=== PATIENT | male | born 1945 | race African-American/Black ===

== ENCOUNTER 2018-06-15 10:39 | Emergency (ER) | payer MEDICARE ==
[2018-06-15 11:21] LABS: Hemoglobin 16.3 g/dL (14.0-18.0); Mean Corpuscular HGB CONC 33.6 g/dL (32.0-36.0); Mean Corpuscular Hemoglobin 32.1 pg (27.0-31.0); Mean Corpuscular Volume 95.7 fL (78.0-98.0); Mean Platelet Volume 7.6 fL (7.4-10.4); Platelet Count 189 thou/uL (130-400); RBC Distribution Width 11.9 % (11.5-14.5); Red Blood Cell (RBC) Count 5.06 mill/uL (4.70-6.10); White Blood Cell (WBC) Count 6.2 thou/uL (4.8-10.8)
[2018-06-15 11:39] LABS: Band 14 % (5-11); Eosinophils 7 % (0-10); Lymphocytes 30 % (21-51); MDiff Complete? YES; Metamyelocyte 1 % (0-0); Monocytes 13 % (0-10); Neutrophil 28 % (42-75); Reactive Lymphocytes 7 % (0-10)
[2018-06-15 11:44] LABS: ALT (SGPT) 23 U/L (8-55); AST (SGOT) 25 U/L (5-34); Albumin 3.8 g/dL (3.4-4.8); Alkaline Phosphatase 83 U/L (40-150); Anion Gap 11 mmol/L (10-20); BUN (Urea Nitrogen) 13 mg/dL (8.4-25.7); Bilirubin, Total 0.6 mg/dL (0.2-1.2); CK (CPK) 208 U/L (30-200); Calc. Creatinine Clearance 0 mL/min (70-130); Calcium 9.6 mg/dL (7.8-10.44); Carbon Dioxide 27 mmol/L (23-31); Chloride 104 mmol/L (98-107); Estimated GFR-MDRD Greater than 90; Globulin 3.9 g/dL (2.4-3.5); Glucose 144 mg/dL (83-110); Lipase 36 U/L (8-78); Potassium 4.2 mmol/L (3.5-5.1); Protein, Total 7.7 g/dL (5.8-8.1); Sodium 138 mmol/L (136-145)
--- NOTE | 2018-06-15 12:09 | RAD ---
PORTABLE CHEST: INDICATION: Chest pain. COMPARISON: 09/16/2016. FINDINGS: There is evidence of emphysematous change in the right upper lobe, stable in appearance. No infiltra te or vascular congestion. Heart size within normal range. Postop sternotomy changes again noted. Numerous metallic foreign bodies overlie the left chest, stable in appearance. IMPRESSION: No acute process. POS: [facility]
[2018-06-15] MEDS ORDERED: predniSONE 20 MG TAB ONE (12:37)
[2018-06-15] MEDS ORDERED: Albuterol Sulfate 2.5 mg/3 ml Neb ONE ×2 (13:10→14:10)
--- NOTE | 2018-06-17 13:43 | EKG ---
Test Reason : Blood Pressure : / mmHG Vent. Rate : 070 BPM Atrial Rate : 070 BPM P-R Int : 150 ms QRS Dur : 082 ms QT Int : 412 ms P-R-T Axes : 067 -38 084 degrees QTc Int : 444 ms Normal sinus rhythm Left axis deviation Abnormal ECG Confirmed by SURI SHEA ([id number]), publication editor BRYAN SNEED ([id number]) on 06/17/2018 1:42:57 PM Referred By: Confirmed By:SURI SHEA
== END 2018-06-15 14:57 | disposition home or self-care (01) ==
LOC: ERS 10:39
DX: J44.1 Chronic obstructive pulmonary disease with (acute) exacerbation (principal); E78.5 Hyperlipidemia, unspecified; I10 Essential (primary) hypertension; F17.220 Nicotine dependence, chewing tobacco, uncomplicated; Z79.82 Long term (current) use of aspirin; Z79.899 Other long term (current) drug therapy
CPT/HCPCS: 36415; 71045; 80053; 82550; 83690; 83880; 85025; 93005; 94640; 94760; J7506; J7611; J7620

== ENCOUNTER 2018-08-08 15:57 | Inpatient (IN) | payer MEDICARE ==
[2018-08-08] MEDS ORDERED: Ondansetron PF 4 MG/2 ML Vial IVP PRN (18:36)
[2018-08-08] MEDS ORDERED: Ondansetron ODT 4 MG TAB PO PRN (18:36)
[2018-08-08 19:12] VITALS: BMI 29.2
--- NOTE | 2018-08-08 20:02 | HP ---
REASON FOR ADMISSION: COPD exacerbation with hypoxia. HISTORY OF PRESENT ILLNESS AND REVIEW OF SYSTEMS: Mr. Beltre is a very pleasant 73-year-old man with a history of COPD, coronary artery disease, and CHF, who has undergone multiple surgeries including a quadruple bypass, followed by stent placement and more recently an aortic valve replacement. The patient states he has mild shortness of breath at baseline with a chronic cough; however, states he has been significantly worse compared to his baseline since yesterday morning. He states he felt perfectly fine on Tuesday and was enjoying watching the game with his family. He woke up on Tuesday with difficulty breathing and has carried on with persistent coughing fits, unable to produce any sputum despite feeling chest congestion. The patient states his grandchildren were sick recently with cold type symptoms and his became sick as well. He denies having any fevers, chest pain, or palpitations. He mainly complains of difficulty catching his breath especially when having coughing fits and inability to clear his chest of sputum. The patient was seen in [place], where he was given steroids as well as 3 nebulizer treatments with minimal improvement. He was noted to be hypoxic with saturations of 80% on room air. Since arriving to the ED here, the patient states he has had minimal improvement. His saturations were initially 94% on 3 L and improved to 99% on room air, following additional DuoNebs. He is being admitted for further management. At present, the patient denies having any chest pain or palpitations. Denies any headaches or dizziness. Has not noted any hemoptysis. Denies having any fevers, chills, or sweats. Denies any abdominal pain or cramping. No urinary symptoms. Reports no recent weight loss. Has had normal appetite recently without any changes in his bowels. Denies any urinary symptoms. All other review of systems are negative. Of note, the patient does require CPAP at night. He does not normally use oxygen at home. ALLERGIES: NO KNOWN DRUG ALLERGIES. HOME MEDICATIONS: 1. Pantoprazole 40 mg daily. 2. Loratadine 10 mg p.r.n. 3. Metoprolol 100 mg b.i.d. 4. Aspirin 81 mg p.o. daily. 5. Isosorbide mononitrate 90 mg p.o. daily. 6. Niacin 500 mg p.o. daily. 7. Lisinopril 5 mg p.o. daily. 8. Gabapentin 200 mg p.o. t.i.d. 9. Fluticasone 1 spray in both nares. 10. Atorvastatin 80 mg p.o. at bedtime. 11. Vitamin B12 of 1000 mcg p.o. daily. 12. Symbicort. 13. Prednisone 20 mg p.o. daily. 14. Z-Chuy p.r.n. PHYSICAL EXAMINATION: GENERAL: The patient appears well developed, well nourished, and comfortable; however, with apparent shortness of breath once coughing fits ensue. He is able to recover quickly. Able to speak in full sentences. VITAL SIGNS: Temperature 99, pulse 85, respirations 20, blood pressure 140/70, and O2 saturation 99% on room air. HEENT: Normocephalic and atraumatic. Pupils are equal, round, and reactive to light. Scleral without icterus. Oropharynx is clear. NECK: Supple. No lymphadenopathy. LUNGS: Notable for diffuse expiratory wheezing, significantly worse on the left lower lung field. CARDIAC: Regular rate and rhythm. ABDOMEN: Soft, nontender, and nondistended with bowel sounds present. EXTREMITIES: No clubbing, cyanosis, or edema. NEUROLOGIC: Alert and oriented x3. SKIN: Without rash or jaundice. LABORATORY DATA: White blood count 5.6, hemoglobin 15.3, hematocrit 48.9, and platelets 171. Sodium 140, potassium 4.1, chloride 104, BUN 8, creatinine 0.78, eGFR greater than 90, glucose 94, calcium 9.7, total bilirubin 0.5, AST 19, ALT 16, and alkaline phosphatase 71. Troponin was 0.010. BNP 150.8, previously 86.5 in June 2018. IMAGING DATA: Chest x-ray, August 08, 2017, no evidence of acute cardiopulmonary disease. Normal size cardiomediastinal silhouette. PAST MEDICAL HISTORY: 1. COPD. 2. Coronary artery disease. 3. Hypertension. 4. GERD. 5. Hyperlipidemia. 6. Glaucoma. 7. Status post CABG x4. 8. Catheterization with stents x3. 9. History of aortic stenosis status post TAVR. 10. Diabetes. 11. Current smoker. 12. Sleep apnea. PAST SURGICAL HISTORY: 1. CABG x4. 2. Cardiac stents x3 due to blockage that occurred following previous CABG. 3. Aortic valve replacement. 4. Orthopedic surgery. 5. Bilateral carpal tunnel surgery. 6. Right side rotator cuff surgery. SOCIAL HISTORY: The patient lives with his . He can mobilize independently at home, but for long distances outside of his home, he requires a walker. He continues smoking half a pack per day since age 15. IMPRESSION AND PLAN: Mr. Beltre is a very pleasant 73-year-old man, admitted for management of the following conditions. 1. Hypoxia. Improved to 99% on room air following additional nebulizer treatments and given prednisone prior to transfer from [place]. Continue to monitor O2 saturations. Chest x-ray unremarkable. 2. Likely chronic obstructive pulmonary disease exacerbation. The patient states he was exposed to unwell family members, who recently caught a cold. Likely to be a viral exacerbation as the patient denies any purulent sputum. However, he is having difficulty in bringing up phlegm. We will initiate antibiotics with doxycycline. 3. Coughing fits. We will provide symptomatic management with guaifenesin and Tessalon Perles. Sputum culture requested. 4. Hypertension. Resume home medications. 5. Diabetes. Resume home medications. Monitor glucose. Continue insulin sliding scale. 6. Diet. Diabetic/heart healthy diet. 7. Gastrointestinal prophylaxis. 8. Venous thromboembolism prophylaxis. The patient's case to be discussed with Dr. Garcia, for further recommendations. Job ID: [id number]
[2018-08-08] MEDS: Famotidine 20 MG TAB PO SCH (20:54)
[2018-08-08] MEDS: Sodium Chloride 0.9% 1,000 ML IV SCH (20:57)
[2018-08-08] MEDS: Nicotine 14 MG PATCH TD SCH (20:59)
[2018-08-08] MEDS ORDERED: cefTRIAXone\\ROCEPHIN 1 GM in Sodium Chloride 0.9% 100 ML IVPB SCH (21:00)
[2018-08-08] MEDS: Guaifenesin DM 100-10/5 ML UDCUP PO PRN (21:02)
[2018-08-08] MEDS: Azithromycin 500 MG in Sodium Chloride 0.9% 250 ML 250 ML IVPB SCH (22:32)
[2018-08-09] MEDS: Guaifenesin DM 100-10/5 ML UDCUP PO PRN (01:36)
[2018-08-09 08:15] LABS: Hemoglobin 16.1 g/dL (14.0-18.0); Mean Corpuscular HGB CONC 31.8 g/dL (32.0-36.0); Mean Corpuscular Hemoglobin 31.6 pg (27.0-31.0); Mean Corpuscular Volume 99.3 fL (78.0-98.0); Platelet Count 169 thou/uL (130-400); RBC Distribution Width 12.6 % (11.5-14.5); Red Blood Cell (RBC) Count 5.09 mill/uL (4.70-6.10); White Blood Cell (WBC) Count 7.5 thou/uL (4.8-10.8)
[2018-08-09] MEDS: Famotidine 20 MG TAB PO SCH ×2 (08:21→21:11)
[2018-08-09] MEDS: Enoxaparin Sodium 30 MG/0.3 ML SYRINGE SC SCH (08:21)
[2018-08-09 08:32] LABS: ALT (SGPT) 14 U/L (8-55); AST (SGOT) 19 U/L (5-34); Albumin 4.6 g/dL (3.4-4.8); Alkaline Phosphatase 74 U/L (40-150); Anion Gap 12 mmol/L (10-20); BUN (Urea Nitrogen) 8 mg/dL (8.4-25.7); Bilirubin, Total 0.4 mg/dL (0.2-1.2); Calc. Creatinine Clearance 129 mL/min (70-130); Calcium 10.1 mg/dL (7.8-10.44); Carbon Dioxide 25 mmol/L (23-31); Chloride 106 mmol/L (98-107); Estimated GFR-MDRD Greater than 90; Globulin 3.6 g/dL (2.4-3.5); Glucose 108 mg/dL (83-110); Potassium 4.4 mmol/L (3.5-5.1); Protein, Total 8.2 g/dL (5.8-8.1); Sodium 139 mmol/L (136-145)
[2018-08-09] MEDS ORDERED: predniSONE 20 MG TAB PO SCH (09:00)
[2018-08-09 09:31] LABS: Band 4 % (5-11); Lymphocytes 13 % (21-51); MDiff Complete? YES; Macrocytosis SLIGHT = 6-15 cells (100X) (0-5/hpf); Monocytes 14 % (0-10); Neutrophil 67 % (42-75); Platelet Morphology Comment Appears Adequate; Polychromasia SLIGHT = 2-3 cells (100X) (0-2/hpf); Reactive Lymphocytes 2 % (0-10)
--- NOTE | 2018-08-09 10:30 | PDOC.PN ---
- Subjective Encounter Start Date: 08/09/18 Encounter Start Time: 10:28 Subjective: sob slightly improved, nonproductive cough - Objective Resuscitation Status - Order Detail: 08/08/18 18:36 Resuscitation Status Routine Co-Sign Provider: Resuscitation Status: FULL: Full Resuscitation MAR Reviewed: Yes Vital Signs & Weight: Vital Signs (12 hours) Temp Pulse Resp BP BP Pulse Ox 08/09/18 08:38 95 08/09/18 07:25 98.0 F 93 16 164/87 H 95 08/09/18 04:00 98.0 F 93 20 144/71 H 92 L Weight Weight 210 lb I&O: 08/08/18 08/09/18 08/10/18 06:59 06:59 06:59 Intake Total 869 Output Total 975 Balance -106 Result Diagrams: 08/09/18 07:38 08/09/18 07:38 Additional Labs: Accuchecks 08/09/18 08/08/18 05:18 20:28 POC Glucose 109 187 H Phys Exam - Physical Examination Neck: no JVD hyperresonant, diffuse tight wheezedd Cardiovascular: RRR, no significant murmur Gastrointestinal: soft, positive bowel sounds Musculoskeletal: no edema Dx/Plan (1) COPD exacerbation Code(s): J44.1 - CHRONIC OBSTRUCTIVE PULMONARY DISEASE W (ACUTE) EXACERBATION Status: Acute (2) DM type 2 (diabetes mellitus, type 2) Status: Acute Qualifiers: Diabetes mellitus fpc insulin use: without oil heaterman use Diabetes mellitus complication status: without complication Qualified Code(s): E11.9 - Type 2 diabetes mellitus without complications (3) Aortic valve prosthesis present Code(s): Z95.2 - PRESENCE OF PROSTHETIC HEART VALVE Status: Chronic (4) Acute and chronic respiratory failure Code(s): J96.20 - ACUTE AND CHR RESP FAILURE, UNSP W HYPOXIA OR HYPERCAPNIA Status: Acute Qualifiers: Respiratory failure complication: hypoxia Qualified Code(s): J96.21 - Acute and chronic respiratory failure with hypoxia (5) CAD (coronary artery disease) Code(s): I25.10 - ATHSCL HEART DISEASE OF [place] CORONARY ARTERY W/O ANG PCTRS Status: Chronic Qualifiers: Coronary Disease-Associated Artery/Lesion type: [place] artery [place] vs. transplanted heart: [place] heart Associated angina: without angina Qualified Code(s): I25.10 - Atherosclerotic heart disease of [place] coronary artery without angina pectoris (6) Hypertension Code(s): I10 - ESSENTIAL (PRIMARY) HYPERTENSION Status: Chronic Qualifiers: Hypertension type: essential hypertension Qualified Code(s): I10 - Essential (primary) hypertension - Plan cont O2, nebs, LABA -: DC po pred, start slo-medrol q 6h -: selected home meds * .
[2018-08-09] MEDS: methylPREDNISolone Sod Succ 40 MG VIAL IVP SCH ×3 (13:17→22:43)
[2018-08-09] MEDS: Sodium Chloride 0.9% 1,000 ML IV SCH (17:26)
[2018-08-09] MEDS: Mometasone/Formoterol 120 PUFF INHALER INH SCH (18:18)
[2018-08-09] MEDS: Azithromycin 500 MG in Sodium Chloride 0.9% 250 ML 250 ML IVPB SCH (21:09)
[2018-08-09] MEDS: Nicotine 14 MG PATCH TD SCH (21:11)
[2018-08-09] MEDS: Metoprolol Tartrate 50 MG TAB PO SCH (21:11)
[2018-08-10] MEDS: Sodium Chloride 0.9% 1,000 ML IV SCH ×2 (05:18→17:20)
[2018-08-10] MEDS: methylPREDNISolone Sod Succ 40 MG VIAL IVP SCH ×3 (05:18→17:20)
[2018-08-10] MEDS: Mometasone/Formoterol 120 PUFF INHALER INH SCH ×2 (06:39→19:48)
[2018-08-10] MEDS: Famotidine 20 MG TAB PO SCH ×2 (08:45→20:28)
[2018-08-10] MEDS: Lisinopril 5 MG TAB PO SCH (08:47)
[2018-08-10] MEDS: Enoxaparin Sodium 30 MG/0.3 ML SYRINGE SC SCH (08:48)
[2018-08-10] MEDS: Aspirin 81 mg Enteric Coated Tablet PO SCH (08:48)
[2018-08-10] MEDS: Atorvastatin Calcium 40 MG TAB PO SCH (08:48)
[2018-08-10] MEDS: Metoprolol Tartrate 50 MG TAB PO SCH ×2 (08:48→20:27)
--- NOTE | 2018-08-10 10:09 | PDOC.PN ---
- Subjective Encounter Start Date: 08/10/18 Encounter Start Time: 10:07 Subjective: sob improved, mild prod cough - Objective Resuscitation Status - Order Detail: 08/08/18 18:36 Resuscitation Status Routine Co-Sign Provider: Resuscitation Status: FULL: Full Resuscitation MAR Reviewed: Yes Vital Signs & Weight: Vital Signs (12 hours) Temp Pulse Resp BP BP BP Pulse Ox 08/10/18 08:51 93 L 08/10/18 08:47 102 H 117/67 08/10/18 08:00 98.1 F 102 H 22 H 117/67 93 L 08/10/18 06:41 98 08/10/18 06:40 78 20 98 08/10/18 06:39 78 20 98 08/10/18 05:44 97.9 F 73 20 116/67 93 L 08/10/18 00:00 97.3 F L 70 20 121/69 97 Weight Weight 210 lb I&O: 08/09/18 08/10/18 08/11/18 06:59 06:59 06:59 Intake Total 869 2360 Output Total 975 1770 Balance -106 590 Result Diagrams: 08/09/18 07:38 08/09/18 07:38 Additional Labs: Accuchecks 08/10/18 08/09/18 08/09/18 05:47 19:59 16:24 POC Glucose 149 H 230 H 154 H 08/09/18 12:24 POC Glucose 118 H Phys Exam - Physical Examination Neck: no JVD hyperresonant, coarse BS Cardiovascular: RRR, no significant murmur Gastrointestinal: soft, positive bowel sounds Musculoskeletal: no edema Dx/Plan (1) COPD exacerbation Code(s): J44.1 - CHRONIC OBSTRUCTIVE PULMONARY DISEASE W (ACUTE) EXACERBATION Status: Acute (2) DM type 2 (diabetes mellitus, type 2) Status: Acute Qualifiers: Diabetes mellitus adjunct faculty for medical 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 insulin use: without assisted use Diabetes mellitus complication status: without complication Qualified Code(s): E11.9 - Type 2 diabetes mellitus without complications (3) Aortic valve prosthesis present Code(s): Z95.2 - PRESENCE OF PROSTHETIC HEART VALVE Status: Chronic (4) Acute and chronic respiratory failure Code(s): J96.20 - ACUTE AND CHR RESP FAILURE, UNSP W HYPOXIA OR HYPERCAPNIA Status: Acute Qualifiers: Respiratory failure complication: hypoxia Qualified Code(s): J96.21 - Acute and chronic respiratory failure with hypoxia (5) CAD (coronary artery disease) Code(s): I25.10 - ATHSCL HEART DISEASE OF [place] CORONARY ARTERY W/O ANG PCTRS Status: Chronic Qualifiers: Coronary Disease-Associated Artery/Lesion type: [place] artery [place] vs. transplanted heart: [place] heart Associated angina: without angina Qualified Code(s): I25.10 - Atherosclerotic heart disease of [place] coronary artery without angina pectoris (6) Hypertension Code(s): I10 - ESSENTIAL (PRIMARY) HYPERTENSION Status: Chronic Qualifiers: Hypertension type: essential hypertension Qualified Code(s): I10 - Essential (primary) hypertension - Plan improving. cont agressive [place] with iv steroids, nebs, antibx LABA * .
[2018-08-10] MEDS: Senokot S 8.6-50 MG TAB PO PRN (17:28)
[2018-08-10] MEDS: Nicotine 14 MG PATCH TD SCH (20:27)
[2018-08-10] MEDS ORDERED: Azithromycin 250 MG TAB PO SCH (22:00)
[2018-08-11] MEDS: methylPREDNISolone Sod Succ 40 MG VIAL IVP SCH ×4 (00:40→17:32)
[2018-08-11] MEDS: Sodium Chloride 0.9% 1,000 ML IV SCH (05:24)
[2018-08-11] MEDS: Mometasone/Formoterol 120 PUFF INHALER INH SCH ×2 (07:25→19:40)
[2018-08-11] MEDS: Famotidine 20 MG TAB PO SCH ×2 (08:25→20:36)
[2018-08-11] MEDS: Metoprolol Tartrate 50 MG TAB PO SCH ×2 (08:25→20:36)
[2018-08-11] MEDS: Aspirin 81 mg Enteric Coated Tablet PO SCH (08:25)
[2018-08-11] MEDS: Atorvastatin Calcium 40 MG TAB PO SCH (08:25)
[2018-08-11] MEDS: Lisinopril 5 MG TAB PO SCH (08:25)
[2018-08-11] MEDS: Enoxaparin Sodium 30 MG/0.3 ML SYRINGE SC SCH (08:26)
--- NOTE | 2018-08-11 11:43 | PDOC.PN ---
- Subjective Encounter Start Date: 08/11/18 Encounter Start Time: 11:41 Subjective: slow improvement in cough/sob - Objective Resuscitation Status - Order Detail: 08/08/18 18:36 Resuscitation Status Routine Co-Sign Provider: Resuscitation Status: FULL: Full Resuscitation MAR Reviewed: Yes Vital Signs & Weight: Vital Signs (12 hours) Temp Pulse Resp BP BP Pulse Ox 08/11/18 08:25 79 122/73 08/11/18 08:00 90 L 08/11/18 07:45 97.7 F 87 18 122/73 90 L Weight Weight 210 lb I&O: 08/10/18 08/11/18 08/12/18 06:59 06:59 06:59 Intake Total 2360 2700 Output Total 1770 2320 Balance 590 380 Result Diagrams: 08/09/18 07:38 08/09/18 07:38 Additional Labs: Accuchecks 08/11/18 08/10/18 08/10/18 05:49 21:17 16:49 POC Glucose 129 H 144 H 126 H Phys Exam - Physical Examination Neck: no JVD hyperresnant, diffuse wheezes Cardiovascular: RRR, no significant murmur Gastrointestinal: soft, non-tender, positive bowel sounds Musculoskeletal: no edema Dx/Plan (1) COPD exacerbation Code(s): J44.1 - CHRONIC OBSTRUCTIVE PULMONARY DISEASE W (ACUTE) EXACERBATION Status: Acute (2) DM type 2 (diabetes mellitus, type 2) Status: Acute Qualifiers: Diabetes mellitus intermediate school 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 insulin use: without custodial use Diabetes mellitus complication status: without complication Qualified Code(s): E11.9 - Type 2 diabetes mellitus without complications (3) Aortic valve prosthesis present Code(s): Z95.2 - PRESENCE OF PROSTHETIC HEART VALVE Status: Chronic (4) Acute and chronic respiratory failure Code(s): J96.20 - ACUTE AND CHR RESP FAILURE, UNSP W HYPOXIA OR HYPERCAPNIA Status: Acute Qualifiers: Respiratory failure complication: hypoxia Qualified Code(s): J96.21 - Acute and chronic respiratory failure with hypoxia (5) CAD (coronary artery disease) Code(s): I25.10 - ATHSCL HEART DISEASE OF [place] CORONARY ARTERY W/O ANG PCTRS Status: Chronic Qualifiers: Coronary Disease-Associated Artery/Lesion type: [place] artery [place] vs. transplanted heart: [place] heart Associated angina: without angina Qualified Code(s): I25.10 - Atherosclerotic heart disease of [place] coronary artery without angina pectoris (6) Hypertension Code(s): I10 - ESSENTIAL (PRIMARY) HYPERTENSION Status: Chronic Qualifiers: Hypertension type: essential hypertension Qualified Code(s): I10 - Essential (primary) hypertension - Plan cont aggressive nebs, steroids, LABA -: sputum C&S gm neg rods- change antibx to omnicef -: O2 to keep sats> 92 -: will need 2-3 more hosp days * .
[2018-08-11] MEDS ORDERED: Cefdinir 300 MG CAP PO SCH (12:00)
[2018-08-11] MEDS: Nicotine 14 MG PATCH TD SCH (20:35)
[2018-08-11] MEDS: Cefdinir 300 MG CAP PO SCH (20:36)
[2018-08-12] MEDS: methylPREDNISolone Sod Succ 40 MG VIAL IVP SCH ×5 (00:12→23:50)
[2018-08-12] MEDS: Sodium Chloride 0.9% 1,000 ML IV SCH ×2 (00:12→17:05)
[2018-08-12] MEDS: Mometasone/Formoterol 120 PUFF INHALER INH SCH ×2 (06:36→19:32)
[2018-08-12] MEDS: Enoxaparin Sodium 30 MG/0.3 ML SYRINGE SC SCH (07:58)
[2018-08-12] MEDS: Famotidine 20 MG TAB PO SCH ×2 (07:58→20:28)
[2018-08-12] MEDS: Atorvastatin Calcium 40 MG TAB PO SCH (07:58)
[2018-08-12] MEDS: Cefdinir 300 MG CAP PO SCH ×2 (07:58→20:29)
[2018-08-12] MEDS: Lisinopril 5 MG TAB PO SCH (07:58)
[2018-08-12] MEDS: Aspirin 81 mg Enteric Coated Tablet PO SCH (07:58)
[2018-08-12] MEDS: Metoprolol Tartrate 50 MG TAB PO SCH ×2 (07:59→20:28)
[2018-08-12] MEDS ORDERED: HumaLOG 300 UNITS/3 ML VIAL SC PRN (12:24)
[2018-08-12] MEDS: HumaLOG 300 UNITS/3 ML VIAL SC PRN (12:35)
--- NOTE | 2018-08-12 15:44 | PDOC.PN ---
- Subjective Encounter Start Date: 08/12/18 Encounter Start Time: 10:20 Pt seen for followup re: COPD exacerbation. c/o cough, SOBOE. - Objective Resuscitation Status - Order Detail: 08/08/18 18:36 Resuscitation Status Routine Co-Sign Provider: Resuscitation Status: FULL: Full Resuscitation MAR Reviewed: Yes Vital Signs & Weight: Vital Signs (12 hours) Temp Pulse Resp BP Pulse Ox 08/12/18 12:45 98.0 F 86 16 136/63 92 L 08/12/18 11:42 97 08/12/18 11:39 87 20 97 08/12/18 08:35 97.4 F L 87 18 142/83 H 93 L 08/12/18 08:11 93 L 08/12/18 08:02 98 F 87 18 142/83 H 93 L 08/12/18 06:39 96 08/12/18 06:36 87 16 93 L 08/12/18 05:31 84 20 Weight Weight 210 lb I&O: 08/11/18 08/12/18 08/13/18 06:59 06:59 06:59 Intake Total 2700 1903 Output Total 2320 1175 Balance 380 728 Result Diagrams: 08/09/18 07:38 08/09/18 07:38 Additional Labs: Accuchecks 08/12/18 08/11/18 08/11/18 06:46 20:43 16:46 POC Glucose 126 H 183 H 151 H Labs reviewed by me Phys Exam - Physical Examination Constitutional: NAD HEENT: moist MMs Neck: supple Respiratory: wheezing present Cardiovascular: RRR Gastrointestinal: soft Neurological: moves all 4 limbs Psychiatric: normal affect Dx/Plan (1) COPD exacerbation Code(s): J44.1 - CHRONIC OBSTRUCTIVE PULMONARY DISEASE W (ACUTE) EXACERBATION Status: Acute Comment: Improving, continue oxygen, steroids and bronchodilators (2) DM type 2 (diabetes mellitus, type 2) Status: Chronic Qualifiers: 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 transplanted heart: [place] heart Associated angina: without angina Qualified Code(s): I25.10 - Atherosclerotic heart disease of [place] coronary artery without angina pectoris Comment: stable (4) Hypertension Code(s): I10 - ESSENTIAL (PRIMARY) HYPERTENSION Status: Chronic Qualifiers: Hypertension type: essential hypertension Qualified Code(s): I10 - Essential (primary) hypertension Comment: controlled - Plan * . Review of Systems - Review of Systems Constitutional: negative: fever, chills, sweats, weakness, malaise Respiratory: Cough, Dry, SOB with Excertion. negative: Shortness of Breath, Hemoptysis, Pleuritic Pain, Sputum, Wheezing Cardiovascular: negative: chest pain, palpitations, orthopnea, paroxysmal nocturnal dyspnea, edema, light headedness - Medications/Allergies Allergies/Adverse Reactions: Allergies Allergy/AdvReac Type Severity Reaction Status Date / Time No Known Drug Allergies Allergy Verified 08/08/18 19:16 Medications: Current Medications Albuterol/Ipratropium (Duoneb) 3 ml NEB [id number] PRN PRN Reason: Wheezing Last Admin: 08/12/18 11:39 Dose: 3 ml Aspirin (Ecotrin) 81 mg PO DAILY [facility] Last Admin: 08/12/18 07:58 Dose: 81 mg Atorvastatin Calcium (Lipitor) 40 mg PO DAILY [facility] Last Admin: 08/12/18 07:58 Dose: 40 mg Cefdinir (Omnicef) 300 mg PO BID [facility] Last Admin: 08/12/18 07:58 Dose: 300 mg Enoxaparin Sodium (Lovenox) 30 mg SC 0900 [facility] Last Admin: 08/12/18 07:58 Dose: 30 mg Famotidine (Pepcid) 20 mg PO BID [facility] Last Admin: 08/12/18 07:58 Dose: 20 mg Guaifenesin/Dextromethorphan (Robitussin Dm) 15 ml PO Q4H PRN PRN Reason: Cough Last Admin: 08/09/18 01:36 Dose: 15 ml Sodium Chloride (Normal Saline 0.9%) 1,000 mls @ 55 mls/hr IV .[id number] [facility] Last Admin: 08/12/18 00:12 Dose: 1,000 mls Insulin Human Lispro (Humalog) 0 units SC .MILD SLIDING SCALE PRN; Protocol PRN Reason: MILD SLIDING SCALE Last Admin: 08/12/18 12:35 Dose: 3 unit Insulin Human Lispro (Humalog) 0 units SC .BEDTIME SLIDING SC PRN; Protocol PRN Reason: BEDTIME SLIDING SCALE Isosorbide Mononitrate (Imdur Er) 90 mg PO DAILY [facility] Last Admin: 08/12/18 07:58 Dose: 90 mg Lisinopril (Zestril) 5 mg PO DAILY [facility] Last Admin: 08/12/18 07:58 Dose: 5 mg Methylprednisolone Sodium Succinate (Solu-Medrol) 40 mg IVP Q6HR [facility] Last Admin: 08/12/18 11:02 Dose: 40 mg Metoprolol Tartrate (Lopressor) 50 mg PO BID [facility] Last Admin: 08/12/18 07:59 Dose: 50 mg Mometasone Furoate/Formoterol Fumar (Dulera 200 Mcg/5 Mcg Inhaler) 2 puff INH BID-RT [facility] Last Admin: 08/12/18 06:36 Dose: 2 puff Nicotine (Nicoderm Patch) 14 mg TD Q24HR [facility] Last Admin: 08/11/18 20:35 Dose: 14 mg Ondansetron HCl (Zofran Odt) 4 mg PO Q6H PRN PRN Reason: Nausea/Vomiting Ondansetron HCl (Zofran) 4 mg IVP Q6H PRN PRN Reason: Nausea/Vomiting Senna/Docusate Sodium (Senokot S) 2 tab PO BID PRN PRN Reason: Constipation Last Admin: 08/10/18 17:28 Dose: 2 tab Sodium Chloride (Flush - Normal Saline) 10 ml IVF Q12HR PRN PRN Reason: Saline Flush Sodium Chloride (Flush - Normal Saline) 10 ml IVF PRN PRN PRN Reason: Saline Flush
[2018-08-12] MEDS: Nicotine 14 MG PATCH TD SCH (18:21)
[2018-08-13] MEDS: methylPREDNISolone Sod Succ 40 MG VIAL IVP SCH ×3 (05:30→17:19)
[2018-08-13] MEDS: Mometasone/Formoterol 120 PUFF INHALER INH SCH ×2 (07:24→19:37)
[2018-08-13] MEDS: Metoprolol Tartrate 50 MG TAB PO SCH ×2 (08:16→20:31)
[2018-08-13] MEDS: Enoxaparin Sodium 30 MG/0.3 ML SYRINGE SC SCH (08:16)
[2018-08-13] MEDS: Atorvastatin Calcium 40 MG TAB PO SCH (08:16)
[2018-08-13] MEDS: Cefdinir 300 MG CAP PO SCH ×2 (08:17→20:31)
[2018-08-13] MEDS: Lisinopril 5 MG TAB PO SCH (08:17)
[2018-08-13] MEDS: Aspirin 81 mg Enteric Coated Tablet PO SCH (08:17)
[2018-08-13] MEDS: Famotidine 20 MG TAB PO SCH ×2 (08:17→20:31)
[2018-08-13] MEDS: Sodium Chloride 0.9% 1,000 ML IV SCH ×2 (08:18→09:34)
[2018-08-13 10:06] LABS: #Lymphocytes 0.8 thou/uL (1.20-3.40); #Monocytes 0.5 thou/uL (0.11-0.59); #Neutrophils 7.7 thou/uL (1.40-6.50); %Basophils 0.2 % (0.0-1.0); %Eosinophils 0.1 % (0.0-10.0); %Lymphocytes 8.4 % (21.0-51.0); %Monocytes 5.2 % (0.0-10.0); Hemoglobin 15.4 g/dL (14.0-18.0); Mean Corpuscular HGB CONC 32.3 g/dL (32.0-36.0); Mean Corpuscular Hemoglobin 32.1 pg (27.0-31.0); Mean Corpuscular Volume 99.4 fL (78.0-98.0); Mean Platelet Volume 7.5 fL (7.4-10.4); Platelet Count 173 thou/uL (130-400); RBC Distribution Width 12.2 % (11.5-14.5); Red Blood Cell (RBC) Count 4.78 mill/uL (4.70-6.10); White Blood Cell (WBC) Count 8.9 thou/uL (4.8-10.8)
[2018-08-13] MEDS ORDERED: guaiFENesin ER 600 MG TAB PO SCH (10:15)
[2018-08-13 10:26] LABS: Anion Gap 13 mmol/L (10-20); BUN (Urea Nitrogen) 13 mg/dL (8.4-25.7); Calc. Creatinine Clearance 120 mL/min (70-130); Calcium 9.5 mg/dL (7.8-10.44); Carbon Dioxide 28 mmol/L (23-31); Chloride 100 mmol/L (98-107); Estimated GFR-MDRD Greater than 90; Glucose 199 mg/dL (83-110); Sodium 137 mmol/L (136-145)
[2018-08-13] MEDS: HumaLOG 300 UNITS/3 ML VIAL SC PRN (12:33)
--- NOTE | 2018-08-13 14:47 | PDOC.PN ---
- Subjective Encounter Start Date: 08/13/18 Encounter Start Time: 10:00 Pt seen for followup re; COPD exacerbation. Reports cough, wheezing. - Objective Resuscitation Status - Order Detail: 08/08/18 18:36 Resuscitation Status Routine Co-Sign Provider: Resuscitation Status: FULL: Full Resuscitation MAR Reviewed: Yes Vital Signs & Weight: Vital Signs (12 hours) Temp Pulse Resp BP BP Pulse Ox Pulse Ox 08/13/18 13:29 98.4 F 82 20 115/69 91 L 08/13/18 13:04 89 16 97 08/13/18 11:11 87 L 08/13/18 08:17 81 118/73 08/13/18 08:15 97.8 F 81 20 118/73 99 08/13/18 08:05 98 08/13/18 07:26 83 16 93 L 08/13/18 07:24 81 16 91 L Pulse Ox 08/13/18 13:29 08/13/18 13:04 08/13/18 11:11 91 L 08/13/18 08:17 08/13/18 08:15 08/13/18 08:05 08/13/18 07:26 08/13/18 07:24 Weight Weight 210 lb I&O: 08/12/18 08/13/18 08/14/18 06:59 06:59 06:59 Intake Total 1903 1183 Output Total 1175 1200 Balance 728 -17 Result Diagrams: 08/13/18 09:55 08/13/18 09:55 Additional Labs: Accuchecks 08/13/18 08/12/18 08/12/18 04:49 21:01 16:46 POC Glucose 131 H 223 H 140 H 08/12/18 12:02 POC Glucose 228 H Labs reviewed by me Phys Exam - Physical Examination Constitutional: NAD HEENT: moist MMs Neck: supple Respiratory: clear to auscultation bilateral Cardiovascular: RRR Gastrointestinal: soft Neurological: moves all 4 limbs Psychiatric: normal affect Dx/Plan (1) COPD exacerbation Code(s): J44.1 - CHRONIC OBSTRUCTIVE PULMONARY DISEASE W (ACUTE) EXACERBATION Status: Acute Comment: Improving, continue oxygen and steroids. Change bronchodilators to scheduled (+PRN) (2) DM type 2 (diabetes mellitus, type 2) Status: Chronic Qualifiers: Diabetes mellitus residential insulin use: without rn urgent care use Diabetes mellitus complication status: without complication Qualified Code(s): E11.9 - Type 2 diabetes mellitus without complications Comment: controlled (3) CAD (coronary artery disease) Code(s): I25.10 - ATHSCL HEART DISEASE OF [place] CORONARY ARTERY W/O ANG PCTRS Status: Chronic Qualifiers: Coronary Disease-Associated Artery/Lesion type: [place] artery [place] vs. transplanted heart: [place] heart Associated angina: without angina Qualified Code(s): I25.10 - Atherosclerotic heart disease of [place] coronary artery without angina pectoris Comment: stable (4) Hypertension Code(s): I10 - ESSENTIAL (PRIMARY) HYPERTENSION Status: Chronic Qualifiers: Hypertension type: essential hypertension Qualified Code(s): I10 - Essential (primary) hypertension Comment: stable - Plan * . Review of Systems - Review of Systems Respiratory: Cough, Dry, Wheezing. negative: Shortness of Breath, Hemoptysis, SOB with Excertion, Pleuritic Pain, Sputum Cardiovascular: negative: chest pain, palpitations, orthopnea, paroxysmal nocturnal dyspnea, edema, light headedness - Medications/Allergies Allergies/Adverse Reactions: Allergies Allergy/AdvReac Type Severity Reaction Status Date / Time No Known Drug Allergies Allergy Verified 08/08/18 19:16 Medications: Current Medications Albuterol/Ipratropium (Duoneb) 3 ml NEB [id number] [facility] Albuterol/Ipratropium (Duoneb) 3 ml NEB Q2H PRN PRN Reason: Wheezing Aspirin (Ecotrin) 81 mg PO DAILY [facility] Last Admin: 08/13/18 08:17 Dose: 81 mg Atorvastatin Calcium (Lipitor) 40 mg PO DAILY [facility] Last Admin: 08/13/18 08:16 Dose: 40 mg Cefdinir (Omnicef) 300 mg PO BID [facility] Last Admin: 08/13/18 08:17 Dose: 300 mg Enoxaparin Sodium (Lovenox) 30 mg SC 0900 [facility] Last Admin: 08/13/18 08:16 Dose: 30 mg Famotidine (Pepcid) 20 mg PO BID [facility] Last Admin: 08/13/18 08:17 Dose: 20 mg Guaifenesin (Mucinex) 600 mg PO Q12HR [facility] Guaifenesin/Dextromethorphan (Robitussin Dm) 15 ml PO Q4H PRN PRN Reason: Cough Last Admin: 08/09/18 01:36 Dose: 15 ml Insulin Human Lispro (Humalog) 0 units SC .MILD SLIDING SCALE PRN; Protocol PRN Reason: MILD SLIDING SCALE Last Admin: 08/13/18 12:33 Dose: 2 unit Insulin Human Lispro (Humalog) 0 units SC .BEDTIME SLIDING SC PRN; Protocol PRN Reason: BEDTIME SLIDING SCALE Isosorbide Mononitrate (Imdur Er) 90 mg PO DAILY [facility] Last Admin: 08/13/18 08:16 Dose: 90 mg Lisinopril (Zestril) 5 mg PO DAILY [facility] Last Admin: 08/13/18 08:17 Dose: 5 mg Methylprednisolone Sodium Succinate (Solu-Medrol) 40 mg IVP Q6HR [facility] Last Admin: 08/13/18 12:31 Dose: 40 mg Metoprolol Tartrate (Lopressor) 50 mg PO BID [facility] Last Admin: 08/13/18 08:16 Dose: 50 mg Mometasone Furoate/Formoterol Fumar (Dulera 200 Mcg/5 Mcg Inhaler) 2 puff INH BID-RT [facility] Last Admin: 08/13/18 07:24 Dose: 2 puff Nicotine (Nicoderm Patch) 14 mg TD Q24HR [facility] Last Admin: 08/12/18 18:21 Dose: 14 mg Ondansetron HCl (Zofran Odt) 4 mg PO Q6H PRN PRN Reason: Nausea/Vomiting Ondansetron HCl (Zofran) 4 mg IVP Q6H PRN PRN Reason: Nausea/Vomiting Senna/Docusate Sodium (Senokot S) 2 tab PO BID PRN PRN Reason: Constipation Last Admin: 08/10/18 17:28 Dose: 2 tab Sodium Chloride (Flush - Normal Saline) 10 ml IVF Q12HR PRN PRN Reason: Saline Flush Sodium Chloride (Flush - Normal Saline) 10 ml IVF PRN PRN PRN Reason: Saline Flush
[2018-08-13] MEDS: guaiFENesin ER 600 MG TAB PO SCH (20:31)
[2018-08-13] MEDS: Nicotine 14 MG PATCH TD SCH (21:24)
[2018-08-14] MEDS: methylPREDNISolone Sod Succ 40 MG VIAL IVP SCH ×5 (01:57→23:56)
[2018-08-14 05:57] LABS: #Lymphocytes 1.1 thou/uL (1.20-3.40); #Neutrophils 6.5 thou/uL (1.40-6.50); %Basophils 0.1 % (0.0-1.0); %Eosinophils 0.1 % (0.0-10.0); %Lymphocytes 12.5 % (21.0-51.0); %Monocytes 11.8 % (0.0-10.0); %Neutrophils 75.5 % (42.0-75.0); Hemoglobin 15.2 g/dL (14.0-18.0); Mean Corpuscular HGB CONC 31.1 g/dL (32.0-36.0); Mean Corpuscular Hemoglobin 30.7 pg (27.0-31.0); Mean Corpuscular Volume 98.8 fL (78.0-98.0); Platelet Count 169 thou/uL (130-400); RBC Distribution Width 12.3 % (11.5-14.5); Red Blood Cell (RBC) Count 4.94 mill/uL (4.70-6.10); White Blood Cell (WBC) Count 8.6 thou/uL (4.8-10.8)
[2018-08-14 06:27] LABS: Anion Gap 12 mmol/L (10-20); BUN (Urea Nitrogen) 14 mg/dL (8.4-25.7); Calc. Creatinine Clearance 125 mL/min (70-130); Calcium 9.7 mg/dL (7.8-10.44); Carbon Dioxide 30 mmol/L (23-31); Chloride 101 mmol/L (98-107); Estimated GFR-MDRD Greater than 90; Glucose 114 mg/dL (83-110); Potassium 4.6 mmol/L (3.5-5.1); Sodium 138 mmol/L (136-145)
[2018-08-14] MEDS: Mometasone/Formoterol 120 PUFF INHALER INH SCH ×2 (06:41→18:24)
[2018-08-14] MEDS: guaiFENesin ER 600 MG TAB PO SCH ×2 (08:21→20:01)
[2018-08-14] MEDS: Atorvastatin Calcium 40 MG TAB PO SCH (08:21)
[2018-08-14] MEDS: Lisinopril 5 MG TAB PO SCH (08:21)
[2018-08-14] MEDS: Aspirin 81 mg Enteric Coated Tablet PO SCH (08:21)
[2018-08-14] MEDS: Metoprolol Tartrate 50 MG TAB PO SCH ×3 (08:22→23:56)
[2018-08-14] MEDS: Famotidine 20 MG TAB PO SCH ×2 (08:22→20:01)
[2018-08-14] MEDS: Cefdinir 300 MG CAP PO SCH ×2 (08:22→20:01)
[2018-08-14] MEDS: Enoxaparin Sodium 30 MG/0.3 ML SYRINGE SC SCH (08:22)
[2018-08-14] MEDS ORDERED: guaiFENesin ER 600 MG TAB PO SCH (11:00)
--- NOTE | 2018-08-14 19:02 | PDOC.PN ---
- Subjective Encounter Start Date: 08/14/18 Encounter Start Time: 09:00 Pt seen for followup re: COPD exacerbation. Reports cough, not bringing up much sputum. - Objective Resuscitation Status - Order Detail: 08/08/18 18:36 Resuscitation Status Routine Co-Sign Provider: Resuscitation Status: FULL: Full Resuscitation Vital Signs & Weight: Vital Signs (12 hours) Temp Pulse Resp BP BP Pulse Ox 08/14/18 18:13 102 H 16 93 L 08/14/18 16:08 97.9 F 102 H 18 96/55 L 91 L 08/14/18 11:27 97.6 F 77 16 122/72 94 L 08/14/18 10:54 91 18 95 08/14/18 08:21 92 117/75 08/14/18 08:00 92 L 08/14/18 07:46 96.9 F L 92 18 117/75 92 L Weight Weight 210 lb I&O: 08/13/18 08/14/18 08/15/18 06:59 06:59 06:59 Intake Total 1183 1652 1230 Output Total 2100 2460 700 Balance -917 -808 530 Result Diagrams: 08/14/18 05:11 08/14/18 05:11 Additional Labs: Accuchecks 08/14/18 08/14/18 08/14/18 16:15 12:11 05:30 POC Glucose 148 H 107 108 08/13/18 20:41 POC Glucose 246 H Phys Exam - Physical Examination Constitutional: NAD HEENT: moist MMs Neck: supple Respiratory: wheezing present Cardiovascular: RRR Gastrointestinal: soft Neurological: moves all 4 limbs Psychiatric: normal affect Dx/Plan (1) COPD exacerbation Code(s): J44.1 - CHRONIC OBSTRUCTIVE PULMONARY DISEASE W (ACUTE) EXACERBATION Status: Acute Comment: Improving, will continue oxygen, steroids and bronchodilators to scheduled. Increase Mucinex to 1200 mg BID. (2) DM type 2 (diabetes mellitus, type 2) Status: Chronic Qualifiers: Diabetes mellitus shelter insulin use: without shelter use Diabetes mellitus complication status: without complication Qualified Code(s): E11.9 - Type 2 diabetes mellitus without complications Comment: controlled, continue insulin sliding scale. (3) CAD (coronary artery disease) Code(s): I25.10 - ATHSCL HEART DISEASE OF [place] CORONARY ARTERY W/O ANG PCTRS Status: Chronic Qualifiers: Coronary Disease-Associated Artery/Lesion type: [place] artery [place] vs. transplanted heart: [place] heart Associated angina: without angina Qualified Code(s): I25.10 - Atherosclerotic heart disease of [place] coronary artery without angina pectoris Comment: stable (4) Hypertension Code(s): I10 - ESSENTIAL (PRIMARY) HYPERTENSION Status: Chronic Qualifiers: Hypertension type: essential hypertension Qualified Code(s): I10 - Essential (primary) hypertension Comment: controlled - Plan * . Review of Systems - Review of Systems Respiratory: Cough, Dry, SOB with Excertion, Wheezing. negative: Shortness of Breath, Hemoptysis, Pleuritic Pain, Sputum Cardiovascular: negative: chest pain, palpitations, orthopnea, paroxysmal nocturnal dyspnea, edema, light headedness - Medications/Allergies Allergies/Adverse Reactions: Allergies Allergy/AdvReac Type Severity Reaction Status Date / Time No Known Drug Allergies Allergy Verified 08/08/18 19:16 Medications: Current Medications Albuterol/Ipratropium (Duoneb) 3 ml NEB [id number] [facility] Last Admin: 08/14/18 18:13 Dose: 3 ml Albuterol/Ipratropium (Duoneb) 3 ml NEB Q2H PRN PRN Reason: Wheezing Aspirin (Ecotrin) 81 mg PO DAILY [facility] Last Admin: 08/14/18 08:21 Dose: 81 mg Atorvastatin Calcium (Lipitor) 40 mg PO DAILY [facility] Last Admin: 08/14/18 08:21 Dose: 40 mg Cefdinir (Omnicef) 300 mg PO BID [facility] Last Admin: 08/14/18 08:22 Dose: 300 mg Enoxaparin Sodium (Lovenox) 30 mg SC 0900 [facility] Last Admin: 08/14/18 08:22 Dose: 30 mg Famotidine (Pepcid) 20 mg PO BID [facility] Last Admin: 08/14/18 08:22 Dose: 20 mg Guaifenesin (Mucinex) 1,200 mg PO Q12HR [facility] Guaifenesin/Dextromethorphan (Robitussin Dm) 15 ml PO Q4H PRN PRN Reason: Cough Last Admin: 08/09/18 01:36 Dose: 15 ml Insulin Human Lispro (Humalog) 0 units SC .MILD SLIDING SCALE PRN; Protocol PRN Reason: MILD SLIDING SCALE Last Admin: 02/10/19 12:33 Dose: 2 unit Insulin Human Lispro (Humalog) 0 units SC .BEDTIME SLIDING SC PRN; Protocol PRN Reason: BEDTIME SLIDING SCALE Isosorbide Mononitrate (Imdur Er) 90 mg PO DAILY [facility] Last Admin: 08/14/18 08:21 Dose: 90 mg Lisinopril (Zestril) 5 mg PO DAILY [facility] Last Admin: 08/14/18 08:21 Dose: 5 mg Methylprednisolone Sodium Succinate (Solu-Medrol) 40 mg IVP Q6HR [facility] Last Admin: 08/14/18 17:26 Dose: 40 mg Metoprolol Tartrate (Lopressor) 50 mg PO BID [facility] Last Admin: 08/14/18 08:22 Dose: 50 mg Mometasone Furoate/Formoterol Fumar (Dulera 200 Mcg/5 Mcg Inhaler) 2 puff INH BID-RT [facility] Last Admin: 08/14/18 18:24 Dose: 2 puff Nicotine (Nicoderm Patch) 14 mg TD Q24HR [facility] Last Admin: 08/13/18 21:24 Dose: 14 mg Ondansetron HCl (Zofran Odt) 4 mg PO Q6H PRN PRN Reason: Nausea/Vomiting Ondansetron HCl (Zofran) 4 mg IVP Q6H PRN PRN Reason: Nausea/Vomiting Senna/Docusate Sodium (Senokot S) 2 tab PO BID PRN PRN Reason: Constipation Last Admin: 08/10/18 17:28 Dose: 2 tab Sodium Chloride (Flush - Normal Saline) 10 ml IVF Q12HR PRN PRN Reason: Saline Flush Sodium Chloride (Flush - Normal Saline) 10 ml IVF PRN PRN PRN Reason: Saline Flush Last Admin: 08/13/18 17:19 Dose: 10 ml
[2018-08-14] MEDS: Nicotine 14 MG PATCH TD SCH (20:00)
[2018-08-15] MEDS: methylPREDNISolone Sod Succ 40 MG VIAL IVP SCH ×3 (05:33→17:41)
[2018-08-15 05:43] LABS: #Lymphocytes 0.8 thou/uL (1.20-3.40); #Monocytes 0.6 thou/uL (0.11-0.59); #Neutrophils 6.8 thou/uL (1.40-6.50); %Basophils 0.3 % (0.0-1.0); %Eosinophils 0.1 % (0.0-10.0); %Lymphocytes 9.5 % (21.0-51.0); %Monocytes 7.1 % (0.0-10.0); Hemoglobin 15.3 g/dL (14.0-18.0); Mean Corpuscular HGB CONC 31.5 g/dL (32.0-36.0); Mean Corpuscular Hemoglobin 31.2 pg (27.0-31.0); Mean Corpuscular Volume 99.2 fL (78.0-98.0); Mean Platelet Volume 7.7 fL (7.4-10.4); Platelet Count 179 thou/uL (130-400); RBC Distribution Width 12.2 % (11.5-14.5); Red Blood Cell (RBC) Count 4.91 mill/uL (4.70-6.10); White Blood Cell (WBC) Count 8.2 thou/uL (4.8-10.8)
[2018-08-15 06:13] LABS: Anion Gap 10 mmol/L (10-20); BUN (Urea Nitrogen) 16 mg/dL (8.4-25.7); Calc. Creatinine Clearance 110 mL/min (70-130); Calcium 9.6 mg/dL (7.8-10.44); Carbon Dioxide 27 mmol/L (23-31); Chloride 99 mmol/L (98-107); Estimated GFR-MDRD Greater than 90; Glucose 130 mg/dL (83-110); Potassium 4.4 mmol/L (3.5-5.1); Sodium 132 mmol/L (136-145)
[2018-08-15] MEDS: Mometasone/Formoterol 120 PUFF INHALER INH SCH ×2 (07:05→19:43)
[2018-08-15] MEDS: Famotidine 20 MG TAB PO SCH ×2 (09:47→20:06)
[2018-08-15] MEDS: Aspirin 81 mg Enteric Coated Tablet PO SCH (09:47)
[2018-08-15] MEDS: guaiFENesin ER 600 MG TAB PO SCH ×2 (09:47→20:06)
[2018-08-15] MEDS: Atorvastatin Calcium 40 MG TAB PO SCH (09:48)
[2018-08-15] MEDS: Enoxaparin Sodium 30 MG/0.3 ML SYRINGE SC SCH (09:48)
[2018-08-15] MEDS: Cefdinir 300 MG CAP PO SCH ×2 (09:48→20:06)
[2018-08-15] MEDS: Metoprolol Tartrate 50 MG TAB PO SCH ×2 (09:49→20:06)
[2018-08-15] MEDS: Lisinopril 5 MG TAB PO SCH (09:49)
--- NOTE | 2018-08-15 16:24 | PDOC.PN ---
- Subjective Encounter Start Date: 08/15/18 Encounter Start Time: 10:40 Pt seen for followup re: COPD exacerbation. Feels slightly better. - Objective Resuscitation Status - Order Detail: 08/08/18 18:36 Resuscitation Status Routine Co-Sign Provider: Resuscitation Status: FULL: Full Resuscitation MAR Reviewed: Yes Vital Signs & Weight: Vital Signs (12 hours) Temp Pulse Resp BP BP Pulse Ox 08/15/18 15:29 98.0 F 94 18 105/67 91 L 08/15/18 14:20 94 20 93 L 08/15/18 10:24 91 16 94 L 08/15/18 09:49 94 106/58 L 08/15/18 08:00 97.8 F 94 18 106/68 91 L 08/15/18 07:04 100 16 94 L Weight Weight 210 lb I&O: 08/14/18 08/15/18 08/16/18 06:59 06:59 06:59 Intake Total 1652 3630 Output Total 2460 3500 Balance -808 130 Result Diagrams: 08/15/18 05:23 08/15/18 05:23 Additional Labs: Accuchecks 08/15/18 08/15/18 08/15/18 15:25 13:28 05:35 POC Glucose 158 H 163 H 123 H 08/14/18 08/14/18 20:01 16:15 POC Glucose 212 H 148 H labs reviewed by me Phys Exam - Physical Examination Constitutional: NAD HEENT: moist MMs Neck: supple Respiratory: wheezing present Cardiovascular: RRR Gastrointestinal: soft Neurological: moves all 4 limbs Psychiatric: normal affect Dx/Plan (1) COPD exacerbation Code(s): J44.1 - CHRONIC OBSTRUCTIVE PULMONARY DISEASE W (ACUTE) EXACERBATION Status: Acute Comment: Improving, continue oxygen, steroids and bronchodilators. 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 transplanted heart: [place] heart Associated angina: without angina Qualified Code(s): I25.10 - Atherosclerotic heart disease of [place] coronary artery without angina pectoris Comment: stable (4) Hypertension Code(s): I10 - ESSENTIAL (PRIMARY) HYPERTENSION Status: Chronic Qualifiers: Hypertension type: essential hypertension Qualified Code(s): I10 - Essential (primary) hypertension Comment: controlled - Plan * . Review of Systems - Review of Systems Constitutional: negative: fever, chills, sweats, weakness, malaise Respiratory: Cough, Sputum, Wheezing. negative: Dry, Shortness of Breath, Hemoptysis, SOB with Excertion, Pleuritic Pain - Medications/Allergies Allergies/Adverse Reactions: Allergies Allergy/AdvReac Type Severity Reaction Status Date / Time No Known Drug Allergies Allergy Verified 08/08/18 19:16 Medications: Current Medications Albuterol/Ipratropium (Duoneb) 3 ml NEB [id number] [facility] Last Admin: 08/15/18 14:20 Dose: 3 ml Albuterol/Ipratropium (Duoneb) 3 ml NEB Q2H PRN PRN Reason: Wheezing Aspirin (Ecotrin) 81 mg PO DAILY [facility] Last Admin: 08/15/18 09:47 Dose: 81 mg Atorvastatin Calcium (Lipitor) 40 mg PO DAILY [facility] Last Admin: 08/15/18 09:48 Dose: 40 mg Cefdinir (Omnicef) 300 mg PO BID [facility] Last Admin: 08/15/18 09:48 Dose: 300 mg Enoxaparin Sodium (Lovenox) 30 mg SC 0900 [facility] Last Admin: 08/15/18 09:48 Dose: 30 mg Famotidine (Pepcid) 20 mg PO BID [facility] Last Admin: 08/15/18 09:47 Dose: 20 mg Guaifenesin (Mucinex) 1,200 mg PO Q12HR [facility] Last Admin: 08/15/18 09:47 Dose: 1,200 mg Guaifenesin/Dextromethorphan (Robitussin Dm) 15 ml PO Q4H PRN PRN Reason: Cough Last Admin: 08/09/18 01:36 Dose: 15 ml Insulin Human Lispro (Humalog) 0 units SC .MILD SLIDING SCALE PRN; Protocol PRN Reason: MILD SLIDING SCALE Last Admin: 08/13/18 12:33 Dose: 2 unit Insulin Human Lispro (Humalog) 0 units SC .BEDTIME SLIDING SC PRN; Protocol PRN Reason: BEDTIME SLIDING SCALE Last Admin: 08/14/18 20:04 Dose: 2 unit Isosorbide Mononitrate (Imdur Er) 90 mg PO DAILY [facility] Last Admin: 08/15/18 09:47 Dose: 90 mg Lisinopril (Zestril) 5 mg PO DAILY [facility] Last Admin: 08/15/18 09:49 Dose: Not Given Methylprednisolone Sodium Succinate (Solu-Medrol) 40 mg IVP Q6HR [facility] Last Admin: 08/15/18 13:23 Dose: 40 mg Metoprolol Tartrate (Lopressor) 50 mg PO BID [facility] Last Admin: 08/15/18 09:49 Dose: Not Given Mometasone Furoate/Formoterol Fumar (Dulera 200 Mcg/5 Mcg Inhaler) 2 puff INH BID-RT [facility] Last Admin: 08/15/18 07:05 Dose: 2 puff Nicotine (Nicoderm Patch) 14 mg TD Q24HR [facility] Last Admin: 08/14/18 20:00 Dose: 14 mg Ondansetron HCl (Zofran Odt) 4 mg PO Q6H PRN PRN Reason: Nausea/Vomiting Ondansetron HCl (Zofran) 4 mg IVP Q6H PRN PRN Reason: Nausea/Vomiting Senna/Docusate Sodium (Senokot S) 2 tab PO BID PRN PRN Reason: Constipation Last Admin: 08/10/18 17:28 Dose: 2 tab Sodium Chloride (Flush - Normal Saline) 10 ml IVF Q12HR PRN PRN Reason: Saline Flush Sodium Chloride (Flush - Normal Saline) 10 ml IVF PRN PRN PRN Reason: Saline Flush Last Admin: 08/13/18 17:19 Dose: 10 ml
[2018-08-15] MEDS: Nicotine 14 MG PATCH TD SCH (20:05)
[2018-08-15] MEDS: Senokot S 8.6-50 MG TAB PO PRN (20:06)
[2018-08-16] MEDS: methylPREDNISolone Sod Succ 40 MG VIAL IVP SCH ×3 (00:03→12:45)
[2018-08-16] MEDS: Mometasone/Formoterol 120 PUFF INHALER INH SCH ×2 (06:21→18:56)
[2018-08-16 06:58] LABS: #Lymphocytes 0.7 thou/uL (1.20-3.40); #Monocytes 0.8 thou/uL (0.11-0.59); #Neutrophils 7.3 thou/uL (1.40-6.50); %Basophils 0.1 % (0.0-1.0); %Eosinophils 0.1 % (0.0-10.0); %Lymphocytes 8.3 % (21.0-51.0); %Neutrophils 82.6 % (42.0-75.0); Hemoglobin 16.2 g/dL (14.0-18.0); Mean Corpuscular HGB CONC 33.1 g/dL (32.0-36.0); Mean Corpuscular Hemoglobin 32.3 pg (27.0-31.0); Mean Corpuscular Volume 97.6 fL (78.0-98.0); Mean Platelet Volume 8.1 fL (7.4-10.4); Platelet Count 156 thou/uL (130-400); RBC Distribution Width 12.1 % (11.5-14.5); Red Blood Cell (RBC) Count 5.03 mill/uL (4.70-6.10); White Blood Cell (WBC) Count 8.8 thou/uL (4.8-10.8)
[2018-08-16 07:10] LABS: Anion Gap 15 mmol/L (10-20); BUN (Urea Nitrogen) 17 mg/dL (8.4-25.7); Calc. Creatinine Clearance 117 mL/min (70-130); Calcium 9.7 mg/dL (7.8-10.44); Carbon Dioxide 24 mmol/L (23-31); Chloride 100 mmol/L (98-107); Estimated GFR-MDRD Greater than 90; Glucose 143 mg/dL (83-110); Potassium 4.3 mmol/L (3.5-5.1); Sodium 135 mmol/L (136-145)
[2018-08-16] MEDS: Metoprolol Tartrate 50 MG TAB PO SCH ×2 (08:56→20:22)
[2018-08-16] MEDS: guaiFENesin ER 600 MG TAB PO SCH ×2 (08:56→20:22)
[2018-08-16] MEDS: Famotidine 20 MG TAB PO SCH ×2 (08:56→20:22)
[2018-08-16] MEDS: Cefdinir 300 MG CAP PO SCH ×2 (08:56→20:22)
[2018-08-16] MEDS: Atorvastatin Calcium 40 MG TAB PO SCH (08:57)
[2018-08-16] MEDS: Lisinopril 5 MG TAB PO SCH (08:57)
[2018-08-16] MEDS: Aspirin 81 mg Enteric Coated Tablet PO SCH (08:57)
[2018-08-16] MEDS: Enoxaparin Sodium 30 MG/0.3 ML SYRINGE SC SCH (08:57)
--- NOTE | 2018-08-16 13:48 | PDOC.PN ---
- Subjective Encounter Start Date: 08/16/18 Encounter Start Time: 10:00 Pt seen for followup re: COPD exacerbation. Feels better, but still has a lot of cough, sputum, wheezing. - Objective Resuscitation Status - Order Detail: 08/08/18 18:36 Resuscitation Status Routine Co-Sign Provider: Resuscitation Status: FULL: Full Resuscitation Vital Signs & Weight: Vital Signs (12 hours) Temp Pulse Resp BP BP BP Pulse Ox 08/16/18 13:34 92 18 92 L 08/16/18 11:43 97.5 F L 82 22 H 113/73 92 L 08/16/18 10:06 95 18 93 L 08/16/18 08:57 95 123/74 08/16/18 07:57 97.7 F 95 20 123/74 92 L 08/16/18 06:21 95 20 92 L 08/16/18 06:19 95 20 92 L 08/16/18 04:00 97.9 F 95 18 108/70 93 L 08/16/18 02:20 16 Weight Weight 210 lb I&O: 08/15/18 08/16/18 08/17/18 06:59 06:59 06:59 Intake Total 3630 810 Output Total 3500 250 Balance 130 560 Result Diagrams: 08/16/18 06:20 08/16/18 06:20 Additional Labs: Accuchecks 08/16/18 08/16/18 08/15/18 11:47 05:39 19:42 POC Glucose 122 H 145 H 193 H 08/15/18 15:25 POC Glucose 158 H Phys Exam - Physical Examination Constitutional: NAD HEENT: moist MMs Neck: supple Respiratory: wheezing present Cardiovascular: RRR Gastrointestinal: soft Neurological: moves all 4 limbs Psychiatric: normal affect Dx/Plan (1) COPD exacerbation Code(s): J44.1 - CHRONIC OBSTRUCTIVE PULMONARY DISEASE W (ACUTE) EXACERBATION Status: Acute Comment: Improving, will continue oxygen and bronchodilators. CFontinue cefdinir. Change steroids to oral. 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 transplanted heart: [place] heart Associated angina: without angina Qualified Code(s): I25.10 - Atherosclerotic heart disease of [place] coronary artery without angina pectoris Comment: stable (4) Hypertension Code(s): I10 - ESSENTIAL (PRIMARY) HYPERTENSION Status: Chronic Qualifiers: Hypertension type: essential hypertension Qualified Code(s): I10 - Essential (primary) hypertension Comment: controlled and at goal - Plan * . Review of Systems - Review of Systems Respiratory: Cough, Sputum, Wheezing. negative: Dry, Shortness of Breath, Hemoptysis, SOB with Excertion, Pleuritic Pain Cardiovascular: negative: chest pain, palpitations, orthopnea, paroxysmal nocturnal dyspnea, edema, light headedness - Medications/Allergies Allergies/Adverse Reactions: Allergies Allergy/AdvReac Type Severity Reaction Status Date / Time No Known Drug Allergies Allergy Verified 08/08/18 19:16 Medications: Current Medications Albuterol/Ipratropium (Duoneb) 3 ml NEB [id number] [facility] Last Admin: 08/16/18 13:34 Dose: 3 ml Albuterol/Ipratropium (Duoneb) 3 ml NEB Q2H PRN PRN Reason: Wheezing Aspirin (Ecotrin) 81 mg PO DAILY [facility] Last Admin: 08/16/18 08:57 Dose: 81 mg Atorvastatin Calcium (Lipitor) 40 mg PO DAILY [facility] Last Admin: 08/16/18 08:57 Dose: 40 mg Cefdinir (Omnicef) 300 mg PO BID [facility] Last Admin: 08/16/18 08:56 Dose: 300 mg Enoxaparin Sodium (Lovenox) 30 mg SC 0900 [facility] Last Admin: 08/16/18 08:57 Dose: 30 mg Famotidine (Pepcid) 20 mg PO BID [facility] Last Admin: 08/16/18 08:56 Dose: 20 mg Guaifenesin (Mucinex) 1,200 mg PO Q12HR [facility] Last Admin: 08/16/18 08:56 Dose: 1,200 mg Guaifenesin/Dextromethorphan (Robitussin Dm) 15 ml PO Q4H PRN PRN Reason: Cough Last Admin: 08/09/18 01:36 Dose: 15 ml Insulin Human Lispro (Humalog) 0 units SC .MILD SLIDING SCALE PRN; Protocol PRN Reason: MILD SLIDING SCALE Last Admin: 08/13/18 12:33 Dose: 2 unit Insulin Human Lispro (Humalog) 0 units SC .BEDTIME SLIDING SC PRN; Protocol PRN Reason: BEDTIME SLIDING SCALE Last Admin: 08/14/18 20:04 Dose: 2 unit Isosorbide Mononitrate (Imdur Er) 90 mg PO DAILY [facility] Last Admin: 08/16/18 08:54 Dose: 90 mg Lisinopril (Zestril) 5 mg PO DAILY [facility] Last Admin: 08/16/18 08:57 Dose: 5 mg Methylprednisolone Sodium Succinate (Solu-Medrol) 40 mg IVP Q6HR [facility] Last Admin: 08/16/18 12:45 Dose: 40 mg Metoprolol Tartrate (Lopressor) 50 mg PO BID [facility] Last Admin: 08/16/18 08:56 Dose: 50 mg Mometasone Furoate/Formoterol Fumar (Dulera 200 Mcg/5 Mcg Inhaler) 2 puff INH BID-RT [facility] Last Admin: 08/16/18 06:21 Dose: 2 puff Nicotine (Nicoderm Patch) 14 mg TD Q24HR [facility] Last Admin: 08/15/18 20:05 Dose: 14 mg Ondansetron HCl (Zofran Odt) 4 mg PO Q6H PRN PRN Reason: Nausea/Vomiting Ondansetron HCl (Zofran) 4 mg IVP Q6H PRN PRN Reason: Nausea/Vomiting Senna/Docusate Sodium (Senokot S) 2 tab PO BID PRN PRN Reason: Constipation Last Admin: 08/15/18 20:06 Dose: 2 tab Sodium Chloride (Flush - Normal Saline) 10 ml IVF Q12HR PRN PRN Reason: Saline Flush Sodium Chloride (Flush - Normal Saline) 10 ml IVF PRN PRN PRN Reason: Saline Flush Last Admin: 08/13/18 17:19 Dose: 10 ml
[2018-08-16] MEDS: Nicotine 14 MG PATCH TD SCH (20:22)
[2018-08-17] MEDS: Mometasone/Formoterol 120 PUFF INHALER INH SCH ×2 (05:51→18:46)
[2018-08-17] MEDS: predniSONE 20 MG TAB PO SCH (08:41)
[2018-08-17] MEDS: Cefdinir 300 MG CAP PO SCH ×2 (08:41→20:40)
[2018-08-17] MEDS: guaiFENesin ER 600 MG TAB PO SCH ×2 (08:42→20:40)
[2018-08-17] MEDS: Aspirin 81 mg Enteric Coated Tablet PO SCH (08:42)
[2018-08-17] MEDS: Metoprolol Tartrate 50 MG TAB PO SCH ×2 (08:43→20:39)
[2018-08-17] MEDS: Lisinopril 5 MG TAB PO SCH (08:43)
[2018-08-17] MEDS: Atorvastatin Calcium 40 MG TAB PO SCH (08:43)
[2018-08-17] MEDS: Famotidine 20 MG TAB PO SCH ×2 (08:43→20:40)
[2018-08-17] MEDS: Enoxaparin Sodium 30 MG/0.3 ML SYRINGE SC SCH (08:44)
--- NOTE | 2018-08-17 16:22 | PDOC.PN ---
- Subjective Encounter Start Date: 08/17/18 Encounter Start Time: 16:21 Subjective: admitted with worsening SOB. feeling better. No fever. - Objective Resuscitation Status - Order Detail: 08/08/18 18:36 Resuscitation Status Routine Co-Sign Provider: Resuscitation Status: FULL: Full Resuscitation Vital Signs & Weight: Vital Signs (12 hours) Temp Pulse Resp BP BP BP Pulse Ox 08/17/18 13:34 91 18 96 08/17/18 09:34 89 16 97 08/17/18 08:43 89 101/66 08/17/18 07:57 98.7 F 89 18 101/66 91 L 08/17/18 05:51 84 18 98 08/17/18 05:50 84 18 98 08/17/18 05:00 97.9 F 82 18 132/77 93 L Weight Admit Weight 210 lb Weight 210 lb I&O: 08/16/18 08/17/18 08/18/18 06:59 06:59 06:59 Intake Total 2890 720 Output Total 1410 150 Balance 1480 570 Result Diagrams: 08/16/18 06:20 08/16/18 06:20 Additional Labs: Accuchecks 08/17/18 08/17/18 08/16/18 11:29 05:29 19:41 POC Glucose 115 H 102 170 H 08/16/18 16:29 POC Glucose 140 H Phys Exam - Physical Examination HEENT: PERRLA, sclera anicteric Neck: no nodes, supple, full ROM decreased air movement with scattered rhonchi Cardiovascular: RRR, no significant murmur Gastrointestinal: soft, non-tender, no distention, positive bowel sounds Musculoskeletal: no edema Neurological: non-focal, moves all 4 limbs Psychiatric: normal affect, A&O x 3 Dx/Plan (1) DM type 2 (diabetes mellitus, type 2) Status: Chronic Qualifiers: 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: 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 senior care use Diabetes mellitus complication status: without complication Qualified Code(s): E11.9 - Type 2 diabetes mellitus without complications Comment: controlled (2) Acute and chronic respiratory failure Code(s): J96.20 - ACUTE AND CHR RESP FAILURE, UNSP W HYPOXIA OR HYPERCAPNIA Status: Acute Qualifiers: Respiratory failure complication: hypoxia Qualified Code(s): J96.21 - Acute and chronic respiratory failure with hypoxia (3) COPD exacerbation Code(s): J44.1 - CHRONIC OBSTRUCTIVE PULMONARY DISEASE W (ACUTE) EXACERBATION Status: Acute Comment: Improving, will continue oxygen and bronchodilators. CFontinue cefdinir. Change steroids to oral. 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 -: Use CPAP at nights -: For discharge tomorrow. * .
[2018-08-17] MEDS: Nicotine 14 MG PATCH TD SCH (20:44)
[2018-08-18] MEDS: Mometasone/Formoterol 120 PUFF INHALER INH SCH (06:36)
[2018-08-18] MEDS: Famotidine 20 MG TAB PO SCH (08:50)
[2018-08-18] MEDS: Atorvastatin Calcium 40 MG TAB PO SCH (08:51)
[2018-08-18] MEDS: Cefdinir 300 MG CAP PO SCH (08:51)
[2018-08-18] MEDS: Lisinopril 5 MG TAB PO SCH (08:51)
[2018-08-18] MEDS: Metoprolol Tartrate 50 MG TAB PO SCH (08:51)
[2018-08-18] MEDS: guaiFENesin ER 600 MG TAB PO SCH (08:51)
[2018-08-18] MEDS: predniSONE 20 MG TAB PO SCH (08:51)
[2018-08-18] MEDS: Aspirin 81 mg Enteric Coated Tablet PO SCH (08:51)
[2018-08-18] MEDS: Enoxaparin Sodium 30 MG/0.3 ML SYRINGE SC SCH (08:52)
[2018-08-18 09:33] LABS: Anion Gap 13 mmol/L (10-20); BUN (Urea Nitrogen) 14 mg/dL (8.4-25.7); Calc. Creatinine Clearance 107 mL/min (70-130); Calcium 9.4 mg/dL (7.8-10.44); Carbon Dioxide 27 mmol/L (23-31); Chloride 95 mmol/L (98-107); Estimated GFR-MDRD Greater than 90; Glucose 106 mg/dL (83-110); Potassium 3.8 mmol/L (3.5-5.1); Sodium 131 mmol/L (136-145)
[2018-08-18 11:53] VITALS: TEMP 98.3
--- NOTE | 2018-08-18 13:17 | DIS ---
DATE OF ADMISSION: 08/08/2018 DATE OF DISCHARGE: 08/18/2018 DISCHARGE DIAGNOSES: 1. Acute on chronic hypoxic respiratory failure. 2. Chronic obstructive pulmonary disease exacerbation. 3. Hypertension. 4. Obstructive sleep apnea, on CPAP. 5. Hyperglycemia. 6. Chronic CHF most likely Systolic given history of CAD HOSPITAL COURSE: A 73-year-old male with past medical history significant for COPD; chronic respiratory failure, on home oxygen; coronary artery disease; and CHF, who was admitted due to worsening cough and shortness of breath associated with increased oxygen requirement. Impression of acute on chronic respiratory failure with hypoxia from COPD exacerbation was made, and the patient was treated with broad-spectrum antibiotics, oxygen supplementation, as well as bronchodilators with improvement. Sputum culture grew multiple gram-negative, which was thought to be possible contaminant. The patient improved clinically and was subsequently discharged. Of note, at discharge, the patient is still having significant yellow sputum production, hence antibiotics were changed from cefdinir to Levaquin. He is to follow up with the primary care physician in 7 days for re-evaluation. CONDITION ON DISCHARGE: Improved. The patient is back to 2 L of oxygen per nasal cannula and is saturating well. PHYSICAL EXAMINATION: VITAL SIGNS: Temperature 99.1, pulse 74, respiratory rate 18, SpO2 of 92 on 2 L nasal cannula, and blood pressure is 110/70. GENERAL: Elderly male, in no obvious distress. Afebrile, anicteric, acyanotic. HEENT: Normocephalic and atraumatic. Pupils are equal and reacting to light. CARDIOVASCULAR: Regular rhythm and rate with normal heart sounds 1 and 2. RESPIRATORY: Fair air entry bilateral with some transmitted sounds. No obvious crackle was appreciated. A few scattered rhonchi were noted. Work of breathing is normal. GI: Abdomen is full, soft, nontender, nondistended with normal bowel sounds. EXTREMITIES: Grossly normal looking, atraumatic with no erythema or edema. NEUROLOGIC: Conscious and alert and oriented x3 with appropriate mental status. Cranial nerves 2 through 12 are intact. The patient is ambulant. DISCHARGE MEDICATIONS: Please see discharge med rec. FOLLOWUP: The patient is to follow with PCP in 5 to 7 days. This discharge took more than 35 minutes. Job ID: [id number] [facility]
[2018-08-18 13:26] VITALS: BP 105/68
--- NOTE | 2018-08-22 07:17 | PQF ---
MARIS STERN OBIABNER [id number] CLINICAL DOCUMENTATION CLARIFICATION FORM: POST DISCHARGE Addendum to original discharge summary date: 08/28/2018 Late entry note date: __ DATE: 08/22/18 ATTN: Dr. Murillo, Please exercise your independent, professional judgment in responding to the clarification form. Clinical indicators are provided on the bottom of this form for your review Please check appropriate box(s): HEART FAILURE: A. TYPE: [ ] Systolic / HFrEF [ ] Diastolic / HFpEF [ ] Combined Systolic / Diastolic B. ACUITY [ ] Acute [ ] Acute on Chronic [ x ] Chronic [x ] Other diagnosis Chronic CHF: most likely systolic [ ] Unable to determine In addition, please specify: Present on Admission (POA): [ x ] Yes [ ] No [ ] Unable to determine For continuity of documentation, please document condition throughout progress notes and discharge summary. Thank You. CLINICAL INDICATORS - SIGNS / SYMPTOMS / LABS Congestive heart failure---Discharge Summary-H&P BNP-150--- 2/5 ED physician note SOB---2/5ED physician note RISKS: CAD--H&P Hypertension---H&P TREATMENTS: Cardiac monitoring--ordered 2/ ED physician note Oxygen therapy--ordered 2 ED physician note Thank you, Xiomara Pascual, CCS 08/22/18 7:13AM MTDD
== END 2018-08-18 13:26 | disposition home or self-care (01) | DRG 189 ==
LOC: ERS 15:57 → T4-B 18:37
PROVIDERS: ADMIT Internal Medicine Nephrology; ATTEND Emergency Medicine
DX: J96.21 Acute and chronic respiratory failure with hypoxia (principal); J44.1 Chronic obstructive pulmonary disease with (acute) exacerbation; I50.22 Chronic systolic (congestive) heart failure; I25.10 Atherosclerotic heart disease of native coronary artery without angina pectoris; I11.0 Hypertensive heart disease with heart failure; E11.65 Type 2 diabetes mellitus with hyperglycemia; K21.9 Gastro-esophageal reflux disease without esophagitis; E78.5 Hyperlipidemia, unspecified; H40.9 Unspecified glaucoma; F17.210 Nicotine dependence, cigarettes, uncomplicated; G47.33 Obstructive sleep apnea (adult) (pediatric); Z79.82 Long term (current) use of aspirin; Z79.899 Other long term (current) drug therapy; Z79.52 Long term (current) use of systemic steroids; Z79.51 Long term (current) use of inhaled steroids; Z95.5 Presence of coronary angioplasty implant and graft; Z95.2 Presence of prosthetic heart valve
CPT/HCPCS: 36415; 36416; 80048; 80053; 85025; 87070; 87205; 87804; 94640; J0456; J0696; J1650; J2920; J7050; J7620

== ENCOUNTER 2018-09-09 01:04 | Inpatient (IN) | payer MEDICARE ==
[2018-09-09 06:09] VITALS: BMI 27.1
[2018-09-09] MEDS ORDERED: guaiFENesin ER 600 MG TAB PO PRN (08:34)
[2018-09-09] MEDS ORDERED: Albuterol Sulfate 2.5 mg/3 ml Neb NEB SCH (08:45)
[2018-09-09] MEDS: Gabapentin 100 MG CAP PO SCH ×3 (10:15→21:08)
[2018-09-09] MEDS: Aspirin 81 mg Enteric Coated Tablet PO SCH (10:16)
[2018-09-09] MEDS: Cyanocobalamin (Vitamin B-12) 1,000 MCG TAB PO SCH (10:16)
[2018-09-09] MEDS: Metoprolol Tartrate 50 MG TAB PO SCH ×2 (10:17→21:08)
[2018-09-09] MEDS: Ezetimibe 10 MG TAB PO SCH (10:17)
[2018-09-09] MEDS: Atorvastatin Calcium 40 MG TAB PO SCH (10:17)
[2018-09-09] MEDS: Lisinopril 5 MG TAB PO SCH (10:18)
[2018-09-09] MEDS: Dorzolamide HCl 2% Ophth Soln 10 ml Bottle EA EYE SCH ×2 (10:21→21:11)
[2018-09-09] MEDS ORDERED: Acetaminophen 325 MG TAB PO PRN (10:32)
[2018-09-09] MEDS ORDERED: Dextrose 5% in Water 1,000 ML IV PRN (10:57)
[2018-09-09] MEDS ORDERED: Dextrose 50% Abboject 50 ML SYRINGE SLOW IVP PRN (10:57)
[2018-09-09] MEDS ORDERED: Bacteriostatic Water 30 ML VIAL FS PRN (11:40)
[2018-09-09] MEDS ORDERED: methylPREDNISolone Sod Succ 40 MG VIAL IVP SCH (12:00)
--- NOTE | 2018-09-09 12:08 | HP ---
CHIEF COMPLAINT: Wheezing. HISTORY OF PRESENT ILLNESS: This patient is a 73-year-old male with a history of extensive coronary artery disease status post bypass grafting and stents with subsequent progressive occlusions with also history of aortic stenosis status post TAVR in 2017. The patient unfortunately also has significant chronic obstructive pulmonary disease and has continued to smoke. He was just recently admitted to this facility on August 08 with COPD exacerbation and was discharged on August 18. The patient reports that over the last week, he has had progressive increase in wheezing and some pressure in his epigastric area. These symptoms became significantly worse over the past couple of days creating severe dyspnea on exertion, where he can only walk a few steps without being significantly out of breath. He was using his nebulizer treatments without substantial improvement. He does report that he had a cough that was "rattling," but was nonproductive. Today; however, it has become productive of a discolored yellow sputum. He does report that he had some fever yesterday. He has had no specific nausea or vomiting. He denies having any dysphagia, cough, or choking when he eats. He has had decreased appetite for the last 3 days. He has also reported some loose stools 2 to 3 times a day for the last couple of days. He also reported some mild chest discomfort in the left parasternal area, which he thought was related to more of a left-sided pneumonia. The patient initially presented to the Emergency Department in [place] last evening, where he was treated with vancomycin, Zosyn, and subsequently metronidazole and there were concerns for possibility of aspiration. The patient's initial chest x-ray did not indicate a significant pneumonia, but a CT scan of the abdomen and pelvis did capture some evidence of infiltrate in the lungs. The patient was subsequently transferred to this facility because of his recent hospitalization, concern for hospital-acquired pneumonia, there the patient apparently met sepsis criteria as well, he was given 1 L of fluids. REVIEW OF SYSTEMS: All other systems were reviewed and all pertinent positives and negatives noted in the history of present illness. PAST MEDICAL HISTORY: As noted above significant for the coronary artery disease, gastroesophageal reflux, history of the aortic stenosis, hyperlipidemia, hypertension, COPD, glaucoma, and diabetes mellitus that is not significant enough to require medication. PAST SURGICAL HISTORY: He has had bilateral carpal tunnel release, right rotator cuff repair, coronary artery bypass x4 vessels with coronary stents, and the TAVR procedure in 2017. FAMILY HISTORY: Notable for coronary artery disease. SOCIAL HISTORY: The patient drinks about 6 to 8 ounces of Felix Vergara's whiskey about 3 times a week. He continues to smoke, although since his last hospitalization, he has cut back significantly from half a pack a day to about 1 cigarette per day. He is full code and his is his surrogate decision maker. ALLERGIES: NONE. HOME MEDICATIONS: 1. Zetia 10 mg daily. 2. Refresh eye drops. 3. Capsaicin cream. 4. Symbicort 160-4.5 two puffs inhaled b.i.d. 5. Atorvastatin 80 mg daily. 6. Aspirin 81 mg daily. 7. Albuterol 2.5 mg nebs q.6 hours. 8. Imdur 90 mg daily. 9. Gabapentin 200 mg t.i.d. 10. Flonase 1 spray per nostril daily. 11. Dorzolamide eye drops each eye b.i.d. 12. B12 of 1000 mcg daily. 13. Niacin 500 mg at bedtime. 14. Lopressor 100 mg p.o. b.i.d. 15. Claritin 1 p.o. at bedtime. 16. Lisinopril 5 mg daily. 17. Latanoprost eye drops each eye at bedtime. 18. Mucinex 600 mg q.12 hours p.r.n. 19. Triamcinolone ointment topical b.i.d. 20. Prednisone 10 mg daily. 21. Protonix 1 p.o. daily. PHYSICAL EXAMINATION: VITAL SIGNS: Temperature 98.0, pulse 97, respirations 20, O2 saturation 92% on 2 L nasal cannula, and BP 118/72. GENERAL APPEARANCE: Age-appropriate male. He is awake, alert, very pleasant, cooperative, and interactive. HEENT: PERRL. No OP lesions. Denture is in place. NECK: Supple and symmetric without significant JVD. HEART: Regular rate and rhythm without significant murmur. LUNGS: Notable for diffuse scattered wheezing with slightly diminished air exchange. ABDOMEN: Soft, nontender, and nondistended. Positive bowel sounds. No masses. No organomegaly. EXTREMITIES: No cyanosis, clubbing, or edema. SKIN: Warm and dry with no lesions. NEURO: The patient is grossly intact with no focal defects. PSYCH: The patient has normal affect and behavior. LABORATORY DATA: White count 6.1, hemoglobin 13.8, and platelets 192. Sodium 137, potassium 4.3, chloride 105, CO2 is 21, BUN 9, creatinine 0.75, glucose 119, lactic acid 1.1, calcium 9.8, AST is 18, and ALT is 21. Troponin less than 0.01 and BNP is 85. Albumin 4.0. Urinalysis shows trace ketones, small bilirubin and urobilinogen. Flu screen is negative. Chest x-ray shows emphysema, status post transcatheter aortic valve replacement. The coronary artery bypass and some shrapnel on the left chest soft tissue area. CT of the abdomen and pelvis reveal bronchiectasis with patchy airspace opacity in the right lower lobe and right middle lobe reflecting mild pneumonia, aspiration as a possibility, right nephrolithiasis, prominent vascular calcifications of the abdominal and pelvic vasculature with mild ectasia of the common iliac arteries, right common iliac measures 1.3 cm and left 1.4, chronic diverticulosis, and osteonecrosis of both femoral heads without subchondral collapse. IMPRESSION AND PLAN: 1. Acute on chronic hypoxic respiratory failure likely secondary to underlying pneumonia. 2. Pneumonia. The patient has recently had a prolonged hospitalization. He will be on vancomycin, Zosyn, and cefepime to cover potential hospital-acquired pathogens. We will check sputum cultures and follow up on blood cultures. 3. Chronic obstructive pulmonary disease with exacerbation and notable wheezing. The patient will be on steroids, bronchodilators, and supplemental oxygen. 4. History of severe coronary artery disease. We will continue with his usual home regimen including beta blockers, angiotensin-converting enzyme inhibitors, and aspirin. 5. Hyperlipidemia. Continue atorvastatin and Zetia. 6. Glaucoma. Continue with his usual home eye drops. 7. Bronchiectasis should be adequately covered for pseudomonal pathogens. 8. Osteoporosis of the hips, likely due to long-term steroid use, stable intervention indicated presently. 9. History of diabetes, not requiring medications. Currently blood sugars are reasonably well controlled without intervention. However, we will likely go up with steroids. Therefore, we will put him on some sliding scale. Job ID: [id number]
[2018-09-09] MEDS: methylPREDNISolone Sod Succ 40 MG VIAL IVP SCH ×3 (12:14→23:38)
[2018-09-09] MEDS: Fluticasone Propionate Nasal Spray 16 gm Bottle NASAL SCH (12:14)
[2018-09-09] MEDS: Piperacillin/Tazobactam 3.375 GM in Sodium Chloride 0.9% 100 ML IVPB SCH ×3 (12:17→23:39)
[2018-09-09] MEDS: Vancomycin HCl 1.25 GM in Sodium Chloride 0.9% 250 ML 250 ML IVPB SCH (12:47)
[2018-09-09] MEDS ORDERED: Ipratropium Bromide 2.5 ml Neb NEB SCH (13:00)
[2018-09-09] MEDS: Mometasone/Formoterol 120 PUFF INHALER INH SCH (19:14)
[2018-09-09] MEDS ORDERED: Vancomycin HCl 1 GM in Premix Bag 1 BAG IVPB SCH (21:00)
[2018-09-09] MEDS: Cefepime 1 GM in Sodium Chloride 0.9% 100 ML IVPB SCH (21:09)
[2018-09-09] MEDS: Loratadine 10 MG TAB PO SCH (21:09)
[2018-09-09] MEDS ORDERED: Mag-Al 1200 mg/1200 mg/30 ML UDCUP PO PRN (21:21)
[2018-09-09] MEDS: Calcium Carbonate 500 MG ChewTAB PO PRN (21:38)
[2018-09-09] MEDS: Latanoprost 0.005% Ophth Soln 2.5 ml Bottle EA EYE SCH (21:38)
[2018-09-10] MEDS: Vancomycin HCl 1.25 GM in Sodium Chloride 0.9% 250 ML 250 ML IVPB SCH ×2 (01:23→12:30)
[2018-09-10] MEDS: methylPREDNISolone Sod Succ 40 MG VIAL IVP SCH ×4 (05:15→23:24)
[2018-09-10] MEDS: HumaLOG 300 UNITS/3 ML VIAL SC PRN (05:16)
[2018-09-10] MEDS: Piperacillin/Tazobactam 3.375 GM in Sodium Chloride 0.9% 100 ML IVPB SCH ×4 (05:16→23:25)
[2018-09-10] MEDS: Calcium Carbonate 500 MG ChewTAB PO PRN (05:21)
[2018-09-10 06:59] LABS: #Lymphocytes 0.9 thou/uL (1.20-3.40); #Monocytes 0.6 thou/uL (0.11-0.59); #Neutrophils 7.2 thou/uL (1.40-6.50); %Basophils 0.1 % (0.0-1.0); %Eosinophils 0.4 % (0.0-10.0); %Lymphocytes 10.6 % (21.0-51.0); %Neutrophils 81.9 % (42.0-75.0); Hemoglobin 12.8 g/dL (14.0-18.0); Mean Corpuscular HGB CONC 32.2 g/dL (32.0-36.0); Mean Corpuscular Hemoglobin 31.5 pg (27.0-31.0); Mean Corpuscular Volume 97.9 fL (78.0-98.0); Mean Platelet Volume 7.6 fL (7.4-10.4); Platelet Count 240 thou/uL (130-400); RBC Distribution Width 12.3 % (11.5-14.5); Red Blood Cell (RBC) Count 4.06 mill/uL (4.70-6.10); White Blood Cell (WBC) Count 8.9 thou/uL (4.8-10.8)
[2018-09-10 07:15] LABS: Anion Gap 12 mmol/L (10-20); BUN (Urea Nitrogen) 10 mg/dL (8.4-25.7); Calc. Creatinine Clearance 113 mL/min (70-130); Calcium 9.6 mg/dL (7.8-10.44); Carbon Dioxide 25 mmol/L (23-31); Chloride 105 mmol/L (98-107); Estimated GFR-MDRD Greater than 90; Glucose 170 mg/dL (83-110); Potassium 4.4 mmol/L (3.5-5.1); Sodium 138 mmol/L (136-145)
[2018-09-10] MEDS: Metoprolol Tartrate 50 MG TAB PO SCH ×3 (08:38→21:28)
[2018-09-10] MEDS: Ezetimibe 10 MG TAB PO SCH (08:38)
[2018-09-10] MEDS: Atorvastatin Calcium 40 MG TAB PO SCH (08:38)
[2018-09-10] MEDS: Cyanocobalamin (Vitamin B-12) 1,000 MCG TAB PO SCH (08:38)
[2018-09-10] MEDS: Lisinopril 5 MG TAB PO SCH (08:39)
[2018-09-10] MEDS: Gabapentin 100 MG CAP PO SCH ×3 (08:39→20:57)
[2018-09-10] MEDS: Enoxaparin Sodium 40 MG/0.4 ML SYRINGE SC SCH (08:39)
[2018-09-10] MEDS: Aspirin 81 mg Enteric Coated Tablet PO SCH (08:39)
[2018-09-10] MEDS: Cefepime 1 GM in Sodium Chloride 0.9% 100 ML IVPB SCH ×2 (08:39→20:58)
[2018-09-10] MEDS: Nicotine 14 MG PATCH TD SCH (08:39)
[2018-09-10] MEDS: Dorzolamide HCl 2% Ophth Soln 10 ml Bottle EA EYE SCH ×2 (08:39→20:58)
[2018-09-10] MEDS: Fluticasone Propionate Nasal Spray 16 gm Bottle NASAL SCH (08:40)
[2018-09-10] MEDS: Mometasone/Formoterol 120 PUFF INHALER INH SCH ×2 (10:25→19:15)
--- NOTE | 2018-09-10 14:21 | PDOC.PN ---
- Subjective Encounter Start Date: 09/10/18 Encounter Start Time: 14:19 Mr. Beltre was seen today in follow-up of Pneumonia. He says he is feeling a little better. He is coughing less, and breathing easier. - Objective Resuscitation Status - Order Detail: 09/09/18 10:32 Resuscitation Status Routine Resuscitation Status: FULL: Full Resuscitation Discussed with: patient MAR Reviewed: Yes Vital Signs & Weight: Vital Signs (12 hours) Temp Pulse Resp BP Pulse Ox 09/10/18 10:25 93 L 09/10/18 10:19 81 18 93 L 09/10/18 08:39 100 09/10/18 08:08 98.4 F 100 20 108/66 91 L 09/10/18 07:29 90 18 92 L 09/10/18 04:00 98.3 F 90 18 108/66 92 L 09/10/18 03:54 93 L Weight Admit Weight 194 lb 9 oz Weight 194 lb 9 oz I&O: 09/09/18 09/10/18 09/11/18 05:59 06:59 06:59 Intake Total Output Total Balance Result Diagrams: 09/10/18 06:24 09/10/18 06:24 Additional Labs: Accuchecks 09/10/18 09/10/18 09/09/18 12:05 04:26 19:52 POC Glucose 149 H 165 H 194 H 09/09/18 17:34 POC Glucose 169 H Phys Exam - Physical Examination HEENT: PERRLA + wheezing and rhonchi in the right mid lung field Cardiovascular: RRR, no significant murmur, no rub Gastrointestinal: soft, non-tender, no distention, positive bowel sounds Musculoskeletal: pulses present, edema present trace pedal edema Dx/Plan (1) Healthcare-associated pneumonia Code(s): J18.9 - PNEUMONIA, UNSPECIFIED ORGANISM Status: Acute (2) Acute and chronic respiratory failure Code(s): J96.20 - ACUTE AND CHR RESP FAILURE, UNSP W HYPOXIA OR HYPERCAPNIA Status: Acute Qualifiers: Respiratory failure complication: hypoxia Qualified Code(s): J96.21 - Acute and chronic respiratory failure with hypoxia (3) Aortic valve prosthesis present Code(s): Z95.2 - PRESENCE OF PROSTHETIC HEART VALVE Status: Chronic (4) DM type 2 (diabetes mellitus, type 2) Status: Chronic Qualifiers: Diabetes mellitus emergency veterinarian insulin use: without alf use Diabetes mellitus complication status: without complication Qualified Code(s): E11.9 - Type 2 diabetes mellitus without complications Comment: controlled (5) Hypertension Code(s): I10 - ESSENTIAL (PRIMARY) HYPERTENSION Status: Chronic Qualifiers: Hypertension type: essential hypertension Qualified Code(s): I10 - Essential (primary) hypertension Comment: controlled and at goal - Plan * Healthcare Associated Pneumonia- improving- continue Vancomycin, And Zosyn- can likely discontinue Cefipime in the AM * HTN- blood pressure is stable * DM- blood glucose is stable * Patient is s/p TAVR * COPD- stable.
[2018-09-10] MEDS: Loratadine 10 MG TAB PO SCH (20:57)
[2018-09-10] MEDS: Latanoprost 0.005% Ophth Soln 2.5 ml Bottle EA EYE SCH (20:58)
--- NOTE | 2018-09-10 21:21 | PDOC.EVN ---
Event Note - Event Note Event Note: RN called - SBP below 110. Will hold tonights Metoprolol dose.
[2018-09-11 00:02] LABS: Vancomycin, Trough 8.7 ug/mL
[2018-09-11] MEDS: Vancomycin HCl 1.25 GM in Sodium Chloride 0.9% 250 ML 250 ML IVPB SCH (01:36)
[2018-09-11] MEDS: Vancomycin HCl 1.75 GM in Sodium Chloride 0.9% 500 ML IVPB SCH ×2 (01:37→12:03)
[2018-09-11] MEDS: Calcium Carbonate 500 MG ChewTAB PO PRN (04:17)
[2018-09-11] MEDS: methylPREDNISolone Sod Succ 40 MG VIAL IVP SCH ×2 (05:25→11:03)
[2018-09-11] MEDS: Piperacillin/Tazobactam 3.375 GM in Sodium Chloride 0.9% 100 ML IVPB SCH ×3 (05:26→17:10)
[2018-09-11] MEDS: HumaLOG 300 UNITS/3 ML VIAL SC PRN (05:26)
[2018-09-11] MEDS: Cefepime 1 GM in Sodium Chloride 0.9% 100 ML IVPB SCH ×2 (08:09→21:15)
[2018-09-11] MEDS: Gabapentin 100 MG CAP PO SCH ×3 (08:09→21:13)
[2018-09-11] MEDS: Enoxaparin Sodium 40 MG/0.4 ML SYRINGE SC SCH (08:09)
[2018-09-11] MEDS: Mometasone/Formoterol 120 PUFF INHALER INH SCH ×2 (08:10→18:14)
[2018-09-11] MEDS: Cyanocobalamin (Vitamin B-12) 1,000 MCG TAB PO SCH (08:10)
[2018-09-11] MEDS: Aspirin 81 mg Enteric Coated Tablet PO SCH (08:10)
[2018-09-11] MEDS: Lisinopril 5 MG TAB PO SCH (08:10)
[2018-09-11] MEDS: Metoprolol Tartrate 50 MG TAB PO SCH ×2 (08:10→20:20)
[2018-09-11] MEDS: Atorvastatin Calcium 40 MG TAB PO SCH (08:10)
[2018-09-11] MEDS: Ezetimibe 10 MG TAB PO SCH (08:10)
[2018-09-11] MEDS: Fluticasone Propionate Nasal Spray 16 gm Bottle NASAL SCH (08:11)
[2018-09-11] MEDS: Nicotine 14 MG PATCH TD SCH (08:11)
[2018-09-11] MEDS: Dorzolamide HCl 2% Ophth Soln 10 ml Bottle EA EYE SCH ×2 (08:11→21:14)
--- NOTE | 2018-09-11 15:28 | PDOC.PN ---
- Subjective Encounter Start Date: 09/11/18 Encounter Start Time: 15:26 Mr. Beltre was seen today in follow-up of Respiratory failure due to Pneumonia. He says he soesn't feel as well today as he did yesterday. He has more cough and congestion, and says he has trouble bringing it up, and it feels stuck in his chest. - Objective Resuscitation Status - Order Detail: 09/09/18 10:32 Resuscitation Status Routine Resuscitation Status: FULL: Full Resuscitation Discussed with: patient MAR Reviewed: Yes Vital Signs & Weight: Vital Signs (12 hours) Temp Pulse Resp BP Pulse Ox 09/11/18 14:31 92 20 09/11/18 10:52 88 20 93 L 09/11/18 08:10 99 20 93 L 09/11/18 08:04 97.8 F 99 20 119/71 93 L Weight Admit Weight 194 lb 9 oz Weight 194 lb 9 oz I&O: 09/10/18 09/11/18 09/12/18 06:59 06:59 06:59 Intake Total 1550 Output Total 1450 Balance 100 Result Diagrams: 09/10/18 06:24 09/10/18 06:24 Additional Labs: Accuchecks 09/11/18 09/11/18 09/10/18 11:58 04:45 20:50 POC Glucose 156 H 181 H 185 H 09/10/18 16:39 POC Glucose 161 H Phys Exam - Physical Examination HEENT: PERRLA Respiratory: no rhonchi, wheezing present + bilaterally wheezing heard bilaterally Cardiovascular: RRR, no significant murmur, no rub Gastrointestinal: soft, non-tender, no distention, positive bowel sounds Musculoskeletal: pulses present, edema present + non-pitting edema Neurological: non-focal Dx/Plan (1) Healthcare-associated pneumonia Code(s): J18.9 - PNEUMONIA, UNSPECIFIED ORGANISM Status: Acute (2) Acute and chronic respiratory failure Code(s): J96.20 - ACUTE AND CHR RESP FAILURE, UNSP W HYPOXIA OR HYPERCAPNIA Status: Acute Qualifiers: Respiratory failure complication: hypoxia Qualified Code(s): J96.21 - Acute and chronic respiratory failure with hypoxia (3) Aortic valve prosthesis present Code(s): Z95.2 - PRESENCE OF PROSTHETIC HEART VALVE Status: Chronic (4) DM type 2 (diabetes mellitus, type 2) Status: Chronic Qualifiers: Diabetes mellitus half-way insulin use: without half-way use Diabetes mellitus complication status: without complication Qualified Code(s): E11.9 - Type 2 diabetes mellitus without complications Comment: controlled (5) COPD exacerbation Code(s): J44.1 - CHRONIC OBSTRUCTIVE PULMONARY DISEASE W (ACUTE) EXACERBATION Status: Acute Comment: Improving, will continue oxygen and bronchodilators. CFontinue cefdinir. Change steroids to oral. (6) Hypertension Code(s): I10 - ESSENTIAL (PRIMARY) HYPERTENSION Status: Chronic Qualifiers: Hypertension type: essential hypertension Qualified Code(s): I10 - Essential (primary) hypertension Comment: controlled and at goal - Plan * Pneumonia- Healthcare Associated- continue Broad spectrum antibiotics * COPD- with exacerbation- continue Neb treatments, and will rocael steroids * HTN- blood pressure is controlled * CAD- stable * DM- blood glucose is stable. * Ambulate
[2018-09-11] MEDS: guaiFENesin ER 600 MG TAB PO SCH (21:13)
[2018-09-11] MEDS: Loratadine 10 MG TAB PO SCH (21:13)
[2018-09-11] MEDS: Latanoprost 0.005% Ophth Soln 2.5 ml Bottle EA EYE SCH (21:15)
[2018-09-12] MEDS: Calcium Carbonate 500 MG ChewTAB PO PRN ×2 (00:31→08:26)
[2018-09-12] MEDS: Vancomycin HCl 1.75 GM in Sodium Chloride 0.9% 500 ML IVPB SCH ×2 (01:52→14:20)
[2018-09-12] MEDS: Piperacillin/Tazobactam 3.375 GM in Sodium Chloride 0.9% 100 ML IVPB SCH ×4 (05:56→17:59)
[2018-09-12] MEDS: Mometasone/Formoterol 120 PUFF INHALER INH SCH ×2 (06:17→19:04)
[2018-09-12 06:45] LABS: Anion Gap 9 mmol/L (10-20); BUN (Urea Nitrogen) 8 mg/dL (8.4-25.7); Calc. Creatinine Clearance 114 mL/min (70-130); Calcium 9.1 mg/dL (7.8-10.44); Carbon Dioxide 28 mmol/L (23-31); Chloride 107 mmol/L (98-107); Estimated GFR-MDRD Greater than 90; Glucose 111 mg/dL (83-110); Potassium 3.4 mmol/L (3.5-5.1); Sodium 141 mmol/L (136-145)
[2018-09-12 06:46] LABS: Band 2 % (5-11); Lymphocytes 20 % (21-51); MDiff Complete? YES; Mean Corpuscular HGB CONC 31.5 g/dL (32.0-36.0); Mean Corpuscular Hemoglobin 30.5 pg (27.0-31.0); Mean Corpuscular Volume 96.8 fL (78.0-98.0); Mean Platelet Volume 7.5 fL (7.4-10.4); Monocytes 19 % (0-10); Myelocyte 1 % (0-0); Neutrophil 58 % (42-75); Platelet Count 251 thou/uL (130-400); Platelet Morphology Comment Appears Adequate; RBC Distribution Width 12.3 % (11.5-14.5); Red Blood Cell (RBC) Count 3.92 mill/uL (4.70-6.10); White Blood Cell (WBC) Count 9.8 thou/uL (4.8-10.8)
[2018-09-12] MEDS: Cefepime 1 GM in Sodium Chloride 0.9% 100 ML IVPB SCH ×2 (08:12→19:58)
[2018-09-12] MEDS: Enoxaparin Sodium 40 MG/0.4 ML SYRINGE SC SCH (08:12)
[2018-09-12] MEDS: Gabapentin 100 MG CAP PO SCH ×3 (08:13→19:58)
[2018-09-12] MEDS: Atorvastatin Calcium 40 MG TAB PO SCH (08:13)
[2018-09-12] MEDS: Metoprolol Tartrate 50 MG TAB PO SCH ×2 (08:13→20:03)
[2018-09-12] MEDS: Ezetimibe 10 MG TAB PO SCH (08:13)
[2018-09-12] MEDS: Lisinopril 5 MG TAB PO SCH (08:14)
[2018-09-12] MEDS: predniSONE 20 MG TAB PO SCH (08:14)
[2018-09-12] MEDS: Cyanocobalamin (Vitamin B-12) 1,000 MCG TAB PO SCH (08:14)
[2018-09-12] MEDS: Aspirin 81 mg Enteric Coated Tablet PO SCH (08:14)
[2018-09-12] MEDS: Nicotine 14 MG PATCH TD SCH (08:15)
[2018-09-12] MEDS: Fluticasone Propionate Nasal Spray 16 gm Bottle NASAL SCH (08:15)
[2018-09-12] MEDS: guaiFENesin ER 600 MG TAB PO SCH ×2 (08:15→19:59)
[2018-09-12] MEDS: Dorzolamide HCl 2% Ophth Soln 10 ml Bottle EA EYE SCH ×2 (08:16→20:01)
--- NOTE | 2018-09-12 11:56 | PDOC.PN ---
- Subjective Encounter Start Date: 09/12/18 Encounter Start Time: 11:54 Mr. Beltre was seen today in follow-up of Pneumonia. He says he feels a little better this morning. He still feels congested, and says it is stuck in his chest , and difficult to get up. - Objective Resuscitation Status - Order Detail: 09/09/18 10:32 Resuscitation Status Routine Resuscitation Status: FULL: Full Resuscitation Discussed with: patient MAR Reviewed: Yes Vital Signs & Weight: Vital Signs (12 hours) Temp Pulse Resp BP BP Pulse Ox 09/12/18 09:59 91 18 94 L 09/12/18 08:14 91 09/12/18 08:00 91 L 09/12/18 07:54 97.7 F 91 20 123/73 91 L 09/12/18 06:17 95 16 95 09/12/18 06:14 95 16 95 09/12/18 01:45 98 20 97 09/12/18 00:32 98.5 F 98 20 102/64 96 Weight Admit Weight 194 lb 9 oz Weight 194 lb 9 oz I&O: 09/11/18 09/12/18 09/13/18 06:59 06:59 06:59 Intake Total 1550 1500 360 Output Total 1450 Balance 100 1500 360 Result Diagrams: 09/12/18 05:41 09/12/18 05:41 Additional Labs: Accuchecks 09/12/18 09/11/18 09/11/18 04:10 21:29 16:56 POC Glucose 114 H 184 H 161 H 09/11/18 11:58 POC Glucose 156 H Phys Exam - Physical Examination HEENT: PERRLA Respiratory: wheezing present + scattered wheezing Cardiovascular: RRR, no significant murmur, no rub Gastrointestinal: soft, non-tender, positive bowel sounds Musculoskeletal: no edema, edema present Dx/Plan (1) Healthcare-associated pneumonia Code(s): J18.9 - PNEUMONIA, UNSPECIFIED ORGANISM Status: Acute (2) Acute and chronic respiratory failure Code(s): J96.20 - ACUTE AND CHR RESP FAILURE, UNSP W HYPOXIA OR HYPERCAPNIA Status: Acute Qualifiers: Respiratory failure complication: hypoxia Qualified Code(s): J96.21 - Acute and chronic respiratory failure with hypoxia (3) Aortic valve prosthesis present Code(s): Z95.2 - PRESENCE OF PROSTHETIC HEART VALVE Status: Chronic (4) DM type 2 (diabetes mellitus, type 2) Status: Chronic Qualifiers: 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 CFontinue cefdinir. Change steroids to oral. (6) Hypertension Code(s): I10 - ESSENTIAL (PRIMARY) HYPERTENSION Status: Chronic Qualifiers: Hypertension type: essential hypertension Qualified Code(s): I10 - Essential (primary) hypertension Comment: controlled and at goal - Plan * Pneumonia- will continue with one more day of broad spectrum antibiotics * CAD- stable * DM- blood glucose is stable * HTN- blood pressure us controlled * I anticipate home tomorrow if he continues to improve overnight.
[2018-09-12 13:44] LABS: Vancomycin, Trough 16.9 ug/mL
[2018-09-12] MEDS: Loratadine 10 MG TAB PO SCH (19:58)
[2018-09-12] MEDS: Latanoprost 0.005% Ophth Soln 2.5 ml Bottle EA EYE SCH (20:03)
[2018-09-13] MEDS: Piperacillin/Tazobactam 3.375 GM in Sodium Chloride 0.9% 100 ML IVPB SCH ×3 (00:18→11:30)
[2018-09-13] MEDS: Vancomycin HCl 1.75 GM in Sodium Chloride 0.9% 500 ML IVPB SCH ×2 (01:30→13:13)
[2018-09-13] MEDS: Mometasone/Formoterol 120 PUFF INHALER INH SCH ×2 (06:03→20:25)
[2018-09-13] MEDS: Enoxaparin Sodium 40 MG/0.4 ML SYRINGE SC SCH (08:07)
[2018-09-13] MEDS: Nicotine 14 MG PATCH TD SCH (08:07)
[2018-09-13] MEDS: Ezetimibe 10 MG TAB PO SCH (08:08)
[2018-09-13] MEDS: Lisinopril 5 MG TAB PO SCH (08:08)
[2018-09-13] MEDS: predniSONE 20 MG TAB PO SCH (08:08)
[2018-09-13] MEDS: Metoprolol Tartrate 50 MG TAB PO SCH ×2 (08:08→20:53)
[2018-09-13] MEDS: Gabapentin 100 MG CAP PO SCH ×3 (08:08→20:47)
[2018-09-13] MEDS: Atorvastatin Calcium 40 MG TAB PO SCH (08:09)
[2018-09-13] MEDS: Aspirin 81 mg Enteric Coated Tablet PO SCH (08:09)
[2018-09-13] MEDS: Dorzolamide HCl 2% Ophth Soln 10 ml Bottle EA EYE SCH ×2 (08:09→20:47)
[2018-09-13] MEDS: Cyanocobalamin (Vitamin B-12) 1,000 MCG TAB PO SCH (08:09)
[2018-09-13] MEDS: guaiFENesin ER 600 MG TAB PO SCH ×2 (08:09→20:51)
[2018-09-13] MEDS: Cefepime 1 GM in Sodium Chloride 0.9% 100 ML IVPB SCH (08:19)
[2018-09-13] MEDS: Fluticasone Propionate Nasal Spray 16 gm Bottle NASAL SCH (08:19)
--- NOTE | 2018-09-13 14:45 | PDOC.PN ---
- Subjective Encounter Start Date: 09/13/18 Encounter Start Time: 14:43 Subjective: getting better slowly.coughing but not able to bring up phlegmn -: easily winded,weak - Objective Resuscitation Status - Order Detail: 09/09/18 10:32 Resuscitation Status Routine Resuscitation Status: FULL: Full Resuscitation Discussed with: patient DESMOND Reviewed: Yes Vital Signs & Weight: Vital Signs (12 hours) Temp Pulse Resp BP Pulse Ox 09/13/18 13:58 100 18 96 09/13/18 09:55 100 16 96 09/13/18 08:08 100 09/13/18 08:00 96 09/13/18 07:38 98.3 F 100 16 144/72 H 96 09/13/18 06:03 85 16 96 09/13/18 05:59 85 16 96 Weight Admit Weight 194 lb 9 oz Weight 194 lb 9 oz I&O: 09/12/18 09/13/18 09/14/18 06:59 06:59 06:59 Intake Total 1500 840 600 Output Total 900 Balance 1500 -60 600 Result Diagrams: 09/12/18 05:41 09/12/18 05:41 Additional Labs: Accuchecks 09/13/18 09/13/18 09/12/18 11:47 04:47 19:58 POC Glucose 144 H 103 182 H 09/12/18 15:49 POC Glucose 161 H Microbiology 09/08/18 20:20 Nasal swab Influenza Types A,B Direct EIA - Final 09/08/18 23:40 Venous blood - Left Arm Blood Culture - Preliminary NO GROWTH AT 48 HOURS 09/08/18 20:20 Venous blood - Right Arm Blood Culture - Preliminary Gram Positive Aries Microbiology 09/09/18 13:40 Sputum Respiratory Culture - Final Stenotrophomonas maltophilia Phys Exam - Physical Examination Constitutional: NAD HEENT: PERRLA, moist MMs, sclera anicteric, oral pharynx no lesions, 2+ tonsils Neck: no nodes, no JVD, supple, full ROM Respiratory: no wheezing, no rales, no rhonchi, clear to auscultation bilateral coarse Bs b/l Cardiovascular: RRR, no significant murmur Gastrointestinal: soft, non-tender, no distention, positive bowel sounds Musculoskeletal: no edema, pulses present Neurological: non-focal, normal sensation, moves all 4 limbs Psychiatric: normal affect, A&O x 3 Skin: no rash Dx/Plan (1) Healthcare-associated pneumonia Code(s): J18.9 - PNEUMONIA, UNSPECIFIED ORGANISM Status: Acute (2) Acute and chronic respiratory failure Code(s): J96.20 - ACUTE AND CHR RESP FAILURE, UNSP W HYPOXIA OR HYPERCAPNIA Status: Acute Qualifiers: Respiratory failure complication: hypoxia Qualified Code(s): J96.21 - Acute and chronic respiratory failure with hypoxia (3) COPD exacerbation Code(s): J44.1 - CHRONIC OBSTRUCTIVE PULMONARY DISEASE W (ACUTE) EXACERBATION Status: Acute Comment: Improving, will continue oxygen and bronchodilators. CFontinue cefdinir. Change steroids to oral. (4) MYLENE on CPAP Code(s): G47.33 - OBSTRUCTIVE SLEEP APNEA (ADULT) (PEDIATRIC); Z99.89 - DEPENDENCE ON OTHER ENABLING MACHINES AND DEVICES Status: Acute (5) Aortic valve prosthesis present Code(s): Z95.2 - PRESENCE OF PROSTHETIC HEART VALVE Status: Chronic (6) CAD (coronary artery disease) Code(s): I25.10 - ATHSCL HEART DISEASE OF [place] CORONARY ARTERY W/O ANG PCTRS Status: Chronic Qualifiers: Coronary Disease-Associated Artery/Lesion type: [place] artery [place] vs. transplanted heart: [place] heart Associated angina: without angina Qualified Code(s): I25.10 - Atherosclerotic heart disease of [place] coronary artery without angina pectoris Comment: stable (7) DM type 2 (diabetes mellitus, type 2) Status: Chronic Qualifiers: Diabetes mellitus middle or intermediate school principal insulin use: without middle or intermediate school principal use Diabetes mellitus complication status: without complication Qualified Code(s): E11.9 - Type 2 diabetes mellitus without complications Comment: controlled (8) Hypertension Code(s): I10 - ESSENTIAL (PRIMARY) HYPERTENSION Status: Chronic Qualifiers: Hypertension type: essential hypertension Qualified Code(s): I10 - Essential (primary) hypertension Comment: controlled and at goal - Plan plan discussed w/ family, continue antibiotics, PT/OT, incentive spirometry, DVT proph w/SCDs recuurent admission for same.on multiple broad spectrum ABx for HCAP -: Stenotrophomonas in sputum Cx of unclear significance.w AVR,? of endocardit -: remains w possible heart failure. will check BNP,ECHO.consult ID -: may need to start levaquin based on sensitivities. -: Hd stable for now. Add OT,PT.will benefit from rehab * .Ct scan and CXr rsults reviewed. Review of Systems - Review of Systems Constitutional: weakness, malaise. negative: fever, chills, sweats, other Respiratory: Cough, SOB with Excertion, Sputum. negative: Dry, Shortness of Breath, Hemoptysis, Pleuritic Pain, Wheezing Cardiovascular: negative: chest pain, palpitations, orthopnea, paroxysmal nocturnal dyspnea, edema, light headedness, other Gastrointestinal: negative: Nausea, Vomiting, Abdominal Pain, Diarrhea, Constipation, Melena, Hematochezia, Other Genitourinary: negative: Dysuria, Frequency, Incontinence, Hematuria, Retention , Other Musculoskeletal: negative: Neck Pain, Shoulder Pain, Arm Pain, Back Pain, Hand Pain, Leg Pain, Foot Pain, Other Skin: negative: Rash, Lesions, Abilio, Bruising, Other Neurological: negative: Weakness, Numbness, Incoordination, Change in Speech, Confusion, Seizures, Other - Medications/Allergies Allergies/Adverse Reactions: Allergies Allergy/AdvReac Type Severity Reaction Status Date / Time No Known Drug Allergies Allergy Verified 08/08/18 19:16 Medications: Current Medications Acetaminophen (Tylenol) 650 mg PO Q4H PRN PRN Reason: Headache/Fever/Mild Pain (1-3) Al Hydroxide/Mg Hydroxide (Maalox) 30 ml PO Q6H PRN PRN Reason: Heartburn or Indigestion Albuterol/Ipratropium (Duoneb) 3 ml NEB [id number] [facility] Last Admin: 09/13/18 13:58 Dose: 3 ml Aspirin (Ecotrin) 81 mg PO DAILY [facility] Last Admin: 09/13/18 08:09 Dose: 81 mg Atorvastatin Calcium (Lipitor) 80 mg PO DAILY [facility] Last Admin: 09/13/18 08:09 Dose: 80 mg Calcium Carbonate (Tums) 1,000 mg PO Q4H PRN PRN Reason: Heartburn or Indigestion Last Admin: 09/12/18 08:26 Dose: 1,000 mg Cyanocobalamin (Vitamin B-12) 1,000 mcg PO DAILY [facility] Last Admin: 09/13/18 08:09 Dose: 1,000 mcg Dextrose/Water (Dextrose 50%) 25 gm SLOW IVP PRN PRN PRN Reason: Hypoglycemia Dorzolamide HCl (Trusopt 2% Ophth Soln) 1 drop EA EYE BID [facility] Last Admin: 09/13/18 08:09 Dose: 1 drp Ezetimibe (Zetia) 10 mg PO DAILY [facility] Last Admin: 09/13/18 08:08 Dose: 10 mg Enoxaparin Sodium (Lovenox) 40 mg SC 0900 [facility] Last Admin: 09/13/18 08:07 Dose: 40 mg Fluticasone Propionate (Flonase Nasal [place]) 0 gm NASAL DAILY [facility] Last Admin: 09/13/18 08:19 Dose: 2 spr Gabapentin (Neurontin) 200 mg PO TID [facility] Last Admin: 09/13/18 14:34 Dose: 200 mg Glucagon (Glucagon) 1 mg IM PRN PRN PRN Reason: Hypoglycemia Guaifenesin (Mucinex) 600 mg PO BID [facility] Last Admin: 09/13/18 08:09 Dose: 600 mg Piperacillin Sod/Tazobactam (Sod 3.375 gm/ Sodium Chloride) 100 mls @ 200 mls/ hr IVPB Q6HR [facility] Last Admin: 09/13/18 11:30 Dose: 100 mls Cefepime HCl 1 gm/ Sodium (Chloride) 100 mls @ 200 mls/hr IVPB Q12HR [facility] Last Admin: 09/13/18 08:19 Dose: 100 mls Dextrose/Water (D5w) 1,000 mls @ 0 mls/hr IV .Q0M PRN PRN Reason: Hypoglycemia Vancomycin HCl 1.75 gm/ Sodium (Chloride) 500 mls @ 250 mls/hr IVPB 0200,1400 [facility] Last Admin: 09/13/18 13:13 Dose: 500 mls Insulin Human Lispro (Humalog) 0 units SC .MILD SLIDING SCALE PRN PRN Reason: Mild Correctional Scale Last Admin: 09/11/18 05:26 Dose: 2 unit Isosorbide Mononitrate (Imdur Er) 90 mg PO DAILY [facility] Last Admin: 09/13/18 08:08 Dose: 90 mg Latanoprost (Xalatan 0.005% Ophth Soln) 1 drop EA EYE HS [facility] Last Admin: 09/12/18 20:03 Dose: 1 drp Lisinopril (Zestril) 5 mg PO DAILY [facility] Last Admin: 09/13/18 08:08 Dose: 5 mg Loratadine (Claritin) 10 mg PO HS [facility] Last Admin: 09/12/18 19:58 Dose: 10 mg Metoprolol Tartrate (Lopressor) 100 mg PO BID [facility] Last Admin: 09/13/18 08:08 Dose: 100 mg Miscellaneous Medication (Pharmacy To Dose) 1 each IVPB PRN PRN PRN Reason: Pharmacy to dose Mometasone Furoate/Formoterol Fumar (Dulera 100 Mcg/5 Mcg Inhaler) 2 puff INH BID-RT [facility] Last Admin: 09/13/18 06:03 Dose: 2 puff Niacin (Niaspan Er) [address] [facility] Last Admin: 09/12/18 20:23 Dose: Not Given Nicotine (Nicoderm Patch) 14 mg TD 0900 [facility] Last Admin: 09/13/18 08:07 Dose: 14 mg Pantoprazole Sodium (Protonix) 40 mg PO DAILY [facility] Last Admin: 09/13/18 08:09 Dose: 40 mg Prednisone (Prednisone) 40 mg PO QAM-WM [facility] Last Admin: 09/13/18 08:08 Dose: 40 mg Sterile Water (Bacteriostatic Water) 1 ml FS PRN PRN PRN Reason: RECONSTITUTION
[2018-09-13] MEDS: HumaLOG 300 UNITS/3 ML VIAL SC PRN (17:15)
[2018-09-13] MEDS: Latanoprost 0.005% Ophth Soln 2.5 ml Bottle EA EYE SCH (20:47)
[2018-09-13] MEDS: Loratadine 10 MG TAB PO SCH (20:52)
--- NOTE | 2018-09-13 22:05 | CON ---
DATE OF CONSULTATION: REASON FOR CONSULTATION: Respiratory symptoms, COPD, and sputum culture results evaluation. HISTORY OF PRESENT ILLNESS: A 73-year-old gentleman, who has a history of coronary artery disease, bypass graft surgery with stenting, as well as aortic stenosis with a TAVR in 2017. He also has COPD and continues to smoke daily, has had quite a few episodes of COPD exacerbation in the past, the last one was in August of this year. Over the week before this admission, he developed worsening wheezing, a sensation of pressure in the chest, epigastric region, and worsening dyspnea. The patient is oxygen dependent at home, mostly when he goes outside the house, he has a portable machine that delivers high concentrations of oxygen in the inspired air. He had a nonproductive cough and then became productive with yellow sputum production. Had some low-grade temperature elevation. No headaches, visual symptoms, sore throat, odynophagia, or dysphagia. No vomiting. No diarrhea. No abdominal pain. No genitourinary symptoms. No joint symptoms. He was seen in the emergency room at [facility], given broad-spectrum coverage, and transferred for admission, initial findings with temperature 98, pulse 97, respirations 20, O2 saturation 92% on 2 L nasal cannula, and blood pressure 118/72. He is awake, alert, and pleasant. The heart exam was normal. The lungs with diffuse scattered wheezing noted. No edema noted. White cell count 6.1, hemoglobin 13, platelets 192. Sodium 137, creatinine 0.75. 81% neutrophils. We have one set of blood cultures out of two with a gram-positive ashley, yet to be identified and susceptibility tested. This could represent contamination of the sample, and the respiratory culture with Stenotrophomonas maltophilia susceptible to levofloxacin, trimethoprim and sulfamethoxazole. Chest x-ray did not show any areas of infiltration in the abdomen and pelvis CT with bronchiectasis, patchy airspace opacity in the right lower lobe and right middle lobe, mild pneumonia, right nephrolithiasis, and prominent vascular calcifications. Currently, he feels better. He is sitting in the bed. REVIEW OF SYSTEMS: Ten-point review of systems still shows positive coughing spells intermittently, but less sputum production. Still with chronic dyspnea as previously. No hemoptysis. Remainder of ten-point review of systems is negative. MEDICAL HISTORY: Aortic stenosis with TAVR; COPD, O2 dependent; chronic smoking, still active; coronary artery disease with stenting; glaucoma; type 2 diabetes, managed with dietary measures only. He also had a carpal tunnel release, rotator cuff repair, bypass graft surgery x4 vessels. FAMILY HISTORY: Coronary artery disease. SOCIAL HISTORY: Drinks [employer] 3 times a week. Current smoker, trying to cut. He only smokes about a cigarette a day reportedly. ALLERGIES: NONE. CURRENT MEDICATIONS: Includes, 1. Tylenol. 2. Maalox. 3. DuoNeb. 4. Ecotrin. 5. Lipitor. 6. Tums. 7. Cefepime. 8. B12. 9. Trusopt. 10. Lovenox. 11. Zetia. 12. Flonase. 13. Neurontin. 14. Mucinex. 15. Imdur. 16. Xalatan. 17. Zestril. 18. Claritin. 19. Lopressor. 20. Dulera. 21. Zosyn. 22. Vancomycin. PHYSICAL EXAMINATION: VITAL SIGNS: T-max 98.5, blood pressure 140/70, pulse 100, respirations 16 to 18, O2 saturation 96%. SKIN: Not remarkable. The patient has a peripheral IV access and is urinating in the toilet. No lymphadenopathy. Ocular movements conjugate. Oral cavity with again numerous missing teeth. Moist mucosa. No lesions. NECK: Supple. No jugular vein distention. LUNGS: With markedly diminished breath sounds. No crackles or wheezing. HEART: S1 and S2. Markedly diminished heart sounds. No obvious murmurs. ABDOMEN: Soft, not distended or tender. No ascites. No bladder distention. EXTREMITIES: No joint inflammatory activity. Pulses, 1+ in dorsalis pedis. No edema. Plantar responses are flexor. No clonus. NEUROLOGIC: He is awake and oriented. Follows commands. Pleasant. Speech is normal. LABORATORY DATA: White cell count 9.8, hemoglobin 12, and platelets 251. ASSESSMENT: Chronic obstructive pulmonary disease, chronic smoking, still active; coronary artery disease with prior bypass graft surgery and stents, recent transcatheter aortic valve replacement for management of aortic stenosis; and now exacerbation of chronic obstructive pulmonary disease; and some findings in the CT of abdomen, which imaged to be lower third of the chest and showed some areas of patchy infiltration, bronchiectasis. DISCUSSION: The findings on CT could be chronic. He may have chronic colonization by Stenotrophomonas or another organism for example atypical mycobacterial pathogen. I think we can deescalate the therapy and leave him on just levofloxacin. The Stenotrophomonas maltophilia may be a colonizer in view of the findings in the sputum Gram stain with quite a few epithelial cells. The polymicrobial nature of the sample suggestive of oral annette. Job ID: [id number]
[2018-09-14] MEDS: Mometasone/Formoterol 120 PUFF INHALER INH SCH ×2 (05:43→19:34)
[2018-09-14 06:46] LABS: #Eosinphils 0.2 thou/uL (0.0-0.7); #Lymphocytes 2.6 thou/uL (1.20-3.40); #Monocytes 1.2 thou/uL (0.11-0.59); %Basophils 0.4 % (0.0-1.0); %Eosinophils 1.8 % (0.0-10.0); %Lymphocytes 26.2 % (21.0-51.0); %Monocytes 11.6 % (0.0-10.0); %Neutrophils 59.9 % (42.0-75.0); Hemoglobin 12.4 g/dL (14.0-18.0); Mean Corpuscular HGB CONC 32.4 g/dL (32.0-36.0); Mean Corpuscular Hemoglobin 31.6 pg (27.0-31.0); Mean Corpuscular Volume 97.3 fL (78.0-98.0); Mean Platelet Volume 7.1 fL (7.4-10.4); Platelet Count 232 thou/uL (130-400); RBC Distribution Width 12.3 % (11.5-14.5); Red Blood Cell (RBC) Count 3.93 mill/uL (4.70-6.10); White Blood Cell (WBC) Count 9.9 thou/uL (4.8-10.8)
[2018-09-14 07:03] LABS: Anion Gap 11 mmol/L (10-20); BUN (Urea Nitrogen) 6 mg/dL (8.4-25.7); Calc. Creatinine Clearance 117 mL/min (70-130); Calcium 9.2 mg/dL (7.8-10.44); Carbon Dioxide 29 mmol/L (23-31); Chloride 105 mmol/L (98-107); Estimated GFR-MDRD Greater than 90; Glucose 101 mg/dL (83-110); Potassium 3.4 mmol/L (3.5-5.1); Sodium 142 mmol/L (136-145)
[2018-09-14] MEDS: Nicotine 14 MG PATCH TD SCH (07:48)
[2018-09-14] MEDS: Enoxaparin Sodium 40 MG/0.4 ML SYRINGE SC SCH (07:48)
[2018-09-14] MEDS: Ezetimibe 10 MG TAB PO SCH (07:49)
[2018-09-14] MEDS: guaiFENesin ER 600 MG TAB PO SCH ×2 (07:49→21:06)
[2018-09-14] MEDS: Metoprolol Tartrate 50 MG TAB PO SCH ×2 (07:49→21:06)
[2018-09-14] MEDS: Aspirin 81 mg Enteric Coated Tablet PO SCH (07:49)
[2018-09-14] MEDS: Gabapentin 100 MG CAP PO SCH ×3 (07:50→21:06)
[2018-09-14] MEDS: predniSONE 20 MG TAB PO SCH (07:50)
[2018-09-14] MEDS: Atorvastatin Calcium 40 MG TAB PO SCH (07:50)
[2018-09-14] MEDS: Lisinopril 5 MG TAB PO SCH (07:50)
[2018-09-14] MEDS: Cyanocobalamin (Vitamin B-12) 1,000 MCG TAB PO SCH (07:51)
[2018-09-14] MEDS: Dorzolamide HCl 2% Ophth Soln 10 ml Bottle EA EYE SCH ×2 (07:51→21:09)
[2018-09-14] MEDS: Fluticasone Propionate Nasal Spray 16 gm Bottle NASAL SCH (07:51)
--- NOTE | 2018-09-14 10:21 | PDOC.PN ---
- Subjective Encounter Start Date: 09/14/18 Encounter Start Time: 09:30 -: old records requested/rev Patient seen and examined. No new complaints. No overnight events - Objective Resuscitation Status - Order Detail: 09/09/18 10:32 Resuscitation Status Routine Resuscitation Status: FULL: Full Resuscitation Discussed with: patient DESMOND Reviewed: Yes Vital Signs & Weight: Vital Signs (12 hours) Temp Pulse Resp BP Pulse Ox 09/14/18 09:56 89 18 93 L 09/14/18 08:00 90 L 09/14/18 07:50 89 09/14/18 07:25 97.4 F L 89 20 124/57 L 90 L 09/14/18 05:43 104 H 16 95 09/14/18 05:40 104 H 16 95 09/14/18 02:17 102 H 16 09/13/18 22:20 104 H 20 95 Weight Admit Weight 194 lb 9 oz Weight 194 lb 9 oz I&O: 09/13/18 09/14/18 09/15/18 06:59 06:59 06:59 Intake Total 840 900 360 Output Total 900 600 Balance -60 300 360 Result Diagrams: 09/14/18 06:25 09/14/18 06:25 Additional Labs: Accuchecks 09/14/18 09/13/18 09/13/18 04:55 19:50 16:34 POC Glucose 102 120 H 195 H 09/13/18 11:47 POC Glucose 144 H Phys Exam - Physical Examination Constitutional: NAD HEENT: PERRLA, moist MMs, sclera anicteric Neck: no JVD, supple Respiratory: no wheezing, no rales, no rhonchi reduced air entry+ Cardiovascular: RRR, no rub SM+, prosthetic click+ Gastrointestinal: soft, non-tender, no distention, positive bowel sounds Musculoskeletal: no edema, pulses present Neurological: non-focal, normal sensation Lymphatic: no nodes Psychiatric: normal affect, A&O x 3 Skin: no rash, normal turgor Dx/Plan (1) Healthcare-associated pneumonia Code(s): J18.9 - PNEUMONIA, UNSPECIFIED ORGANISM Status: Acute (2) Hypokalemia Code(s): E87.6 - HYPOKALEMIA Status: Acute (3) Aortic valve prosthesis present Code(s): Z95.2 - PRESENCE OF PROSTHETIC HEART VALVE Status: Chronic (4) CAD (coronary artery disease) Code(s): I25.10 - ATHSCL HEART DISEASE OF [place] CORONARY ARTERY W/O ANG PCTRS Status: Chronic Qualifiers: Coronary Disease-Associated Artery/Lesion type: [place] artery [place] vs. transplanted heart: [place] heart Associated angina: without angina Qualified Code(s): I25.10 - Atherosclerotic heart disease of [place] coronary artery without angina pectoris Comment: stable (5) COPD (chronic obstructive pulmonary disease) Status: Chronic (6) Chronic stage c diastolic heart failure Code(s): I50.32 - CHRONIC DIASTOLIC (CONGESTIVE) HEART FAILURE Status: Chronic (7) DM type 2 (diabetes mellitus, type 2) Status: Chronic Qualifiers: Diabetes mellitus keno terminal operator insulin use: without keno terminal operator use Diabetes mellitus complication status: without complication Qualified Code(s): E11.9 - Type 2 diabetes mellitus without complications Comment: controlled (8) Diabetes 1.5, managed as type 2 Code(s): E13.9 - OTHER SPECIFIED DIABETES MELLITUS WITHOUT COMPLICATIONS Status: Chronic (9) Hypertension Code(s): I10 - ESSENTIAL (PRIMARY) HYPERTENSION Status: Chronic Qualifiers: Hypertension type: essential hypertension Qualified Code(s): I10 - Essential (primary) hypertension Comment: controlled and at goal (10) MYLENE on CPAP Code(s): G47.33 - OBSTRUCTIVE SLEEP APNEA (ADULT) (PEDIATRIC); Z99.89 - DEPENDENCE ON OTHER ENABLING MACHINES AND DEVICES Status: Chronic (11) Severe aortic stenosis Code(s): I35.0 - NONRHEUMATIC AORTIC (VALVE) STENOSIS Status: Chronic - Plan cont current plan of care, plan discussed w/ family, continue antibiotics, respiratory therapy * medication reviewed as below * symptomatic treatment * await rehab placement * ID recommendation appreciated * discussed with . Review of Systems - Review of Systems ENT: negative: Ear Pain, Ear Discharge, Nose Pain, Nose Discharge, Nose Congestion, Mouth Pain, Mouth Swelling, Throat Pain, Throat Swelling, Other Respiratory: SOB with Excertion. negative: Cough, Dry, Shortness of Breath, Hemoptysis, Pleuritic Pain, Sputum, Wheezing Cardiovascular: negative: chest pain, palpitations, orthopnea, paroxysmal nocturnal dyspnea, edema, light headedness, other Gastrointestinal: negative: Nausea, Vomiting, Abdominal Pain, Diarrhea, Constipation, Melena, Hematochezia, Other Genitourinary: negative: Dysuria, Frequency, Incontinence, Hematuria, Retention , Other Musculoskeletal: negative: Neck Pain, Shoulder Pain, Arm Pain, Back Pain, Hand Pain, Leg Pain, Foot Pain, Other Skin: negative: Rash, Lesions, Abiilo, Bruising, Other - Medications/Allergies Allergies/Adverse Reactions: Allergies Allergy/AdvReac Type Severity Reaction Status Date / Time No Known Drug Allergies Allergy Verified 08/08/18 19:16 Medications: Current Medications Acetaminophen (Tylenol) 650 mg PO Q4H PRN PRN Reason: Headache/Fever/Mild Pain (1-3) Al Hydroxide/Mg Hydroxide (Maalox) 30 ml PO Q6H PRN PRN Reason: Heartburn or Indigestion Albuterol/Ipratropium (Duoneb) 3 ml NEB [id number] [facility] Last Admin: 09/14/18 09:56 Dose: 3 ml Aspirin (Ecotrin) 81 mg PO DAILY [facility] Last Admin: 09/14/18 07:49 Dose: 81 mg Atorvastatin Calcium (Lipitor) 80 mg PO DAILY [facility] Last Admin: 09/14/18 07:50 Dose: 80 mg Calcium Carbonate (Tums) 1,000 mg PO Q4H PRN PRN Reason: Heartburn or Indigestion Last Admin: 09/12/18 08:26 Dose: 1,000 mg Cyanocobalamin (Vitamin B-12) 1,000 mcg PO DAILY [facility] Last Admin: 09/14/18 07:51 Dose: 1,000 mcg Dextrose/Water (Dextrose 50%) 25 gm SLOW IVP PRN PRN PRN Reason: Hypoglycemia Dorzolamide HCl (Trusopt 2% Ophth Soln) 1 drop EA EYE BID [facility] Last Admin: 09/14/18 07:51 Dose: 1 drp Ezetimibe (Zetia) 10 mg PO DAILY [facility] Last Admin: 09/14/18 07:49 Dose: 10 mg Enoxaparin Sodium (Lovenox) 40 mg SC 0900 [facility] Last Admin: 09/14/18 07:48 Dose: 40 mg Fluticasone Propionate (Flonase Nasal [place]) 0 gm NASAL DAILY [facility] Last Admin: 09/14/18 07:51 Dose: 1 spr Gabapentin (Neurontin) 200 mg PO TID [facility] Last Admin: 09/14/18 07:50 Dose: 200 mg Glucagon (Glucagon) 1 mg IM PRN PRN PRN Reason: Hypoglycemia Guaifenesin (Mucinex) 600 mg PO BID [facility] Last Admin: 09/14/18 07:49 Dose: 600 mg Dextrose/Water (D5w) 1,000 mls @ 0 mls/hr IV .Q0M PRN PRN Reason: Hypoglycemia Insulin Human Lispro (Humalog) 0 units SC .MILD SLIDING SCALE PRN PRN Reason: Mild Correctional Scale Last Admin: 09/13/18 17:15 Dose: 2 unit Isosorbide Mononitrate (Imdur Er) 90 mg PO DAILY [facility] Last Admin: 09/14/18 07:48 Dose: 90 mg Latanoprost (Xalatan 0.005% Ophth Soln) 1 drop EA EYE [facility] Last Admin: 09/13/18 20:47 Dose: 1 drp Levofloxacin (Levaquin) 750 mg PO 0600 [facility] Last Admin: 09/14/18 05:18 Dose: 750 mg Lisinopril (Zestril) 5 mg PO DAILY [facility] Last Admin: 09/14/18 07:50 Dose: 5 mg Loratadine (Claritin) 10 mg PO HS [facility] Last Admin: 09/13/18 20:52 Dose: 10 mg Metoprolol Tartrate (Lopressor) 100 mg PO BID [facility] Last Admin: 09/14/18 07:49 Dose: 100 mg Miscellaneous Medication (Pharmacy To Dose) 1 each IVPB PRN PRN PRN Reason: Pharmacy to dose Mometasone Furoate/Formoterol Fumar (Dulera 200 Mcg/5 Mcg Inhaler) 2 puff INH BID-RT [facility] Last Admin: 09/14/18 05:43 Dose: 2 puff Niacin (Niaspan Er) 500 mg PO HS [facility] Last Admin: 09/13/18 20:54 Dose: 500 mg Nicotine (Nicoderm Patch) 14 mg TD 0900 [facility] Last Admin: 09/14/18 07:48 Dose: 14 mg Pantoprazole Sodium (Protonix) 40 mg PO DAILY [facility] Last Admin: 09/14/18 07:50 Dose: 40 mg Prednisone (Prednisone) 40 mg PO QAM-WM [facility] Last Admin: 09/14/18 07:50 Dose: 40 mg Sterile Water (Bacteriostatic Water) 1 ml FS PRN PRN PRN Reason: RECONSTITUTION
[2018-09-14 13:50] LABS: Vancomycin, Trough 9.1 ug/mL
[2018-09-14] MEDS: Loratadine 10 MG TAB PO SCH (21:06)
[2018-09-14] MEDS: Latanoprost 0.005% Ophth Soln 2.5 ml Bottle EA EYE SCH (21:08)
[2018-09-15] MEDS: Mometasone/Formoterol 120 PUFF INHALER INH SCH (07:16)
[2018-09-15] MEDS: predniSONE 20 MG TAB PO SCH (08:32)
[2018-09-15] MEDS: Atorvastatin Calcium 40 MG TAB PO SCH (08:33)
[2018-09-15] MEDS: Aspirin 81 mg Enteric Coated Tablet PO SCH (08:33)
[2018-09-15] MEDS: Ezetimibe 10 MG TAB PO SCH (08:34)
[2018-09-15] MEDS: Lisinopril 5 MG TAB PO SCH (08:34)
[2018-09-15] MEDS: Gabapentin 100 MG CAP PO SCH (08:34)
[2018-09-15] MEDS: guaiFENesin ER 600 MG TAB PO SCH (08:34)
[2018-09-15] MEDS: Metoprolol Tartrate 50 MG TAB PO SCH (08:35)
[2018-09-15] MEDS: Enoxaparin Sodium 40 MG/0.4 ML SYRINGE SC SCH (08:35)
[2018-09-15] MEDS: Cyanocobalamin (Vitamin B-12) 1,000 MCG TAB PO SCH (08:35)
[2018-09-15] MEDS: Dorzolamide HCl 2% Ophth Soln 10 ml Bottle EA EYE SCH (08:36)
[2018-09-15] MEDS: Fluticasone Propionate Nasal Spray 16 gm Bottle NASAL SCH (08:36)
[2018-09-15] MEDS: Nicotine 14 MG PATCH TD SCH (08:37)
--- NOTE | 2018-09-15 11:19 | DIS ---
DATE OF ADMISSION: 09/09/2018 DATE OF DISCHARGE: 09/15/2018 PRIMARY CARE PHYSICIAN: [facility] Call Admission. DISCHARGE DISPOSITION: Home. PRIMARY DISCHARGE DIAGNOSES: Healthcare associated pneumonia, hypokalemia. SECONDARY DISCHARGE DIAGNOSES: Aortic stenosis, obstructive sleep apnea on CPAP, hypertension, diabetes type 2, chronic obstructive pulmonary disease, chronic diastolic heart failure, coronary artery disease, aortic wall prosthesis. SIGNIFICANT LABORATORY DATA: WBC 9.9, hemoglobin 12.4, platelet 232. Creatinine 0.72. Respiratory culture grew stenotrophomonas maltophilia. DISCHARGE MEDICATION: 1. Mucinex 600 mg twice daily. 2. Ventolin nebulization q.6 hourly. 3. Lipitor 80 mg p.o. daily. 4. Symbicort 2 puff inhalation b.i.d. 5. Capsaicin cream topical application b.i.d. 6. Vitamin B12 1000 mcg daily. 7. Dorzolamide ophthalmic drops b.i.d. 8. Zetia 10 mg daily. 9. Flonase nasal spray daily. 10. Neurontin 200 mg t.i.d. 11. Atrovent nebulization q.6 hourly. 12. Imdur 30 mg p.o. daily. 13. Xalatan eye drops at bedtime. 14. Lisinopril 5 mg daily. 15. Claritin 10 mg bedtime. 16. Metoprolol 100 mg p.o. b.i.d. 17. Niaspan 500 mg p.o. at bedtime. 18. Protonix 40 mg p.o. daily. 19. Triamcinolone topical application b.i.d. 20. Aspirin 81 mg daily. 21. Levaquin 750 mg p.o. daily for 7 days. 22. Prednisone 40 mg p.o. daily for 5 days, then 20 mg p.o. daily for 5 days, and then 10 mg p.o. daily for 5 days. CONTRAINDICATION: None. CODE STATUS: Full code. INPATIENT MOTOR SCOOTER MECHANIC: Dr. Ruff was consulted while in hospital. TEST RESULT PENDING ON DISCHARGE: None. ALLERGIES: NO KNOWN DRUG ALLERGIES. DISCHARGE PLAN: Posthospital, the patient will follow up with primary care physician and Dr. Ruff as instructed. HOSPITAL COURSE: A 73-year-old male with above-mentioned medical problem was admitted by Dr. Machuca. Please see his H and P for further details. The patient was having increasing shortness of breath, cough, and wheezing. He was found with COPD exacerbation. He was also found with pneumonia. He was admitted to hospital for acute on chronic respiratory failure secondary to underlying pneumonia and COPD exacerbation, which was treated with steroid, empiric antibiotic therapy with vancomycin and Zosyn and Mucinex therapy. Over the next few days, the patient's condition improved to his baseline level. This patient was doing wonderful while in hospital. He walked almost more than 500 feet with physical therapy. He was not requiring any kind of placement. He was doing much better by the time of discharge. The patient is seen and examined at bedside today. His vitals are stable. Plan of care discussed with the patient's and the patient. His physical examination pretty much essentially unchanged and normal without any significant wheezing or accessory muscles of respiration in use. Cardiac examination is unremarkable. The patient is medically stable for discharge with the above-mentioned medication. Job ID: [id number]
[2018-09-15 13:24] VITALS: BP 105/60; TEMP 97.7
== END 2018-09-15 13:06 | disposition home or self-care (01) | DRG 193 ==
LOC: ERS 01:04 → T4-A 04:40
PROVIDERS: ADMIT Family Medicine; ATTEND Family Medicine
DX: J18.9 Pneumonia, unspecified organism (principal); J96.21 Acute and chronic respiratory failure with hypoxia; J44.0 Chronic obstructive pulmonary disease with (acute) lower respiratory infection; J44.1 Chronic obstructive pulmonary disease with (acute) exacerbation; I50.32 Chronic diastolic (congestive) heart failure; I25.10 Atherosclerotic heart disease of native coronary artery without angina pectoris; K21.9 Gastro-esophageal reflux disease without esophagitis; E78.5 Hyperlipidemia, unspecified; E11.9 Type 2 diabetes mellitus without complications; H40.9 Unspecified glaucoma; M81.0 Age-related osteoporosis without current pathological fracture; G47.33 Obstructive sleep apnea (adult) (pediatric); E87.6 Hypokalemia; Z79.82 Long term (current) use of aspirin; Z99.81 Dependence on supplemental oxygen; Z95.2 Presence of prosthetic heart valve; Z79.51 Long term (current) use of inhaled steroids; Z95.1 Presence of aortocoronary bypass graft; Z95.5 Presence of coronary angioplasty implant and graft; Z79.52 Long term (current) use of systemic steroids; Z79.899 Other long term (current) drug therapy; I11.0 Hypertensive heart disease with heart failure; F17.210 Nicotine dependence, cigarettes, uncomplicated; Y95 Nosocomial condition
CPT/HCPCS: 36415; 36416; 80048; 80202; 83880; 85025; 87070; 87077; 87186; 87205; 93306; 94640; J0692; J1650; J2543; J2920; J3370; J7050; J7620

== ENCOUNTER 2018-09-26 16:56 | Outpatient (CLI) | payer MEDICARE ==
[2018-09-26 17:18] VITALS: BMI 28.1
[2018-09-26 18:46] LABS: Anion Gap 13 mmol/L (10-20); BUN (Urea Nitrogen) 11 mg/dL (8.4-25.7); Calc. Creatinine Clearance 106 mL/min (70-130); Calcium 9.4 mg/dL (7.8-10.44); Carbon Dioxide 28 mmol/L (23-31); Chloride 103 mmol/L (98-107); Estimated GFR-MDRD Greater than 90; Glucose 143 mg/dL (83-110); Potassium 4.8 mmol/L (3.5-5.1); Sodium 139 mmol/L (136-145)
== END 2018-09-26 16:57 | disposition home or self-care (01) ==
LOC: LABBT 16:56
PROVIDERS: ATTEND Internal Medicine Cardiovascular Disease
DX: Z01.812 Encounter for preprocedural laboratory examination (principal)
CPT/HCPCS: 80048

== ENCOUNTER 2018-10-04 08:35 | Day surgery (SDC) | payer MEDICARE ==
[2018-10-04] MEDS ORDERED: Midazolam HCl 2 mg/2 ml Vial ONE (10:31)
[2018-10-04] MEDS ORDERED: Lidocaine 1% PF 5 ML VIAL ONE (16:18)
[2018-10-04] MEDS ORDERED: PROPOFOL 200 MG/20 ML VIAL ONE (16:18)
--- NOTE | 2018-10-05 08:38 | OP ---
DATE OF PROCEDURE: 10/04/2018 PROCEDURE PERFORMED: Transesophageal echocardiogram. INDICATIONS FOR PROCEDURE: A 73-year-old gentleman with sepsis and history of aortic valve replacement. DESCRIPTION OF PROCEDURE: The patient was taken to the PACU. The patient was sedated by Anesthesiology. A transesophageal probe was placed into the distal esophagus and stomach. Echocardiographic images were obtained. The transesophageal probe was removed. FINDINGS: 1. Normal left ventricular systolic function. 2. Prosthetic aortic valve. 3. Small periprosthetic leak noted with mild aortic regurgitation. 4. Mild mitral regurgitation. 5. Mild tricuspid regurgitation. 6. No obvious vegetation was noted on the cardiac valves. 7. Atherosclerotic debris in the descending aorta. IMPRESSION: No obvious vegetation was noted on the prosthetic aortic valve or the other cardiac valves. Job ID: [id number] [facility]
== END 2018-10-04 11:59 | disposition home or self-care (01) ==
LOC: CCL 08:35
PROVIDERS: ATTEND Internal Medicine Cardiovascular Disease
PROC: B245ZZ4 Ultrasonography of Left Heart, Transesophageal (ICD-10-PCS; principal; 2018-10-04)
DX: I35.0 Nonrheumatic aortic (valve) stenosis (principal); A41.9 Sepsis, unspecified organism; I70.0 Atherosclerosis of aorta; E78.00 Pure hypercholesterolemia, unspecified; I10 Essential (primary) hypertension; J44.9 Chronic obstructive pulmonary disease, unspecified; F41.9 Anxiety disorder, unspecified; R20.2 Paresthesia of skin; Z87.891 Personal history of nicotine dependence; Z79.51 Long term (current) use of inhaled steroids; Z79.82 Long term (current) use of aspirin; Z79.899 Other long term (current) drug therapy; Z95.1 Presence of aortocoronary bypass graft; Z95.3 Presence of xenogenic heart valve; Z95.5 Presence of coronary angioplasty implant and graft
CPT/HCPCS: 93312; J2001; J2250; J2704

== ENCOUNTER 2018-10-07 10:43 | Inpatient (IN) | payer MEDICARE ==
[2018-10-07] MEDS ORDERED: Piperacillin/Tazobactam 3.375 GM VIAL ONE (11:00)
[2018-10-07] MEDS ORDERED: Magnesium 2 GM/50 ML BAG (IN WATER) ONE (11:00)
--- NOTE | 2018-10-07 11:14 | RAD ---
FRadiograph chest one view: 10/07/2018 at 11:02 AM HISTORY: 73-year-old male with dyspnea COMPARISON: 09/08/2018 FINDINGS: Hyperinflation of the lungs and hyperlucency of upper lobes represent COPD. There is a mild infiltrat e at the left lung base, apparently new since the prior study. Signs of previous CABG. Multiple tiny metallic fragments in the soft tissues of the left lateral chest wall and shoulder. IMPRESSION: 1. Small new infiltrate at left base. 2. Emphysema
[2018-10-07 11:31] LABS: #Eosinphils 0.2 thou/uL (0.0-0.7); #Lymphocytes 1.3 thou/uL (1.20-3.40); #Monocytes 0.7 thou/uL (0.11-0.59); #Neutrophils 8.9 thou/uL (1.40-6.50); %Basophils 0.3 % (0.0-1.0); %Eosinophils 1.7 % (0.0-10.0); %Lymphocytes 11.6 % (21.0-51.0); %Monocytes 6.4 % (0.0-10.0); %Neutrophils 80.1 % (42.0-75.0); Hemoglobin 14.4 g/dL (14.0-18.0); Mean Corpuscular HGB CONC 32.7 g/dL (32.0-36.0); Mean Corpuscular Hemoglobin 32.5 pg (27.0-31.0); Mean Corpuscular Volume 99.1 fL (78.0-98.0); Mean Platelet Volume 7.4 fL (7.4-10.4); Platelet Count 143 thou/uL (130-400); RBC Distribution Width 13.6 % (11.5-14.5); Red Blood Cell (RBC) Count 4.45 mill/uL (4.70-6.10); White Blood Cell (WBC) Count 11.1 thou/uL (4.8-10.8)
[2018-10-07 11:31] LABS: Bilirubin Negative (Negative); Blood, Urine Negative (Negative); Clarity CLEAR (Clear); Glucose, Urine (Dipstick) Negative (Negative); Leukocyte Negative (Negative); Nitrite Negative (Negative); Protein, Urine (Dipstick) Negative (Neg-Trace); Specific Gravity, Urine 1.008 (1.002-1.036)
[2018-10-07] MEDS ORDERED: Acetaminophen 500 MG TAB ONE (11:43)
[2018-10-07 11:54] LABS: ALT (SGPT) 19 U/L (8-55); AST (SGOT) 19 U/L (5-34); Albumin 4.2 g/dL (3.4-4.8); Alkaline Phosphatase 42 U/L (40-150); Anion Gap 15 mmol/L (10-20); BUN (Urea Nitrogen) 10 mg/dL (8.4-25.7); Bilirubin, Total 0.9 mg/dL (0.2-1.2); Calc. Creatinine Clearance 0 mL/min (70-130); Calcium 9.5 mg/dL (7.8-10.44); Carbon Dioxide 24 mmol/L (23-31); Chloride 102 mmol/L (98-107); Estimated GFR-MDRD Greater than 90; Globulin 2.4 g/dL (2.4-3.5); Glucose 117 mg/dL (83-110); Potassium 4.4 mmol/L (3.5-5.1); Protein, Total 6.6 g/dL (5.8-8.1); Sodium 137 mmol/L (136-145)
[2018-10-07] MEDS ORDERED: Pantoprazole 40 MG VIAL ONE (12:43)
[2018-10-07] MEDS ORDERED: Acetaminophen 325 MG TAB PO PRN (13:18)
[2018-10-07] MEDS: Gabapentin 100 MG CAP PO SCH ×2 (14:52→21:00)
[2018-10-07] MEDS ORDERED: Bacteriostatic Water 30 ML VIAL FS PRN (15:11)
[2018-10-07] MEDS ORDERED: methylPREDNISolone Sod Succ 40 MG VIAL IVP SCH (15:15)
[2018-10-07 15:26] VITALS: BMI 28.2
--- NOTE | 2018-10-07 15:31 | CT ---
FCT thorax noncontrast: 10/07/2018 HISTORY: 73-year-old male with dyspnea COMPARISON: None FINDINGS: Severe hyperlucency of right upper lobe. Moderate to large bullae at the medial aspect of right lung. Diffuse, severe central lobular emphysematous changes in the bilateral lungs especially in the upper lobes. Scattered small patchy peripherally located pulmonary infiltrate-like densities in the left l ower lobe, nonspecific. Subsegmental atelectasis or scar at the posterior bases of the bilateral lowe r lobes. Stent graft at root of thoracic aorta. Heavy atherosclerotic calcification of left main, LAD , RCA, and LCx. No cardiomegaly. No thoracic aortic aneurysm, but heavy calcification. Trachea and ma zeke bronchi are patent and clear. No mediastinal lymphadenopathy. Sternotomy wires. IMPRESSION: 1. Severe emphysema. This is panlobular emphysema, with greater components of centrilobular emphysema than paraseptal emphysema. 2. Small focal patchy infiltrates at the periphery of left lower lobe and left middle lobe. Nonspecif ic. Uncertainty whether chronic or acute. 3. Severe coronary atherosclerotic disease. 4. Status post aortic valve replacement
[2018-10-07] MEDS: Piperacillin/Tazobactam 3.375 GM in Sodium Chloride 0.9% 100 ML IVPB SCH ×2 (17:21→23:55)
[2018-10-07] MEDS ORDERED: Calcium Carbonate 500 MG ChewTAB PO PRN (18:02)
[2018-10-07] MEDS ORDERED: Dextrose 5% in Water 1,000 ML IV PRN (18:42)
[2018-10-07] MEDS ORDERED: Dextrose 50% Abboject 50 ML SYRINGE IVP PRN (18:42)
[2018-10-07] MEDS: Metoprolol Tartrate 50 MG TAB PO SCH (21:01)
--- NOTE | 2018-10-08 00:13 | HP ---
CHIEF COMPLAINT: Shortness of breath. HISTORY OF PRESENT ILLNESS: The patient is a 73-year-old male with a history of pneumonia, COPD, who presents to the hospital with complaints of shortness of breath. The patient stated that he was recently discharged from the hospital on September 15 and was diagnosed with pneumonia. The patient at that time was seen by Infectious Disease due to the sputum culture being positive for Stenotrophomonas. The patient stated that he religiously took his antibiotics and completed his 7-day of antibiotic treatment. The patient stated that yesterday he started having some mild shortness of breath, so he used his p.r.n. oxygen and he used his CPAP as he normally does at night. However, this morning when the patient woke up, he got very short of breath and that is why he decided to come into the hospital for further evaluation. The patient denies any fevers or chills. The patient stated that he has been taking his breathing treatments, however, no relief, so he came into the ER for further evaluation. PAST MEDICAL HISTORY: 1. History of CAD, reflux, history of aortic stenosis, status post TAVR. 2. Hyperlipidemia. 3. COPD, on p.r.n. oxygen. 4. Sleep apnea, on CPAP. 5. Diabetes, however, controlled with diet. PAST SURGICAL HISTORY: 1. He has had bilateral carpal tunnel release. 2. TAVR. 3. Right rotator cuff repair. 4. Coronary artery bypass x4 vessel with coronary stents. FAMILY HISTORY: Noted for coronary artery disease. SOCIAL HISTORY: He drinks about 6-8 ounces of [employer] whiskey about 3 times a week. He continues to smoke one or two cigarettes and he is a full code and lives with his . ALLERGIES: NONE. HOME MEDICATIONS: 1. Zetia 10 mg daily. 2. Symbicort 160/4.5 two puffs inhaled b.i.d. 3. Atorvastatin 80 mg daily. 4. Aspirin 81 mg daily. 5. Gabapentin 200 mg t.i.d. 6. Lopressor 100 mg b.i.d. 7. Lisinopril 5 mg daily. 8. Mucinex 600 mg q.12 hours. PHYSICAL EXAMINATION: VITAL SIGNS: Are as of the following; temperature of 98.7, heart rate 74, respirations 20, oxygen saturation 97% on 2 L, blood pressure 124/57. GENERAL: He is awake, alert, and oriented x3. Does not appear in distress. HEENT: Normocephalic, atraumatic. No lymphadenopathy noted. CV: S1 and S2 present. No murmurs, rubs, or gallops. LUNGS: Expiratory wheezing all over with diminished breath sounds. ABDOMEN: Soft and nontender. Bowel sounds are present x2. EXTREMITIES: No edema. Pedal pulses are present x2. NEUROVASCULAR: No focal deficits noted. SKIN: No cuts, lesions, or bruises noted. LABORATORY DATA: WBC of 11.1, hemoglobin of 14.4, hematocrit of 44.1, platelets of 143. Chemistry; sodium of 137, potassium of 4.4, BUN of 10, creatinine 0.79, glucose 117. Troponin x1 negative. The patient did have a chest x-ray that indicated a left lower lobe pneumonia. ASSESSMENT AND PLAN: The patient is a very pleasant 73-year-old male who presents to the hospital complaining of shortness of breath. 1. Shortness of breath secondary to chronic obstructive pulmonary disease exacerbation versus mild pneumonia versus cardiac etiology. I did do a CT chest since the patient was just recently on antibiotics and has been taken off the antibiotics. CT chest indicated small focal patchy infiltrate periphery of the left lower lobe and left middle lobe and there was a mention of uncertainty whether this is chronic or acute. I will collect sputum on this patient. Also he has significant emphysema and he continues to smoke. I will start him on some steroids and also given breathing treatments, I will broaden his antibiotic to Zosyn. I do not think I will give him any vancomycin for now especially since the patient was just recently in the hospital. 2. Mild leukocytosis. Again, we will continue his current treatment. 3. Chronic obstructive pulmonary disease, currently is uncontrolled. We will continue the steroids and DuoNeb and I also may consider getting pulmonology consult. 4. History of aortic stenosis, status post TAVR. We will continue his home medications. Job ID: [id number]
[2018-10-08] MEDS: HumaLOG 300 UNITS/3 ML VIAL SC PRN ×3 (06:02→17:17)
[2018-10-08] MEDS: Piperacillin/Tazobactam 3.375 GM in Sodium Chloride 0.9% 100 ML IVPB SCH ×4 (06:02→23:26)
[2018-10-08 07:02] LABS: #Lymphocytes 1.2 thou/uL (1.20-3.40); #Monocytes 0.6 thou/uL (0.11-0.59); #Neutrophils 10.7 thou/uL (1.40-6.50); %Basophils 0.1 % (0.0-1.0); %Eosinophils 0.2 % (0.0-10.0); %Lymphocytes 9.4 % (21.0-51.0); %Monocytes 4.8 % (0.0-10.0); %Neutrophils 85.6 % (42.0-75.0); Hemoglobin 12.9 g/dL (14.0-18.0); Mean Corpuscular HGB CONC 32.5 g/dL (32.0-36.0); Mean Corpuscular Hemoglobin 32.1 pg (27.0-31.0); Mean Corpuscular Volume 98.9 fL (78.0-98.0); Mean Platelet Volume 7.5 fL (7.4-10.4); Platelet Count 138 thou/uL (130-400); RBC Distribution Width 13.4 % (11.5-14.5); Red Blood Cell (RBC) Count 4.01 mill/uL (4.70-6.10); White Blood Cell (WBC) Count 12.5 thou/uL (4.8-10.8)
[2018-10-08 07:18] LABS: Anion Gap 12 mmol/L (10-20); BUN (Urea Nitrogen) 9 mg/dL (8.4-25.7); Calc. Creatinine Clearance 122 mL/min (70-130); Calcium 9.5 mg/dL (7.8-10.44); Carbon Dioxide 25 mmol/L (23-31); Chloride 104 mmol/L (98-107); Estimated GFR-MDRD Greater than 90; Glucose 137 mg/dL (83-110); Potassium 4.1 mmol/L (3.5-5.1); Sodium 137 mmol/L (136-145)
[2018-10-08] MEDS: Enoxaparin Sodium 40 MG/0.4 ML SYRINGE SC SCH (08:22)
[2018-10-08] MEDS: methylPREDNISolone Sod Succ 40 MG VIAL IVP SCH (08:22)
[2018-10-08] MEDS: Aspirin 81 mg Enteric Coated Tablet PO SCH (08:22)
[2018-10-08] MEDS: Atorvastatin Calcium 40 MG TAB PO SCH (08:22)
[2018-10-08] MEDS: Metoprolol Tartrate 50 MG TAB PO SCH ×2 (08:22→20:47)
[2018-10-08] MEDS: Vancomycin HCl 1 GM in Premix Bag 1 BAG IVPB SCH ×2 (08:22→20:47)
[2018-10-08] MEDS: Gabapentin 100 MG CAP PO SCH ×3 (08:22→20:47)
--- NOTE | 2018-10-08 16:27 | PDOC.PN ---
- Subjective Encounter Start Date: 10/08/18 Encounter Start Time: 09:00 Pt seen for followup re: COPD exacerbation. Denies chest pain, fevers or chills. Shortness of breath is better. Cough+, minimal sputum. - Objective Resuscitation Status - Order Detail: 10/07/18 13:18 Resuscitation Status Routine Resuscitation Status: FULL: Full Resuscitation MAR Reviewed: Yes Vital Signs & Weight: Vital Signs (12 hours) Temp Pulse Resp BP BP Pulse Ox Pulse Ox 10/08/18 15:02 89 18 97 10/08/18 14:51 100 10/08/18 11:55 98.6 F 84 20 118/62 100 10/08/18 11:17 84 18 100 10/08/18 08:00 98.4 F 84 20 119/61 100 10/08/18 07:13 84 18 97 Pulse Ox 10/08/18 15:02 10/08/18 14:51 100 10/08/18 11:55 10/08/18 11:17 10/08/18 08:00 10/08/18 07:13 Weight Weight 202 lb 3 oz I&O: 10/07/18 10/08/18 10/09/18 06:59 06:59 06:59 Intake Total 1920 480 Output Total 1700 800 Balance 220 -320 Result Diagrams: 10/08/18 06:12 10/08/18 06:12 Additional Labs: Accuchecks 10/08/18 10/08/18 10/07/18 11:16 04:17 20:58 POC Glucose 153 H 178 H 182 H 10/07/18 17:24 POC Glucose 258 H Labs reviewed by me Phys Exam - Physical Examination Constitutional: NAD HEENT: moist MMs, sclera anicteric, oral pharynx no lesions, 2+ tonsils Neck: no nodes, no JVD, supple, full ROM Respiratory: wheezing present Cardiovascular: RRR, no rub S1, S2 Gastrointestinal: soft, non-tender, no distention, positive bowel sounds Neurological: moves all 4 limbs Psychiatric: normal affect, A&O x 3 Dx/Plan (1) COPD exacerbation Code(s): J44.1 - CHRONIC OBSTRUCTIVE PULMONARY DISEASE W (ACUTE) EXACERBATION Status: Acute Comment: Improving, continue oxygen, steroids, bronchodilators and antibiotics (2) Pneumonia Code(s): J18.9 - PNEUMONIA, UNSPECIFIED ORGANISM Status: Acute Comment: continue antibiotics as below (3) CAD (coronary artery disease) Code(s): I25.10 - ATHSCL HEART DISEASE OF [place] CORONARY ARTERY W/O ANG PCTRS Status: Chronic Qualifiers: Coronary Disease-Associated Artery/Lesion type: [place] artery [place] vs. transplanted heart: [place] heart Associated angina: without angina Qualified Code(s): I25.10 - Atherosclerotic heart disease of [place] coronary artery without angina pectoris Comment: stable (4) DM type 2 (diabetes mellitus, type 2) Status: Chronic Qualifiers: Diabetes mellitus shelter insulin use: without ad terminal makeup operator use Diabetes mellitus complication status: without complication Qualified Code(s): E11.9 - Type 2 diabetes mellitus without complications Comment: controlled (5) Hypertension Code(s): I10 - ESSENTIAL (PRIMARY) HYPERTENSION Status: Chronic Qualifiers: Hypertension type: essential hypertension Qualified Code(s): I10 - Essential (primary) hypertension Comment: controlled and at goal - Plan * . Review of Systems - Review of Systems Constitutional: negative: fever, chills, sweats, weakness, malaise Respiratory: Cough, Shortness of Breath, SOB with Excertion, Sputum. negative: Dry, Hemoptysis, Pleuritic Pain, Wheezing Cardiovascular: negative: chest pain, palpitations, orthopnea, paroxysmal nocturnal dyspnea, edema, light headedness Gastrointestinal: negative: Nausea, Vomiting, Abdominal Pain, Diarrhea, Constipation, Melena, Hematochezia Genitourinary: negative: Dysuria, Frequency, Incontinence, Hematuria, Retention - Medications/Allergies Allergies/Adverse Reactions: Allergies Allergy/AdvReac Type Severity Reaction Status Date / Time No Known Drug Allergies Allergy Verified 09/26/18 17:17 Medications: Current Medications Acetaminophen (Tylenol) 650 mg PO Q4H PRN PRN Reason: Headache/Fever/Mild Pain (1-3) Albuterol/Ipratropium (Duoneb) 3 ml NEB [id number] [facility] Last Admin: 10/08/18 15:02 Dose: 3 ml Aspirin (Ecotrin) 81 mg PO DAILY [facility] Last Admin: 10/08/18 08:22 Dose: 81 mg Atorvastatin Calcium (Lipitor) 80 mg PO DAILY [facility] Last Admin: 10/08/18 08:22 Dose: 80 mg Calcium Carbonate (Tums) 500 mg PO PRN PRN PRN Reason: Heartburn or Indigestion Last Admin: 10/07/18 18:16 Dose: 500 mg Dextrose/Water (Dextrose 50%) 25 gm IVP PRN PRN PRN Reason: HYPOGLYCEMIA PROTOCOL Enoxaparin Sodium (Lovenox) 40 mg SC 0900 [facility] Last Admin: 10/08/18 08:22 Dose: 40 mg Gabapentin (Neurontin) 200 mg PO TID [facility] Last Admin: 10/08/18 14:11 Dose: 200 mg Glucagon (Glucagon) 1 mg IM PRN PRN PRN Reason: HYPOGLYCEMIA PROTOCOL Piperacillin Sod/Tazobactam (Sod 3.375 gm/ Sodium Chloride) 100 mls @ 200 mls/ hr IVPB Q6HR [facility] Last Admin: 10/08/18 11:39 Dose: 100 mls Dextrose/Water (D5w) 1,000 mls @ 0 mls/hr IV INF PRN PRN Reason: HYPOGLYCEMIA PROTOCOL Vancomycin HCl 1 gm/ Device 200 mls @ 200 mls/hr IVPB 0800,2000 [facility] Last Admin: 10/08/18 08:22 Dose: 200 mls Insulin Human Lispro (Humalog) 0 units SC .MODERATE SLIDING SC PRN; Protocol PRN Reason: MODERATE SLIDING SCALE Last Admin: 10/08/18 11:43 Dose: 2 unit Methylprednisolone Sodium Succinate (Solu-Medrol) 40 mg IVP DAILY [facility] Last Admin: 10/08/18 08:22 Dose: 40 mg Metoprolol Tartrate (Lopressor) 100 mg PO BID [facility] Last Admin: 10/08/18 08:22 Dose: 100 mg Miscellaneous Medication (Pharmacy To Dose) 0 each IVPB ASDIR [facility] Pantoprazole Sodium (Protonix) 40 mg PO DAILY [facility] Last Admin: 10/08/18 08:22 Dose: 40 mg Sodium Chloride (Flush - Normal Saline) 10 ml IVF Q12HR [facility] Last Admin: 10/08/18 08:23 Dose: 10 ml Sodium Chloride (Flush - Normal Saline) 10 ml IVF PRN PRN PRN Reason: Saline Flush Sterile Water (Bacteriostatic Water) 1 ml FS PRN PRN PRN Reason: RECONSTITUTION
[2018-10-09] MEDS: Piperacillin/Tazobactam 3.375 GM in Sodium Chloride 0.9% 100 ML IVPB SCH ×4 (06:04→23:31)
[2018-10-09] MEDS: Vancomycin HCl 1 GM in Premix Bag 1 BAG IVPB SCH (07:57)
[2018-10-09] MEDS: Atorvastatin Calcium 40 MG TAB PO SCH (07:58)
[2018-10-09] MEDS: Aspirin 81 mg Enteric Coated Tablet PO SCH (07:58)
[2018-10-09] MEDS: Enoxaparin Sodium 40 MG/0.4 ML SYRINGE SC SCH (07:58)
[2018-10-09] MEDS: Gabapentin 100 MG CAP PO SCH ×3 (07:58→20:54)
[2018-10-09] MEDS: Metoprolol Tartrate 50 MG TAB PO SCH ×2 (07:58→20:57)
[2018-10-09] MEDS: methylPREDNISolone Sod Succ 40 MG VIAL IVP SCH (08:07)
--- NOTE | 2018-10-09 16:13 | PDOC.PN ---
- Subjective Encounter Start Date: 10/09/18 Encounter Start Time: 13:00 Subjective: pt up in bed still wheezing and sob - Objective Resuscitation Status - Order Detail: 10/07/18 13:18 Resuscitation Status Routine Resuscitation Status: FULL: Full Resuscitation Vital Signs & Weight: Vital Signs (12 hours) Temp Pulse Resp BP Pulse Ox 10/09/18 14:52 84 18 97 10/09/18 10:57 80 16 98 10/09/18 08:05 98.5 F 68 20 123/63 96 10/09/18 08:00 96 10/09/18 07:20 86 16 99 Weight Weight 202 lb 3 oz I&O: 10/08/18 10/09/18 10/10/18 06:59 06:59 06:59 Intake Total 1920 3880 960 Output Total 1700 6600 Balance 220 -2720 960 Result Diagrams: 10/08/18 06:12 10/08/18 06:12 Additional Labs: Accuchecks 10/09/18 10/09/18 10/08/18 11:43 05:22 20:28 POC Glucose 168 H 126 H 170 H 10/08/18 17:18 POC Glucose 198 H Phys Exam - Physical Examination Neck: no nodes, no JVD, supple, full ROM Respiratory: wheezing present Cardiovascular: RRR, no significant murmur, no rub, gallop, irregular Gastrointestinal: soft, non-tender, no distention, positive bowel sounds Musculoskeletal: no edema, pulses present, edema present Dx/Plan (1) COPD exacerbation Code(s): J44.1 - CHRONIC OBSTRUCTIVE PULMONARY DISEASE W (ACUTE) EXACERBATION Status: Acute Comment: Improving, continue oxygen, steroids, bronchodilators and antibiotics (2) Pneumonia Code(s): J18.9 - PNEUMONIA, UNSPECIFIED ORGANISM Status: Acute Comment: continue antibiotics as below (3) Aortic valve prosthesis present Code(s): Z95.2 - PRESENCE OF PROSTHETIC HEART VALVE Status: Chronic (4) Chronic stage c diastolic heart failure Code(s): I50.32 - CHRONIC DIASTOLIC (CONGESTIVE) HEART FAILURE Status: Chronic - Plan pt on steroids/duonebs/will discontinue vanco and continue zosyn for now -: last sputum cx indicated stenotophomoros, new pna on left -: will consult pulmonary -: will check bnp * . Review of Systems - Review of Systems Respiratory: Cough, Shortness of Breath Cardiovascular: negative: chest pain, palpitations, orthopnea, paroxysmal nocturnal dyspnea, edema, light headedness, other Gastrointestinal: negative: Nausea, Vomiting, Abdominal Pain, Diarrhea, Constipation, Melena, Hematochezia, Other Genitourinary: negative: Dysuria, Frequency, Incontinence, Hematuria, Retention , Other - Medications/Allergies Allergies/Adverse Reactions: Allergies Allergy/AdvReac Type Severity Reaction Status Date / Time No Known Drug Allergies Allergy Verified 09/26/18 17:17 Medications: Current Medications Acetaminophen (Tylenol) 650 mg PO Q4H PRN PRN Reason: Headache/Fever/Mild Pain (1-3) Albuterol/Ipratropium (Duoneb) 3 ml NEB [id number] [facility] Last Admin: 10/09/18 14:52 Dose: 3 ml Aspirin (Ecotrin) 81 mg PO DAILY [facility] Last Admin: 10/09/18 07:58 Dose: 81 mg Atorvastatin Calcium (Lipitor) 80 mg PO DAILY [facility] Last Admin: 10/09/18 07:58 Dose: 80 mg Calcium Carbonate (Tums) 500 mg PO PRN PRN PRN Reason: Heartburn or Indigestion Last Admin: 10/07/18 18:16 Dose: 500 mg Dextrose/Water (Dextrose 50%) 25 gm IVP PRN PRN PRN Reason: HYPOGLYCEMIA PROTOCOL Enoxaparin Sodium (Lovenox) 40 mg SC 0900 [facility] Last Admin: 10/09/18 07:58 Dose: 40 mg Gabapentin (Neurontin) 200 mg PO TID [facility] Last Admin: 10/09/18 15:36 Dose: 200 mg Glucagon (Glucagon) 1 mg IM PRN PRN PRN Reason: HYPOGLYCEMIA PROTOCOL Piperacillin Sod/Tazobactam (Sod 3.375 gm/ Sodium Chloride) 100 mls @ 200 mls/ hr IVPB Q6HR [facility] Last Admin: 10/09/18 12:25 Dose: 100 mls Dextrose/Water (D5w) 1,000 mls @ 0 mls/hr IV INF PRN PRN Reason: HYPOGLYCEMIA PROTOCOL Insulin Human Lispro (Humalog) 0 units SC .MODERATE SLIDING SC PRN; Protocol PRN Reason: MODERATE SLIDING SCALE Last Admin: 10/08/18 17:17 Dose: 2 unit Methylprednisolone Sodium Succinate (Solu-Medrol) 40 mg IVP DAILY [facility] Last Admin: 10/09/18 08:07 Dose: 40 mg Metoprolol Tartrate (Lopressor) 100 mg PO BID [facility] Last Admin: 10/09/18 07:58 Dose: 100 mg Miscellaneous Medication (Pharmacy To Dose) 0 each IVPB ASDIR [facility] Pantoprazole Sodium (Protonix) 40 mg PO DAILY [facility] Last Admin: 10/09/18 07:59 Dose: 40 mg Sodium Chloride (Flush - Normal Saline) 10 ml IVF Q12HR [facility] Last Admin: 10/09/18 08:01 Dose: 10 ml Sodium Chloride (Flush - Normal Saline) 10 ml IVF PRN PRN PRN Reason: Saline Flush Sterile Water (Bacteriostatic Water) 1 ml FS PRN PRN PRN Reason: RECONSTITUTION
[2018-10-09] MEDS: HumaLOG 300 UNITS/3 ML VIAL SC PRN (17:20)
[2018-10-09 20:19] LABS: Vancomycin, Trough 7.9 ug/mL
[2018-10-10] MEDS: Piperacillin/Tazobactam 3.375 GM in Sodium Chloride 0.9% 100 ML IVPB SCH (05:29)
[2018-10-10 06:59] LABS: Anion Gap 11 mmol/L (10-20); BUN (Urea Nitrogen) 11 mg/dL (8.4-25.7); Calc. Creatinine Clearance 119 mL/min (70-130); Calcium 9.6 mg/dL (7.8-10.44); Carbon Dioxide 28 mmol/L (23-31); Chloride 101 mmol/L (98-107); Estimated GFR-MDRD Greater than 90; Glucose 97 mg/dL (83-110); Potassium 4.3 mmol/L (3.5-5.1); Sodium 136 mmol/L (136-145)
[2018-10-10] MEDS: Enoxaparin Sodium 40 MG/0.4 ML SYRINGE SC SCH (08:57)
[2018-10-10] MEDS: Metoprolol Tartrate 50 MG TAB PO SCH ×2 (08:57→20:30)
[2018-10-10] MEDS: Aspirin 81 mg Enteric Coated Tablet PO SCH (08:57)
[2018-10-10] MEDS: Atorvastatin Calcium 40 MG TAB PO SCH (08:57)
[2018-10-10] MEDS: Gabapentin 100 MG CAP PO SCH ×3 (08:57→20:29)
[2018-10-10] MEDS: Sulfameth/Trimethoprim DS 800-160mg TAB PO SCH ×2 (09:02→20:29)
[2018-10-10] MEDS: predniSONE 20 MG TAB PO SCH ×2 (09:02→20:30)
--- NOTE | 2018-10-10 11:15 | CON ---
DATE OF CONSULTATION: HISTORY OF PRESENT ILLNESS: A 73-year-old gentleman well known to me, who has a history of COPD and tobacco abuse, presents to the hospital on 10/07. We were consulted 10/09 regarding pulmonary status. 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 Sputum that he is coughing is actively clear, but he feels somewhat congested. He underwent a recent transesophageal echo by Dr. Arechiga, results of which are still pending. His chest x-ray and a CT of chest show no acute infiltrates or masses, though he did have a temperature apparently of 100 through 103. His temperature on admission was 102.9, respiratory rate 28, blood pressure was 103/57, and sats are 100% on 3 L. He is not having any chest pain or chills at this time. He has severe limitation to activity. PAST MEDICAL HISTORY: Pertinent for coronary artery disease, hyperlipidemia, reflux, high cholesterol, glaucoma, and anxiety. PAST SURGICAL HISTORY: Include bypass surgery, recent aortic valve surgery done in [place], carpal tunnel surgery, and right shoulder surgery. SOCIAL HISTORY: Still smoking maybe half pack a day, minimal alcohol abuse. HOME MEDICATIONS: Includes: 1. Mucinex. 2. Protonix. 3. Niacin. 4. Lopressor 100 twice a day. 5. Claritin. 6. Lisinopril 5. 7. Imdur three tablets daily. 8. Flonase nasal spray. 9. B12. 10. He is on Symbicort 160. 11. Aspirin. 12. Albuterol inhaler. He is now started on Zosyn, steroids, and nebulizer. PHYSICAL EXAMINATION: VITAL SIGNS: He has 100% on 2 L, respiratory rate 18, pulse 83, and CHEST: Minimal wheezing. CARDIAC: Normal S1 and S2. No gallops or masses. LABORATORY DATA: BNP is normal. Blood cultures growing coagulase-negative Staph. IMPRESSION: 1. Chronic obstructive pulmonary disease exacerbation, bronchitis. 2. Coronary artery disease. 3. Status post aortic valve replacement surgery. PLAN: Switch over to oral antibiotics and prednisone. Continue home medication. So far, all cultures negative. Coagulase negative. Contamination, he had Stenotrophomonas on his sputum 09/09/2018. This may still very well be a pathogen. We will switch him on to appropriate antibiotic. Consultation note, 70 minutes, 50% direct patient care. Job ID: [id number] MTDD
--- NOTE | 2018-10-10 14:02 | PQF ---
DATE: 10-10-18 ATTN: DR. BENNETT CARVALHO Please exercise your independent, professional judgment in responding to the clarification form. Clinical indicators are provided on the bottom of this form for your review Please check appropriate box(s) to clarify if the following diagnosis has been ruled in or ruled out: SEPSIS [ ] Ruled in diagnosis [ X] Continue to treat [ ] Resolved [ ] Ruled out diagnosis [ ] Other diagnosis [ ] Unable to determine In addition, please specify: Present on Admission (POA): [X ] Yes [ ] No [ ] Unable to determine For continuity of documentation, please document condition throughout progress notes and discharge summary. Thank You. CLINICAL INDICATORS - SIGNS / SYMPTOMS / LABS ER DX: PNEUMONIA, SEPSIS ER: SOB, PULSE: 109, 108, 117; TEMP: 102.9, 103.2, BP: 103/57, 89/53, 93/53, 89/53, 94/53, 102/56, RR: 28, 31, 23, 25, 26, 25; H&P: SOB 2/2 COPD EXACERBATION VS MILD PNA VS CARDIAC ETIOLOGY, MILD LEUKOCYTOSIS RISK FACTORS: ER: HX OF CAD, DM, GERD, HYPERLIPIDEMIA, COPD, HTN, CABG, SMOKER TREATMENTS: ER: LEVAQUIN IV, VANCOMYCIN IV, ZOSYN IV, NS IVF (This form is maintained as a part of the permanent medical record) 2014 [employer]. All Rights Reserved RUSSELL [email or web address] Office: [phone] [facility]ENTERGeronimo
[2018-10-10] MEDS: HumaLOG 300 UNITS/3 ML VIAL SC PRN (17:42)
--- NOTE | 2018-10-10 18:42 | PDOC.PN ---
- Subjective Encounter Start Date: 10/10/18 Encounter Start Time: 10:30 Subjective: pt appears well today - Objective Resuscitation Status - Order Detail: 10/07/18 13:18 Resuscitation Status Routine Resuscitation Status: FULL: Full Resuscitation Vital Signs & Weight: Vital Signs (12 hours) Temp Pulse Resp BP Pulse Ox 10/10/18 13:47 75 16 98 10/10/18 10:31 70 16 99 10/10/18 08:42 97.7 F 80 20 128/74 94 L 10/10/18 08:00 94 L 10/10/18 06:46 100 10/10/18 06:44 67 18 100 Weight Weight 202 lb 3 oz I&O: 10/09/18 10/10/18 10/11/18 06:59 06:59 06:59 Intake Total 3880 2380 1440 Output Total 6600 3550 2200 Balance -2720 -1170 -760 Result Diagrams: 10/08/18 06:12 10/10/18 06:37 Additional Labs: Accuchecks 10/10/18 10/09/18 04:36 20:38 POC Glucose 126 H 185 H Phys Exam - Physical Examination Neck: no nodes, no JVD, supple, full ROM Respiratory: wheezing present Cardiovascular: RRR, no significant murmur, no rub, gallop, irregular Gastrointestinal: soft, non-tender, no distention, positive bowel sounds Dx/Plan (1) COPD exacerbation Code(s): J44.1 - CHRONIC OBSTRUCTIVE PULMONARY DISEASE W (ACUTE) EXACERBATION Status: Acute Comment: Improving, continue oxygen, steroids, bronchodilators and antibiotics (2) Pneumonia Code(s): J18.9 - PNEUMONIA, UNSPECIFIED ORGANISM Status: Acute Comment: continue antibiotics as below (3) Aortic valve prosthesis present Code(s): Z95.2 - PRESENCE OF PROSTHETIC HEART VALVE Status: Chronic (4) Chronic stage c diastolic heart failure Code(s): I50.32 - CHRONIC DIASTOLIC (CONGESTIVE) HEART FAILURE Status: Chronic - Plan sputum indicated gram negative ashley, will continue current abx -: pt's steroids have been changed to po by pulm -: He has had recurrent admissions for the same reason -: pt improving slowly * . Review of Systems - Review of Systems Respiratory: Shortness of Breath Cardiovascular: negative: chest pain, palpitations, orthopnea, paroxysmal nocturnal dyspnea, edema, light headedness, other Gastrointestinal: negative: Nausea, Vomiting, Abdominal Pain, Diarrhea, Constipation, Melena, Hematochezia, Other Genitourinary: negative: Dysuria, Frequency, Incontinence, Hematuria, Retention , Other - Medications/Allergies Allergies/Adverse Reactions: Allergies Allergy/AdvReac Type Severity Reaction Status Date / Time No Known Drug Allergies Allergy Verified 09/26/18 17:17 Medications: Current Medications Acetaminophen (Tylenol) 650 mg PO Q4H PRN PRN Reason: Headache/Fever/Mild Pain (1-3) Albuterol/Ipratropium (Duoneb) 3 ml NEB [id number] [facility] Last Admin: 10/10/18 13:47 Dose: 3 ml Aspirin (Ecotrin) 81 mg PO DAILY [facility] Last Admin: 10/10/18 08:57 Dose: 81 mg Atorvastatin Calcium (Lipitor) 80 mg PO DAILY [facility] Last Admin: 10/10/18 08:57 Dose: 80 mg Calcium Carbonate (Tums) 500 mg PO PRN PRN PRN Reason: Heartburn or Indigestion Last Admin: 10/07/18 18:16 Dose: 500 mg Dextrose/Water (Dextrose 50%) 25 gm IVP PRN PRN PRN Reason: HYPOGLYCEMIA PROTOCOL Enoxaparin Sodium (Lovenox) 40 mg SC 0900 [facility] Last Admin: 10/10/18 08:57 Dose: 40 mg Gabapentin (Neurontin) 200 mg PO TID [facility] Last Admin: 10/10/18 16:41 Dose: 200 mg Glucagon (Glucagon) 1 mg IM PRN PRN PRN Reason: HYPOGLYCEMIA PROTOCOL Dextrose/Water (D5w) 1,000 mls @ 0 mls/hr IV INF PRN PRN Reason: HYPOGLYCEMIA PROTOCOL Insulin Human Lispro (Humalog) 0 units SC .MODERATE SLIDING SC PRN; Protocol PRN Reason: MODERATE SLIDING SCALE Last Admin: 10/10/18 17:42 Dose: 2 unit Metoprolol Tartrate (Lopressor) 100 mg PO BID [facility] Last Admin: 10/10/18 08:57 Dose: 100 mg Mometasone Furoate/Formoterol Fumar (Dulera 200 Mcg/5 Mcg Inhaler) 2 puff INH BID-RT [facility] Pantoprazole Sodium (Protonix) 40 mg PO DAILY [facility] Last Admin: 10/10/18 08:57 Dose: 40 mg Prednisone (Prednisone) 20 mg PO BID [facility] Last Admin: 10/10/18 09:02 Dose: 20 mg Sodium Chloride (Flush - Normal Saline) 10 ml IVF Q12HR [facility] Last Admin: 10/10/18 09:02 Dose: 10 ml Sodium Chloride (Flush - Normal Saline) 10 ml IVF PRN PRN PRN Reason: Saline Flush Sterile Water (Bacteriostatic Water) 1 ml FS PRN PRN PRN Reason: RECONSTITUTION Trimethoprim/Sulfamethoxazole (Bactrim Ds) 1 tab PO BID [facility] Stop: 10/17/18 09:01 Last Admin: 10/10/18 09:02 Dose: 1 tab
[2018-10-10] MEDS: Mometasone/Formoterol 120 PUFF INHALER INH SCH (19:52)
[2018-10-11] MEDS: Mometasone/Formoterol 120 PUFF INHALER INH SCH ×2 (06:35→19:15)
[2018-10-11] MEDS: Aspirin 81 mg Enteric Coated Tablet PO SCH (07:59)
[2018-10-11] MEDS: predniSONE 20 MG TAB PO SCH ×2 (07:59→19:44)
[2018-10-11] MEDS: Gabapentin 100 MG CAP PO SCH ×3 (07:59→19:43)
[2018-10-11] MEDS: Atorvastatin Calcium 40 MG TAB PO SCH (07:59)
[2018-10-11] MEDS: Metoprolol Tartrate 50 MG TAB PO SCH ×2 (07:59→19:43)
[2018-10-11] MEDS: Enoxaparin Sodium 40 MG/0.4 ML SYRINGE SC SCH (07:59)
[2018-10-11] MEDS: Sulfameth/Trimethoprim DS 800-160mg TAB PO SCH ×2 (07:59→19:43)
--- NOTE | 2018-10-11 09:01 | PRG ---
DATE OF SERVICE: 10/11/2018 SUBJECTIVE: This morning, is better. OBJECTIVE: VITAL SIGNS: Saturations are 98% on 2 L, respiratory rate 18, and temperature 98, and blood pressure 160/71. Sputum gram-negative rods more than likely it is Stenotrophomonas, which is sensitive to Bactrim that he is on. CHEST: Decreased breath sounds. No wheezing. CARDIAC: Normal S1, S2. No gallops. ABDOMEN: No masses. ASSESSMENT: Chronic obstructive pulmonary disease exacerbation, bronchitis, possibly gram-negative left base pneumonia. Pulmonary hermosillo, he is stable enough for discharge home at any time. Follow up in the office in a month. Job ID: [id number]
--- NOTE | 2018-10-11 21:08 | PDOC.PN ---
- Subjective Encounter Start Date: 10/11/18 Encounter Start Time: 11:00 Subjective: pt up in bed feels well today - Objective Resuscitation Status - Order Detail: 10/07/18 13:18 Resuscitation Status Routine Resuscitation Status: FULL: Full Resuscitation Vital Signs & Weight: Vital Signs (12 hours) Temp Pulse Resp BP Pulse Ox 10/11/18 19:45 98.3 F 73 18 125/79 93 L 10/11/18 19:04 75 16 95 10/11/18 11:54 98.1 F 75 20 108/71 94 L 10/11/18 10:15 69 16 95 Weight Weight 202 lb 3 oz I&O: 10/10/18 10/11/18 10/12/18 06:59 06:59 06:59 Intake Total 2380 1840 4000 Output Total 3550 3100 3850 Balance -1170 -1260 150 Result Diagrams: 10/08/18 06:12 10/10/18 06:37 Additional Labs: Accuchecks 10/11/18 10/11/18 10/11/18 19:49 16:45 11:32 POC Glucose 174 H 157 H 158 H 10/11/18 10/10/18 10/10/18 04:46 19:38 16:34 POC Glucose 111 H 210 H 173 H 10/10/18 11:41 POC Glucose 98 Phys Exam - Physical Examination Neck: no nodes, no JVD, supple, full ROM Respiratory: wheezing present Cardiovascular: RRR, no significant murmur, no rub, gallop, irregular Gastrointestinal: soft, non-tender, no distention, positive bowel sounds Musculoskeletal: no edema, pulses present, edema present Dx/Plan (1) COPD exacerbation Code(s): J44.1 - CHRONIC OBSTRUCTIVE PULMONARY DISEASE W (ACUTE) EXACERBATION Status: Acute Comment: Improving, continue oxygen, steroids, bronchodilators and antibiotics (2) Pneumonia Code(s): J18.9 - PNEUMONIA, UNSPECIFIED ORGANISM Status: Acute Comment: continue antibiotics as below (3) Aortic valve prosthesis present Code(s): Z95.2 - PRESENCE OF PROSTHETIC HEART VALVE Status: Chronic (4) Chronic stage c diastolic heart failure Code(s): I50.32 - CHRONIC DIASTOLIC (CONGESTIVE) HEART FAILURE Status: Chronic - Plan pt's sputum cx still indicates same bacteria however resistant -: to levaquin. pt improving slowly * . Review of Systems - Review of Systems Respiratory: Shortness of Breath Cardiovascular: negative: chest pain, palpitations, orthopnea, paroxysmal nocturnal dyspnea, edema, light headedness, other Gastrointestinal: negative: Nausea, Vomiting, Abdominal Pain, Diarrhea, Constipation, Melena, Hematochezia, Other Genitourinary: negative: Dysuria, Frequency, Incontinence, Hematuria, Retention , Other - Medications/Allergies Allergies/Adverse Reactions: Allergies Allergy/AdvReac Type Severity Reaction Status Date / Time No Known Drug Allergies Allergy Verified 09/26/18 17:17 Medications: Current Medications Acetaminophen (Tylenol) 650 mg PO Q4H PRN PRN Reason: Headache/Fever/Mild Pain (1-3) Albuterol/Ipratropium (Duoneb) 3 ml NEB [id number] [facility] Last Admin: 10/11/18 19:04 Dose: 3 ml Aspirin (Ecotrin) 81 mg PO DAILY [facility] Last Admin: 10/11/18 07:59 Dose: 81 mg Atorvastatin Calcium (Lipitor) 80 mg PO DAILY [facility] Last Admin: 10/11/18 07:59 Dose: 80 mg Calcium Carbonate (Tums) 500 mg PO PRN PRN PRN Reason: Heartburn or Indigestion Last Admin: 10/07/18 18:16 Dose: 500 mg Dextrose/Water (Dextrose 50%) 25 gm IVP PRN PRN PRN Reason: HYPOGLYCEMIA PROTOCOL Enoxaparin Sodium (Lovenox) 40 mg SC 0900 [facility] Last Admin: 10/11/18 07:59 Dose: 40 mg Gabapentin (Neurontin) 200 mg PO TID [facility] Last Admin: 10/11/18 19:43 Dose: 200 mg Glucagon (Glucagon) 1 mg IM PRN PRN PRN Reason: HYPOGLYCEMIA PROTOCOL Dextrose/Water (D5w) 1,000 mls @ 0 mls/hr IV INF PRN PRN Reason: HYPOGLYCEMIA PROTOCOL Insulin Human Lispro (Humalog) 0 units SC .MODERATE SLIDING SC PRN; Protocol PRN Reason: MODERATE SLIDING SCALE Last Admin: 10/10/18 17:42 Dose: 2 unit Metoprolol Tartrate (Lopressor) 100 mg PO BID [facility] Last Admin: 10/11/18 19:43 Dose: 100 mg Mometasone Furoate/Formoterol Fumar (Dulera 200 Mcg/5 Mcg Inhaler) 2 puff INH BID-RT [facility] Last Admin: 10/11/18 19:15 Dose: 2 puff Pantoprazole Sodium (Protonix) 40 mg PO DAILY [facility] Last Admin: 10/11/18 07:59 Dose: 40 mg Prednisone (Prednisone) 20 mg PO BID [facility] Last Admin: 10/11/18 19:44 Dose: 20 mg Sodium Chloride (Flush - Normal Saline) 10 ml IVF Q12HR [facility] Last Admin: 10/11/18 19:44 Dose: 10 ml Sodium Chloride (Flush - Normal Saline) 10 ml IVF PRN PRN PRN Reason: Saline Flush Sterile Water (Bacteriostatic Water) 1 ml FS PRN PRN PRN Reason: RECONSTITUTION Trimethoprim/Sulfamethoxazole (Bactrim Ds) 1 tab PO BID [facility] Stop: 10/17/18 09:01 Last Admin: 10/11/18 19:43 Dose: 1 tab
[2018-10-12] MEDS: Mometasone/Formoterol 120 PUFF INHALER INH SCH (06:56)
[2018-10-12 07:44] VITALS: TEMP 97.7
[2018-10-12] MEDS: Enoxaparin Sodium 40 MG/0.4 ML SYRINGE SC SCH (08:23)
[2018-10-12] MEDS: Gabapentin 100 MG CAP PO SCH ×2 (08:23→14:04)
[2018-10-12] MEDS: predniSONE 20 MG TAB PO SCH (08:23)
[2018-10-12] MEDS: Metoprolol Tartrate 50 MG TAB PO SCH (08:23)
[2018-10-12] MEDS: Sulfameth/Trimethoprim DS 800-160mg TAB PO SCH (08:23)
[2018-10-12] MEDS: Aspirin 81 mg Enteric Coated Tablet PO SCH (08:24)
[2018-10-12] MEDS: Atorvastatin Calcium 40 MG TAB PO SCH (08:24)
--- NOTE | 2018-10-12 09:30 | PRG ---
DATE OF SERVICE: 10/12/2018 SUBJECTIVE: The patient is much improved. Less cough. Less shortness of breath. He is ready to be discharged home. OBJECTIVE: VITAL SIGNS: Saturations are 98% on 2 L, temperature 97, pulse 75, blood pressure 126/73. CHEST: Decreased breath sounds. No wheezing. CARDIAC: Normal S1, S2. No gallops. ABDOMEN: No masses. IMPRESSION: Stenotrophomonas, tracheobronchitis pneumonia, COPD exacerbation. PLAN: He is much improved. He can be discharged home on Bactrim. Follow up in the office in about a month. Job ID: [id number]
[2018-10-12 13:42] VITALS: BP 118/70
--- NOTE | 2018-10-13 05:42 | DIS ---
DATE OF ADMISSION: 10/07/2018 DATE OF DISCHARGE: 10/12/2018 DISCHARGE DIAGNOSES: As of the following; 1. Chronic obstructive pulmonary disease exacerbation. 2. Pneumonia. 3. Aortic valve prosthesis. 4. Chronic diastolic heart failure. HOSPITAL COURSE: The patient is a 73-year-old male, who came into the hospital with shortness of breath. The patient about 2 weeks prior to his current admission was treated with Levaquin for Stenotrophomonas. The patient at this time had a patchy infiltrate on the right side of his lungs. However, at this time, when he presented, the patient was very short of breath, and had a significant amount of wheezing. Chest CT indicated the patient had focal infiltrate on his left lower lobe and left middle lobe. At this time, sputum cultures were collected. The patient was treated as a COPD exacerbation and also as a pneumonia. His sputum culture did indicate a similar Stenotrophomonas maltophilia; however, at this time it was sensitive to Bactrim so as it was sensitive to Bactrim in the past; however, it was resistant this time to levofloxacin. The patient's colonies of Stenotrophomonas at this time were many. The patient was seen by Pulmonary, continued on steroids and also was continued on neb treatments. He continued to improve throughout the hospital stay. I did recommend to the patient to follow up with Infectious Disease given this recurrence of the similar organism. The patient will be discharged to a swing bed, which will benefit him. He is on chronic oxygen. We will continue that. We will also continue his DuoNebs. MEDICATIONS: His home medications are as of the following, the new ones would be: 1. Bactrim 1 tablet p.o. b.i.d. 2. Prednisone 20 mg b.i.d. for now, taper per swing. 3. Aspirin 81 mg daily. 4. Atorvastatin 80 mg daily. 5. Gabapentin 2 caps t.i.d. 6. Metoprolol 100 mg b.i.d. 7. Protonix 40 mg one p.o. daily. 8. Symbicort two puffs b.i.d. 9. Ipratropium (Atrovent) 1 q.6 hours p.r.n. 10. Isosorbide one p.o. daily. 11. Protonix 40 mg one p.o. daily. 12. Also, lisinopril 5 mg p.o. daily. The patient continued to improve throughout the whole hospital stay. Again, he will be discharged to a swing bed. He will follow up with his primary and also with Pulmonary, and also recommended him to follow up with Infectious Disease. Job ID: [id number]
== END 2018-10-12 14:11 | disposition swing bed (61) | DRG 871 ==
LOC: ERS 10:43 → T4-A 14:30
PROVIDERS: ADMIT Internal Medicine; ATTEND Internal Medicine
DX: A41.1 Sepsis due to other specified staphylococcus (principal); J15.8 Pneumonia due to other specified bacteria; J44.1 Chronic obstructive pulmonary disease with (acute) exacerbation; J44.0 Chronic obstructive pulmonary disease with (acute) lower respiratory infection; I50.32 Chronic diastolic (congestive) heart failure; I25.10 Atherosclerotic heart disease of native coronary artery without angina pectoris; G47.30 Sleep apnea, unspecified; E11.9 Type 2 diabetes mellitus without complications; F17.210 Nicotine dependence, cigarettes, uncomplicated; I11.0 Hypertensive heart disease with heart failure; E78.00 Pure hypercholesterolemia, unspecified; F41.9 Anxiety disorder, unspecified; Z79.899 Other long term (current) drug therapy; Z95.1 Presence of aortocoronary bypass graft; Z79.82 Long term (current) use of aspirin; Z95.2 Presence of prosthetic heart valve
CPT/HCPCS: 36415; 36416; 71045; 71250; 80048; 80053; 80202; 81003; 83605; 83880; 84484; 85025; 87040; 87070; 87077; 87086; 87149; 87186; 87205; 87804; 93005; 93312; 94640; 94660; 96361; 96365; 96367; 96368; 96375; C9113; J1650; J1956; J2001; J2250; J2543; J2704; J2920; J3370; J3475; J7050; J7620

== ENCOUNTER 2019-06-02 21:52 | Inpatient (IN) | payer MEDICARE ==
[2019-06-03 00:38] LABS: Troponin I 0.413 ng/mL (< 0.028)
[2019-06-03] MEDS ORDERED: Calcium Carbonate 500 MG ChewTAB PO PRN (00:43)
[2019-06-03] MEDS ORDERED: Guaifenesin DM 100-10/5 ML UDCUP PO PRN (00:43)
[2019-06-03] MEDS ORDERED: Acetaminophen 325 MG TAB PO PRN (00:43)
[2019-06-03] MEDS ORDERED: Bisacodyl 10 MG SUPP PR PRN (00:43)
[2019-06-03] MEDS ORDERED: Senokot S 8.6-50 MG TAB PO PRN (00:43)
[2019-06-03 00:55] VITALS: BMI 27.7
[2019-06-03] MEDS ORDERED: Ondansetron PF 4 MG/2 ML Vial IVP PRN (00:55)
[2019-06-03] MEDS ORDERED: Ondansetron ODT 4 MG TAB SL PRN (00:55)
--- NOTE | 2019-06-03 01:36 | HP ---
REASON FOR ADMISSION: Chest pain. HISTORY OF PRESENTING ILLNESS: The patient gives history of having retrosternal chest pain with radiation to left upper extremity. He had some numbness to his left arm and forearm. This happened around 11:00 a.m. This lasted for nearly 30 minutes. He describes the chest pain as pressure-like with intermittent sharp pains. The patient thought it was gas pains and tried to take Tums. It eased up a little bit, but the sharp pains started to come back again multiple times. He finally went to [facility] from where he was transferred here. Currently, has no chest pain. Has no palpitations or orthopnea. Has chronic cough due to smoking habit and COPD. 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 Cardiac catheterization done in 2017 shows occluded all three grafts. He has had TAVR done in 2017. Peripheral vascular disease in both lower extremities. He has seen Dr. Franz for the same and he is waiting for [facility] approval for surgery. Last follow up with Dr. Arechiga was 2 weeks back. He is on home oxygen and uses it on a p.r.n. basis. Hypertension, dyslipidemia, severe emphysema, ongoing tobacco use , glaucoma, carpal tunnel surgery, right-sided rotator cuff repair. CURRENT MEDICATIONS: The patient is on: 1. Protonix 40 mg p.o. daily. 2. Loratadine 10 mg p.o. daily. 3. Metoprolol 25 mg twice daily. 4. Aspirin 81 mg p.o. daily. 5. Imdur extended release 90 mg p.o. daily. 6. Niacin 500 mg p.o. daily. 7. Lisinopril 5 mg p.o. daily. 8. Gabapentin 200 mg p.o. three times daily. 9. DuoNeb four times daily. 10. Fluticasone nasal spray p.r.n. 11. Atorvastatin 80 mg p.o. at bedtime. 12. Vitamin B12 of 1000 mcg p.o. daily. 13. Dorzolamide eyedrops. 14. Lasix 40 mg daily. 15. Zetia 10 mg daily. 16. Symbicort inhaler 160/4.5 mcg 2 puffs twice daily. 17. Latanoprost eyedrops. ALLERGIES: NO KNOWN DRUG ALLERGIES. THE PATIENT GOES TO [facility] IN [place]. PERSONAL HISTORY: Smokes half pack a day and has been doing so for the last 50 years or so. He drinks two mixed drinks of about 8 ounces two times a week. Does not abuse drugs. Lives with his . FAMILY HISTORY: Mother in her 80s. She had history of coronary artery disease and lung disease. Father at the age of 72 years. He has had history of coronary artery disease. CODE STATUS: Full. Power of assistant district attorney is his . REVIEW OF SYSTEMS: CONSTITUTIONAL: Negative for weight loss or gain, ability to conduct usual activities. SKIN: Negative for rash, itching. EYES: Negative for double vision, pain. ENT/MOUTH: Negative for nose bleeding, neck stiffness, pain, tenderness. CARDIOVASCULAR: Negative for palpitations, dyspnea on exertion, orthopnea. RESPIRATORY: Negative for shortness of breath, wheezing, cough, hemoptysis, fever or night sweats. GASTROINTESTINAL: Negative for poor appetite, abdominal pain, heartburn, nausea , vomiting, constipation, or diarrhea. GENITOURINARY: Negative for urgency, frequency, dysuria, nocturia. MUSCULOSKELETAL: Negative for pain, swelling. NEUROLOGIC/PSYCHIATRIC: Negative for anxiety, depression. ALLERGY/IMMUNOLOGIC: Negative for skin rash, bleeding tendency. PHYSICAL EXAMINATION: GENERAL: The patient is a 74-year-old male, who is currently not in any acute distress. VITAL SIGNS: Blood pressure 106/74, pulse 104 per minute, respiratory rate 18 per minute, temperature 97.9 degrees Fahrenheit, saturating 100% on 2 L nasal cannula. NECK: Supple. No elevated JVD. HEENT: Eyes; extraocular muscles intact. Pupils reacting to light. Oral cavity, mucous membranes are moist. No exudates or congestion. CARDIOVASCULAR SYSTEM: S1 and S2 heard. Regular rhythm. RESPIRATORY SYSTEM: Air entry 1+ bilateral. Scattered wheezes plus bilateral rhonchi plus bilateral. ABDOMEN: Soft bowel sounds heard. No tenderness, rigidity, or guarding. EXTREMITIES: No peripheral edema or calf tenderness. VASCULAR SYSTEM: Peripheral pulses are 1+ bilateral. No ischemic ulcerations or gangrene. CENTRAL NERVOUS SYSTEM: No gross focal deficits noted. The patient is alert, awake, and oriented well. PSYCHIATRIC SYSTEM: The patient's mood is euthymic. No hallucinations or delusions. LABORATORY DATA: CT angio chest done showed no evidence of pulmonary embolus. There is chronic emphysematous changes seen. 5 mm nodule in the right middle lobe. No acute infiltrate. Troponin I of 0.07. Second set troponin is 0.41. CK-MB is 3.0. BNP is 136. Albumin 4.3, BUN 5, creatinine 0.7. Serum glucose 115. Liver enzymes within normal limits. Potassium 3.4. White count of 8.7, H and H 14 and 46, platelet count 186 with 60% neutrophils. EKG is normal sinus rhythm. There is Q-wave seen in II, III, and aVF. CLINICAL IMPRESSION AND PLAN: The patient will be under observation for chest pain with known history of coronary artery disease with complete occlusion of prior 3 grafts. He will be on aspirin, Lipitor, Lopressor, Zetia. We will add Ranexa 500 mg twice daily, nitroglycerin paste half-inch q.8 hourly along with Imdur 90 mg daily. He will continue his niacin, lisinopril, gabapentin as before. We will consult Dr. Paul, who is on-call for Dr. Arechiga for likely optimization of his medication. He has severe emphysema with ongoing tobacco use. No further stress testing will be ordered in view of known coronary artery disease likely for medical management. Job ID: [id number] [facility]
[2019-06-03 03:56] LABS: Hemoglobin 12.9 g/dL (14.0-18.0); Mean Corpuscular HGB CONC 32.5 g/dL (32.0-36.0); Mean Corpuscular Hemoglobin 31.6 pg (27.0-31.0); Mean Corpuscular Volume 97.3 fL (78.0-98.0); Mean Platelet Volume 7.7 fL (7.4-10.4); Platelet Count 147 thou/uL (130-400); RBC Distribution Width 13.4 % (11.5-14.5); White Blood Cell (WBC) Count 7.1 thou/uL (4.8-10.8)
[2019-06-03 04:10] LABS: Band 6 % (5-11); Elliptocytes SLIGHT = 2-5 cells (100X) (0-1/hpf); Lymphocytes 23 % (21-51); MDiff Complete? YES; Monocytes 8 % (0-10); Neutrophil 63 % (42-75); Platelet Morphology Comment Appears Adequate; Target Cells MODERATE= 6-15 cells (100X) (0-1/hpf)
[2019-06-03 04:16] LABS: Anion Gap 9 mmol/L (10-20); BUN (Urea Nitrogen) 5 mg/dL (8.4-25.7); Calc. Creatinine Clearance 112 mL/min (70-130); Calcium 9.3 mg/dL (7.8-10.44); Carbon Dioxide 33 mmol/L (23-31); Cardiac Risk 3.4 (Less than 4.5); Chloride 103 mmol/L (98-107); Cholesterol 152 mg/dl (< 200 Desired); Estimated GFR-MDRD Greater than 90; Glucose 134 mg/dL (83-110); HDL Cholesterol 45 mg/dL (>60 Neg Risk); LDL Cholesterol, Calculated 96 mg/dL; Potassium 3.3 mmol/L (3.5-5.1); Sodium 142 mmol/L (136-145); Triglycerides 55 mg/dL (Less than 150)
[2019-06-03 04:22] LABS: Troponin I 0.557 ng/mL (< 0.028)
[2019-06-03] MEDS: Nitroglycerin 2% Ointment 1 INCH/1 GM Packet TOP SCH ×3 (05:13→20:20)
[2019-06-03] MEDS: Mometasone/Formoterol 120 PUFF INHALER INH SCH ×2 (06:31→18:35)
[2019-06-03 07:07] LABS: Troponin I 0.631 ng/mL (< 0.028)
[2019-06-03] MEDS ORDERED: Enoxaparin Sodium 40 MG/0.4 ML SYRINGE SC SCH (09:00)
[2019-06-03] MEDS ORDERED: Non-Formulary Item 1 EACH (Budesonide-Formoterol [Symbicort 160-4.5] 2 PUFF) INH SCH (09:00)
[2019-06-03] MEDS ORDERED: Aspirin 325 mg Enteric Coated Tablet PO SCH (09:00)
[2019-06-03] MEDS: Isosorbide Mononitrate (ER) 30 MG TAB PO SCH (09:30)
[2019-06-03] MEDS: Aspirin 81 mg Enteric Coated Tablet PO SCH (09:30)
[2019-06-03] MEDS: Atorvastatin Calcium 40 MG TAB PO SCH (09:30)
[2019-06-03] MEDS: Famotidine 20 MG TAB PO SCH ×2 (09:30→20:19)
[2019-06-03] MEDS: Ezetimibe 10 MG TAB PO SCH (09:30)
[2019-06-03] MEDS: Cyanocobalamin (Vitamin B-12) 1,000 MCG TAB PO SCH (09:30)
[2019-06-03] MEDS: Gabapentin 100 MG CAP PO SCH ×3 (09:30→20:19)
[2019-06-03] MEDS: Metoprolol Tartrate 25 MG TAB PO SCH ×2 (09:31→20:19)
[2019-06-03] MEDS: Lisinopril 5 MG TAB PO SCH (09:31)
[2019-06-03] MEDS: Enoxaparin Sodium 80 MG/0.8 ML SYRINGE SC SCH ×2 (10:13→20:19)
[2019-06-03] MEDS: Dorzolamide HCl 2% Ophth Soln 10 ml Bottle EA EYE SCH ×3 (10:13→20:20)
--- NOTE | 2019-06-03 12:31 | PDOC.HOSPP ---
- Subjective Encounter Date: 06/03/19 Encounter Time: 12:30 Subjective: Mr. Beltre was seen today in follow-up of Chest pain and elevated cardiac enzymes. He says the chest pain is at a level of 2/10 down from 6-7/10. He also notes cough and chest congestion. The cough is productive of greenish phlem. - Objective Vital Signs & Weight: Vital Signs (12 hours) Temp Pulse Resp BP Pulse Ox 06/03/19 11:35 99 F 95 18 97/60 98 06/03/19 08:00 98.5 F 114 H 20 113/61 94 L 06/03/19 06:31 99 16 06/03/19 06:25 96 06/03/19 06:22 99 16 06/03/19 05:17 98.2 F 99 18 116/66 99 06/03/19 01:57 92 18 93 L 06/03/19 00:43 97.6 F 98 22 H 138/68 100 Weight Weight 198 lb 14.4 oz I&O: 06/02/19 06/03/19 06/04/19 06:59 06:59 06:59 Intake Total 386 350 Output Total 400 300 Balance -14 50 Result Diagrams: 06/03/19 03:12 06/03/19 03:12 Hospitalist ROS - Medication Medications: Active Medications Generic Name Dose Route Start Last Admin Trade Name Ponchoq PRN Reason Stop Dose Admin Albuterol/Ipratropium 3 ml 06/03/19 01:00 06/03/19 06:22 Duoneb NEB 3 ml [id number] ROSARIO Administration Aspirin 81 mg 06/03/19 09:00 06/03/19 09:30 Ecotrin PO 81 mg DAILY ROSARIO Administration Atorvastatin Calcium 80 mg 06/03/19 09:00 06/03/19 09:30 Lipitor PO 80 mg DAILY ROSARIO Administration Cyanocobalamin 1,000 mcg 06/03/19 09:00 06/03/19 09:30 Vitamin B-12 PO 1,000 mcg DAILY ROSARIO Administration Dorzolamide HCl 1 drop 06/03/19 09:00 06/03/19 10:13 Trusopt 2% Ophth Soln EA EYE 1 drop TID ROSARIO Administration Ezetimibe 10 mg 06/03/19 09:00 06/03/19 09:30 Zetia PO 10 mg DAILY ROSARIO Administration Enoxaparin Sodium 80 mg 12/01/19 09:00 06/03/19 10:13 Lovenox SC 80 mg 0900,2100 ROSARIO Administration Famotidine 20 mg 06/03/19 09:00 06/03/19 09:30 Pepcid PO 20 mg BID ROSARIO Administration Gabapentin 200 mg 06/03/19 09:00 06/03/19 09:30 Neurontin PO 200 mg TID ROSARIO Administration Isosorbide Mononitrate 90 mg 06/03/19 09:00 06/03/19 09:30 Imdur Er PO 90 mg DAILY ROSARIO Administration Lisinopril 5 mg 06/03/19 09:00 06/03/19 09:31 Zestril PO 5 mg DAILY ROSARIO Administration Metoprolol Tartrate 25 mg 06/03/19 09:00 06/03/19 09:31 Lopressor PO 25 mg BID ROSARIO Administration Mometasone Furoate/Formoterol Fumar 2 puff 06/03/19 06:30 06/03/19 06:31 Dulera 200 Mcg/5 Mcg Inhaler INH 2 puff BID-RT ROSARIO Administration Nitroglycerin 0.5 inch 06/03/19 06:00 06/03/19 05:13 Nitro-Bid 2% Ointment TOP 0.5 inch Q8HR ROSARIO Administration Ranolazine 500 mg 06/03/19 09:00 06/03/19 09:31 Ranexa PO 500 mg BID ROSARIO Administration - Exam Eye: PERRL Heart: RRR, no murmur, no gallops, no rubs, normal peripheral pulses Respiratory: normal chest expansion, rales, wheezes Gastrointestinal: soft, non-tender, non-distended, normal bowel sounds, no palpable masses, no hepatomegaly, no splenomegaly Extremities: no cyanosis, no clubbing, no edema Hosp A/P (1) NSTEMI (non-ST elevated myocardial infarction) Code(s): I21.4 - NON-ST ELEVATION (NSTEMI) MYOCARDIAL INFARCTION Status: Acute (2) COPD exacerbation Code(s): J44.1 - CHRONIC OBSTRUCTIVE PULMONARY DISEASE W (ACUTE) EXACERBATION Status: Acute (3) Aortic valve prosthesis present Code(s): Z95.2 - PRESENCE OF PROSTHETIC HEART VALVE Status: Chronic (4) CAD (coronary artery disease) Code(s): I25.10 - ATHSCL HEART DISEASE OF [place] CORONARY ARTERY W/O ANG PCTRS Status: Chronic Qualifiers: Coronary Disease-Associated Artery/Lesion type: [place] artery [place] vs. transplanted heart: [place] heart Associated angina: without angina Qualified Code(s): I25.10 - Atherosclerotic heart disease of [place] coronary artery without angina pectoris (5) Hypertension Code(s): I10 - ESSENTIAL (PRIMARY) HYPERTENSION Status: Chronic Qualifiers: Hypertension type: essential hypertension Qualified Code(s): I10 - Essential (primary) hypertension (6) Dyslipidemia Code(s): E78.5 - HYPERLIPIDEMIA, UNSPECIFIED Status: Chronic - Plan * NSTEMI- will change Lovenox to full anticoagulation dose, and continue aspirin , statin, and beta-campbell, * Await further recommendations from Cardiology * COPD- I suspect he has a mild exacerbation at least- he has a productive cough with green phlem-will add Dxoycycline * Continue his home medications for COPD * Dysipidemia- continue Lipitor
--- NOTE | 2019-06-03 13:15 | CON ---
DATE OF CONSULTATION: 06/03/2019 REASON FOR CONSULTATION: Non-STEMI. PRIMARY MERCURY WASHER: Korey Arechiga MD HISTORY OF PRESENT ILLNESS: Mr. Beltre is a pleasant 74-year-old gentleman, who comes to the hospital for a chest pain. He started having this chest pain just yesterday morning, so decided to come in for evaluation. He was admitted for rule out and has ruled in. His troponin is up to 0.6 now. He has known significant coronary artery disease with previous bypass x3 in 1988. This was done by Dr. Franz, seen by Dr. Arechiga at that time. He had a heart catheterization back in 2017, for severe aortic stenosis. He was found to have all 3 of his grafts were down, and he has severe disease on his [place] arteries, not amenable to any intervention. So, his coronary arteries were treated medically, but he received TAVR in [place] in 2017, and has done well since. His LV function last time was checked in September of this year, and it was 60% to 65% with mild paravalvular leak on his TAVR site. Currently, he is chest pain free. PAST MEDICAL HISTORY: 1. Coronary artery disease, status post CABG x3 in 1988. 2. Most recent heart catheterization in 2017, showed occluded bypasses with multivessel [place] disease, not amenable to intervention. 3. Severe aortic stenosis, status post TAVR in 2017, in [place]. 4. Peripheral vascular disease, waiting to be treated by Dr. Franz once the [place] approves office visits. 5. COPD. 6. Hyperlipidemia. 7. Hypertension. 8. Glaucoma. 9. Carpal tunnel surgery. 10. Ongoing tobacco use. PAST SURGICAL HISTORY: 1. CABG x3 in 1988, as above. 2. TAVR in 2017. 3. Right-sided rotator cuff repair. OUTPATIENT MEDICATIONS: 1. Protonix 40 mg a day. 2. Loratadine 10 mg a day. 3. Metoprolol 25 mg b.i.d. 4. Aspirin 81 a day. 5. Imdur 90 mg a day. 6. Niacin 500 mg a day. 7. Lisinopril 5 mg a day. 8. Gabapentin 200 mg 3 times a day. 9. DuoNeb. 10. Fluticasone. 11. Atorvastatin 80 mg at bedtime. 12. Vitamin B12. 13. Dorzolamide. 14. Lasix 40 mg a day. 15. Zetia 10 mg a day. 16. Symbicort inhaler twice a day. 17. Latanoprost eye drops. ALLERGIES: NO KNOWN DRUG ALLERGIES. PERSONAL HISTORY: He continues to smoke half a pack a day. Drinks about 2 mixed drinks twice a week. No drug use. FAMILY HISTORY: Noncontributory with this situation. REVIEW OF SYSTEMS: A 12-point review of systems was done and was all negative unless noted in the history of present illness or below. He has chronic cough from his COPD, and he has been coughing a lot more sputum lately with some dark-colored specks. PHYSICAL EXAMINATION: VITAL SIGNS: Temperature 99.0, pulse 95, respiratory rate 18, saturating 98% on 2 L nasal cannula, blood pressure 97/60. GENERAL: Awake, alert, and oriented x3, in no distress. HEENT: Normocephalic and atraumatic. NECK: Supple. LUNGS: Have reduced breath sounds bilaterally. CARDIOVASCULAR: S1 and S2. No S3 or S4. There is a grade 2/6 systolic murmur at the right upper sternal border. ABDOMEN: Soft. Positive bowel sounds. EXTREMITIES: No edema. SKIN: Warm and dry. LABORATORY DATA: Laboratory work was reviewed. CBC; white count of 7, hemoglobin of 12.9, hematocrit 39.9, platelet count of 147. Chemistry with a sodium of 142, potassium was 3.3, chloride of 103, carbon dioxide of 33, anion gap of 9, BUN of 5, creatinine of 0.76, GFR of 90. Troponin was 0.41, then 0.55, and 0.63. LDL was 96, HDL was 45. EKG was reviewed. No ischemic changes. CT of the chest was reviewed. He has a 5 mm nodule that needs followup. No lung infiltrates. Chronic lung changes consistent with emphysema. No pulmonary embolus. ASSESSMENT: 1. Ikk-CT-dhmojccsd myocardial infarction. 2. Known multivessel coronary artery disease, not amenable to revascularization. 3. Severe aortic stenosis, status post transcatheter aortic valve replacement. Normal functioning on last echo in September of this year. 4. Chronic obstructive pulmonary disease with possibly acute exacerbation. PLAN: 1. Full anticoagulation for 48 hours. He is already on full-dose Lovenox for this. 2. He is currently pain free. We will up-titrate his medications if his angina were to continue. 3. No plans for invasive interventions at this time unless he becomes more unstable, but at this time, he has inoperable coronary artery disease. Thank you for letting us to participate in the care of your patient. Dr. Arechiga, his primary rental sales representative will follow up in the morning. Job ID: [id number]
[2019-06-03] MEDS: Loratadine 10 MG TAB PO SCH (20:19)
[2019-06-03] MEDS: Latanoprost 0.005% Ophth Soln 2.5 ml Bottle EA EYE SCH (20:19)
[2019-06-04] MEDS: Nitroglycerin 2% Ointment 1 INCH/1 GM Packet TOP SCH ×3 (05:20→23:22)
[2019-06-04] MEDS: Isosorbide Mononitrate (ER) 30 MG TAB PO SCH (08:03)
[2019-06-04] MEDS: Doxycycline 100 MG CAP PO SCH ×2 (08:03→21:03)
[2019-06-04] MEDS: Metoprolol Tartrate 25 MG TAB PO SCH ×2 (08:05→21:03)
[2019-06-04] MEDS: Cyanocobalamin (Vitamin B-12) 1,000 MCG TAB PO SCH (08:05)
[2019-06-04] MEDS: Gabapentin 100 MG CAP PO SCH ×3 (08:05→21:03)
[2019-06-04] MEDS: Aspirin 81 mg Enteric Coated Tablet PO SCH (08:05)
[2019-06-04] MEDS: Lisinopril 5 MG TAB PO SCH (08:05)
[2019-06-04] MEDS: Atorvastatin Calcium 40 MG TAB PO SCH (08:05)
[2019-06-04] MEDS: Famotidine 20 MG TAB PO SCH ×2 (08:05→21:03)
[2019-06-04] MEDS: Dorzolamide HCl 2% Ophth Soln 10 ml Bottle EA EYE SCH ×3 (08:06→21:04)
[2019-06-04] MEDS: Ezetimibe 10 MG TAB PO SCH (08:06)
[2019-06-04] MEDS: Enoxaparin Sodium 80 MG/0.8 ML SYRINGE SC SCH ×2 (08:06→21:04)
[2019-06-04] MEDS: Mometasone/Formoterol 120 PUFF INHALER INH SCH ×2 (08:15→20:11)
[2019-06-04 09:05] LABS: #Eosinphils 0.1 thou/uL (0.0-0.7); #Lymphocytes 2.1 thou/uL (1.20-3.40); #Monocytes 1.1 thou/uL (0.11-0.59); #Neutrophils 4.3 thou/uL (1.40-6.50); %Basophils 0.5 % (0.0-1.0); %Eosinophils 1.6 % (0.0-10.0); %Lymphocytes 27.7 % (21.0-51.0); %Neutrophils 56.2 % (42.0-75.0); Hemoglobin 14.2 g/dL (14.0-18.0); Mean Corpuscular HGB CONC 32.6 g/dL (32.0-36.0); Mean Corpuscular Hemoglobin 32.2 pg (27.0-31.0); Mean Corpuscular Volume 98.7 fL (78.0-98.0); Mean Platelet Volume 7.8 fL (7.4-10.4); Platelet Count 159 thou/uL (130-400); RBC Distribution Width 13.5 % (11.5-14.5); Red Blood Cell (RBC) Count 4.43 mill/uL (4.70-6.10); White Blood Cell (WBC) Count 7.6 thou/uL (4.8-10.8)
[2019-06-04 09:16] LABS: Anion Gap 11 mmol/L (10-20); BUN (Urea Nitrogen) 5 mg/dL (8.4-25.7); Calc. Creatinine Clearance 120 mL/min (70-130); Calcium 9.4 mg/dL (7.8-10.44); Carbon Dioxide 28 mmol/L (23-31); Chloride 104 mmol/L (98-107); Estimated GFR-MDRD Greater than 90; Glucose 105 mg/dL (83-110); Potassium 3.8 mmol/L (3.5-5.1); Sodium 139 mmol/L (136-145)
[2019-06-04 09:21] LABS: Troponin I 0.263 ng/mL (< 0.028)
--- NOTE | 2019-06-04 14:39 | PDOC.HOSPP ---
- Subjective Encounter Date: 06/04/19 Encounter Time: 14:37 Subjective: Mr. Beltre was seen today in follow-up of NSTEMI and COPD exacerbation. He says that now he is more short of breath. He having any chest pain at this time. - Objective Vital Signs & Weight: Vital Signs (12 hours) Temp Pulse Resp BP Pulse Ox 06/04/19 11:41 98.4 F 82 20 96/55 L 96 06/04/19 07:02 98.7 F 99 18 103/71 94 L 06/04/19 04:15 99.2 F 79 18 96/56 L 96 Weight Weight 198 lb 14.4 oz I&O: 06/03/19 06/04/19 06/05/19 06:59 06:59 06:59 Intake Total 386 2440 Output Total 400 1875 Balance -14 565 Result Diagrams: 06/04/19 08:45 06/04/19 08:45 Hospitalist ROS - Medication Medications: Active Medications Generic Name Dose Route Start Last Admin Trade Name Freq PRN Reason Stop Dose Admin Acetaminophen 650 mg 06/03/19 00:43 06/04/19 14:10 Tylenol PO 650 mg Q4H PRN Administration Headache/Fever/Mild Pain (1-3) Albuterol/Ipratropium 3 ml 06/03/19 01:00 06/04/19 14:31 Duoneb NEB Not Given [id number] ROSARIO Aspirin 81 mg 06/03/19 09:00 06/04/19 08:05 Ecotrin PO 81 mg DAILY [facility]IO Administration Atorvastatin Calcium 80 mg 06/03/19 09:00 06/04/19 08:05 Lipitor PO 80 mg DAILY ROSARIO Administration Cyanocobalamin 1,000 mcg 06/03/19 09:00 06/04/19 08:05 Vitamin B-12 PO 1,000 mcg DAILY ROSRAIO Administration Dorzolamide HCl 1 drop 06/03/19 09:00 06/04/19 14:07 Trusopt 2% Ophth Soln EA EYE 1 drop TID ROSARIO Administration Doxycycline Hyclate 100 mg 06/04/19 09:00 06/04/19 08:03 Vibramycin PO 100 mg BID ROSARIO Administration Ezetimibe 10 mg 06/03/19 09:00 06/04/19 08:06 Zetia PO 10 mg DAILY [facility] Administration Enoxaparin Sodium 80 mg 06/03/19 09:00 06/04/19 08:06 Lovenox SC 80 mg 0900,2100 [facility] Administration Famotidine 20 mg 06/03/19 09:00 06/04/19 08:05 Pepcid PO 20 mg BID ROSARIO Administration Gabapentin 200 mg 06/03/19 09:00 06/04/19 14:07 Neurontin PO 200 mg TID ROS[facility] Administration Isosorbide Mononitrate 90 mg 06/03/19 09:00 06/04/19 08:03 Imdur Er PO 90 mg DAILY [facility] Administration Latanoprost 1 drop 06/03/19 21:00 06/03/19 20:19 Xalatan 0.005% Ophth Soln EA EYE 1 each HS [facility] Administration Lisinopril 5 mg 06/03/19 09:00 06/04/19 08:05 Zestril PO 5 mg DAILY [facility] Administration Loratadine 10 mg 06/03/19 21:00 06/03/19 20:19 Claritin PO 10 mg HS [facility] Administration Metoprolol Tartrate 25 mg 06/03/19 09:00 06/04/19 08:05 Lopressor PO 25 mg BID [facility] Administration Mometasone Furoate/Formoterol Fumar 2 puff 06/03/19 06:30 06/04/19 08:15 Dulera 200 Mcg/5 Mcg Inhaler INH 2 puff BID-RT [facility]IO Administration Niacin 500 mg 06/03/19 21:00 06/03/19 20:19 Niaspan Er PO 500 mg HS [facility] Administration Nitroglycerin 0.5 inch 06/03/19 06:00 06/04/19 13:09 Nitro-Bid 2% Ointment TOP Not Given Q8HR [facility] Ranolazine 500 mg 06/03/19 09:00 06/04/19 08:06 Ranexa PO 500 mg BID ROSARIO Administration - Exam Eye: PERRL Respiratory: no rales, no ronchi, wheezes (+ tight wheezing bilaterally) Gastrointestinal: soft, non-tender, non-distended, normal bowel sounds, no palpable masses, no hepatomegaly Extremities: no cyanosis, no clubbing, no edema Hosp A/P (1) NSTEMI (non-ST elevated myocardial infarction) Code(s): I21.4 - NON-ST ELEVATION (NSTEMI) MYOCARDIAL INFARCTION Status: Acute (2) COPD exacerbation Code(s): J44.1 - CHRONIC OBSTRUCTIVE PULMONARY DISEASE W (ACUTE) EXACERBATION Status: Acute (3) Aortic valve prosthesis present Code(s): Z95.2 - PRESENCE OF PROSTHETIC HEART VALVE Status: Chronic (4) CAD (coronary artery disease) Code(s): I25.10 - ATHSCL HEART DISEASE OF [place] CORONARY ARTERY W/O ANG PCTRS Status: Chronic Qualifiers: Coronary Disease-Associated Artery/Lesion type: [place] artery [place] vs. transplanted heart: [place] heart Associated angina: without angina Qualified Code(s): I25.10 - Atherosclerotic heart disease of [place] coronary artery without angina pectoris (5) Hypertension Code(s): I10 - ESSENTIAL (PRIMARY) HYPERTENSION Status: Chronic Qualifiers: Hypertension type: essential hypertension Qualified Code(s): I10 - Essential (primary) hypertension (6) Dyslipidemia Code(s): E78.5 - HYPERLIPIDEMIA, UNSPECIFIED Status: Chronic - Plan * NSTEMI- continue medical management with aspirin, statin, Metorprolol, Lovenox and Nitrates * COPD- will add a short course of steroids, and continue Duonebs, and Antibiotics * Dysipidemia- continue Lipitor * HTN- blood pressure is a bit low- will observe closely
[2019-06-04] MEDS ORDERED: methylPREDNISolone Sod Succ 40 MG VIAL IVP SCH (14:45)
--- NOTE | 2019-06-04 15:09 | RAD ---
XR Lumbar Spine 2 Or 3 View: 06/04/2019 2:35 PM Back pain with right leg pain COMPARISON: None FINDINGS: Fracture: None. Alignment: There is grade 1 anterolisthesis of L4 and L5. Degenerative Change: There is mild multilevel disc degenerative disease most pronounced at L5-S1. Th ere is advanced facet osteoarthrosis at L3-4, L4-5 and L5-S1. Soft tissues: There is prominent vascular calcification involving the abdominal pelvic vasculature. IMPRESSION: Moderate spondylosis of the lumbar spine.
[2019-06-04] MEDS: traMADol HCl 50 MG TAB PO PRN (15:12)
[2019-06-04] MEDS: Loratadine 10 MG TAB PO SCH (21:03)
[2019-06-04] MEDS: Latanoprost 0.005% Ophth Soln 2.5 ml Bottle EA EYE SCH (21:04)
[2019-06-05] MEDS: Nitroglycerin 2% Ointment 1 INCH/1 GM Packet TOP SCH ×3 (04:47→20:52)
[2019-06-05] MEDS: Mometasone/Formoterol 120 PUFF INHALER INH SCH ×2 (08:05→18:32)
[2019-06-05] MEDS: Dorzolamide HCl 2% Ophth Soln 10 ml Bottle EA EYE SCH ×3 (08:06→20:52)
[2019-06-05] MEDS: Doxycycline 100 MG CAP PO SCH ×2 (08:07→20:50)
[2019-06-05] MEDS: Enoxaparin Sodium 80 MG/0.8 ML SYRINGE SC SCH ×2 (08:07→20:51)
[2019-06-05] MEDS: Aspirin 81 mg Enteric Coated Tablet PO SCH (08:07)
[2019-06-05] MEDS: Cyanocobalamin (Vitamin B-12) 1,000 MCG TAB PO SCH (08:07)
[2019-06-05] MEDS: Metoprolol Tartrate 25 MG TAB PO SCH ×2 (08:07→20:50)
[2019-06-05] MEDS: Atorvastatin Calcium 40 MG TAB PO SCH (08:07)
[2019-06-05] MEDS: Lisinopril 5 MG TAB PO SCH (08:07)
[2019-06-05] MEDS: Ezetimibe 10 MG TAB PO SCH (08:08)
[2019-06-05] MEDS: Famotidine 20 MG TAB PO SCH ×2 (08:08→20:51)
[2019-06-05] MEDS: Gabapentin 100 MG CAP PO SCH ×3 (08:08→20:50)
[2019-06-05] MEDS: traMADol HCl 50 MG TAB PO PRN ×3 (08:11→20:50)
[2019-06-05] MEDS: Isosorbide Mononitrate (ER) 30 MG TAB PO SCH (09:42)
[2019-06-05] MEDS: Loratadine 10 MG TAB PO SCH (20:50)
[2019-06-05] MEDS: Latanoprost 0.005% Ophth Soln 2.5 ml Bottle EA EYE SCH (20:51)
[2019-06-06] MEDS: Mometasone/Formoterol 120 PUFF INHALER INH SCH ×3 (07:04→19:36)
[2019-06-06] MEDS: Metoprolol Tartrate 25 MG TAB PO SCH ×2 (10:06→13:05)
[2019-06-06] MEDS: Dorzolamide HCl 2% Ophth Soln 10 ml Bottle EA EYE SCH ×3 (10:06→14:48)
[2019-06-06] MEDS: Famotidine 20 MG TAB PO SCH ×2 (10:06→13:04)
[2019-06-06] MEDS: Gabapentin 100 MG CAP PO SCH ×3 (10:06→14:48)
[2019-06-06] MEDS: Atorvastatin Calcium 40 MG TAB PO SCH ×2 (10:06→13:01)
[2019-06-06] MEDS: Cyanocobalamin (Vitamin B-12) 1,000 MCG TAB PO SCH ×2 (10:06→13:01)
[2019-06-06] MEDS: Lisinopril 5 MG TAB PO SCH ×2 (10:06→13:05)
[2019-06-06] MEDS: Aspirin 81 mg Enteric Coated Tablet PO SCH ×2 (10:06→13:01)
[2019-06-06] MEDS: Doxycycline 100 MG CAP PO SCH ×2 (10:06→13:02)
[2019-06-06] MEDS: Enoxaparin Sodium 80 MG/0.8 ML SYRINGE SC SCH ×2 (10:06→13:03)
[2019-06-06] MEDS: Ezetimibe 10 MG TAB PO SCH ×2 (10:06→13:03)
[2019-06-06] MEDS: Isosorbide Mononitrate (ER) 30 MG TAB PO SCH ×2 (10:06→13:04)
[2019-06-06] MEDS: Nitroglycerin 2% Ointment 1 INCH/1 GM Packet TOP SCH ×2 (13:10→15:50)
--- NOTE | 2019-06-06 13:32 | PDOC.HOSPP ---
- Subjective Encounter Date: 06/06/19 Encounter Time: 13:31 Subjective: Mr. Hernandez was seen today in follow-up of NSTEMI. He does not have any complaints. - Objective Vital Signs & Weight: Vital Signs (12 hours) Temp Pulse Resp BP BP Pulse Ox 06/06/19 11:20 97.9 F 74 20 91/57 L 99 06/06/19 08:03 98 F 79 20 102/57 L 99 Weight Admit Weight 198 lb 14.4 oz Weight 198 lb 11.2 oz I&O: 06/05/19 06/06/19 06/07/19 06:59 06:59 06:59 Intake Total 750 950 Output Total 1550 1500 600 Balance -800 -550 -600 Result Diagrams: 06/04/19 08:45 06/04/19 08:45 Hospitalist ROS - Medication Medications: Active Medications Generic Name Dose Route Start Last Admin Trade Name Freq PRN Reason Stop Dose Admin Acetaminophen 650 mg 06/03/19 00:43 06/04/19 14:10 Tylenol PO 650 mg Q4H PRN Administration Headache/Fever/Mild Pain (1-3) Albuterol/Ipratropium 3 ml 06/03/19 01:00 06/06/19 13:12 Duoneb NEB Not Given [id number] ROSARIO Albuterol/Ipratropium 3 ml 06/04/19 14:30 06/04/19 15:11 Duoneb NEB 3 ml Q4H PRN Administration SOB &/or Wheezing Aspirin 81 mg 06/03/19 09:00 06/06/19 13:01 Ecotrin PO Not Given DAILY [facility] Atorvastatin Calcium 80 mg 06/03/19 09:00 06/06/19 13:01 Lipitor PO Not Given DAILY [facility] Cyanocobalamin 1,000 mcg 06/03/19 09:00 06/06/19 13:01 Vitamin B-12 PO Not Given DAILY [facility] Dorzolamide HCl 1 drop 06/03/19 09:00 06/06/19 13:02 Trusopt 2% Ophth Soln EA EYE Not Given TID ROSARIO Doxycycline Hyclate 100 mg 06/04/19 09:00 06/06/19 13:02 Vibramycin PO Not Given BID [facility] Ezetimibe 10 mg 06/03/19 09:00 06/06/19 13:03 Zetia PO Not Given DAILY [facility] Enoxaparin Sodium 80 mg 06/03/19 09:00 06/06/19 13:03 Lovenox SC Not Given 0900,2100 [facility] Famotidine 20 mg 06/03/19 09:00 06/06/19 13:04 Pepcid PO Not Given BID [facility] Gabapentin 200 mg 06/03/19 09:00 06/06/19 13:04 Neurontin PO Not Given TID [facility] Isosorbide Mononitrate 90 mg 06/03/19 09:00 06/06/19 13:04 Imdur Er PO Not Given DAILY [facility] Latanoprost 1 drop 06/03/19 21:00 06/05/19 20:51 Xalatan 0.005% Ophth Soln EA EYE 1 each HS [facility] Administration Lisinopril 5 mg 06/03/19 09:00 06/06/19 13:05 Zestril PO Not Given DAILY [facility] Loratadine 10 mg 06/03/19 21:00 06/05/19 20:50 Claritin PO 10 mg HS [facility] Administration Metoprolol Tartrate 25 mg 06/03/19 09:00 06/06/19 13:05 Lopressor PO Not Given BID [facility] Mometasone Furoate/Formoterol Fumar 2 puff 06/03/19 06:30 06/06/19 13:11 Dulera 200 Mcg/5 Mcg Inhaler INH Not Given BID-RT [facility] Niacin 500 mg 06/03/19 21:00 06/05/19 20:50 Niaspan Er PO 500 mg HS [facility] Administration Nitroglycerin 0.5 inch 06/03/19 06:00 06/06/19 13:10 Nitro-Bid 2% Ointment TOP Not Given Q8HR [facility] Ranolazine 500 mg 06/03/19 09:00 06/06/19 13:06 Ranexa PO Not Given BID [facility] Sodium Chloride 10 ml 06/03/19 00:56 06/05/19 20:51 Flush - Normal Saline IVF 10 ml PRN PRN Administration Saline Flush Tramadol HCl 50 mg 06/04/19 14:43 06/05/19 20:50 Ultram PO 50 mg Q6H PRN Administration Moderate Pain (4-6) - Exam Eye: PERRL, anicteric sclera Heart: RRR, no murmur, no gallops, no rubs, normal peripheral pulses Respiratory: wheezes Gastrointestinal: soft, non-tender, non-distended, normal bowel sounds, no palpable masses, no hepatomegaly Extremities: no cyanosis, no edema Hosp A/P (1) NSTEMI (non-ST elevated myocardial infarction) Code(s): I21.4 - NON-ST ELEVATION (NSTEMI) MYOCARDIAL INFARCTION Status: Acute (2) COPD exacerbation Code(s): J44.1 - CHRONIC OBSTRUCTIVE PULMONARY DISEASE W (ACUTE) EXACERBATION Status: Acute (3) Aortic valve prosthesis present Code(s): Z95.2 - PRESENCE OF PROSTHETIC HEART VALVE Status: Chronic (4) CAD (coronary artery disease) Code(s): I25.10 - ATHSCL HEART DISEASE OF [place] CORONARY ARTERY W/O ANG PCTRS Status: Chronic Qualifiers: Coronary Disease-Associated Artery/Lesion type: [place] artery [place] vs. transplanted heart: [place] heart Associated angina: without angina Qualified Code(s): I25.10 - Atherosclerotic heart disease of [place] coronary artery without angina pectoris (5) Hypertension Code(s): I10 - ESSENTIAL (PRIMARY) HYPERTENSION Status: Chronic Qualifiers: Hypertension type: essential hypertension Qualified Code(s): I10 - Essential (primary) hypertension (6) Dyslipidemia Code(s): E78.5 - HYPERLIPIDEMIA, UNSPECIFIED Status: Chronic - Plan * NSTEMI- Stable - continue medical management with aspirin, statin, Metorprolol , Lovenox and Nitrates * COPD- improved * Dysipidemia- continue Lipitor * HTN- blood pressure is a bit low- will observe closely * Hopefully home later today
[2019-06-06 16:15] VITALS: TEMP 98.5
[2019-06-06 16:38] VITALS: BP 110/60
[2019-06-06] MEDS ORDERED: Clopidogrel Bisulfate 300 MG TAB PO SCH (17:15)
[2019-06-06 18:08] LABS: Hemoglobin 14.3 g/dL (14.0-18.0); Platelet Count 182 thou/uL (130-400)
[2019-06-06 18:32] LABS: Calc. Creatinine Clearance 108 mL/min (70-130); Estimated GFR-MDRD Greater than 90
--- NOTE | 2019-06-07 05:09 | DIS ---
DATE OF ADMISSION: 06/03/2019 DATE OF DISCHARGE: 06/06/2019 PRIMARY CARE PHYSICIAN: Audra Velazco MD. DISCHARGE DISPOSITION: Home. PRIMARY DISCHARGE DIAGNOSES: 1. Yqu-[id number]-povqhfk elevated myocardial infarction. 2. Abhud-ry-ezfhagh respiratory failure due to chronic obstructive pulmonary disease. 3. Chronic obstructive pulmonary disease exacerbation. 4. Ongoing tobacco abuse. 5. Dyslipidemia. DISCHARGE MEDICATIONS: Include; 1. Chantix 0.5 mg p.o. daily. 2. Ultram 50 mg q.6 as needed. 3. Loratadine 10 mg daily. 4. Plavix 75 mg daily. 5. Imdur 90 mg daily. 6. Gabapentin 200 mg t.i.d. 7. Flonase nasal spray daily. 8. Famotidine 20 mg twice daily. 9. Doxycycline 100 mg twice a day. 10. Vitamin B12 at 1000 mcg p.o. daily. 11. Aspirin 81 mg daily. 12. Protonix 40 mg daily. 13. Niacin 500 mg at bedtime. 14. Dulera 2 puffs twice a day. 15. Metoprolol 25 mg p.o. twice daily. 16. Furosemide 40 mg daily. 17. Zetia 10 mg daily. 18. Trusopt 1 drop in each eye t.i.d. 19. Symbicort 160/4.5 two puffs twice daily. 20. Lipitor 40 mg at bedtime. PROCEDURES DONE DURING THE ADMISSION: The patient had an x-ray of the lumbar spine which showed moderate spondylosis at the L3, L4, L4-L5, and L5-S1 level. CODE STATUS: Full code. ALLERGIES: NO KNOWN DRUG ALLERGIES. HOSPITAL COURSE: Mr. Beltre is a pleasant 74-year-old gentleman who presented to the emergency room with chest pain. He has a history of coronary artery disease, which is inoperable. He was brought into the hospital, started on aspirin and nitrates and it was found that his troponins became elevated. He was then put on full-dose Lovenox and Cardiology was consulted. He was stabilized with Lovenox and he also had a productive cough and wheezing and was treated for COPD exacerbation. At the time of discharge, the patient was given a loading dose of Plavix and then discharged home on Plavix 75 mg daily to add to the aspirin of his regimen and has recommended to follow up with his primary care physician in approximately 1 week. Also during the course of his admission, he was found to have pain in his lower back which radiated down his right leg. It was in a distribution consistent with sciatica and he was placed on tramadol for this. He was told that if the pain persisted beyond a week or 2 or if he had any worsening symptoms, then he would likely need an MRI done. Job ID: [id number]
[2019-06-07] MEDS ORDERED: Clopidogrel Bisulfate 75 MG TAB PO SCH (09:00)
== END 2019-06-06 18:40 | disposition home health service (06) | DRG 280 ==
LOC: ERS 21:52 → 2SW 06-03 00:52 → OBSVTOIN 06-03 12:36
PROVIDERS: ADMIT Internal Medicine; ATTEND Internal Medicine
DX: I21.4 Non-ST elevation (NSTEMI) myocardial infarction (principal); J96.20 Acute and chronic respiratory failure, unspecified whether with hypoxia or hypercapnia; E78.5 Hyperlipidemia, unspecified; F17.200 Nicotine dependence, unspecified, uncomplicated; I25.10 Atherosclerotic heart disease of native coronary artery without angina pectoris; J43.9 Emphysema, unspecified; M54.31 Sciatica, right side; Z95.1 Presence of aortocoronary bypass graft; Z79.899 Other long term (current) drug therapy; Z79.82 Long term (current) use of aspirin; Z79.51 Long term (current) use of inhaled steroids; Z95.2 Presence of prosthetic heart valve
CPT/HCPCS: 36415; 72100; 80048; 80061; 82565; 84484; 85014; 85018; 85025; 85049; 93005; 94640; 94664; 94760; J1650; J2920; J7620

== ENCOUNTER 2019-07-05 23:08 | Inpatient (IN) | payer MEDICARE ==
[2019-07-06] MEDS ORDERED: Acetaminophen 650 MG Suppository PR PRN (01:28)
[2019-07-06] MEDS ORDERED: Acetaminophen 325 MG TAB PO PRN (01:28)
[2019-07-06] MEDS ORDERED: Ondansetron PF 4 MG/2 ML Vial IVP PRN (01:28)
[2019-07-06] MEDS ORDERED: Ondansetron ODT 4 MG TAB PO PRN (01:28)
[2019-07-06 04:42] VITALS: BMI 28.0
[2019-07-06 05:53] LABS: #Neutrophils 14.9 thou/uL (1.40-6.50); %Basophils 0.1 % (0.0-1.0); %Eosinophils 0.2 % (0.0-10.0); %Lymphocytes 6.1 % (21.0-51.0); %Monocytes 5.8 % (0.0-10.0); %Neutrophils 87.9 % (42.0-75.0); Mean Corpuscular Hemoglobin 30.7 pg (27.0-31.0); Mean Corpuscular Volume 95.9 fL (78.0-98.0); Mean Platelet Volume 8.4 fL (7.4-10.4); Platelet Count 167 thou/uL (130-400); RBC Distribution Width 12.5 % (11.5-14.5); Red Blood Cell (RBC) Count 4.56 mill/uL (4.70-6.10)
[2019-07-06 06:20] LABS: Anion Gap 15 mmol/L (10-20); BUN (Urea Nitrogen) 10 mg/dL (8.4-25.7); Calc. Creatinine Clearance 125 mL/min (70-130); Calcium 9.7 mg/dL (7.8-10.44); Carbon Dioxide 26 mmol/L (23-31); Chloride 103 mmol/L (98-107); Estimated GFR-MDRD Greater than 90; Glucose 125 mg/dL (83-110); Potassium 3.5 mmol/L (3.5-5.1); Sodium 140 mmol/L (136-145)
[2019-07-06] MEDS ORDERED: Famotidine/PF 20 mg/2ml Vial SLOW IVP SCH (09:00)
--- NOTE | 2019-07-06 09:43 | HP ---
TIME OF ASSESSMENT: 0100 hours. CHIEF COMPLAINT: Productive cough and orthopnea. HISTORY OF PRESENT ILLNESS: Mr. Beltre is a pleasant 74-year-old gentleman with a known history of CAD and COPD, who recently stopped smoking in June following the most recent admission. The patient had been admitted with an NSTEMI in early June. He states for the last five days, he has had a persistent cough with rattling in his chest, but unable to bring up phlegm until today. The patient states the reason he presented to the [facility] ED was due to significant shortness of breath and orthopnea he experienced last night. He is normally able to sleep with one or two pillows, but last night, he frequently woke up gasping for air feeling as if something was keeping him from getting air in. He states he would sit up and be able to cough and breathe better. Once he would fall back asleep, it would happen again despite using his CPAP as he normally does. The patient states he uses DuoNeb 4 times a day and his inhalers regularly. Also continues using O2 at home. He denies having any fevers, chills, or sweats. Denies any chest pain, but reports occasional soreness in his chest with coughing fits. Has not noted any hemoptysis. No lightheadedness or dizziness. No urinary symptoms. No changes with his appetite. All other review of systems is negative. PAST MEDICAL HISTORY: 1. CAD. 2. GERD. 3. Hyperlipidemia. 4. Hypertension. 5. COPD, on home O2. 6. Glaucoma. 7. Peripheral vascular disease. 8. Previous smoker, quit less than 1 month ago. PAST SURGICAL HISTORY: 1. CABG x4. 2. Coronary stents x4. 3. States he is going to be following with Vascular Surgery on Tuesday due to peripheral arterial disease in both legs. 4. Rotator cuff surgery, right side. 5. Bilateral carpal tunnel surgery. 6. Aortic valve replacement. SOCIAL HISTORY: The patient previously smoked heavily, but reports quitting less than a month ago. Reports drinking socially. Denies any illicit drug use. ALLERGIES: NO KNOWN DRUG ALLERGIES. CURRENT MEDICATIONS: 1. Pantoprazole. 2. Loratadine. 3. Metoprolol. 4. Aspirin. 5. Isosorbide mononitrate. 6. Niacin. 7. Lisinopril. 8. Gabapentin. 9. Fluticasone. 10. Atorvastatin. 11. Vitamin B12. 12. Dorzolamide. 13. Lasix. 14. Zetia. 15. Symbicort. 16. Latanoprost. 17. Incruse Ellipta. PHYSICAL EXAMINATION: GENERAL: The patient appears well developed, well nourished, and is in no acute distress. VITAL SIGNS: Temperature 98.2, blood pressure 124/72, pulse 84, respirations 24 , and O2 saturation 94% on 2 L. HEENT: Normocephalic and atraumatic. Pupils are equal, round, and reactive to light. Sclerae without icterus. Oropharynx is clear. NECK: Supple. LUNGS: Notable for inspiratory and expiratory wheezing. CARDIAC: Regular rate and rhythm. ABDOMEN: Soft, nontender, nondistended. Active bowel sounds present. EXTREMITIES: No lower leg swelling or edema. NEUROLOGIC: Alert and oriented x3. SKIN: Without rash or jaundice. LABORATORY DATA: White count 10.9, hemoglobin 13.9, hematocrit 45.1, platelets 126, neutrophils 78.6. Sodium 144, potassium 3.4, BUN 9, creatinine 0.69. GFR greater than 90, glucose 115, lactic acid 2, calcium 9.3, total bilirubin 0.4. AST 19, ALT 19, alkaline phosphatase 74. Initial troponin negative, second troponin negative. BNP 288.4, total protein 7.3, albumin 4.1. IMAGING DATA: Chest x-ray done on July 05, 2019. Notable for small left basilar infiltrate and emphysema. ED COURSE: In the emergency department, the patient underwent an EKG showing normal sinus rhythm with a heart rate of 81. Given the chest x-ray showing a basilar infiltrate, he was started on IV antibiotics with vancomycin and Levaquin. This was done due to concern for hospital-acquired pneumonia, though he was discharged from his last hospitalization on June 06, 2019. The patient also received a DuoNeb treatment. IMPRESSION AND PLAN: Mr. Beltre is a pleasant 74-year-old gentleman, who is being admitted for management of the following. 1. Pneumonia. This is likely community-acquired given the length of time that has passed since his recent admission. We will continue with Levaquin only. Consider further imaging with CT chest. Sputum culture requested. CPAP ordered. Respiratory viral panel ordered as well. Urinalysis and urine culture pending. 2. Chronic obstructive pulmonary disease. Continue DuoNebs and resume inhalers. Continue O2. 3. Hypertension. Monitor blood pressure. Resume home medications once verified. 4. Coronary artery disease. Resume home medications once verified. 5. Hyperlipidemia. Resume home medications once verified. 6. Gastrointestinal prophylaxis and deep venous thrombosis prophylaxis. 7. Code status full. Surrogate decision maker is his , Mandy Beltre. The patient's case discussed with attending, who agrees with plan of care as described above. Job ID: [id number] [facility]
[2019-07-06] MEDS: guaiFENesin 200 MG TAB PO PRN (10:03)
[2019-07-06] MEDS ORDERED: traMADol HCl 50 MG TAB PO PRN (12:17)
[2019-07-06] MEDS ORDERED: Metoprolol Tartrate 100 MG TAB PO SCH (13:15)
[2019-07-06] MEDS ORDERED: predniSONE 20 MG TAB PO SCH (13:30)
[2019-07-06] MEDS ORDERED: Varenicline Tartrate 0.5 MG TAB PO SCH (13:30)
--- NOTE | 2019-07-06 13:30 | PDOC.HOSPP ---
- Subjective Encounter Date: 07/06/19 (f/p pneumonia) Encounter Time: 13:28 Subjective: Pt denies any change in his breathing - feels short of breath with moving in the bed and short ambulation. Denies n/v/abd pain/f/c. +cough - Objective Vital Signs & Weight: Vital Signs (12 hours) Temp Pulse Resp BP Pulse Ox 07/06/19 13:17 89 18 94 L 07/06/19 11:00 98.2 F 90 22 H 131/77 95 07/06/19 10:31 85 18 07/06/19 08:40 95 07/06/19 07:35 97.5 F L 87 22 H 154/76 H 95 07/06/19 06:59 91 18 96 07/06/19 04:30 95 07/06/19 04:15 98.2 F 77 20 169/85 H 95 Weight Weight 201 lb 3.2 oz I&O: 07/05/19 07/06/19 07/07/19 06:59 06:59 06:59 Intake Total 360 Output Total 600 Balance -240 Result Diagrams: 07/06/19 05:22 07/06/19 05:22 Hospitalist ROS - Medication Medications: Active Medications Generic Name Dose Route Start Last Admin Trade Name Freq PRN Reason Stop Dose Admin Albuterol/Ipratropium 3 ml 07/06/19 02:30 07/06/19 10:31 Duoneb NEB 3 ml [id number] ROSARIO Administration Guaifenesin 200 mg 07/06/19 01:48 07/06/19 10:03 Organ-I Nr PO 200 mg Q4H PRN Administration Congestion Metoprolol Tartrate 150 mg 07/06/19 13:15 07/06/19 13:13 Lopressor PO 07/06/19 15:15 150 mg NOW ROSARIO Administration Sodium Chloride 10 ml 07/06/19 01:28 07/06/19 08:44 Flush - Normal Saline IVF 10 ml Q12HR PRN Administration Saline Flush - Exam General Appearance: NAD Heart: RRR, no murmur Respiratory - other findings: fair to slightly better air mvmt, scattered rhonchi, no audible rales Gastrointestinal: soft, non-tender, non-distended, normal bowel sounds Extremities: no cyanosis, no clubbing, no edema Musculoskeletal: normal tone Psychiatric: normal affect Hosp A/P (1) COPD exacerbation Code(s): J44.1 - CHRONIC OBSTRUCTIVE PULMONARY DISEASE W (ACUTE) EXACERBATION Status: Acute (2) Pneumonia Code(s): J18.9 - PNEUMONIA, UNSPECIFIED ORGANISM Status: Acute Qualifiers: Laterality: left Lung location: lower lobe of lung (3) Peripheral vascular disease Code(s): I73.9 - PERIPHERAL VASCULAR DISEASE, UNSPECIFIED Status: Chronic (4) CAD (coronary artery disease) Code(s): I25.10 - ATHSCL HEART DISEASE OF [place] CORONARY ARTERY W/O ANG PCTRS Status: Chronic Qualifiers: (5) Dyslipidemia Code(s): E78.5 - HYPERLIPIDEMIA, UNSPECIFIED Status: Chronic (6) Hypertension Code(s): I10 - ESSENTIAL (PRIMARY) HYPERTENSION Status: Chronic Qualifiers: - Plan Pt on Levaquin for pneumonia - continue- next dose in am Dyspnea and mild COPD exac - cont scheduled nebs - add brovana/budesonide - add prednisone Continue current home meds - beta-campbell, asa/plavix, zetia, eye drops, ppi, lasix reviewed last echo in September and normal EF with grade 1 diastolic dysfunction - no indication to repeat this. BNP slightly elevated, no rales on exam. dvt prophy - hose, scd's gi prophy - not indicated, on home ppi code status full anticipate 3-4 days for improvement in sx reviewed plan of care with patient/, no questions or further needs at end of eval
[2019-07-06] MEDS: Dorzolamide HCl 2% Ophth Soln 10 ml Bottle EA EYE SCH ×2 (15:22→20:09)
[2019-07-06] MEDS: Gabapentin 100 MG CAP PO SCH ×2 (15:22→20:08)
[2019-07-06] MEDS: Arformoterol 15 MCG/2 ML NEB NEB SCH (18:22)
[2019-07-06] MEDS: Budesonide 0.5 MG/2 ML NEB INH SCH (18:24)
[2019-07-06] MEDS: Varenicline Tartrate 0.5 MG TAB PO SCH (20:08)
[2019-07-06] MEDS: Metoprolol Tartrate 100 MG TAB PO SCH (20:08)
[2019-07-06] MEDS: Latanoprost 0.005% Ophth Soln 2.5 ml Bottle EA EYE SCH (20:43)
[2019-07-06] MEDS ORDERED: Non-Formulary Item 1 EACH (Latanoprost/Pf [Latanoprost 0.005% Eye Drop] 1 DROP) OP SCH (21:00)
[2019-07-07] MEDS: Budesonide 0.5 MG/2 ML NEB INH SCH ×2 (06:17→18:19)
[2019-07-07] MEDS: Arformoterol 15 MCG/2 ML NEB NEB SCH ×2 (06:29→18:17)
[2019-07-07 07:05] LABS: #Eosinphils 0.1 thou/uL (0.0-0.7); #Lymphocytes 2.1 thou/uL (1.20-3.40); #Neutrophils 6.3 thou/uL (1.40-6.50); %Basophils 0.2 % (0.0-1.0); %Eosinophils 0.5 % (0.0-10.0); %Lymphocytes 22.2 % (21.0-51.0); %Monocytes 10.7 % (0.0-10.0); %Neutrophils 66.3 % (42.0-75.0); Hemoglobin 14.1 g/dL (14.0-18.0); Mean Corpuscular HGB CONC 32.6 g/dL (32.0-36.0); Mean Corpuscular Hemoglobin 31.6 pg (27.0-31.0); Platelet Count 167 thou/uL (130-400); RBC Distribution Width 12.5 % (11.5-14.5); Red Blood Cell (RBC) Count 4.47 mill/uL (4.70-6.10); White Blood Cell (WBC) Count 9.4 thou/uL (4.8-10.8)
[2019-07-07 07:11] LABS: Anion Gap 11 mmol/L (10-20); BUN (Urea Nitrogen) 9 mg/dL (8.4-25.7); Calc. Creatinine Clearance 127 mL/min (70-130); Calcium 9.2 mg/dL (7.8-10.44); Carbon Dioxide 31 mmol/L (23-31); Chloride 104 mmol/L (98-107); Estimated GFR-MDRD Greater than 90; Glucose 97 mg/dL (83-110); Potassium 3.5 mmol/L (3.5-5.1); Sodium 142 mmol/L (136-145)
[2019-07-07] MEDS: Metoprolol Tartrate 100 MG TAB PO SCH ×2 (07:28→21:08)
[2019-07-07] MEDS: Clopidogrel Bisulfate 75 MG TAB PO SCH (07:28)
[2019-07-07] MEDS: Ezetimibe 10 MG TAB PO SCH (07:28)
[2019-07-07] MEDS: Varenicline Tartrate 0.5 MG TAB PO SCH ×2 (07:28→21:03)
[2019-07-07] MEDS: Gabapentin 100 MG CAP PO SCH ×3 (07:29→21:02)
[2019-07-07] MEDS: Furosemide 40 MG TAB PO SCH (07:29)
[2019-07-07] MEDS: Aspirin 81 mg Enteric Coated Tablet PO SCH (07:29)
[2019-07-07] MEDS: predniSONE 20 MG TAB PO SCH (07:29)
[2019-07-07] MEDS: Dorzolamide HCl 2% Ophth Soln 10 ml Bottle EA EYE SCH ×3 (07:30→21:01)
[2019-07-07] MEDS: guaiFENesin 200 MG TAB PO PRN (08:30)
[2019-07-07] MEDS ORDERED: Albuterol Sulfate 1.25 MG/3 ML NEB NEB PRN (12:47)
--- NOTE | 2019-07-07 12:52 | PDOC.HOSPP ---
- Subjective Encounter Date: 07/07/19 (f/u pneumonia) Encounter Time: 12:50 Subjective: Pt reports 'maybe a little better today' - chest feels congested, unable to cough up mucous. Denies any n/v/abd pain. He notes 5-6 days of worsening breathing prior to admission with significant worsening on arrival to ER. - Objective Vital Signs & Weight: Vital Signs (12 hours) Temp Pulse Resp BP Pulse Ox 07/07/19 11:27 98.8 F 82 20 102/67 93 L 07/07/19 10:58 73 16 07/07/19 07:40 98.2 F 78 20 145/81 H 96 07/07/19 06:29 72 16 07/07/19 06:19 97 07/07/19 06:17 70 16 07/07/19 04:56 98.1 F 64 18 131/81 97 07/07/19 00:55 98.4 F 73 18 122/72 95 Weight Weight 201 lb 3.2 oz I&O: 07/06/19 07/07/19 07/08/19 06:59 06:59 06:59 Intake Total 360 1690 Output Total 600 3150 Balance -240 -1460 Result Diagrams: 07/07/19 06:27 07/07/19 06:27 Hospitalist ROS - Medication Medications: Active Medications Generic Name Dose Route Start Last Admin Trade Name Freq PRN Reason Stop Dose Admin Albuterol/Ipratropium 3 ml 07/06/19 02:30 07/07/19 10:58 Duoneb NEB 3 ml [id number] ROSARIO Administration Arformoterol Tartrate 15 mcg 07/06/19 18:30 07/07/19 06:29 Brovana NEB 15 mcg BID-RT ROSARIO Administration Aspirin 81 mg 07/07/19 09:00 07/07/19 07:29 Ecotrin PO 81 mg DAILY ROSARIO Administration Budesonide 0.5 mg 07/06/19 18:30 07/07/19 06:17 Pulmicort Neb Solution INH 0.5 mg BID-RT ROSARIO Administration Clopidogrel Bisulfate 75 mg 07/07/19 09:00 07/07/19 07:28 Plavix PO 75 mg DAILY ROSARIO Administration Dorzolamide HCl 1 drop 07/06/19 15:00 07/07/19 07:30 Trusopt 2% Ophth Soln EA EYE 1 drop TID ROSARIO Administration Ezetimibe 10 mg 07/07/19 09:00 07/07/19 07:28 Zetia PO 10 mg DAILY ROSARIO Administration Furosemide 40 mg 07/07/19 09:00 07/07/19 07:29 Lasix PO 40 mg DAILY ROSARIO Administration Gabapentin 200 mg 07/06/19 15:00 07/07/19 07:29 Neurontin PO 200 mg TID ROSARIO Administration Latanoprost 1 drop 07/06/19 21:00 07/06/19 20:43 Xalatan 0.005% Ophth Soln EA EYE 1 drop HS ROSARIO Administration Levofloxacin 750 mg 07/07/19 06:00 07/07/19 05:28 Levaquin PO 750 mg 0600 ROSARIO Administration Metoprolol Tartrate 150 mg 07/06/19 21:00 07/07/19 07:28 Lopressor PO 150 mg BID ROSARIO Administration Niacin 500 mg 07/06/19 21:00 07/06/19 20:42 Niaspan Er PO 500 mg HS ROSARIO Administration Pantoprazole Sodium 40 mg 07/07/19 09:00 07/07/19 07:28 Protonix PO 40 mg DAILY ROSARIO Administration Prednisone 40 mg 07/07/19 08:00 07/07/19 07:29 Prednisone PO 40 mg QAM-WM ROSARIO Administration Sodium Chloride 10 ml 07/06/19 01:28 07/07/19 07:30 Flush - Normal Saline IVF 10 ml Q12HR PRN Administration Saline Flush Varenicline 0.5 mg 07/06/19 21:00 07/07/19 07:28 Chantix PO 0.5 mg BID ROSARIO Administration - Exam General Appearance: NAD Heart: RRR, no murmur Respiratory: no wheezes, no rales, no ronchi Respiratory - other findings: fair air movement Gastrointestinal: soft, non-tender, non-distended, normal bowel sounds Extremities: no cyanosis, no clubbing, no edema Psychiatric: normal affect Hosp A/P (1) COPD exacerbation Code(s): J44.1 - CHRONIC OBSTRUCTIVE PULMONARY DISEASE W (ACUTE) EXACERBATION Status: Acute (2) Pneumonia Code(s): J18.9 - PNEUMONIA, UNSPECIFIED ORGANISM Status: Acute Qualifiers: Laterality: left Lung location: lower lobe of lung (3) Peripheral vascular disease Code(s): I73.9 - PERIPHERAL VASCULAR DISEASE, UNSPECIFIED Status: Chronic (4) CAD (coronary artery disease) Code(s): I25.10 - ATHSCL HEART DISEASE OF [place] CORONARY ARTERY W/O ANG PCTRS Status: Chronic Qualifiers: (5) Dyslipidemia Code(s): E78.5 - HYPERLIPIDEMIA, UNSPECIFIED Status: Chronic (6) Hypertension Code(s): I10 - ESSENTIAL (PRIMARY) HYPERTENSION Status: Chronic Qualifiers: - Plan Pt on Levaquin for pneumonia - continue PO Dyspnea and COPD exac - cont scheduled nebs, including brovana/budesonide, add prn albuterol - continue prednisone - consult Pulm for further recs - pt sees Dr. Chau as an outpatient - add mucinex dm scheduled Continue current home meds - beta-campbell, asa/plavix, zetia, eye drops, ppi, lasix - bp's normal to low-normal, hold isosorbide and lisinopril for now. continue other meds reviewed last echo in September and normal EF with grade 1 diastolic dysfunction - no indication to repeat this. BNP slightly elevated, no rales on exam, continue to monitor. Pt also on lasix daily PO. dvt prophy - hose, scd's, ambulatory gi prophy - not indicated, on home ppi code status full reviewed plan of care with patient/, no questions or further needs at end of eval
[2019-07-07] MEDS ORDERED: Loratadine 10 MG TAB PO SCH (13:00)
[2019-07-07] MEDS ORDERED: guaiFENesin/DM ER PO SCH ×2 (13:00→21:00)
[2019-07-07] MEDS: Latanoprost 0.005% Ophth Soln 2.5 ml Bottle EA EYE SCH (21:01)
[2019-07-07] MEDS: guaiFENesin ER 600 MG TAB PO SCH (21:03)
--- NOTE | 2019-07-08 00:50 | CON ---
DATE OF CONSULTATION: 07/07/2019 SERVICE: Pulmonary Medicine. HISTORY OF PRESENT ILLNESS: The patient is a 74-year-old male with past medical history significant for advanced COPD. He was recently in the hospital a month ago. He was discharged, and returned to his usual state of health. Either way, 3 days prior to admission, he started having increasing work of breathing, shortness of breath, and cough. He denies any current fevers or chills. He did not have any night sweats. He denies any chest pain, nausea, vomiting, or diarrhea. He did not have any palpitations. He has not experienced any lower extremity swelling. He presented to the emergency department and was discovered to have an acute on chronic hypoxic respiratory failure. He was admitted to the hospital. He was initiated on nebulized medications, steroids, and antibiotics. Over the last 12 hours, he feels a little bit better. He was bringing up green phlegm. This is cleared out slightly and decreased in severity, though he still feels that is down there. PAST MEDICAL HISTORY: 1. Gastroesophageal reflux disease. 2. Coronary artery disease. 3. Hypertension. 4. Dyslipidemia. 5. COPD. 6. Chronic hypoxic respiratory failure. 7. Glaucoma. 8. Peripheral vascular disease. 9. History of tobacco abuse (discontinued one month ago). PAST SURGICAL HISTORY: 1. Coronary artery bypass graft x4. 2. Percutaneous coronary intervention. 3. Rotator cuff surgery on the right. 4. Carpal tunnel surgery. 5. Aortic valve replacement. SOCIAL HISTORY: He has no exposure to chemicals, dust, asbestos, or tuberculosis. He has a greater than 53-ipvv-yard history of smoking. FAMILY HISTORY: Noncontributory. ALLERGIES: NO KNOWN DRUG ALLERGIES. MEDICATIONS: List of his inpatient medications was reviewed. No specific updates were made at this time. REVIEW OF SYSTEMS: General, head, ears, eyes, nose, throat, cardiovascular, respiratory, GI, , musculoskeletal, neurologic, and skin is negative except as mentioned is the HPI. PHYSICAL EXAMINATION: VITAL SIGNS: Afebrile, pulse 88, blood pressure 112/70, respirations 18, saturation 93% on 2 L nasal cannula. GENERAL: The patient is awake and alert, in no apparent distress. LUNGS: Wonderful air entry. There is a prolonged expiratory phase. Rhonchi predominate. No crackles. HEART: Normal rate, regular. ABDOMEN: Soft, nontender, and nondistended. Bowel sounds positive. MUSCULOSKELETAL: No cyanosis or clubbing. No pitting in the bilateral lower extremities. LABORATORY DATA: WBC 9.4, hemoglobin 14.1, platelets 167,000. Basic metabolic profile is unremarkable. Troponin 0.01. Respiratory virus panel, respiratory culture, and influenza A and B are all unremarkable. IMAGING STUDIES: Chest x-ray demonstrates small infiltrate in the left base. Lung volumes are enlarged with flattened diaphragm bilaterally. Cephalization is minimal. ASSESSMENT: 1. Acute on chronic hypoxic respiratory failure. 2. Chronic obstructive pulmonary disease with acute exacerbation. 3. Bronchiectasis with acute exacerbation. DISCUSSION AND PLAN: I reviewed the CT scan from 06/02/2019. On it, there is very clearly severe bronchiectasis in the dependent distribution. In addition to that, he has horrendous emphysematous changes of the biapical regions, worse on the right. As a result, he may benefit from physiotherapy and both in and outpatient setting. We will see whether or not this provides him with any benefit. Most likely, his recent exacerbation has been precipitated by quitting smoking. Once he gets through this for the next 2 to 3 weeks, he should breathing better than he has in quite some time. I agree with steroids, antibiotics, and nebulized medications. The steroids will be converted over to p.o. Pulmonary will continue to follow along. 70 minutes have been devoted to this patient in various activities. I personally reviewed all imaging studies and laboratory data noted within this document. For fifty percent of this time, I was interacting with the patient at the bedside or coordinating care with the care team. For the remainder of the time I was immediately available to the patient in the hospital unit. Job ID: [id number] [facility]
[2019-07-08 06:01] LABS: #Eosinphils 0.1 thou/uL (0.0-0.7); #Lymphocytes 2.7 thou/uL (1.20-3.40); #Monocytes 1.6 thou/uL (0.11-0.59); #Neutrophils 8.8 thou/uL (1.40-6.50); %Basophils 0.2 % (0.0-1.0); %Eosinophils 0.7 % (0.0-10.0); %Lymphocytes 20.1 % (21.0-51.0); %Monocytes 12.4 % (0.0-10.0); %Neutrophils 66.6 % (42.0-75.0); Hemoglobin 15.4 g/dL (14.0-18.0); Mean Corpuscular HGB CONC 33.5 g/dL (32.0-36.0); Mean Corpuscular Hemoglobin 32.9 pg (27.0-31.0); Mean Corpuscular Volume 98.4 fL (78.0-98.0); Mean Platelet Volume 7.4 fL (7.4-10.4); Platelet Count 182 thou/uL (130-400); RBC Distribution Width 12.5 % (11.5-14.5); Red Blood Cell (RBC) Count 4.69 mill/uL (4.70-6.10); White Blood Cell (WBC) Count 13.2 thou/uL (4.8-10.8)
[2019-07-08 06:25] LABS: Anion Gap 11 mmol/L (10-20); BUN (Urea Nitrogen) 10 mg/dL (8.4-25.7); Calc. Creatinine Clearance 127 mL/min (70-130); Calcium 9.5 mg/dL (7.8-10.44); Carbon Dioxide 32 mmol/L (23-31); Chloride 102 mmol/L (98-107); Estimated GFR-MDRD Greater than 90; Glucose 97 mg/dL (83-110); Potassium 3.4 mmol/L (3.5-5.1); Sodium 142 mmol/L (136-145)
[2019-07-08] MEDS: Budesonide 0.5 MG/2 ML NEB INH SCH ×2 (06:40→19:19)
[2019-07-08] MEDS: Arformoterol 15 MCG/2 ML NEB NEB SCH ×2 (06:54→19:09)
[2019-07-08] MEDS: Gabapentin 100 MG CAP PO SCH ×3 (08:57→20:23)
[2019-07-08] MEDS: guaiFENesin ER 600 MG TAB PO SCH ×2 (08:57→20:24)
[2019-07-08] MEDS: Furosemide 40 MG TAB PO SCH (08:58)
[2019-07-08] MEDS: Metoprolol Tartrate 100 MG TAB PO SCH ×2 (08:58→20:24)
[2019-07-08] MEDS: Loratadine 10 MG TAB PO SCH (09:04)
[2019-07-08] MEDS: Varenicline Tartrate 0.5 MG TAB PO SCH ×2 (09:04→20:24)
[2019-07-08] MEDS: predniSONE 20 MG TAB PO SCH (09:04)
[2019-07-08] MEDS: Ezetimibe 10 MG TAB PO SCH (09:04)
[2019-07-08] MEDS: Clopidogrel Bisulfate 75 MG TAB PO SCH (09:04)
[2019-07-08] MEDS: Aspirin 81 mg Enteric Coated Tablet PO SCH (09:04)
[2019-07-08] MEDS: Dorzolamide HCl 2% Ophth Soln 10 ml Bottle EA EYE SCH ×3 (09:05→20:23)
--- NOTE | 2019-07-08 13:01 | PDOC.HOSPP ---
- Subjective Encounter Date: 07/08/19 (f/u COPD exacerbation) Encounter Time: 13:00 Subjective: pt c/o cramping abd pain and chest pain that he had after breakfast. reports he was on the commode for about 30 minutes and passed small amounts of soft stool and flatus. He has been laying down and the sx have since resolved. He denies any current n/v/chest pain or other sx. - Objective Vital Signs & Weight: Vital Signs (12 hours) Temp Pulse Resp BP BP BP Pulse Ox 07/08/19 12:20 95 07/08/19 11:59 98.4 F 83 20 92/60 91 L 07/08/19 11:04 83 16 07/08/19 08:00 95 07/08/19 07:57 98.4 F 83 20 104/70 94 L 07/08/19 06:44 97 07/08/19 06:40 89 16 07/08/19 04:00 97.4 F L 82 18 103/66 91 L 07/08/19 01:46 88 16 94 L Weight Weight 201 lb 3.2 oz I&O: 07/07/19 07/08/19 07/09/19 06:59 06:59 06:59 Intake Total 1690 1930 Output Total 3150 2250 Balance -1460 -320 Result Diagrams: 07/08/19 05:36 07/08/19 05:36 Hospitalist ROS - Medication Medications: Active Medications Generic Name Dose Route Start Last Admin Trade Name Freq PRN Reason Stop Dose Admin Albuterol/Ipratropium 3 ml 07/06/19 02:30 07/08/19 11:04 Duoneb NEB 3 ml [id number] ROSARIO Administration Arformoterol Tartrate 15 mcg 07/06/19 18:30 07/08/19 06:54 Brovana NEB 15 mcg BID-RT ROSARIO Administration Aspirin 81 mg 07/07/19 09:00 07/08/19 09:04 Ecotrin PO 81 mg DAILY ROSARIO Administration Budesonide 0.5 mg 07/06/19 18:30 07/08/19 06:40 Pulmicort Neb Solution INH 0.5 mg BID-RT ROSARIO Administration Clopidogrel Bisulfate 75 mg 07/07/19 09:00 07/08/19 09:04 Plavix PO 75 mg DAILY ROSARIO Administration Dorzolamide HCl 1 drop 07/06/19 15:00 07/08/19 09:05 Trusopt 2% Ophth Soln EA EYE 1 drop TID ROSARIO Administration Ezetimibe 10 mg 07/07/19 09:00 07/08/19 09:04 Zetia PO 10 mg DAILY ROSARIO Administration Furosemide 40 mg 07/07/19 09:00 07/08/19 08:58 Lasix PO 40 mg DAILY ROSARIO Administration Gabapentin 200 mg 07/06/19 15:00 07/08/19 08:57 Neurontin PO 200 mg TID ROSARIO Administration Guaifenesin 1,200 mg 07/07/19 21:00 07/08/19 08:57 Mucinex PO 1,200 mg Q12HR ROSARIO Administration Latanoprost 1 drop 07/06/19 21:00 07/07/19 21:01 Xalatan 0.005% Ophth Soln EA EYE 1 drop HS ROSARIO Administration Levofloxacin 750 mg 07/07/19 06:00 07/08/19 05:25 Levaquin PO 750 mg 0600 ROSARIO Administration Loratadine 10 mg 07/08/19 09:00 07/08/19 09:04 Claritin PO 10 mg DAILY ROSARIO Administration Metoprolol Tartrate 150 mg 07/06/19 21:00 07/08/19 08:58 Lopressor PO 150 mg BID ROSARIO Administration Niacin 500 mg 07/06/19 21:00 07/07/19 21:03 Niaspan Er PO 500 mg HS ROSARIO Administration Pantoprazole Sodium 40 mg 07/07/19 09:00 07/08/19 09:04 Protonix PO 40 mg DAILY ROSARIO Administration Prednisone 40 mg 07/07/19 08:00 07/08/19 09:04 Prednisone PO 40 mg QAM-WM ROSARIO Administration Sodium Chloride 10 ml 07/06/19 01:28 07/07/19 07:30 Flush - Normal Saline IVF 10 ml Q12HR PRN Administration Saline Flush Varenicline 0.5 mg 07/06/19 21:00 07/08/19 09:04 Chantix PO 0.5 mg BID ROSARIO Administration - Exam General Appearance: NAD Heart: RRR, no murmur Heart - other findings: distant heart sounds Respiratory - other findings: improved air movement today, no audible w/r/r Gastrointestinal: soft, non-distended, normal bowel sounds Gastrointestinal - other findings: mild ttp along the right side of umbilicus, no palpable abnormality Extremities: no cyanosis, no clubbing, no edema Psychiatric: normal affect Hosp A/P (1) COPD exacerbation Code(s): J44.1 - CHRONIC OBSTRUCTIVE PULMONARY DISEASE W (ACUTE) EXACERBATION Status: Acute (2) Pneumonia Code(s): J18.9 - PNEUMONIA, UNSPECIFIED ORGANISM Status: Acute Qualifiers: Laterality: left Lung location: lower lobe of lung (3) Peripheral vascular disease Code(s): I73.9 - PERIPHERAL VASCULAR DISEASE, UNSPECIFIED Status: Chronic (4) CAD (coronary artery disease) Code(s): I25.10 - ATHSCL HEART DISEASE OF [place] CORONARY ARTERY W/O ANG PCTRS Status: Chronic Qualifiers: (5) Dyslipidemia Code(s): E78.5 - HYPERLIPIDEMIA, UNSPECIFIED Status: Chronic (6) Hypertension Code(s): I10 - ESSENTIAL (PRIMARY) HYPERTENSION Status: Chronic Qualifiers: - Plan Pt on Levaquin for pneumonia - continue PO, will plan for 5 day course Dyspnea and COPD exac - Appreciate Pulmonology consult\ - improved air movement today - cont scheduled nebs, including brovana/budesonide, and prn albuterol - continue prednisone and mucinex dm scheduled Abdominal pain, resolved, with benign abdominal exam - monitor. Pt is on a PPI here, in addition to steroids. Continue current home meds - beta-campbell, asa/plavix, zetia, eye drops, ppi, lasix - bp's low to low-normal, continue holding isosorbide and lisinopril for now. - hold parameters placed on metoprolol and lasix dvt prophy - hose, scd's, ambulatory gi prophy - not indicated, on home ppi code status full reviewed plan of care with patient, no questions or further needs at end of eval
[2019-07-08] MEDS ORDERED: Bismuth Subs 17.5 mg/mL Susp PO PRN (18:30)
[2019-07-08] MEDS ORDERED: Milk Of Magnesia 30 ML UDCUP PO SCH (18:45)
[2019-07-08] MEDS ORDERED: Potassium Chloride 20 MEQ TAB PO SCH (18:45)
--- NOTE | 2019-07-08 19:54 | PRG ---
DATE OF SERVICE: 07/08/2019 SERVICE: Pulmonary Medicine. INTERVAL HISTORY: The patient is doing poorly from respiratory standpoint. He is having increasing wheezing, a little bit of increasing work of breathing. Denies any current chest discomfort, nausea, or vomiting. Physical therapy did not get initiated today. We are going to work on fixing that. His biggest complaint today is upset stomach. He typically takes a little bit of [place] or Pepto-Bismol when he has these issues. He had not been able to really eat much all day. It does happen like this from time to time. PHYSICAL EXAMINATION: VITAL SIGNS: Afebrile, pulse 89, blood pressure 95/61, respirations 20, and saturation 92% on room air. GENERAL: The patient is awake and alert, in no apparent distress. LUNGS: Decent air entry. Extensive rhonchi and wheezing are present. No crackles. HEART: Normal rate, regular. ABDOMEN: Soft, nontender, nondistended. Bowel sounds are positive. MUSCULOSKELETAL: No cyanosis or clubbing. No pitting in the bilateral lower extremities. NEUROLOGIC: Grossly nonfocal. LABORATORY DATA: WBC 13.2, hemoglobin 15.4, platelets 182,000. Basic metabolic profile is otherwise unremarkable except for potassium of 3.4. Sputum is growing gram-negative ashley. Final result is pending. Influenza A and B are negative. Respiratory virus panel is negative. ASSESSMENT: 1. Acute on chronic hypoxic respiratory failure. 2. Chronic obstructive pulmonary disease with acute exacerbation. 3. Bronchiectasis with acute exacerbation secondary to gram-negative ashley. DISCUSSION AND PLAN: We will continue antibiotics. I will suspend gram-positive coverage. Potassium will be replaced. We will schedule some GI medications for him per his request. Pulmonary/Critical Care will continue to follow. Work on getting physiotherapy set up. If he has a good experience with this, we should consider doing this in the outpatient setting. Noninvasive ventilation will be continued at night. Job ID: [id number]
[2019-07-08] MEDS: Latanoprost 0.005% Ophth Soln 2.5 ml Bottle EA EYE SCH (21:17)
[2019-07-09 05:14] LABS: #Eosinphils 0.1 thou/uL (0.0-0.7); #Lymphocytes 2.3 thou/uL (1.20-3.40); #Monocytes 1.2 thou/uL (0.11-0.59); #Neutrophils 7.5 thou/uL (1.40-6.50); %Basophils 0.1 % (0.0-1.0); %Eosinophils 0.6 % (0.0-10.0); %Lymphocytes 20.7 % (21.0-51.0); %Monocytes 11.1 % (0.0-10.0); %Neutrophils 67.5 % (42.0-75.0); Hemoglobin 14.6 g/dL (14.0-18.0); Mean Corpuscular HGB CONC 32.1 g/dL (32.0-36.0); Mean Corpuscular Hemoglobin 31.4 pg (27.0-31.0); Mean Corpuscular Volume 97.6 fL (78.0-98.0); Mean Platelet Volume 8.4 fL (7.4-10.4); Platelet Count 179 thou/uL (130-400); RBC Distribution Width 12.4 % (11.5-14.5); Red Blood Cell (RBC) Count 4.65 mill/uL (4.70-6.10); White Blood Cell (WBC) Count 11.1 thou/uL (4.8-10.8)
[2019-07-09 05:26] LABS: Anion Gap 13 mmol/L (10-20); BUN (Urea Nitrogen) 11 mg/dL (8.4-25.7); Calc. Creatinine Clearance 123 mL/min (70-130); Calcium 9.4 mg/dL (7.8-10.44); Carbon Dioxide 29 mmol/L (23-31); Chloride 105 mmol/L (98-107); Estimated GFR-MDRD Greater than 90; Glucose 104 mg/dL (83-110); Potassium 3.6 mmol/L (3.5-5.1); Sodium 143 mmol/L (136-145)
[2019-07-09] MEDS: Arformoterol 15 MCG/2 ML NEB NEB SCH ×2 (07:22→19:38)
[2019-07-09] MEDS: Budesonide 0.5 MG/2 ML NEB INH SCH ×2 (07:24→19:38)
[2019-07-09] MEDS: Dorzolamide HCl 2% Ophth Soln 10 ml Bottle EA EYE SCH ×3 (09:22→20:58)
[2019-07-09] MEDS: Gabapentin 100 MG CAP PO SCH ×3 (09:23→20:59)
[2019-07-09] MEDS: guaiFENesin ER 600 MG TAB PO SCH ×2 (09:23→20:59)
[2019-07-09] MEDS: Aspirin 81 mg Enteric Coated Tablet PO SCH (09:23)
[2019-07-09] MEDS: Ezetimibe 10 MG TAB PO SCH (09:23)
[2019-07-09] MEDS: predniSONE 20 MG TAB PO SCH (09:24)
[2019-07-09] MEDS: Loratadine 10 MG TAB PO SCH (09:24)
[2019-07-09] MEDS: Varenicline Tartrate 0.5 MG TAB PO SCH ×2 (09:24→21:00)
[2019-07-09] MEDS: Clopidogrel Bisulfate 75 MG TAB PO SCH (09:25)
[2019-07-09] MEDS: Metoprolol Tartrate 100 MG TAB PO SCH ×2 (09:28→20:57)
[2019-07-09] MEDS: Furosemide 40 MG TAB PO SCH (09:29)
--- NOTE | 2019-07-09 09:33 | PDOC.HOSPP ---
- Subjective Encounter Date: 07/09/19 Encounter Time: 11:30 Subjective: Patient feeling better. Less cough and SOB. On 2L NC chronically at home. - Objective Vital Signs & Weight: Vital Signs (12 hours) Temp Pulse Resp BP BP Pulse Ox 07/09/19 08:01 98.9 F 97 20 112/74 97 07/09/19 07:25 82 18 97 07/09/19 07:24 82 18 97 07/09/19 07:22 82 18 97 07/09/19 04:00 97.4 F L 90 18 108/64 89 L 07/09/19 02:32 68 16 95 07/09/19 00:00 97.6 F 78 18 101/67 92 L 07/08/19 22:23 98 07/08/19 22:22 72 16 98 Weight Weight 201 lb 3.2 oz I&O: 07/08/19 07/09/19 07/10/19 06:59 06:59 06:59 Intake Total 1930 Output Total 2250 Balance -320 Result Diagrams: 07/09/19 04:45 07/09/19 04:45 Hospitalist ROS - Review of Systems Constitutional: denies: fever, chills Respiratory: reports: cough, shortness of breath Cardiovascular: denies: chest pain, palpitations, orthopnea Gastrointestinal: denies: nausea, vomiting, abdominal pain - Medication Medications: Active Medications Generic Name Dose Route Start Last Admin Trade Name Freq PRN Reason Stop Dose Admin Albuterol/Ipratropium 3 ml 07/06/19 02:30 07/09/19 07:25 Duoneb NEB 3 ml [id number] ROSARIO Administration Arformoterol Tartrate 15 mcg 07/06/19 18:30 07/09/19 07:22 Brovana NEB 15 mcg BID-RT ROSARIO Administration Aspirin 81 mg 07/07/19 09:00 07/09/19 09:23 Ecotrin PO 81 mg DAILY ROSARIO Administration Budesonide 0.5 mg 07/06/19 18:30 07/09/19 07:24 Pulmicort Neb Solution INH 0.5 mg BID-RT ROSARIO Administration Clopidogrel Bisulfate 75 mg 07/07/19 09:00 07/09/19 09:25 Plavix PO 75 mg DAILY ROSARIO Administration Dorzolamide HCl 1 drop 07/06/19 15:00 07/09/19 09:22 Trusopt 2% Ophth Soln EA EYE 1 drop TID ROSARIO Administration Ezetimibe 10 mg 07/07/19 09:00 07/09/19 09:23 Zetia PO 10 mg DAILY ROSARIO Administration Gabapentin 200 mg 07/06/19 15:00 07/09/19 09:23 Neurontin PO 200 mg TID ROSARIO Administration Guaifenesin 1,200 mg 07/07/19 21:00 07/09/19 09:23 Mucinex PO 1,200 mg Q12HR ROSARIO Administration Latanoprost 1 drop 07/06/19 21:00 07/08/19 21:17 Xalatan 0.005% Ophth Soln EA EYE 1 drop HS ROSARIO Administration Levofloxacin 750 mg 07/07/19 06:00 07/09/19 05:37 Levaquin PO 750 mg 0600 ROSARIO Administration Loratadine 10 mg 07/08/19 09:00 07/09/19 09:24 Claritin PO 10 mg DAILY ROSARIO Administration Metoprolol Tartrate 150 mg 07/08/19 21:00 07/09/19 09:28 Lopressor PO Not Given BID ROSARIO Niacin 500 mg 07/06/19 21:00 07/08/19 21:16 Niaspan Er PO 500 mg HS ROSARIO Administration Pantoprazole Sodium 40 mg 07/07/19 09:00 07/08/19 09:04 Protonix PO 40 mg DAILY ROSARIO Administration Prednisone 40 mg 07/07/19 08:00 07/09/19 09:24 Prednisone PO 40 mg QAM-WM ROSARIO Administration Sodium Chloride 10 ml 07/06/19 01:28 07/07/19 07:30 Flush - Normal Saline IVF 10 ml Q12HR PRN Administration Saline Flush Varenicline 0.5 mg 07/06/19 21:00 07/09/19 09:24 Chantix PO 0.5 mg BID ROSARIO Administration - Exam General Appearance: NAD Eye: anicteric sclera ENT: moist mucosa Heart: RRR, no murmur, no gallops, no rubs Respiratory - other findings: some decreased breath sound throughout, mild wheezes, no inc WOB Gastrointestinal: soft, non-tender, non-distended Psychiatric: normal affect, normal behavior, A&O x 3 Hosp A/P (1) COPD exacerbation Code(s): J44.1 - CHRONIC OBSTRUCTIVE PULMONARY DISEASE W (ACUTE) EXACERBATION Status: Acute (2) Acute on chronic respiratory failure with hypoxia Code(s): J96.21 - ACUTE AND CHRONIC RESPIRATORY FAILURE WITH HYPOXIA Status: Acute (3) Bronchiectasis Code(s): J47.9 - BRONCHIECTASIS, UNCOMPLICATED Status: Acute (4) Pneumonia Code(s): J18.9 - PNEUMONIA, UNSPECIFIED ORGANISM Status: Acute Qualifiers: Laterality: left Lung location: lower lobe of lung (5) Peripheral vascular disease Code(s): I73.9 - PERIPHERAL VASCULAR DISEASE, UNSPECIFIED Status: Chronic (6) CAD (coronary artery disease) Code(s): I25.10 - ATHSCL HEART DISEASE OF [place] CORONARY ARTERY W/O ANG PCTRS Status: Chronic Qualifiers: (7) DM type 2 (diabetes mellitus, type 2) Status: Chronic Qualifiers: Diabetes mellitus care home insulin use: without care home use Diabetes mellitus complication status: without complication Qualified Code(s): E11.9 - Type 2 diabetes mellitus without complications (8) Dyslipidemia Code(s): E78.5 - HYPERLIPIDEMIA, UNSPECIFIED Status: Chronic (9) Hypertension Code(s): I10 - ESSENTIAL (PRIMARY) HYPERTENSION Status: Chronic Qualifiers: (10) MYLENE on CPAP Code(s): G47.33 - OBSTRUCTIVE SLEEP APNEA (ADULT) (PEDIATRIC); Z99.89 - DEPENDENCE ON OTHER ENABLING MACHINES AND DEVICES Status: Chronic - Plan Currently sating well on 2L NC O2 Levaquin daily, finish 5 day course on 07/10/2019 Respiratory culture growing many gram negative rods Blood cultures negative DVT proph: SCDs, ambulatory
--- NOTE | 2019-07-09 10:21 | PRG ---
DATE OF SERVICE: 07/09/2019 SUBJECTIVE: A 74-year-old gentleman, longstanding history of tobacco abuse, re-admitted to the hospital recently with COPD exacerbation and bronchitis. He is better this morning. OBJECTIVE: VITAL SIGNS: His sats are 97 on 2 L, respiratory rate 20 pulse 97, blood pressure 112/74. CHEST: Minimal wheezing. CARDIAC: Normal S1, S2. No gallops. ABDOMEN: No masses. LABORATORY DATA: Sputum is growing gram-negative ashley. IMPRESSION: Chronic obstructive pulmonary disease exacerbation, bronchitis, ongoing tobacco abuse. PLAN: Continue neb treatment. Continue prednisone. PT, supportive care. Hopefully, home in the next several days. Job ID: [id number]
--- NOTE | 2019-07-09 15:21 | PQF ---
CLINICAL DOCUMENTATION IMPROVEMENT CLARIFICATION FORM: ICD-10 Updated PLEASE DO AN ADDENDUM TO THE PROGRESS NOTE WITH ANY DOCUMENTATION UPDATES OR ADDITIONS AND CARRY THROUGH TO DC SUMMARY. THANK YOU. DATE: 07/09/2019; 07/11/19 ATTN: Dr. Bay Please exercise your independent, professional judgment in responding to the clarification form. Clinical indicators are provided on the bottom of this form for your review Please check appropriate box(s): [ ] Aspiration Pneumonia [ ] Aspiration Bronchitis [ X ] Empirically treating Gram Negative Pneumonia [ ] Empirically treating Anaerobic Pneumonia [ ] Pneumonia secondary to (specify organism / underlying disease) [ ] Simple Pneumonia [ ] Bronchopneumonia [ ] Pneumonia of unknown etiology [ ] Other diagnosis [ ] Unable to determine In addition, please specify: Present on Admission (POA): [ X ] Yes [ ] No [ ] Unable to determine For continuity of documentation, please document condition throughout progress notes and discharge summary. Thank You. CLINICAL INDICATORS - SIGNS / SYMPTOMS / LABS / RESULTS AND LOCATION IN MR H&P 07/06: Pneumonia Chronic obstructive pulmonary disease 07/08 ([place]) Acute on chronic hypoxic respiratory failure Chronic obstructive pulmonary disease with acute exacerbation. Bronchiectasis with acute exacerbation secondary to gram- negative ashley PN 07/09: Pneumonia. Left lower lobe of lung Respiratory culture growing many gram negative rods RISKS: H&P /: Hx of CAD and COPD. The pt had been admitted with an NSTEMI in early June. TREATMENT: MAR: Order 07/06/2019: Levaquin 750 mg po Pulmonology Consult 07/07 Thank you, Brenda (This form is maintained as a part of the permanent medical record) 2014 [employer]. All Rights Reserved Brenda Smith RN, BSN [email or web address] Office: [phone] [facility] MED[facility] CENTERGeronimo
[2019-07-09] MEDS: Latanoprost 0.005% Ophth Soln 2.5 ml Bottle EA EYE SCH (21:01)
[2019-07-10] MEDS: Arformoterol 15 MCG/2 ML NEB NEB SCH ×2 (07:56→18:13)
[2019-07-10] MEDS: Budesonide 0.5 MG/2 ML NEB INH SCH ×2 (07:58→18:12)
[2019-07-10] MEDS: Clopidogrel Bisulfate 75 MG TAB PO SCH (08:05)
[2019-07-10] MEDS: Gabapentin 100 MG CAP PO SCH ×3 (08:05→20:34)
[2019-07-10] MEDS: Metoprolol Tartrate 100 MG TAB PO SCH ×2 (08:06→20:34)
[2019-07-10] MEDS: guaiFENesin ER 600 MG TAB PO SCH ×2 (08:06→20:35)
[2019-07-10] MEDS: predniSONE 20 MG TAB PO SCH (08:06)
[2019-07-10] MEDS: Varenicline Tartrate 0.5 MG TAB PO SCH ×2 (08:06→20:34)
[2019-07-10] MEDS: Loratadine 10 MG TAB PO SCH (08:06)
[2019-07-10] MEDS: Ezetimibe 10 MG TAB PO SCH (08:07)
[2019-07-10] MEDS: Furosemide 40 MG TAB PO SCH (08:07)
[2019-07-10] MEDS: Aspirin 81 mg Enteric Coated Tablet PO SCH (08:07)
[2019-07-10] MEDS: Dorzolamide HCl 2% Ophth Soln 10 ml Bottle EA EYE SCH ×3 (08:07→20:33)
--- NOTE | 2019-07-10 10:00 | PRG ---
DATE OF SERVICE: 07/10/2019 SUBJECTIVE: This morning, he is better. OBJECTIVE: VITAL SIGNS: Temperature 98, pulse 90, respirations 20, sats 94 on 2 L, blood pressure 115/72. GENERAL: He is walking in the [place] without any shortness of breath. CHEST: Decreased breath sounds, no wheezing. CARDIAC: Normal S1, S2. No gallops. ABDOMEN: No masses. ASSESSMENT: Severe exacerbation of bronchitis. Otherwise stable enough to be discharged home any time. Follow up with his primary care physician. Tapering steroids over the course of several days. Job ID: [id number]
--- NOTE | 2019-07-10 10:10 | PDOC.HOSPP ---
- Subjective Encounter Date: 07/10/19 Encounter Time: 11:30 Subjective: Patient with improvement in wheezing and SOB. Feels almost ready to go home. - Objective Vital Signs & Weight: Vital Signs (12 hours) Temp Pulse Resp BP BP Pulse Ox 07/10/19 08:26 98.1 F 90 20 115/72 94 L 07/10/19 08:00 94 L 07/10/19 07:56 90 16 97 07/10/19 04:44 98.3 F 83 20 104/72 96 07/10/19 03:19 82 14 95 07/09/19 23:27 103 H 16 97 Weight Weight 201 lb 3.2 oz I&O: 07/09/19 07/10/19 07/11/19 06:59 06:59 06:59 Intake Total 720 240 Output Total 650 Balance 70 240 Result Diagrams: 07/09/19 04:45 07/09/19 04:45 Hospitalist ROS - Review of Systems Constitutional: denies: fever, chills Respiratory: reports: cough, shortness of breath, wheezing Cardiovascular: denies: chest pain, palpitations, orthopnea Gastrointestinal: denies: nausea, vomiting, abdominal pain - Medication Medications: Active Medications Generic Name Dose Route Start Last Admin Trade Name Freq PRN Reason Stop Dose Admin Albuterol/Ipratropium 3 ml 07/06/19 02:30 07/10/19 07:58 Duoneb NEB 3 ml [id number] ROSARIO Administration Arformoterol Tartrate 15 mcg 07/06/19 18:30 07/10/19 07:56 Brovana NEB 15 mcg BID-RT ROSARIO Administration Aspirin 81 mg 07/07/19 09:00 07/10/19 08:07 Ecotrin PO 81 mg DAILY ROSARIO Administration Budesonide 0.5 mg 07/06/19 18:30 07/10/19 07:58 Pulmicort Neb Solution INH 0.5 mg BID-RT ROSARIO Administration Clopidogrel Bisulfate 75 mg 07/07/19 09:00 07/10/19 08:05 Plavix PO 75 mg DAILY ROSARIO Administration Dorzolamide HCl 1 drop 07/06/19 15:00 07/10/19 08:07 Trusopt 2% Ophth Soln EA EYE 1 drop TID ROSARIO Administration Ezetimibe 10 mg 07/07/19 09:00 07/10/19 08:07 Zetia PO 10 mg DAILY ROSARIO Administration Furosemide 40 mg 07/09/19 09:00 07/10/19 08:07 Lasix PO 40 mg DAILY ROSARIO Administration Gabapentin 200 mg 07/06/19 15:00 07/10/19 08:05 Neurontin PO 200 mg TID ROSARIO Administration Guaifenesin 1,200 mg 07/07/19 21:00 07/10/19 08:06 Mucinex PO 1,200 mg Q12HR ROSARIO Administration Latanoprost 1 drop 07/06/19 21:00 07/09/19 21:01 Xalatan 0.005% Ophth Soln EA EYE 1 drop HS ROSARIO Administration Levofloxacin 750 mg 07/07/19 06:00 07/10/19 05:51 Levaquin PO 750 mg 0600 ROSARIO Administration Loratadine 10 mg 07/08/19 09:00 07/10/19 08:06 Claritin PO 10 mg DAILY ROSARIO Administration Metoprolol Tartrate 150 mg 07/08/19 21:00 07/10/19 08:06 Lopressor PO 150 mg BID ROSARIO Administration Niacin 500 mg 07/06/19 21:00 07/09/19 20:57 Niaspan Er PO 500 mg HS ROSARIO Administration Pantoprazole Sodium 40 mg 07/07/19 09:00 07/10/19 08:07 Protonix PO 40 mg DAILY ROSARIO Administration Prednisone 40 mg 07/07/19 08:00 07/10/19 08:06 Prednisone PO 40 mg QAM-WM ROSARIO Administration Sodium Chloride 10 ml 07/06/19 01:28 07/10/19 08:07 Flush - Normal Saline IVF 10 ml Q12HR PRN Administration Saline Flush Varenicline 0.5 mg 07/06/19 21:00 07/10/19 08:06 Chantix PO 0.5 mg BID ROSARIO Administration - Exam General Appearance: NAD, awake alert Heart: RRR, no murmur, no gallops, no rubs Respiratory: no rales, no ronchi, wheezes Respiratory - other findings: decent air movement throughout Gastrointestinal: soft, non-tender, non-distended, normal bowel sounds Psychiatric: normal affect, normal behavior, A&O x 3 Hosp A/P (1) COPD exacerbation Code(s): J44.1 - CHRONIC OBSTRUCTIVE PULMONARY DISEASE W (ACUTE) EXACERBATION Status: Acute (2) Acute on chronic respiratory failure with hypoxia Code(s): J96.21 - ACUTE AND CHRONIC RESPIRATORY FAILURE WITH HYPOXIA Status: Acute (3) Bronchiectasis Code(s): J47.9 - BRONCHIECTASIS, UNCOMPLICATED Status: Acute (4) Pneumonia Code(s): J18.9 - PNEUMONIA, UNSPECIFIED ORGANISM Status: Acute Qualifiers: Laterality: left Lung location: lower lobe of lung (5) Peripheral vascular disease Code(s): I73.9 - PERIPHERAL VASCULAR DISEASE, UNSPECIFIED Status: Chronic (6) CAD (coronary artery disease) Code(s): I25.10 - ATHSCL HEART DISEASE OF [place] CORONARY ARTERY W/O ANG PCTRS Status: Chronic Qualifiers: (7) DM type 2 (diabetes mellitus, type 2) Status: Chronic Qualifiers: Diabetes mellitus 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 insulin use: without senior living use Diabetes mellitus complication status: without complication Qualified Code(s): E11.9 - Type 2 diabetes mellitus without complications (8) Dyslipidemia Code(s): E78.5 - HYPERLIPIDEMIA, UNSPECIFIED Status: Chronic (9) Hypertension Code(s): I10 - ESSENTIAL (PRIMARY) HYPERTENSION Status: Chronic Qualifiers: (10) MYLENE on CPAP Code(s): G47.33 - OBSTRUCTIVE SLEEP APNEA (ADULT) (PEDIATRIC); Z99.89 - DEPENDENCE ON OTHER ENABLING MACHINES AND DEVICES Status: Chronic - Plan Currently sating well on 2L NC O2 Levaquin daily, finishing 5 day course on 07/10/2019 (Today) Respiratory culture growing many gram negative rods Blood cultures negative Cleared to d/c on steroid taper by Dr. Chua, will send home tomorrow DVT proph: SCDs, ambulatory
[2019-07-10] MEDS: Latanoprost 0.005% Ophth Soln 2.5 ml Bottle EA EYE SCH (20:33)
[2019-07-11 05:22] VITALS: TEMP 98.1
[2019-07-11] MEDS: Budesonide 0.5 MG/2 ML NEB INH SCH (07:14)
[2019-07-11] MEDS: Arformoterol 15 MCG/2 ML NEB NEB SCH (07:14)
[2019-07-11] MEDS ORDERED: predniSONE 20 MG TAB PO SCH (08:00)
[2019-07-11] MEDS ORDERED: predniSONE 5 MG TAB PO SCH (08:00)
[2019-07-11] MEDS: Aspirin 81 mg Enteric Coated Tablet PO SCH (08:37)
[2019-07-11] MEDS: Ezetimibe 10 MG TAB PO SCH (08:37)
[2019-07-11] MEDS: Gabapentin 100 MG CAP PO SCH (08:37)
[2019-07-11] MEDS: guaiFENesin ER 600 MG TAB PO SCH (08:38)
[2019-07-11] MEDS: Clopidogrel Bisulfate 75 MG TAB PO SCH (08:38)
[2019-07-11] MEDS: Furosemide 40 MG TAB PO SCH (08:39)
[2019-07-11] MEDS: Metoprolol Tartrate 100 MG TAB PO SCH (08:39)
[2019-07-11 08:40] VITALS: BP 134/91
[2019-07-11] MEDS: Dorzolamide HCl 2% Ophth Soln 10 ml Bottle EA EYE SCH (08:43)
[2019-07-11] MEDS: Loratadine 10 MG TAB PO SCH (08:46)
[2019-07-11] MEDS: Varenicline Tartrate 0.5 MG TAB PO SCH (08:46)
--- NOTE | 2019-07-11 09:12 | PRG ---
DATE OF SERVICE: 07/11/2019 SUBJECTIVE: This morning, he is better. He is awake and responsive, less short of breath. OBJECTIVE: VITAL SIGNS: Temperature 98, pulse 75, respiratory rate 20, saturations 90% on 2 L, blood pressure 139/90. CHEST: Decreased breath sounds, no wheezing. CARDIAC: Normal S1, S2. No gallops. ABDOMEN: No masses. ASSESSMENT: Severe exacerbation of bronchitis. Ready to be discharged home any time. Follow up in the office in a month. Job ID: [id number]
--- NOTE | 2019-07-11 09:50 | PDOC.HOSPP ---
- Subjective Encounter Date: 07/11/19 Encounter Time: 10:00 Subjective: Patient feeling better today. Breathing well on his home O2. Cough not productive today. - Objective Vital Signs & Weight: Vital Signs (12 hours) Temp Pulse Resp BP BP Pulse Ox 07/11/19 08:40 98.1 F 75 20 134/91 H 98 07/11/19 08:00 98 07/11/19 07:14 90 20 95 07/11/19 07:11 90 20 95 07/11/19 04:00 98.1 F 70 20 94/63 97 07/11/19 01:53 16 07/11/19 00:00 97.8 F 88 20 100/67 95 07/10/19 21:53 93 16 95 Weight Weight 201 lb 3.2 oz I&O: 07/10/19 07/11/19 07/12/19 06:59 06:59 06:59 Intake Total 720 840 360 Output Total 650 Balance 70 840 360 Result Diagrams: 07/09/19 04:45 07/09/19 04:45 Hospitalist ROS - Review of Systems Constitutional: denies: fever, chills Respiratory: reports: cough. denies: shortness of breath Cardiovascular: denies: chest pain, palpitations, orthopnea Gastrointestinal: denies: nausea, vomiting, abdominal pain - Medication Medications: Active Medications Generic Name Dose Route Start Last Admin Trade Name Freq PRN Reason Stop Dose Admin Albuterol/Ipratropium 3 ml 07/06/19 02:30 07/11/19 07:11 Duoneb NEB 3 ml [id number] ROSARIO Administration Arformoterol Tartrate 15 mcg 07/06/19 18:30 07/11/19 07:14 Brovana NEB 15 mcg BID-RT ROSARIO Administration Aspirin 81 mg 07/07/19 09:00 07/11/19 08:37 Ecotrin PO 81 mg DAILY ROSARIO Administration Budesonide 0.5 mg 07/06/19 18:30 07/11/19 07:14 Pulmicort Neb Solution INH 0.5 mg BID-RT ROSARIO Administration Clopidogrel Bisulfate 75 mg 07/07/19 09:00 07/11/19 08:38 Plavix PO 75 mg DAILY ROSARIO Administration Dorzolamide HCl 1 drop 07/06/19 15:00 07/11/19 08:43 Trusopt 2% Ophth Soln EA EYE 1 drop TID ROSARIO Administration Ezetimibe 10 mg 07/07/19 09:00 07/11/19 08:37 Zetia PO 10 mg DAILY ROSARIO Administration Furosemide 40 mg 07/09/19 09:00 07/11/19 08:39 Lasix PO 40 mg DAILY ROSARIO Administration Gabapentin 200 mg 07/06/19 15:00 07/11/19 08:37 Neurontin PO 200 mg TID ROSARIO Administration Guaifenesin 1,200 mg 07/07/19 21:00 07/11/19 08:38 Mucinex PO 1,200 mg Q12HR ROSARIO Administration Latanoprost 1 drop 07/06/19 21:00 07/10/19 20:33 Xalatan 0.005% Ophth Soln EA EYE 1 drop HS ROSARIO Administration Loratadine 10 mg 07/08/19 09:00 07/11/19 08:46 Claritin PO 10 mg DAILY ROSARIO Administration Metoprolol Tartrate 150 mg 07/08/19 21:00 07/11/19 08:39 Lopressor PO 150 mg BID ROSARIO Administration Niacin 500 mg 07/06/19 21:00 07/10/19 20:34 Niaspan Er PO 500 mg HS ROSARIO Administration Pantoprazole Sodium 40 mg 07/07/19 09:00 07/11/19 08:38 Protonix PO 40 mg DAILY ROSARIO Administration Prednisone 20 mg 07/11/19 08:00 07/11/19 08:38 Prednisone PO 20 mg QAM-WM ROSARIO Administration Prednisone 10 mg 07/11/19 08:00 07/11/19 08:38 Prednisone PO 10 mg QAM-WM ROSARIO Administration Sodium Chloride 10 ml 07/06/19 01:28 07/11/19 08:39 Flush - Normal Saline IVF 10 ml Q12HR PRN Administration Saline Flush Varenicline 0.5 mg 07/06/19 21:00 07/11/19 08:46 Chantix PO 0.5 mg BID ROSARIO Administration - Exam General Appearance: NAD Eye: anicteric sclera ENT: moist mucosa Heart: RRR, no murmur, no gallops, no rubs Respiratory: no rales, no ronchi, normal chest expansion, no tachypnea Respiratory - other findings: occ wheeze, good air movement Gastrointestinal: soft, non-tender, non-distended Psychiatric: normal affect, normal behavior, A&O x 3 Hosp A/P (1) COPD exacerbation Code(s): J44.1 - CHRONIC OBSTRUCTIVE PULMONARY DISEASE W (ACUTE) EXACERBATION Status: Acute (2) Acute on chronic respiratory failure with hypoxia Code(s): J96.21 - ACUTE AND CHRONIC RESPIRATORY FAILURE WITH HYPOXIA Status: Acute (3) Bronchiectasis Code(s): J47.9 - BRONCHIECTASIS, UNCOMPLICATED Status: Acute (4) Pneumonia Code(s): J18.9 - PNEUMONIA, UNSPECIFIED ORGANISM Status: Acute Qualifiers: Laterality: left Lung location: lower lobe of lung (5) Peripheral vascular disease Code(s): I73.9 - PERIPHERAL VASCULAR DISEASE, UNSPECIFIED Status: Chronic (6) CAD (coronary artery disease) Code(s): I25.10 - ATHSCL HEART DISEASE OF [place] CORONARY ARTERY W/O ANG PCTRS Status: Chronic Qualifiers: (7) DM type 2 (diabetes mellitus, type 2) Status: Chronic Qualifiers: Diabetes mellitus buttermaker helper insulin use: without fpc use Diabetes mellitus complication status: without complication Qualified Code(s): E11.9 - Type 2 diabetes mellitus without complications (8) Dyslipidemia Code(s): E78.5 - HYPERLIPIDEMIA, UNSPECIFIED Status: Chronic (9) Hypertension Code(s): I10 - ESSENTIAL (PRIMARY) HYPERTENSION Status: Chronic Qualifiers: (10) MYLENE on CPAP Code(s): G47.33 - OBSTRUCTIVE SLEEP APNEA (ADULT) (PEDIATRIC); Z99.89 - DEPENDENCE ON OTHER ENABLING MACHINES AND DEVICES Status: Chronic - Plan Currently sating well on 2L NC O2- his home O2 level Levaquin daily, finished 5 day course on 07/10/2019 Respiratory culture growing many gram negative rods Blood cultures negative Cleared to d/c on steroid taper by Dr. Chau d/c home today DVT proph: SCDs, ambulatory
--- NOTE | 2019-07-11 16:15 | DIS ---
DATE OF ADMISSION: 07/06/2019 DATE OF DISCHARGE: 07/11/2019 PRIMARY CARE PHYSICIAN: Audra Velazco MD REASON FOR ADMISSION: Pneumonia. DIAGNOSES AT DISCHARGE: 1. Pneumonia, resolved. 2. Chronic obstructive pulmonary disease exacerbation. 3. Acute on chronic respiratory failure with hypoxia, improved. 4. Bronchiectasis. 5. Peripheral vascular disease. 6. Coronary artery disease. 7. Diabetes mellitus type 2. 8. Dyslipidemia. 9. Hypertension. 10. Obstructive sleep apnea on continuous positive airway pressure at night. PROCEDURES: None. CONSULTATIONS: Pulmonology, Nadir Agustina Chau MD SUMMARY OF HOSPITAL COURSE: This is a 74-year-old male with a known history of COPD on home oxygen 2 L by nasal cannula, who recently stops smoking about a month before, had been admitted with a non-STEMI last month. Since then, he has had a persistent cough and rattling in his chest, unable to bring phlegm up, went to the [facility] due to significant shortness of breath and some orthopnea. Insite of his CPAP, he was seen in the emergency room, diagnosed with pneumonia, put on antibiotics, Levaquin as well as DuoNebs and steroids, the patient was admitted to the hospital. Dr. Chau was consulted. He followed during the hospitalization. The patient improved markedly during his hospitalization. He was weaned down to his home level of oxygen, was sleeping well with CPAP at night. He finished a 5-day course of Levaquin and had no more productive cough and no fevers. On the day of discharge, he was markedly better , ambulating well, and is being discharged home. DISCHARGE MANAGEMENT: Discharged home. FOLLOWUP: Follow up with Dr. Chau in 2 to [address] Velazco in 1 week. ACTIVITY: As tolerated. DIET: Healthy heart diet. Continue home oxygen. MEDICATIONS: 1. Methylprednisolone Dosepak one pack dispensed, use as directed for a steroid taper. 2. Guaifenesin extended release 1200 mg twice a day, 30 tablets dispensed. 3. Acetaminophen as needed. 4. Aspirin 81 mg daily. 5. Symbicort 160/4.5 two puffs inhaled twice a day. 6. Plavix 75 mg daily. 7. Vitamin B12 of 1000 mcg daily. 8. Dorzolamide ophthalmic solution one drop each eye three times a day. 9. Zetia 10 mg daily. 10. Fluticasone one spray in each nostril daily. 11. Furosemide 40 mg daily. 12. Gabapentin 200 mg 3 times a day. 13. DuoNeb every 6 hours. 14. Isosorbide mononitrate 90 mg daily. 15. Xalatan 1 drop in each eye at night. 16. Latanoprost one drop in each eye at night. 17. Loratadine 10 mg daily. 18. Metoprolol 150 mg twice a day. 19. Multivitamin daily. 20. Niacin 500 mg at night. 21. Protonix 40 mg daily. 22. Tramadol 50 mg every 6 hours as needed for pain. 23. Chantix, continue 0.5 mg twice a day. Arranging the details of this discharge took 32 minutes. Job ID: [id number] MTDD
--- NOTE | 2019-07-12 17:57 | PQF ---
MARIS STERN RYAN ANDREW MD [id number] CLINICAL DOCUMENTATION CLARIFICATION FORM: POST DISCHARGE Addendum to original discharge summary date: ____ Late entry note date: __ DATE: 07/12/19 ATTN: Gaurang Gill Please exercise your independent, professional judgment in responding to the clarification form. Clinical indicators are provided on the bottom of this form for your review Please check appropriate box(es): [ ] Sepsis due to Pneumonia [ ] Severe sepsis with acute organ dysfunction of: (Examples: respiratory failure, encephalopathy, acute kidney failure, other) [ ] Septic Shock [ ] Localized infection without sepsis [ ] Other diagnosis [ X ] Unable to determine In addition, please specify: Present on Admission (POA): [ ] Yes [ ] No [ X ] Unable to determine For continuity of documentation, please document condition throughout progress notes and discharge summary. Thank You. CLINICAL INDICATORS - SIGNS / SYMPTOMS / LABS Laboratory Hematology 07/06/19 WBC17.0 Laboratory Hematology 07/08/19 WBC 13.2 H&P p1 07/06 Arellano PA-C significant SOB and orthopnea H&P p1 07/06 Arellano PA-C Vital sign Respiratory rate 24, O2 saturation 94% on 2L Physician documentation p1 07/11 Empirically treating Gram Negative Pneumonia RISK FACTORS H&P p1 07/06 74 year old gentleman H&P p1 07/06 COPD on home O2 H&P p3 07/06 Pneumonia PN p5 07/09 Acute on chronic respiratory failure TREATMENTS: Sep 01 IV Levaquin Sep 01 IV Vancomycin SEP 01 Oral Levaquin Respiratory panel 07/06 on CPaP Pulmonology service consult 07/07 Mayur Atkinson (This form is maintained as a part of the permanent medical record) 2014 [employer] All Rights Reserved [email or web address] [not provided] MTDD
== END 2019-07-11 12:19 | disposition home or self-care (01) | DRG 177 ==
LOC: ERS 23:08 → T4-A 07-06 01:57
PROVIDERS: ADMIT Internal Medicine; ATTEND Internal Medicine
PROC: 5A09357 Assistance with Respiratory Ventilation, Less than 24 Consecutive Hours, Continuous Positive Airway Pressure (ICD-10-PCS; principal; 2019-07-06)
DX: J15.6 Pneumonia due to other Gram-negative bacteria (principal); J96.21 Acute and chronic respiratory failure with hypoxia; J44.0 Chronic obstructive pulmonary disease with (acute) lower respiratory infection; J44.1 Chronic obstructive pulmonary disease with (acute) exacerbation; E11.51 Type 2 diabetes mellitus with diabetic peripheral angiopathy without gangrene; I25.10 Atherosclerotic heart disease of native coronary artery without angina pectoris; E78.5 Hyperlipidemia, unspecified; I10 Essential (primary) hypertension; G47.33 Obstructive sleep apnea (adult) (pediatric); K21.9 Gastro-esophageal reflux disease without esophagitis; I25.2 Old myocardial infarction; Z87.891 Personal history of nicotine dependence; Z95.5 Presence of coronary angioplasty implant and graft; Z95.1 Presence of aortocoronary bypass graft; Z99.81 Dependence on supplemental oxygen; Z95.2 Presence of prosthetic heart valve; Z79.899 Other long term (current) drug therapy; Z79.82 Long term (current) use of aspirin; Z79.51 Long term (current) use of inhaled steroids
CPT/HCPCS: 36415; 80048; 85025; 87070; 87077; 87186; 87205; 87633; 87804; 93005; 94640; 94667; 94668; 96365; 96366; 96367; J1956; J3370; J7512; J7620; J7626

== ENCOUNTER 2019-07-26 23:14 | Inpatient (IN) | payer MEDICARE ==
[2019-07-27 02:23] VITALS: BMI 28.3
[2019-07-27] MEDS ORDERED: Loperamide HCl 2 MG CAP PO PRN (08:17)
[2019-07-27] MEDS ORDERED: Ondansetron PF 4 MG/2 ML Vial IVP PRN (08:17)
[2019-07-27] MEDS ORDERED: Bisacodyl 5 MG TAB PO PRN (08:17)
[2019-07-27] MEDS ORDERED: Acetaminophen 325 MG TAB PO PRN ×2 (08:17→17:40)
[2019-07-27] MEDS: Heparin 5,000 UNITS/ML VIAL SC SCH ×3 (10:06→20:13)
[2019-07-27] MEDS ORDERED: traMADol HCl 50 MG TAB PO PRN (17:40)
[2019-07-27] MEDS: Mometasone/Formoterol 120 PUFF INHALER INH SCH (18:31)
--- NOTE | 2019-07-27 18:34 | PDOC.HHP ---
Hospitalist HPI - History of Present Illness shortness of breath/chest congestion History of Present Illness: This is a 74 year old male with past medical history of COPD, CAD s/p CABG, allergies, hypertension who presented to the ER with increasing cough and chest congestion. The patient states that he was recently discharged for COPD exacerbation and pneumonia on the . He finished a steroid taper and levaquin last week. He felt better and then for the past 1.5 days the patient states he was having increasing shortness of breath with minmal exertion and increasing congestion with inability to bring up phlegm. He denies orthopnea, PND or leg swelling. THe patient denies fevers, chills, runny nose or sore throat. He states he follows with Dr. Chau as an outpatient for pulmonary. He is former smoker and quit last June. ED Course: In the ER, the patient had normal vitals. He is on 2L of oxygen at baseline. Chest X Ray showed hyperinflation with no pneumonia. Labs showed WBC of 15.2. BMP unremarkable. The patient was given duoneb and admitted for further workup. Hospitalist ROS - Review of Systems Constitutional: denies: fever Respiratory: reports: cough, shortness of breath Cardiovascular: denies: chest pain, palpitations, orthopnea, paroxysmal noc. dyspnea Gastrointestinal: reports: abdominal pain (abdominal discomfort while coughing) Genitourinary: denies: dysuria, frequency, incontinence Musculoskeletal: denies: neck pain, shoulder pain, arm pain Skin: denies: rash, lesions, salvatore Neurological: denies: weakness, numbness, incoordination - Medication Medications: Active Medications Generic Name Dose Route Start Last Admin Trade Name Freq PRN Reason Stop Dose Admin Heparin Sodium (Porcine) 5,000 units 07/27/19 09:00 07/27/19 15:31 Heparin SC 5,000 units TID ROSARIO Administration Hospitalist History - Past Medical History Cardiac: reports: CAD (s/p CABG), HTN Pulmonary: reports: COPD - Past Surgical History Other Surgical History: S/p CABG Carpal Tunnel surgery Rotator Cuff surgery Aortic valve replacement - Family History Other Family History: Mother had COPD and is . Also had a collapsed lung - Social History Smoking Status: Former smoker (smoked from age of 15 until Jun 2019) Alcohol: reports: Occassional (Drinks 2-3 times a week) Drugs: reports: none Living Situation: Other (lives with ) - Exam General Appearance: NAD, awake alert Eye: PERRL, anicteric sclera ENT: normocephalic atraumatic, no oropharyngeal lesions Neck: no JVD Heart: RRR, no murmur, no gallops, no rubs Respiratory - other findings: diminished breath sounds with scattered wheezing Gastrointestinal: soft, non-tender, non-distended, normal bowel sounds Extremities: no cyanosis, no clubbing, no edema Skin: normal turgor, no lesions, no rashes Hospitalist H&P A/P - Plan Plan: This is a 74 year old male with history of COPD, recently discharged for pneumonia and COPD exacerbation who presented with increasing cough and congestion #Acute COPD exacerbation #Leukocytosis #Chronic respiratory failure from COPD -WBC of 15.3, chest X Ray shows no pneumonia - continue standing duoneb, albuterol q2 hours prn - will start IV azithromycin - continue IV steroids 20 mg IV q8 hours #MYLENE - continue home CPAP #Hypertension - continue imdur and metoprolol #CAD s/p CABG #S/p aortic valve replacement #Diastolic heart failure - ECHO show EF 60-65% - continue furosemide daily - continue aspirin, statin, plavix Tobacco abuse - continue nicotine patch DVT prophylaxis: heparin SC Code status: full code
[2019-07-27] MEDS: Azithromycin 500 MG in Sodium Chloride 0.9% 250 ML 250 ML IVPB SCH (20:13)
[2019-07-27] MEDS: Metoprolol Tartrate 100 MG TAB PO SCH (20:14)
[2019-07-27] MEDS: Gabapentin 100 MG CAP PO SCH (20:14)
[2019-07-27] MEDS: guaiFENesin ER 600 MG TAB PO SCH (20:14)
[2019-07-27] MEDS: Latanoprost 0.005% Ophth Soln 2.5 ml Bottle EA EYE SCH (20:17)
[2019-07-27] MEDS: Dorzolamide HCl 2% Ophth Soln 10 ml Bottle EA EYE SCH (20:18)
[2019-07-27] MEDS: methylPREDNISolone Sod Succ 40 MG VIAL IVP SCH (20:26)
[2019-07-27] MEDS ORDERED: Non-Formulary Item 1 EACH (Latanoprost/Pf [Latanoprost 0.005% Eye Drop] 1 DROP) OP SCH (21:00)
[2019-07-27] MEDS: Varenicline Tartrate 0.5 MG TAB PO SCH (21:01)
[2019-07-28] MEDS: methylPREDNISolone Sod Succ 40 MG VIAL IVP SCH ×3 (06:10→20:32)
[2019-07-28 06:13] LABS: #Lymphocytes 0.8 thou/uL (1.20-3.40); #Monocytes 0.5 thou/uL (0.11-0.59); #Neutrophils 6.2 thou/uL (1.40-6.50); %Basophils 0.3 % (0.0-1.0); %Eosinophils 0.2 % (0.0-10.0); %Lymphocytes 11.1 % (21.0-51.0); %Neutrophils 82.4 % (42.0-75.0); Hemoglobin 14.1 g/dL (14.0-18.0); Mean Corpuscular HGB CONC 32.4 g/dL (32.0-36.0); Mean Corpuscular Hemoglobin 31.3 pg (27.0-31.0); Mean Corpuscular Volume 96.5 fL (78.0-98.0); Mean Platelet Volume 7.9 fL (7.4-10.4); Platelet Count 126 thou/uL (130-400); RBC Distribution Width 12.2 % (11.5-14.5); White Blood Cell (WBC) Count 7.5 thou/uL (4.8-10.8)
[2019-07-28] MEDS: Mometasone/Formoterol 120 PUFF INHALER INH SCH ×2 (06:28→19:19)
[2019-07-28 06:40] LABS: Anion Gap 12 mmol/L (10-20); BUN (Urea Nitrogen) 5 mg/dL (8.4-25.7); Calc. Creatinine Clearance 134 mL/min (70-130); Calcium 9.4 mg/dL (7.8-10.44); Carbon Dioxide 25 mmol/L (23-31); Chloride 106 mmol/L (98-107); Estimated GFR-MDRD Greater than 90; Glucose 144 mg/dL (83-110); Potassium 4.3 mmol/L (3.5-5.1); Sodium 139 mmol/L (136-145)
[2019-07-28] MEDS: Isosorbide Mononitrate (ER) 30 MG TAB PO SCH (08:09)
[2019-07-28] MEDS: Metoprolol Tartrate 100 MG TAB PO SCH ×2 (08:09→19:14)
[2019-07-28] MEDS: Heparin 5,000 UNITS/ML VIAL SC SCH ×3 (08:10→19:15)
[2019-07-28] MEDS: Ezetimibe 10 MG TAB PO SCH (08:10)
[2019-07-28] MEDS: Loratadine 10 MG TAB PO SCH (08:10)
[2019-07-28] MEDS: Aspirin 81 mg Enteric Coated Tablet PO SCH (08:10)
[2019-07-28] MEDS: Multivitamin W/ Minerals 1 TAB PO SCH (08:11)
[2019-07-28] MEDS: Gabapentin 100 MG CAP PO SCH ×3 (08:11→19:15)
[2019-07-28] MEDS: Clopidogrel Bisulfate 75 MG TAB PO SCH (08:11)
[2019-07-28] MEDS: guaiFENesin ER 600 MG TAB PO SCH ×2 (08:11→19:15)
[2019-07-28] MEDS: Cyanocobalamin (Vitamin B-12) 1,000 MCG TAB PO SCH (08:11)
[2019-07-28] MEDS: Furosemide 40 MG TAB PO SCH (08:11)
[2019-07-28] MEDS: Dorzolamide HCl 2% Ophth Soln 10 ml Bottle EA EYE SCH ×3 (08:12→19:16)
[2019-07-28] MEDS: Fluticasone Propionate Nasal Spray 16 gm Bottle NASAL SCH (08:12)
[2019-07-28] MEDS ORDERED: Loratadine 10 MG TAB PO SCH (09:00)
[2019-07-28] MEDS ORDERED: Ezetimibe 10 MG TAB PO SCH (09:00)
[2019-07-28] MEDS ORDERED: Cyanocobalamin (Vitamin B-12) 1,000 MCG TAB PO SCH (09:00)
[2019-07-28] MEDS ORDERED: Isosorbide Mononitrate (ER) 30 MG TAB PO SCH (09:00)
[2019-07-28] MEDS ORDERED: Fluticasone Propionate Nasal Spray 16 gm Bottle NASAL SCH (09:00)
[2019-07-28] MEDS ORDERED: Furosemide 40 MG TAB PO SCH (09:00)
[2019-07-28] MEDS ORDERED: Clopidogrel Bisulfate 75 MG TAB PO SCH (09:00)
[2019-07-28] MEDS ORDERED: Aspirin 81 mg Enteric Coated Tablet PO SCH (09:00)
--- NOTE | 2019-07-28 12:12 | PRG ---
DATE OF SERVICE: 07/28/2019 SUBJECTIVE: The patient is seen and examined at the bedside. He states that he feels somewhat better. He is able to cough up some phlegm. OBJECTIVE: VITAL SIGNS: Blood pressure is 126/76, pulse is 86, temperature is 98.1, respirations 17, O2 saturation is 92% on 2 L by nasal cannula. HEENT: His head is atraumatic and normocephalic. Eyes are PERRLA. Sclerae are nonicteric. Oral mucosa is moist. NECK: Supple. LUNGS: Emphysematous with crackles and rales at the right base and diminished breath sounds at the right base. HEART: S1, S2, normal. No S3. No S4. ABDOMEN: Soft, nontender, nondistended. EXTREMITIES: Trace edema in both lower extremities around the ankles. NEUROLOGIC: He is alert and oriented x4. There is no any motor or sensory deficits. LABORATORY DATA: Labs showed white count of 7.5, hemoglobin of 14.1, hematocrit 43.5, platelet count is 126,000. Chemistry showed normal electrolytes, BUN of 5, creatinine 0.65, and glucose 144. IMPRESSION: Chronic obstructive pulmonary disease exacerbation. I am going to obtain sputum for Gram stain and culture. Also I will do CT without contrast on his chest. His white count is down to normal range. I will continue his albuterol and steroids along with azithromycin IV. Continue home continuous positive airway pressure. Job ID: [id number]
[2019-07-28] MEDS: Varenicline Tartrate 0.5 MG TAB PO SCH ×2 (12:44→20:32)
--- NOTE | 2019-07-28 14:18 | CT ---
EXAM: CT of the chest without contrast HISTORY: Fever and hypoxia status post aortic valve replacement COMPARISON: 10/07/2018 TECHNIQUE: Multiple contiguous axial images were obtained in a CT the chest without contrast. Coronal and sagittal reformats were performed. FINDINGS: HEART: Normal in size without focal cardiac abnormality status post CABG and aortic valve replacement . Calcifications are seen in the [place] coronary arteries and within the bypass grafts. MEDIASTINUM: Calcified right hilar lymph nodes are seen. No hilar or mediastinal lymphadenopathy. Stephanie luation of the mediastinum is limited without IV contrast. LUNGS: A calcified granuloma is seen in the right lung base. No other focal infiltrates, nodules, or masses. Severe emphysematous changes are seen in the lungs. PLEURAL SPACE: No pneumothorax or pleural effusion. CHEST WALL SOFT TISSUES: Unremarkable OSSEOUS STRUCTURES: Status post sternotomy. Degenerative changes in the spine. VISUALIZED SUBDIAPHRAGMATIC STRUCTURES: Unremarkable IMPRESSION: 1. No evidence of acute intrathoracic abnormality. 2. Severe emphysema 3. Calcifications within the [place] coronary arteries and bypass grafts.
[2019-07-28] MEDS: Latanoprost 0.005% Ophth Soln 2.5 ml Bottle EA EYE SCH (19:17)
[2019-07-28] MEDS: Azithromycin 500 MG in Sodium Chloride 0.9% 250 ML 250 ML IVPB SCH (19:21)
[2019-07-29] MEDS: methylPREDNISolone Sod Succ 40 MG VIAL IVP SCH ×3 (05:36→21:45)
[2019-07-29] MEDS: Mometasone/Formoterol 120 PUFF INHALER INH SCH ×2 (07:01→19:07)
[2019-07-29] MEDS: Loratadine 10 MG TAB PO SCH (08:56)
[2019-07-29] MEDS: Multivitamin W/ Minerals 1 TAB PO SCH (08:57)
[2019-07-29] MEDS: guaiFENesin ER 600 MG TAB PO SCH ×2 (08:57→21:40)
[2019-07-29] MEDS: Ezetimibe 10 MG TAB PO SCH (08:57)
[2019-07-29] MEDS: Isosorbide Mononitrate (ER) 30 MG TAB PO SCH (08:57)
[2019-07-29] MEDS: Aspirin 81 mg Enteric Coated Tablet PO SCH (08:57)
[2019-07-29] MEDS: Gabapentin 100 MG CAP PO SCH ×3 (08:58→21:39)
[2019-07-29] MEDS: Cyanocobalamin (Vitamin B-12) 1,000 MCG TAB PO SCH (08:58)
[2019-07-29] MEDS: Metoprolol Tartrate 100 MG TAB PO SCH ×2 (08:58→21:41)
[2019-07-29] MEDS: Clopidogrel Bisulfate 75 MG TAB PO SCH (08:59)
[2019-07-29] MEDS: Furosemide 40 MG TAB PO SCH (08:59)
[2019-07-29] MEDS: Fluticasone Propionate Nasal Spray 16 gm Bottle NASAL SCH (09:00)
[2019-07-29] MEDS: Dorzolamide HCl 2% Ophth Soln 10 ml Bottle EA EYE SCH ×3 (09:00→21:44)
[2019-07-29] MEDS: Heparin 5,000 UNITS/ML VIAL SC SCH ×3 (09:01→21:41)
--- NOTE | 2019-07-29 09:21 | PRG ---
DATE OF SERVICE: 07/29/2019 SUBJECTIVE: The patient is seen and examined at the bedside. He states that he is feeling somewhat better and he did not have any fever and his breathing is slightly improved. OBJECTIVE: VITAL SIGNS: Blood pressure is 123/70; pulse is 80; respiratory rate is 18; O2 saturation is 92% on 2 L by nasal cannula; and temperature is 98.1, maximal temperature is 98.3 for the last 24 hours. HEENT: His head is atraumatic and normocephalic. Eyes are PERRLA. Sclerae are nonicteric. Oral mucosa is moist. LUNGS: Very emphysematous. The right base crackles heard yesterday, significantly improved. There is some residual component of that today on my examination. ABDOMEN: Soft and nontender. EXTREMITIES: No clubbing, cyanosis, or edema. NEUROLOGIC: He is alert and oriented x4. There is no any motor deficits. LABORATORY DATA: None today. Microbiology showed Gram stain on his sputum 0 to 5 epithelial cells in low power field. Many WBC'S, many gram-negative rods, few gram-positive cocci in clusters, rare gram-positive rods, and rare yeasts. CT of the chest was done yesterday and it showed no evidence of acute intrathoracic abnormality, severe emphysema and calcifications within the [place] coronary arteries and bypass grafts. IMPRESSION: 1. Chronic obstructive pulmonary disease exacerbation. The patient is on antibiotic, on DuoNeb, on O2, and steroids. We are going to continue positive airway pressure at night. 2. Chronic respiratory failure from chronic obstructive pulmonary disease on O2 at home. 3. Obstructive sleep apnea. 4. Hypertension. 5. Coronary artery disease, status post coronary artery bypass grafting. 6. Status post aortic valve replacement. 7. Diastolic heart failure. 8. Tobacco abuse. We will continue current regimen. Job ID: [id number]
[2019-07-29] MEDS: Varenicline Tartrate 0.5 MG TAB PO SCH ×2 (10:48→21:40)
[2019-07-29] MEDS: Latanoprost 0.005% Ophth Soln 2.5 ml Bottle EA EYE SCH (21:44)
[2019-07-29] MEDS: Azithromycin 500 MG in Sodium Chloride 0.9% 250 ML 250 ML IVPB SCH (21:45)
[2019-07-30] MEDS: methylPREDNISolone Sod Succ 40 MG VIAL IVP SCH ×3 (05:13→20:24)
[2019-07-30] MEDS: Mometasone/Formoterol 120 PUFF INHALER INH SCH ×2 (07:36→19:10)
[2019-07-30] MEDS: Heparin 5,000 UNITS/ML VIAL SC SCH ×3 (07:54→20:24)
[2019-07-30] MEDS: Isosorbide Mononitrate (ER) 30 MG TAB PO SCH (07:55)
[2019-07-30] MEDS: Ezetimibe 10 MG TAB PO SCH (07:55)
[2019-07-30] MEDS: Varenicline Tartrate 0.5 MG TAB PO SCH ×2 (07:55→20:23)
[2019-07-30] MEDS: Gabapentin 100 MG CAP PO SCH ×3 (07:55→20:22)
[2019-07-30] MEDS: Multivitamin W/ Minerals 1 TAB PO SCH (07:56)
[2019-07-30] MEDS: Metoprolol Tartrate 100 MG TAB PO SCH ×2 (07:56→20:22)
[2019-07-30] MEDS: Cyanocobalamin (Vitamin B-12) 1,000 MCG TAB PO SCH (07:56)
[2019-07-30] MEDS: Furosemide 40 MG TAB PO SCH (07:56)
[2019-07-30] MEDS: Aspirin 81 mg Enteric Coated Tablet PO SCH (07:57)
[2019-07-30] MEDS: guaiFENesin ER 600 MG TAB PO SCH ×2 (07:57→20:23)
[2019-07-30] MEDS: Clopidogrel Bisulfate 75 MG TAB PO SCH (07:57)
[2019-07-30] MEDS: Loratadine 10 MG TAB PO SCH (07:58)
[2019-07-30] MEDS: Fluticasone Propionate Nasal Spray 16 gm Bottle NASAL SCH (07:58)
[2019-07-30] MEDS: Dorzolamide HCl 2% Ophth Soln 10 ml Bottle EA EYE SCH ×3 (08:00→20:25)
--- NOTE | 2019-07-30 12:50 | PDOC.HOSPP ---
- Subjective Encounter Date: 07/30/19 Encounter Time: 12:48 Subjective: decreased sputum but stilll quite tight in chest - Objective Vital Signs & Weight: Vital Signs (12 hours) Temp Pulse Resp BP BP Pulse Ox 07/30/19 12:01 84 16 94 L 07/30/19 07:39 96 07/30/19 07:37 72 16 96 07/30/19 07:36 70 20 96 07/30/19 07:30 97.4 F L 75 20 125/76 94 L 07/30/19 04:53 98.4 F 75 18 115/74 94 L 07/30/19 01:17 72 18 96 Weight Weight 203 lb 2 oz I&O: 07/29/19 07/30/19 07/31/19 06:59 06:59 06:59 Intake Total 2059 Output Total 800 2100 Balance -800 -40 Result Diagrams: 07/28/19 05:55 07/28/19 05:55 Hospitalist ROS - Medication Medications: Active Medications Generic Name Dose Route Start Last Admin Trade Name Freq PRN Reason Stop Dose Admin Albuterol/Ipratropium 3 ml 07/27/19 19:00 07/30/19 12:01 Duoneb NEB 3 ml [id number] ROSARIO Administration Aspirin 81 mg 07/28/19 09:00 07/30/19 07:57 Ecotrin PO 81 mg DAILY ROSARIO Administration Bisacodyl 10 mg 07/27/19 08:17 07/30/19 07:57 Dulcolax PO 10 mg DAILYPRN PRN Administration Constipation Clopidogrel Bisulfate 75 mg 07/28/19 09:00 07/30/19 07:57 Plavix PO 75 mg DAILY ROSARIO Administration Cyanocobalamin 1,000 mcg 07/28/19 09:00 07/30/19 07:56 Vitamin B-12 PO 1,000 mcg DAILY ROSARIO Administration Dorzolamide HCl 1 drop 07/27/19 21:00 07/30/19 08:00 Trusopt 2% Ophth Soln EA EYE 1 drop TID ROSARIO Administration Ezetimibe 10 mg 07/28/19 09:00 07/30/19 07:55 Zetia PO 10 mg DAILY ROSARIO Administration Fluticasone Propionate 1 gm 07/28/19 09:00 07/30/19 07:58 Flonase Nasal [place] NASAL 1 spray DAILY ROSARIO Administration Furosemide 40 mg 07/28/19 09:00 07/30/19 07:56 Lasix PO 40 mg DAILY ROSARIO Administration Gabapentin 200 mg 07/27/19 21:00 07/30/19 07:55 Neurontin PO 200 mg TID ROSARIO Administration Guaifenesin 1,200 mg 07/27/19 21:00 07/30/19 07:57 Mucinex PO 1,200 mg Q12HR ROSARIO Administration Heparin Sodium (Porcine) 5,000 units 07/27/19 09:00 07/30/19 07:54 Heparin SC 5,000 units TID ROSARIO Administration Azithromycin 500 mg/ Sodium 250 mls @ 250 mls/hr 07/27/19 20:00 07/29/19 21: 45 Chloride IVPB 250 mls Q24HR ROSARIO Administration Iron/Minerals/Multivitamins 1 tab 07/28/19 09:00 07/30/19 07:56 Theragran M PO 1 tab DAILY ROSARIO Administration Isosorbide Mononitrate 90 mg 07/28/19 09:00 07/30/19 07:55 Imdur Er PO 90 mg DAILY ROSARIO Administration Latanoprost 1 drop 07/27/19 21:00 07/29/19 21:44 Xalatan 0.005% Ophth Soln EA EYE 1 drop HS ROSARIO Administration Loratadine 10 mg 07/28/19 09:00 07/30/19 07:58 Claritin PO 10 mg DAILY ROSARIO Administration Methylprednisolone Sodium Succinate 20 mg 07/27/19 22:00 07/30/19 05:13 Solu-Medrol IVP 20 mg Q8HR ROSARIO Administration Metoprolol Tartrate 150 mg 07/27/19 21:00 07/30/19 07:56 Lopressor PO 150 mg BID ROSARIO Administration Mometasone Furoate/Formoterol Fumar 2 puff 07/27/19 18:30 07/30/19 07:36 Dulera 200 Mcg/5 Mcg Inhaler INH 2 puff BID-RT ROSARIO Administration Niacin 500 mg 07/27/19 21:00 07/29/19 21:40 Niaspan Er PO 500 mg HS ROSARIO Administration Pantoprazole Sodium 40 mg 07/28/19 09:00 07/30/19 07:56 Protonix PO 40 mg DAILY ROSARIO Administration Varenicline 0.5 mg 07/27/19 21:00 07/30/19 07:55 Chantix PO 0.5 mg BID ROSARIO Administration - Exam General Appearance: awake alert Neck: no JVD Heart: RRR, no murmur Respiratory - other findings: hyperresonant with decrearesed BS and prolonged exp wheeze Gastrointestinal: soft, normal bowel sounds Extremities: no edema Hosp A/P (1) Acute on chronic respiratory failure with hypoxia Code(s): J96.21 - ACUTE AND CHRONIC RESPIRATORY FAILURE WITH HYPOXIA Status: Acute (2) COPD exacerbation Code(s): J44.1 - CHRONIC OBSTRUCTIVE PULMONARY DISEASE W (ACUTE) EXACERBATION Status: Acute (3) CAD (coronary artery disease) Code(s): I25.10 - ATHSCL HEART DISEASE OF [place] CORONARY ARTERY W/O ANG PCTRS Status: Chronic Qualifiers: Coronary Disease-Associated Artery/Lesion type: [place] artery [place] vs. transplanted heart: [place] heart Associated angina: without angina Qualified Code(s): I25.10 - Atherosclerotic heart disease of [place] coronary artery without angina pectoris (4) Chronic stage c diastolic heart failure Code(s): I50.32 - CHRONIC DIASTOLIC (CONGESTIVE) HEART FAILURE Status: Chronic (5) DM type 2 (diabetes mellitus, type 2) Status: Chronic Qualifiers: Diabetes mellitus mcc insulin use: without mcc use Diabetes mellitus complication status: without complication Qualified Code(s): E11.9 - Type 2 diabetes mellitus without complications (6) Dyslipidemia Code(s): E78.5 - HYPERLIPIDEMIA, UNSPECIFIED Status: Chronic (7) Hypertension Code(s): I10 - ESSENTIAL (PRIMARY) HYPERTENSION Status: Chronic Qualifiers: (8) MYLENE on CPAP Code(s): G47.33 - OBSTRUCTIVE SLEEP APNEA (ADULT) (PEDIATRIC); Z99.89 - DEPENDENCE ON OTHER ENABLING MACHINES AND DEVICES Status: Chronic - Plan cont aggressive pulmoary therapy with steroids, nebs, etc consult Dr Chau
[2019-07-30] MEDS: Latanoprost 0.005% Ophth Soln 2.5 ml Bottle EA EYE SCH (20:25)
[2019-07-30] MEDS: Azithromycin 500 MG in Sodium Chloride 0.9% 250 ML 250 ML IVPB SCH (20:25)
[2019-07-31] MEDS: methylPREDNISolone Sod Succ 40 MG VIAL IVP SCH (05:26)
[2019-07-31] MEDS: Mometasone/Formoterol 120 PUFF INHALER INH SCH ×2 (06:57→19:27)
[2019-07-31] MEDS: Isosorbide Mononitrate (ER) 30 MG TAB PO SCH (08:10)
[2019-07-31] MEDS: Aspirin 81 mg Enteric Coated Tablet PO SCH (08:10)
[2019-07-31] MEDS: Metoprolol Tartrate 100 MG TAB PO SCH ×2 (08:10→19:36)
[2019-07-31] MEDS: Ezetimibe 10 MG TAB PO SCH (08:10)
[2019-07-31] MEDS: Multivitamin W/ Minerals 1 TAB PO SCH (08:10)
[2019-07-31] MEDS: Varenicline Tartrate 0.5 MG TAB PO SCH ×2 (08:10→19:37)
[2019-07-31] MEDS: guaiFENesin ER 600 MG TAB PO SCH ×2 (08:11→19:36)
[2019-07-31] MEDS: Furosemide 40 MG TAB PO SCH (08:11)
[2019-07-31] MEDS: Gabapentin 100 MG CAP PO SCH ×3 (08:11→19:35)
[2019-07-31] MEDS: Clopidogrel Bisulfate 75 MG TAB PO SCH (08:11)
[2019-07-31] MEDS: Cyanocobalamin (Vitamin B-12) 1,000 MCG TAB PO SCH (08:11)
[2019-07-31] MEDS: Loratadine 10 MG TAB PO SCH (08:11)
[2019-07-31] MEDS: Dorzolamide HCl 2% Ophth Soln 10 ml Bottle EA EYE SCH ×3 (08:13→19:38)
[2019-07-31] MEDS: Heparin 5,000 UNITS/ML VIAL SC SCH ×3 (08:13→19:37)
[2019-07-31] MEDS: Fluticasone Propionate Nasal Spray 16 gm Bottle NASAL SCH (08:13)
--- NOTE | 2019-07-31 11:18 | PDOC.HOSPP ---
- Subjective Encounter Date: 07/31/19 Encounter Time: 11:13 - Objective Vital Signs & Weight: Vital Signs (12 hours) Temp Pulse Resp BP BP Pulse Ox 07/31/19 07:29 94 L 07/31/19 07:28 97.5 F L 81 20 130/78 94 L 07/31/19 06:55 72 16 95 07/31/19 04:29 97.8 F 78 18 126/82 95 07/31/19 01:00 97.5 F L 83 18 103/62 93 L 07/30/19 23:52 84 16 96 Weight Weight 203 lb 2 oz I&O: 07/30/19 07/31/19 08/01/19 06:59 06:59 06:59 Intake Total 2059 1000 Output Total 2099 2100 Balance -40 -1100 Result Diagrams: 07/28/19 05:55 07/28/19 05:55 Hospitalist ROS - Medication Medications: Active Medications Generic Name Dose Route Start Last Admin Trade Name Freq PRN Reason Stop Dose Admin Albuterol/Ipratropium 3 ml 07/27/19 19:00 07/31/19 06:55 Duoneb NEB 3 ml [id number] ROSARIO Administration Aspirin 81 mg 07/28/19 09:00 07/31/19 08:10 Ecotrin PO 81 mg DAILY ROSARIO Administration Bisacodyl 10 mg 07/27/19 08:17 07/30/19 07:57 Dulcolax PO 10 mg DAILYPRN PRN Administration Constipation Clopidogrel Bisulfate 75 mg 07/28/19 09:00 07/31/19 08:11 Plavix PO 75 mg DAILY ROSARIO Administration Cyanocobalamin 1,000 mcg 07/28/19 09:00 07/31/19 08:11 Vitamin B-12 PO 1,000 mcg DAILY ROSARIO Administration Dorzolamide HCl 1 drop 07/27/19 21:00 07/31/19 08:13 Trusopt 2% Ophth Soln EA EYE 1 drop TID ROSARIO Administration Ezetimibe 10 mg 07/28/19 09:00 07/31/19 08:10 Zetia PO 10 mg DAILY ROSARIO Administration Fluticasone Propionate 1 gm 07/28/19 09:00 07/31/19 08:13 Flonase Nasal [place] NASAL 1 spray DAILY ROSARIO Administration Furosemide 40 mg 07/28/19 09:00 07/31/19 08:11 Lasix PO 40 mg DAILY ROSARIO Administration Gabapentin 200 mg 07/27/19 21:00 07/31/19 08:11 Neurontin PO 200 mg TID ROSARIO Administration Guaifenesin 1,200 mg 07/27/19 21:00 07/31/19 08:11 Mucinex PO 1,200 mg Q12HR ROSARIO Administration Heparin Sodium (Porcine) 5,000 units 07/27/19 09:00 07/31/19 08:13 Heparin SC 5,000 units TID ROSARIO Administration Iron/Minerals/Multivitamins 1 tab 07/28/19 09:00 07/31/19 08:10 Theragran M PO 1 tab DAILY ROSARIO Administration Isosorbide Mononitrate 90 mg 07/28/19 09:00 07/31/19 08:10 Imdur Er PO 90 mg DAILY ROSARIO Administration Latanoprost 1 drop 07/27/19 21:00 07/30/19 20:25 Xalatan 0.005% Ophth Soln EA EYE 1 drop HS ROSARIO Administration Loratadine 10 mg 07/28/19 09:00 07/31/19 08:11 Claritin PO 10 mg DAILY ROSARIO Administration Metoprolol Tartrate 150 mg 07/27/19 21:00 07/31/19 08:10 Lopressor PO 150 mg BID ROSARIO Administration Mometasone Furoate/Formoterol Fumar 2 puff 07/27/19 18:30 07/31/19 06:57 Dulera 200 Mcg/5 Mcg Inhaler INH 2 puff BID-RT ROSARIO Administration Niacin 500 mg 07/27/19 21:00 07/30/19 20:23 Niaspan Er PO 500 mg HS ROSARIO Administration Pantoprazole Sodium 40 mg 07/28/19 09:00 07/31/19 08:09 Protonix PO 40 mg DAILY ROSARIO Administration Varenicline 0.5 mg 07/27/19 21:00 07/31/19 08:10 Chantix PO 0.5 mg BID ROSARIO Administration Hosp A/P (1) Acute on chronic respiratory failure with hypoxia Code(s): J96.21 - ACUTE AND CHRONIC RESPIRATORY FAILURE WITH HYPOXIA Status: Acute (2) COPD exacerbation Code(s): J44.1 - CHRONIC OBSTRUCTIVE PULMONARY DISEASE W (ACUTE) EXACERBATION Status: Acute (3) CAD (coronary artery disease) Code(s): I25.10 - ATHSCL HEART DISEASE OF [place] CORONARY ARTERY W/O ANG PCTRS Status: Chronic Qualifiers: Coronary Disease-Associated Artery/Lesion type: [place] artery [place] vs. transplanted heart: [place] heart Associated angina: without angina Qualified Code(s): I25.10 - Atherosclerotic heart disease of [place] coronary artery without angina pectoris (4) Chronic stage c diastolic heart failure Code(s): I50.32 - CHRONIC DIASTOLIC (CONGESTIVE) HEART FAILURE Status: Chronic (5) DM type 2 (diabetes mellitus, type 2) Status: Chronic Qualifiers: Diabetes mellitus mcfp insulin use: without terminal worker use Diabetes mellitus complication status: without complication Qualified Code(s): E11.9 - Type 2 diabetes mellitus without complications (6) Dyslipidemia Code(s): E78.5 - HYPERLIPIDEMIA, UNSPECIFIED Status: Chronic (7) Hypertension Code(s): I10 - ESSENTIAL (PRIMARY) HYPERTENSION Status: Chronic Qualifiers: (8) MYLENE on CPAP Code(s): G47.33 - OBSTRUCTIVE SLEEP APNEA (ADULT) (PEDIATRIC); Z99.89 - DEPENDENCE ON OTHER ENABLING MACHINES AND DEVICES Status: Chronic - Plan cont aggressive pulmoary therapy with steroids, nebs, etc consult Dr Chau
--- NOTE | 2019-07-31 11:28 | CON ---
DATE OF CONSULTATION: HISTORY OF PRESENT ILLNESS: Mr. Beltre is a 74-year-old gentleman, who is well known to our service. Multiple hospital admissions presented on with increasing shortness of breath and cough without any fever or chills. Sputum is growing E. coli. This is more than likely colonization. A chest x-ray and CT chest were unremarkable just evidence of emphysema and bronchiectatic changes. He has a low-flow O2 at home, can barely walk 100 feet without getting markedly short of breath. Denies any chest pain or chills. He says he had difficulty coughing of his sputum. PAST MEDICAL HISTORY: Coronary artery disease, multiple cardiac stents, reflux, lipidemia, high cholesterol, COPD, former smoker, glaucoma. PREVIOUS SURGERIES: Bypass, carpal tunnel, right rotator cuff surgery, aortic valve replacement surgery. HOME MEDICATIONS: Includes; 1. Guaifenesin. 2. Vitamins. 3. Eyedrops. 4. Chantix. 5. Plavix 75. 6. Tylenol. 7. DuoNeb. 8. Lasix 40. 9. Niacin. 10. Isosorbide mononitrate 90. 11. Metoprolol 150 b.i.d. 12. He is now on steroids and Zithromax. ALLERGIES: NONE. REVIEW OF SYSTEMS: Ten-point negative. PHYSICAL EXAMINATION: VITAL SIGNS: Saturations are 94% on 2 L, respiratory rate 20, pulse 89, temperature 97, blood pressure 130/78. CHEST: Decreased breath sounds. Minimal wheezing. CARDIAC: Normal S1, S2. No gallops. ABDOMEN: No masses. IMPRESSION: 1. Chronic bronchitis, bronchiectasis, exacerbation. 2. Escherichia coli sputum, probably colonization. I doubt this is a true pathogen. 3. Coronary artery disease. 4. Switch him over to Cipro, prednisone, neb treatments, Mucinex, PT supportive care. 5. Home in the next few days when he is stable. Recently, rest of his labs otherwise unremarkable. Pulmonary to follow. Consultation note, 70 minutes, 50% direct patient care. Job ID: [id number]
--- NOTE | 2019-07-31 11:43 | PDOC.HOSPP ---
- Subjective Encounter Date: 07/31/19 Encounter Time: 11:42 Subjective: better , but not back to baseline - Objective Vital Signs & Weight: Vital Signs (12 hours) Temp Pulse Resp BP BP Pulse Ox 07/31/19 07:29 94 L 07/31/19 07:28 97.5 F L 81 20 130/78 94 L 07/31/19 06:55 72 16 95 07/31/19 04:29 97.8 F 78 18 126/82 95 07/31/19 01:00 97.5 F L 83 18 103/62 93 L 07/30/19 23:52 84 16 96 Weight Weight 203 lb 2 oz I&O: 07/30/19 07/31/19 08/01/19 06:59 06:59 06:59 Intake Total 2059 1000 Output Total 2099 2100 Balance -40 -1100 Result Diagrams: 07/28/19 05:55 07/28/19 05:55 Hospitalist ROS - Medication Medications: Active Medications Generic Name Dose Route Start Last Admin Trade Name Freq PRN Reason Stop Dose Admin Albuterol/Ipratropium 3 ml 07/27/19 19:00 07/31/19 06:55 Duoneb NEB 3 ml [id number] ROSARIO Administration Aspirin 81 mg 07/28/19 09:00 07/31/19 08:10 Ecotrin PO 81 mg DAILY ROSARIO Administration Bisacodyl 10 mg 07/27/19 08:17 07/30/19 07:57 Dulcolax PO 10 mg DAILYPRN PRN Administration Constipation Clopidogrel Bisulfate 75 mg 07/28/19 09:00 07/31/19 08:11 Plavix PO 75 mg DAILY ROSARIO Administration Cyanocobalamin 1,000 mcg 07/28/19 09:00 07/31/19 08:11 Vitamin B-12 PO 1,000 mcg DAILY ROSARIO Administration Dorzolamide HCl 1 drop 07/27/19 21:00 07/31/19 08:13 Trusopt 2% Ophth Soln EA EYE 1 drop TID ROSARIO Administration Ezetimibe 10 mg 07/28/19 09:00 07/31/19 08:10 Zetia PO 10 mg DAILY ROSARIO Administration Fluticasone Propionate 1 gm 07/28/19 09:00 07/31/19 08:13 Flonase Nasal [place] NASAL 1 spray DAILY ROSARIO Administration Furosemide 40 mg 07/28/19 09:00 07/31/19 08:11 Lasix PO 40 mg DAILY ROSARIO Administration Gabapentin 200 mg 07/27/19 21:00 07/31/19 08:11 Neurontin PO 200 mg TID ROSARIO Administration Guaifenesin 1,200 mg 07/27/19 21:00 07/31/19 08:11 Mucinex PO 1,200 mg Q12HR ROSARIO Administration Heparin Sodium (Porcine) 5,000 units 07/27/19 09:00 07/31/19 08:13 Heparin SC 5,000 units TID ROSARIO Administration Iron/Minerals/Multivitamins 1 tab 07/28/19 09:00 07/31/19 08:10 Theragran M PO 1 tab DAILY ROSARIO Administration Isosorbide Mononitrate 90 mg 07/28/19 09:00 07/31/19 08:10 Imdur Er PO 90 mg DAILY ROSARIO Administration Latanoprost 1 drop 07/27/19 21:00 07/30/19 20:25 Xalatan 0.005% Ophth Soln EA EYE 1 drop HS ROSARIO Administration Loratadine 10 mg 07/28/19 09:00 07/31/19 08:11 Claritin PO 10 mg DAILY ROSARIO Administration Metoprolol Tartrate 150 mg 07/27/19 21:00 07/31/19 08:10 Lopressor PO 150 mg BID ROSARIO Administration Mometasone Furoate/Formoterol Fumar 2 puff 07/27/19 18:30 07/31/19 06:57 Dulera 200 Mcg/5 Mcg Inhaler INH 2 puff BID-RT ROSARIO Administration Niacin 500 mg 07/27/19 21:00 07/30/19 20:23 Niaspan Er PO 500 mg HS ROSARIO Administration Pantoprazole Sodium 40 mg 07/28/19 09:00 07/31/19 08:09 Protonix PO 40 mg DAILY ROSARIO Administration Varenicline 0.5 mg 07/27/19 21:00 07/31/19 08:10 Chantix PO 0.5 mg BID ROSARIO Administration - Exam General Appearance: awake alert Neck: no JVD Heart: RRR, no murmur Respiratory - other findings: much improved BS, wheezes more sonorous Gastrointestinal: soft, normal bowel sounds Extremities: no edema Hosp A/P (1) Acute on chronic respiratory failure with hypoxia Code(s): J96.21 - ACUTE AND CHRONIC RESPIRATORY FAILURE WITH HYPOXIA Status: Acute (2) COPD exacerbation Code(s): J44.1 - CHRONIC OBSTRUCTIVE PULMONARY DISEASE W (ACUTE) EXACERBATION Status: Acute (3) CAD (coronary artery disease) Code(s): I25.10 - ATHSCL HEART DISEASE OF [place] CORONARY ARTERY W/O ANG PCTRS Status: Chronic Qualifiers: Coronary Disease-Associated Artery/Lesion type: [place] artery [place] vs. transplanted heart: [place] heart Associated angina: without angina Qualified Code(s): I25.10 - Atherosclerotic heart disease of [place] coronary artery without angina pectoris (4) Chronic stage c diastolic heart failure Code(s): I50.32 - CHRONIC DIASTOLIC (CONGESTIVE) HEART FAILURE Status: Chronic (5) DM type 2 (diabetes mellitus, type 2) Status: Chronic Qualifiers: Diabetes mellitus exterminator termite insulin use: without usp use Diabetes mellitus complication status: without complication Qualified Code(s): E11.9 - Type 2 diabetes mellitus without complications (6) Dyslipidemia Code(s): E78.5 - HYPERLIPIDEMIA, UNSPECIFIED Status: Chronic (7) Hypertension Code(s): I10 - ESSENTIAL (PRIMARY) HYPERTENSION Status: Chronic Qualifiers: (8) MYLENE on CPAP Code(s): G47.33 - OBSTRUCTIVE SLEEP APNEA (ADULT) (PEDIATRIC); Z99.89 - DEPENDENCE ON OTHER ENABLING MACHINES AND DEVICES Status: Chronic - Plan appreciate Dr Chau's input cont nebs, steroids, antibx, O2
[2019-07-31] MEDS: Cipro 250 MG TAB PO SCH (19:35)
[2019-07-31] MEDS: Latanoprost 0.005% Ophth Soln 2.5 ml Bottle EA EYE SCH (19:39)
[2019-08-01] MEDS: Cipro 250 MG TAB PO SCH (06:01)
[2019-08-01] MEDS: Mometasone/Formoterol 120 PUFF INHALER INH SCH (06:55)
[2019-08-01] MEDS ORDERED: predniSONE 20 MG TAB PO SCH (08:00)
[2019-08-01] MEDS: Gabapentin 100 MG CAP PO SCH (08:43)
[2019-08-01] MEDS: Clopidogrel Bisulfate 75 MG TAB PO SCH (08:44)
[2019-08-01] MEDS: Furosemide 40 MG TAB PO SCH (08:44)
[2019-08-01] MEDS: Multivitamin W/ Minerals 1 TAB PO SCH (08:44)
[2019-08-01] MEDS: Cyanocobalamin (Vitamin B-12) 1,000 MCG TAB PO SCH (08:44)
[2019-08-01] MEDS: guaiFENesin ER 600 MG TAB PO SCH (08:44)
[2019-08-01] MEDS: Isosorbide Mononitrate (ER) 30 MG TAB PO SCH (08:44)
[2019-08-01] MEDS: Aspirin 81 mg Enteric Coated Tablet PO SCH (08:44)
[2019-08-01] MEDS: Ezetimibe 10 MG TAB PO SCH (08:44)
[2019-08-01] MEDS: Loratadine 10 MG TAB PO SCH (08:45)
[2019-08-01] MEDS: Heparin 5,000 UNITS/ML VIAL SC SCH (08:46)
[2019-08-01] MEDS: Varenicline Tartrate 0.5 MG TAB PO SCH (08:47)
[2019-08-01] MEDS: Fluticasone Propionate Nasal Spray 16 gm Bottle NASAL SCH (08:48)
[2019-08-01] MEDS: Dorzolamide HCl 2% Ophth Soln 10 ml Bottle EA EYE SCH (08:48)
[2019-08-01] MEDS: Metoprolol Tartrate 100 MG TAB PO SCH (09:51)
--- NOTE | 2019-08-01 12:29 | DIS ---
DATE OF ADMISSION: 07/27/2019 DATE OF DISCHARGE: 08/01/2019 PRIMARY CARE PROVIDER: Audra Velazco MD DISPOSITION: Discharged home. FINAL DIAGNOSES: Chronic respiratory failure with hypoxia, chronic obstructive pulmonary disease exacerbation, obstructive sleep apnea, atherosclerotic coronary artery disease, bronchiectasis, diabetes mellitus type 2, hypertension, dyslipidemia, presence of prosthetic aortic valve. DISCHARGE MEDICATIONS: 1. Mucinex 1200 mg q.12 hours. 2. Chantix 0.5 mg twice a day p.r.n. 3. Latanoprost eye drops. 4. Plavix 75 mg a day. 5. DuoNeb 3 mL q.6 hours. 6. Lasix 40 mg a day. 7. Zetia 10 mg a day. 8. Trusopt 1 drop each eye t.i.d. 9. Neurontin 200 mg three times a day. 10. Symbicort 160/4.5 two puffs b.i.d. 11. Niacin 500 mg a day. 12. Imdur 90 mg a day. 13. Metoprolol 150 mg p.o. b.i.d. 14. Aspirin 81 mg a day. 15. Prednisone 20 mg a day for 7 days, then decrease to 10 mg a day for 7 days. 16. Cipro 500 mg p.o. b.i.d. for 10 days. ALLERGIES: NO KNOWN DRUG ALLERGIES. HOSPITAL COURSE: [facility] with acute exacerbation of chronic obstructive pulmonary disease, bronchiectasis. He has chronic respiratory failure with hypoxemia. CT scan reveals severe emphysema, evidence of calcification in coronary artery bypass grafts. Laboratory, basic metabolic profile, unremarkable. CBC, unremarkable. Chest x-ray, COPD with T-wave flattening, and no infiltrates. Sputum culture grew E coli. The patient treated aggressively with nebs, long-acting beta agonist, steroids, antibiotics. Was seen in consultation by Dr. Nadir Chau, who considered the E coli in the sputum, a colonization and noninfection, recommended changing antibiotic to Cipro for a couple of weeks. The patient improved steadily during his hospital stay. At the current time, his chest is clear with some decrease in breath sounds. Heart sounds are normal. Vital signs are stable. He is being discharged on his usual home O2 2 L per nasal cannula. Medications as above. Steroids to be adjusted by PCP. He is to see the PCP in 3 days. Job ID: [id number]
[2019-08-01 12:30] VITALS: BP 111/75; TEMP 97.6
--- NOTE | 2019-08-01 16:10 | PRG ---
DATE OF SERVICE: SUBJECTIVE: This morning, he is better. OBJECTIVE: VITAL SIGNS: Temperature 98, pulse 62, respiratory rate 20, saturations 94% on 2 L, and blood pressure 136/60. CHEST: No wheezing or crackles. CARDIAC: Normal S1 and S2. No gallops. ABDOMEN: No masses. IMPRESSION AND PLAN: 1. Chronic obstructive pulmonary disease, chronic bronchitis, and bronchiectasis, stable. 2. Escherichia coli, probably colonization from his bronchiectasis rather than an actual pathogen. He can be discharged home with present treatment. Follow up with primary care physician in [place]. Job ID: [id number]
--- NOTE | 2019-08-02 04:11 | PQF ---
[employer] Crystal Reports Winform ViewerMARIS STERN QUETA BENAVIDES MD [id number] [facility] [id number] CLINICAL DOCUMENTATION CLARIFICATION FORM: POST DISCHARGE Addendum to original discharge summary date: ____ Late entry note date: __ DATE: 08/02/2019 ATTN: QUETA BENAVIDES MD Please exercise your independent, professional judgment in responding to the clarification form. Clinical indicators are provided on the bottom of this form for your review Please check appropriate box(s): Conflicting documentation was noted in the Medical Record, please clarify if patient is being treated/monitored for: [x ] Acute on chronic respiratory failure with hypoxia [ ] Chronic respiratory failure with hypoxia [ ] Other diagnosis [ ] Unable to determine In addition, please specify: Present on Admission (POA): x[ x] Yes [ ] No [ ] Unable to determine For continuity of documentation, please document condition throughout progress notes and discharge summary. Thank You. CLINICAL INDICATORS - SIGNS / SYMPTOMS/ LABS Chronic respiratory failure with hypoxia - Documented in DS on 08/01 by QUETA BENAVIDES MD O2 saturation 93 on 07/27 92 on 07/29 and 78 on 08/01 - Documented in Vital Signs Acute on chronic respiratory failure with hypoxia - Documented in Hospital PNs on 07/30 by QUETA BENAVIDES MD COPD exacerbation - Documented in DS on 08/01 by QUETA BENAVIDES MD RISK FACTORS MYLENE - Documented in DS on 08/01 by QUETA BENAVIDES MD Bronchiectasis - Documented in DS on 08/01 by QUETA BENAVIDES MD HTN CHF diastolic - Documented in H&P on 07/27 by [facility] TREAT[facility] CT chest O2 delivery Nasal Cannula and CPAP - Documented in Vital Signs continue Aggressive Pulmonary therapy with steroids, nebs - Documented in Hospital PNs on 07/30 by QUETA BENAVIDES MD [employer] Crystal Reports Winform Viewer (This form is maintained as a part of the permanent medical record) 2014 [[email or web address] All Rights Reserved [email or web address]
--- NOTE | 2019-08-15 03:25 | PQF ---
[employer] Crystal Reports Winform MARIS Gordon QUETA BENAVIDES MD [id number] [facility] [id number] CLINICAL DOCUMENTATION CLARIFICATION FORM: POST DISCHARGE Addendum to original discharge summary date: ____ Late entry note date: __ DATE: 08/15/2019 ATTN: QUETA BENAVIDES MD Please exercise your independent, professional judgment in responding to the clarification form. Clinical indicators are provided on the bottom of this form for your review Please check appropriate box(s): Kindly Clarify the occasioning of admission [ x ] Acute on chronic respiratory Failure [ ] COPD exacerbation with bronchiectasis [ ] Other diagnosis [ ] Unable to determine In addition, please specify: Present on Admission (POA): [ x ] Yes [ ] No [ ] Unable to determine For continuity of documentation, please document condition throughout progress notes and discharge summary. Thank You. CLINICAL INDICATORS - SIGNS / SYMPTOMS / LABS Past 1.5 days patient states he was having increasing SOB with minimal exertion - Documented in H&P on 07/27 by Sanjay Silvia K Acute COPD exacerbation - Documented in H&P on 07/27 by Sanjay Silvia K 2L O2 at home -Documented in ER report pg#2 O2 saturation 92 on 07/27 , 78 on 08/01 - Documented in Vital Signs Chronic respiratory failure from COPD on O2 at home - Documented in PNs on by Lucy Lynch Acute on chronic Respiratory failure with hypoxia - Documented in Hospital PNs on 07/30 by Newton Figueroa RISK FACTORS hx of COPD - Documented in H&P on 07/27 by Sanjay Silvia K MYLENE Diastolic CHF - Documented in H&P on 07/27 by Sanjay Silvia K TREATMENTS: Continue DuoNeb, albuterol - Documented in H&P on 07/27 by [facility] Silvia K O2 delivery - Nasal cannula and CPAP [employer] Crystal Reports Winform Viewer (This form is maintained as a part of the permanent medical record) 2014 [employer]. All Rights Reserved [email or web address] [email or web address]
--- NOTE | 2019-08-21 22:49 | PQF ---
SAP Linoleum Tile Layer Crystal Reports Winform ViewerMARIS STERN QUETA BENAVIDES MD [id number] [facility] [id number] CLINICAL DOCUMENTATION CLARIFICATION FORM: POST DISCHARGE Addendum to original discharge summary date: ____ Late entry note date: __ DATE: 08/21/2019 ATTN:QUETA BENAVIDES MD Please exercise your independent, professional judgment in responding to the clarification form. Clinical indicators are provided on the bottom of this form for your review Please check appropriate box(s) to clarify if the following diagnosis has been ruled in or ruled out: SEPSIS (CDI/Coding list diagnosis here) [ ] Ruled in diagnosis [ ] Continue to treat [ ] Resolved [ x ] Ruled out diagnosis [ ] Cannot rule out diagnosis [ ] Other diagnosis [ ] Unable to determine In addition, please specify: Present on Admission (POA): [ ] Yes [ x ] No [ ] Unable to determine For continuity of documentation, please document condition throughout progress notes and discharge summary. Thank You. CLINICAL INDICATORS - SIGNS / SYMPTOMS / LABS Sepsis - Documented in ED report pg#8 ED present ED for Possible pneumonia and sepsis - Documented in ED report pg#8 Fever - Documented in ED report pg#8 Pulse rate 111 on 07/27 and 108 on 07/28 - Documented in Vital signs RISK FACTORS COPD exacerbation and Bronchiectasis - Documented in DS on 08/01 by Newton Bradford Acute on chronic Respiratory failure - Documented in Physician Query response Chronic Diastolic CHF - Documented in Hospital PNs on 07/27 by QUETA BENAVIDES MD TREATMENTS Azithromycin IVPB - Documented in Medication report SAP [employer] Tile Layer Crystal Reports Winform Viewer (This form is maintained as a part of the permanent medical record) 2014 [employer]. All Rights Reserved [email or web address] [phone] JUAN
== END 2019-08-01 13:30 | disposition home or self-care (01) | DRG 189 ==
LOC: ERS 23:14 → T4-A 07-27 02:13 → OBSVTOIN 07-27 17:00
PROVIDERS: ADMIT Family Medicine; ATTEND Family Medicine
DX: J96.21 Acute and chronic respiratory failure with hypoxia (principal); J47.1 Bronchiectasis with (acute) exacerbation; I50.32 Chronic diastolic (congestive) heart failure; I25.10 Atherosclerotic heart disease of native coronary artery without angina pectoris; Z95.1 Presence of aortocoronary bypass graft; Z95.2 Presence of prosthetic heart valve; Z87.891 Personal history of nicotine dependence; D72.829 Elevated white blood cell count, unspecified; G47.33 Obstructive sleep apnea (adult) (pediatric); I11.0 Hypertensive heart disease with heart failure; K21.9 Gastro-esophageal reflux disease without esophagitis; Z79.899 Other long term (current) drug therapy; Z79.02 Long term (current) use of antithrombotics/antiplatelets; B96.20 Unspecified Escherichia coli [E. coli] as the cause of diseases classified elsewhere
CPT/HCPCS: 36415; 71250; 80048; 85025; 87070; 87077; 87186; 87205; 94640; 94760; J0456; J1644; J2920; J7050; J7512; J7620

== ENCOUNTER 2019-09-19 09:54 | Inpatient (IN) | payer MEDICARE, OTHER ==
[2019-09-19] MEDS ORDERED: Magnesium 2 GM/50 ML BAG (IN WATER) ONE (10:27)
[2019-09-19] MEDS ORDERED: Nitroglycerin 2% Ointment 1 INCH/1 GM Packet ONE (10:28)
[2019-09-19] MEDS ORDERED: methylPREDNISolone Sod Succ/PF 125 MG/2 ML VIAL ONE (10:28)
[2019-09-19] MEDS ORDERED: Azithromycin 500 MG VIAL ONE (10:29)
[2019-09-19] MEDS ORDERED: cefTRIAXone\\ROCEPHIN 2 GM VIAL ONE (10:30)
[2019-09-19 11:18] LABS: #Basophils 0.1 thou/uL (0.0-0.2); #Eosinphils 0.1 thou/uL (0.0-0.7); #Monocytes 0.4 thou/uL (0.11-0.59); #Neutrophils 9.7 thou/uL (1.40-6.50); %Basophils 0.5 % (0.0-1.0); %Eosinophils 0.7 % (0.0-10.0); %Monocytes 3.9 % (0.0-10.0); %Neutrophils 85.9 % (42.0-75.0); Hemoglobin 13.5 g/dL (14.0-18.0); Mean Corpuscular HGB CONC 32.9 g/dL (32.0-36.0); Mean Corpuscular Hemoglobin 31.7 pg (27.0-31.0); Mean Corpuscular Volume 96.5 fL (78.0-98.0); Mean Platelet Volume 7.7 fL (7.4-10.4); Platelet Count 166 thou/uL (130-400); RBC Distribution Width 12.5 % (11.5-14.5); Red Blood Cell (RBC) Count 4.26 mill/uL (4.70-6.10); White Blood Cell (WBC) Count 11.2 thou/uL (4.8-10.8)
--- NOTE | 2019-09-19 11:21 | RAD ---
EXAM: Single view of the chest HISTORY: Shortness of breath and chest pain COMPARISON: 07/05/2019 FINDINGS: Single view of the chest shows a normal sized cardiomediastinal silhouette. Increased inter stitial markings are present. The patient is status post CABG. There is no evidence of consolidation, mass, or pleural effusion. The bones are unremarkable. Shrapnel projects over the left chest wall. IMPRESSION: No evidence of acute cardiopulmonary disease
[2019-09-19 11:40] LABS: Bilirubin Negative (Negative); Blood, Urine Negative (Negative); Clarity Clear (Clear); Glucose, Urine (Dipstick) Normal (Negative); Leukocyte Negative Leu/uL (Negative); Nitrite Negative (Negative); Protein, Urine (Dipstick) Negative (Neg-Trace); Urobilinogen Normal mg/dL (Less than 2)
[2019-09-19 11:43] LABS: ALT (SGPT) 28 U/L (8-55); AST (SGOT) 47 U/L (5-34); Albumin 3.8 g/dL (3.4-4.8); Alkaline Phosphatase 73 U/L (40-110); Anion Gap 14 mmol/L (10-20); BUN (Urea Nitrogen) 7 mg/dL (8.4-25.7); Bilirubin, Total 0.9 mg/dL (0.2-1.2); Calc. Creatinine Clearance 0 mL/min (70-130); Calcium 8.8 mg/dL (7.8-10.44); Carbon Dioxide 29 mmol/L (23-31); Chloride 99 mmol/L (98-107); Estimated GFR-MDRD Greater than 90; Globulin 2.9 g/dL (2.4-3.5); Glucose 143 mg/dL (83-110); Lipase 26 U/L (8-78); Potassium 3.2 mmol/L (3.5-5.1); Protein, Total 6.7 g/dL (5.8-8.1); Sodium 139 mmol/L (136-145)
[2019-09-19 12:13] LABS: CKMB 25.7 ng/mL (0-6.6)
[2019-09-19] MEDS ORDERED: Enoxaparin Sodium 100 MG/ML SYRINGE ONE (12:15)
[2019-09-19] MEDS ORDERED: Metoprolol Tartrate 5 MG/5 ML VIAL ONE (12:15)
[2019-09-19 14:27] LABS: Lactic Acid 1.8 mmol/L (0.5-2.2)
[2019-09-19 17:18] LABS: Platelet Count 155 thou/uL (130-400)
--- NOTE | 2019-09-19 17:42 | HP ---
CHIEF COMPLAINT: Chest pain. HISTORY OF PRESENT ILLNESS: The patient is a 74-year-old gentleman with past medical history of hypertension, coronary artery disease, status post CABG, and COPD, who presented to the hospital with complaints of central chest pain radiating to his left chest, left upper extremity and right neck and jaw that started last night and has been progressively worsening. The patient was also complaining of shortness of breath and cough productive of greenish sputum. He denies palpitations, nausea, vomiting, or dizziness. EKG in the emergency department revealed bilateral ST depressions and troponin was found to be elevated at 4.6. REVIEW OF SYSTEMS: Negative except as noted in HPI. PAST MEDICAL HISTORY: As noted above. PAST SURGICAL HISTORY: CABG in 1988, carpal tunnel surgery, rotator cuff surgery, and aortic valve replacement. SOCIAL HISTORY: The patient drinks socially and is a former tobacco smoker, who quit in 2019. PHYSICAL EXAMINATION: GENERAL: The patient is alert and oriented x3. HEENT: Head is normocephalic and atraumatic. Extraocular muscles are intact. NECK: Supple. No evidence of JVD. CARDIAC: Revealed regular rate and rhythm. Normal S1 and S2. LUNGS: Clear lung wynn bilaterally. ABDOMEN: Soft, nontender, and nondistended. NEUROLOGICAL: Revealed normal cranial nerves II through XII and normal motor and sensory examination. ASSESSMENT: 1. Non-ST elevation myocardial infarction. 2. Chronic obstructive pulmonary disease exacerbation. 3. Hypertension. PLAN: 1. Admit to telemetry unit. Continue his home dual antiplatelet therapy with aspirin and Plavix. Continue metoprolol and Imdur. Continue ezetimibe and start atorvastatin. 2. Start heparin drip per cardiovascular protocol. 3. Consult Cardiology. 4. As far as COPD, we will initiate DuoNeb q.4 hours scheduled, start methylprednisolone 80 mg IV daily, and start levofloxacin 750 mg IV daily. Job ID: [id number]
[2019-09-19 17:50] LABS: Critical Call Chem Troponin I RESULT DECREASING; Troponin I 2.925 ng/mL (< 0.028)
[2019-09-19] MEDS: Mometasone 200 MCG/Formoterol 5 MCG 120 PUFF INHALER INH SCH (19:34)
--- NOTE | 2019-09-19 20:29 | PRG ---
DATE OF SERVICE: 09/19/2019 SUBJECTIVE: Mr. Beltre is a pleasant 74-year-old patient of Dr. Korey Arechiga. The patient is admitted with episode of COPD and hypoxemia. He has a history of hypertension, coronary artery disease, previous bypass surgery. He has some chest pain in his left upper chest, but that is improved. His troponin was 4.6. He is resting comfortably now, but still has a lot of cough. OBJECTIVE: VITAL SIGNS: Blood pressure is 113/67 and temperature is 98.8. LUNGS: Some mild expiratory wheezing. CARDIAC: Normal S1 and normal S2. The patient has inoperable coronary artery disease. ABDOMEN: Soft and nontender. EXTREMITIES: There is no edema. ASSESSMENT: 1. Chronic obstructive pulmonary disease with COPD exacerbation. 2. Nwk-MY-jizchihan myocardial infarction, likely demand ischemia. Troponin levels trending down to 2.9. PLAN: 1. Continue medicines for COPD. 2. He is on aspirin and Plavix. 3. Written to be on heparin. He did receive a dose of Lovenox 1 mg/kg subcu until in the emergency room. Dr. Arechiga to see tomorrow. The medical therapy be appropriate. Job ID: [id number]
[2019-09-19 20:31] LABS: Critical Call Chem Troponin I RESULT DECREASING; Troponin I 2.149 ng/mL (< 0.028)
[2019-09-19] MEDS: Dorzolamide HCl 2% Ophth Soln 10 ml Bottle EA EYE SCH (20:33)
[2019-09-19] MEDS: Latanoprost 0.005% Ophth Soln 2.5 ml Bottle EA EYE SCH (20:34)
[2019-09-19] MEDS: Gabapentin 100 MG CAP PO SCH (20:36)
[2019-09-19] MEDS: Metoprolol Tartrate 100 MG TAB PO SCH (20:36)
[2019-09-19] MEDS: Heparin 25,000 units/D5W 500 ML IVPB SCH (20:41)
[2019-09-19] MEDS: Heparin 10,000 UNITS/ 10 ML VIAL SLOW IVP SCH (20:41)
[2019-09-19] MEDS ORDERED: Latanoprost 0.005% Ophth Soln 2.5 ml Bottle EA EYE SCH (21:00)
[2019-09-20] MEDS: Mometasone 200 MCG/Formoterol 5 MCG 120 PUFF INHALER INH SCH ×2 (06:31→19:00)
[2019-09-20] MEDS: Albuterol 200 PUFF (6.7GM INHALER) INH SCH ×4 (08:21→18:36)
[2019-09-20] MEDS: Ezetimibe 10 MG TAB PO SCH (08:52)
[2019-09-20] MEDS: Clopidogrel Bisulfate 75 MG TAB PO SCH (08:52)
[2019-09-20] MEDS: Aspirin 81 mg Enteric Coated Tablet PO SCH (08:52)
[2019-09-20] MEDS: Metoprolol Tartrate 100 MG TAB PO SCH ×2 (08:53→20:29)
[2019-09-20] MEDS: Gabapentin 100 MG CAP PO SCH ×3 (08:53→20:29)
[2019-09-20] MEDS: Furosemide 40 MG TAB PO SCH (08:53)
[2019-09-20] MEDS: Isosorbide Mononitrate (ER) 30 MG TAB PO SCH (08:53)
[2019-09-20] MEDS: Dorzolamide HCl 2% Ophth Soln 10 ml Bottle EA EYE SCH ×3 (08:59→20:30)
[2019-09-20] MEDS ORDERED: methylPREDNISolone Sod Succ/PF 125 MG/2 ML VIAL IVP SCH (09:00)
[2019-09-20] MEDS: Fluticasone Propionate Nasal Spray 16 gm Bottle NASAL SCH (12:12)
[2019-09-20] MEDS: Heparin 10,000 UNITS/ 10 ML VIAL SLOW IVP SCH (15:59)
[2019-09-20] MEDS: Heparin 25,000 units/D5W 500 ML IVPB SCH (20:29)
[2019-09-20] MEDS: Atorvastatin Calcium 40 MG TAB PO SCH (20:30)
[2019-09-20] MEDS: Latanoprost 0.005% Ophth Soln 2.5 ml Bottle EA EYE SCH (20:30)
--- NOTE | 2019-09-20 22:11 | PDOC.HOSPP ---
- Subjective Encounter Date: 09/20/19 Encounter Time: 12:00 - Objective Vital Signs & Weight: Vital Signs (12 hours) Temp Pulse Resp BP Pulse Ox 09/20/19 20:00 98.1 F 97 18 130/63 98 09/20/19 16:00 98.2 F 94 20 110/58 L 95 09/20/19 12:19 98.3 F 85 20 134/62 95 Weight Weight 212 lb 3.2 oz I&O: 09/19/19 09/20/19 09/21/19 06:59 06:59 06:59 Intake Total 1100 Output Total 1000 Balance 100 Result Diagrams: 09/19/19 17:08 09/19/19 11:03 Hospitalist ROS - Medication Medications: Active Medications Generic Name Dose Route Start Last Admin Trade Name Freq PRN Reason Stop Dose Admin Albuterol Sulfate 2 puff 09/20/19 07:00 09/20/19 18:36 Proventil Hfa INH Not Given [id number] ROSARIO Aspirin 81 mg 09/20/19 09:00 09/20/19 08:52 Ecotrin PO 81 mg DAILY ROSARIO Administration Atorvastatin Calcium 80 mg 09/20/19 21:00 09/20/19 20:30 Lipitor PO 80 mg HS ROSARIO Administration Clopidogrel Bisulfate 75 mg 09/20/19 09:00 09/20/19 08:52 Plavix PO 75 mg DAILY ROSARIO Administration Dorzolamide HCl 1 drop 09/19/19 21:00 09/20/19 20:30 Trusopt 2% Ophth Soln EA EYE 1 drop TID ROSARIO Administration Ezetimibe 10 mg 09/20/19 09:00 09/20/19 08:52 Zetia PO 10 mg DAILY ROSARIO Administration Fluticasone Propionate 0 gm 09/20/19 09:00 09/20/19 12:12 Flonase Nasal [place] NASAL 1 spr DAILY ROSARIO Administration Furosemide 40 mg 09/20/19 09:00 09/20/19 08:53 Lasix PO 40 mg DAILY ROSARIO Administration Gabapentin 200 mg 09/19/19 21:00 09/20/19 20:29 Neurontin PO 200 mg TID ROSARIO Administration Heparin Sodium (Porcine) 0 units 09/19/19 16:45 09/20/19 15:59 Heparin 1,000 Units/Ml (10 Ml) SLOW IVP 2,900 unit ASDIR ROSARIO Administration Protocol Levofloxacin 750 mg/ Device 150 mls @ 100 mls/hr 09/19/19 20:00 09/20/19 20: 28 IVPB 150 mls Q24HR ROSARIO Administration Heparin Sodium/Dextrose 500 mls @ 0 mls/hr 09/19/19 16:45 09/20/19 20:29 Heparin 25,000 Units/D5w IVPB 500 mls INF ROSARIO Administration Protocol Per Protocol Isosorbide Mononitrate 90 mg 09/20/19 09:00 09/20/19 08:53 Imdur Er PO 90 mg DAILY ROSARIO Administration Latanoprost 1 drop 09/19/19 21:00 09/20/19 20:30 Xalatan 0.005% Ophth Soln EA EYE 1 drop HS ROSARIO Administration Metoprolol Tartrate 150 mg 09/19/19 21:00 09/20/19 20:29 Lopressor PO 150 mg BID ROSARIO Administration Mometasone Furoate/Formoterol Fumar 2 puff 09/19/19 18:30 09/20/19 19:00 Dulera 200 Mcg/5 Mcg Inhaler INH 2 puff BID-RT ROSARIO Administration Sodium Chloride 10 ml 09/19/19 21:00 09/20/19 20:31 Flush - Normal Saline IVF 10 ml Q12HR ROSARIO Administration - Exam General Appearance: awake alert Eye: PERRL ENT: normocephalic atraumatic Neck: supple, no JVD Heart: RRR, no murmur, no gallops, no rubs, normal peripheral pulses Respiratory: tachypneic, wheezes Gastrointestinal: soft, non-tender, non-distended, normal bowel sounds Hosp A/P (1) Acute on chronic respiratory failure with hypoxia Code(s): J96.21 - ACUTE AND CHRONIC RESPIRATORY FAILURE WITH HYPOXIA Status: Acute (2) COPD exacerbation Code(s): J44.1 - CHRONIC OBSTRUCTIVE PULMONARY DISEASE W (ACUTE) EXACERBATION Status: Acute (3) NSTEMI (non-ST elevated myocardial infarction) Code(s): I21.4 - NON-ST ELEVATION (NSTEMI) MYOCARDIAL INFARCTION Status: Acute - Plan Continue medical management for non-ST elevation [place] per cardiology. Patient is currently on aspirin, statin, Imdur, metoprolol, and heparin drip. Continue scheduled nebulizer treatments, corticosteroids, and antibiotics for COPD exacerbation and hypoxia.
[2019-09-21 04:05] LABS: Band 2 % (5-11); Hemoglobin 13.6 g/dL (14.0-18.0); Lymphocytes 2 % (21-51); MDiff Complete? YES; Mean Corpuscular HGB CONC 32.6 g/dL (32.0-36.0); Mean Corpuscular Volume 98.2 fL (78.0-98.0); Mean Platelet Volume 7.8 fL (7.4-10.4); Monocytes 10 % (0-10); Neutrophil 86 % (42-75); Platelet Count 190 thou/uL (130-400); Platelet Morphology Comment Appears Adequate; RBC Distribution Width 12.6 % (11.5-14.5); RBC Morphology Normal; Red Blood Cell (RBC) Count 4.25 mill/uL (4.70-6.10); White Blood Cell (WBC) Count 16.9 thou/uL (4.8-10.8)
[2019-09-21 04:06] LABS: Anion Gap 12 mmol/L (10-20); BUN (Urea Nitrogen) 15 mg/dL (8.4-25.7); Calc. Creatinine Clearance 126 mL/min (70-130); Calcium 9.2 mg/dL (7.8-10.44); Carbon Dioxide 30 mmol/L (23-31); Cardiac Risk 3.3 (Less than 4.5); Chloride 104 mmol/L (98-107); Cholesterol 189 mg/dl (< 200 Desired); Estimated GFR-MDRD Greater than 90; Glucose 127 mg/dL (83-110); HDL Cholesterol 57 mg/dL (>60 Neg Risk); LDL Cholesterol, Calculated 117 mg/dL; Potassium 4.2 mmol/L (3.5-5.1); Sodium 142 mmol/L (136-145); Triglycerides 75 mg/dL (Less than 150)
[2019-09-21] MEDS: Heparin 10,000 UNITS/ 10 ML VIAL SLOW IVP SCH (04:17)
[2019-09-21] MEDS: Mometasone 200 MCG/Formoterol 5 MCG 120 PUFF INHALER INH SCH ×2 (07:11→17:08)
[2019-09-21] MEDS: Albuterol 200 PUFF (6.7GM INHALER) INH SCH ×4 (07:11→18:21)
--- NOTE | 2019-09-21 08:10 | RAD ---
EXAM: CHEST ONE VIEW HISTORY: Hypoxia COMPARISON: 09/19/2019 FINDINGS: Postsurgical changes related to CABG are again noted. Cardiac silhouette and pulmonary vasculature ar e within normal limits for portable technique of the study. There are bullous emphysematous in the upper lung zones with mild crowding of the bronchovascular markings at each lung base similar to prio r exam. No new area of consolidation or pleural fluid is seen. Metallic densities are again seen overlying the left lateral chest. Chest is stable compared to prior study. IMPRESSION: Stable chest with evidence of COPD and mild chronic lung changes. No acute cardiopulmonary process is appreciated.
[2019-09-21] MEDS: Clopidogrel Bisulfate 75 MG TAB PO SCH (09:55)
[2019-09-21] MEDS: Ezetimibe 10 MG TAB PO SCH (09:55)
[2019-09-21] MEDS: Fluticasone Propionate Nasal Spray 16 gm Bottle NASAL SCH (09:55)
[2019-09-21] MEDS: Gabapentin 100 MG CAP PO SCH ×3 (09:55→20:28)
[2019-09-21] MEDS: Dorzolamide HCl 2% Ophth Soln 10 ml Bottle EA EYE SCH ×3 (09:55→20:30)
[2019-09-21] MEDS: Metoprolol Tartrate 100 MG TAB PO SCH ×2 (09:55→20:28)
[2019-09-21] MEDS: Isosorbide Mononitrate (ER) 30 MG TAB PO SCH (09:56)
[2019-09-21] MEDS: Aspirin 81 mg Enteric Coated Tablet PO SCH (09:56)
[2019-09-21] MEDS: Furosemide 40 MG TAB PO SCH (09:56)
[2019-09-21 17:15] LABS: Platelet Count 191 thou/uL (130-400)
[2019-09-21] MEDS: Atorvastatin Calcium 40 MG TAB PO SCH (20:29)
[2019-09-21] MEDS: Latanoprost 0.005% Ophth Soln 2.5 ml Bottle EA EYE SCH (20:30)
[2019-09-21] MEDS: methylPREDNISolone Sod Succ/PF 125 MG/2 ML VIAL IVP SCH (21:54)
--- NOTE | 2019-09-21 22:20 | PDOC.HOSPP ---
- Subjective Encounter Date: 09/21/19 Subjective: Felling better - Objective Vital Signs & Weight: Vital Signs (12 hours) Temp Pulse Pulse Pulse Resp BP BP 09/21/19 22:05 71 21 H 09/21/19 20:19 97.2 F L 87 20 09/21/19 17:08 70 18 09/21/19 15:33 97.6 F 73 72 136/65 115/57 L 09/21/19 15:31 73 72 136/65 115/57 L 09/21/19 11:30 98.2 F 83 22 H BP Pulse Ox Pulse Ox Pulse Ox 09/21/19 22:05 119/59 L 96 09/21/19 20:19 116/62 93 L 09/21/19 17:08 100 09/21/19 15:33 99 98 09/21/19 15:31 100 98 09/21/19 11:30 141/68 H 97 Weight Weight 212 lb 3.2 oz I&O: 09/20/19 09/21/19 09/22/19 06:59 06:59 06:59 Intake Total 1100 840 Output Total 1425 1325 Balance -325 -485 Result Diagrams: 09/21/19 17:03 09/21/19 03:32 Hospitalist ROS - Medication Medications: Active Medications Generic Name Dose Route Start Last Admin Trade Name Ponchoq PRN Reason Stop Dose Admin Albuterol Sulfate 2 puff 09/20/19 07:00 09/21/19 18:21 Proventil Hfa INH 2 puff [id number] ROSARIO Administration Aspirin 81 mg 09/20/19 09:00 09/21/19 09:56 Ecotrin PO 81 mg DAILY ROSARIO Administration Atorvastatin Calcium 80 mg 09/20/19 21:00 09/21/19 20:29 Lipitor PO 80 mg HS ROSARIO Administration Clopidogrel Bisulfate 75 mg 09/20/19 09:00 09/21/19 09:55 Plavix PO 75 mg DAILY ROSARIO Administration Dorzolamide HCl 1 drop 09/19/19 21:00 09/21/19 20:30 Trusopt 2% Ophth Soln EA EYE 1 drop TID ROSARIO Administration Ezetimibe 10 mg 09/20/19 09:00 09/21/19 09:55 Zetia PO 10 mg DAILY ROSARIO Administration Fluticasone Propionate 0 gm 09/20/19 09:00 09/21/19 09:55 Flonase Nasal [place] NASAL 1 spr DAILY ROSARIO Administration Furosemide 40 mg 09/20/19 09:00 09/21/19 09:56 Lasix PO 40 mg DAILY ROSARIO Administration Gabapentin 200 mg 09/19/19 21:00 09/21/19 20:28 Neurontin PO 200 mg TID ROSARIO Administration Levofloxacin 750 mg/ Device 150 mls @ 100 mls/hr 09/19/19 20:00 09/21/19 20: 38 IVPB 150 mls Q24HR ROSARIO Administration Isosorbide Mononitrate 90 mg 09/20/19 09:00 09/21/19 09:56 Imdur Er PO 90 mg DAILY ROSARIO Administration Latanoprost 1 drop 09/19/19 21:00 09/21/19 20:30 Xalatan 0.005% Ophth Soln EA EYE 1 drop HS ROSARIO Administration Methylprednisolone Sodium Succinate 80 mg 09/21/19 22:00 09/21/19 21:54 Solu-Medrol IVP 80 mg Q8HR ROSARIO Administration Metoprolol Tartrate 150 mg 09/19/19 21:00 09/21/19 20:28 Lopressor PO 150 mg BID ROSARIO Administration Mometasone Furoate/Formoterol Fumar 2 puff 09/19/19 18:30 09/21/19 17:08 Dulera 200 Mcg/5 Mcg Inhaler INH 2 puff BID-RT ROSARIO Administration Sodium Chloride 10 ml 09/19/19 21:00 09/21/19 20:38 Flush - Normal Saline IVF 10 ml Q12HR ROSARIO Administration Sodium Chloride 10 ml 09/19/19 18:27 09/21/19 21:55 Flush - Normal Saline IVF 10 ml PRN PRN Administration Saline Flush - Exam General Appearance: awake alert ENT: normocephalic atraumatic Neck: supple Heart: RRR Respiratory: CTAB, normal chest expansion, no tachypnea, rales Gastrointestinal: soft Hosp A/P (1) Acute on chronic respiratory failure with hypoxia Code(s): J96.21 - ACUTE AND CHRONIC RESPIRATORY FAILURE WITH HYPOXIA Status: Acute (2) COPD exacerbation Code(s): J44.1 - CHRONIC OBSTRUCTIVE PULMONARY DISEASE W (ACUTE) EXACERBATION Status: Acute (3) NSTEMI (non-ST elevated myocardial infarction) Code(s): I21.4 - NON-ST ELEVATION (NSTEMI) MYOCARDIAL INFARCTION Status: Acute - Plan Continue medical management for non-ST elevation [place] per cardiology. Patient is currently on aspirin, statin, Imdur, and metoprolol. Heparin drip DCed. Continue scheduled nebulizer treatments, corticosteroids, and antibiotics for COPD exacerbation and hypoxia.
[2019-09-21] MEDS ORDERED: Nitroglycerin 0.4 MG TAB (25 Tab Bottle) SL SCH (22:45)
[2019-09-22] MEDS: methylPREDNISolone Sod Succ/PF 125 MG/2 ML VIAL IVP SCH ×3 (05:16→22:52)
[2019-09-22] MEDS: Mometasone 200 MCG/Formoterol 5 MCG 120 PUFF INHALER INH SCH ×2 (05:23→18:17)
[2019-09-22 06:11] LABS: Band 5 % (5-11); Elliptocytes SLIGHT = 2-5 cells (100X) (0-1/hpf); Hemoglobin 13.4 g/dL (14.0-18.0); Lymphocytes 3 % (21-51); MDiff Complete? YES; Mean Corpuscular HGB CONC 31.9 g/dL (32.0-36.0); Mean Corpuscular Hemoglobin 31.2 pg (27.0-31.0); Mean Corpuscular Volume 98.1 fL (78.0-98.0); Monocytes 1 % (0-10); Neutrophil 91 % (42-75); Platelet Count 197 thou/uL (130-400); Platelet Morphology Comment Appears Adequate; RBC Distribution Width 12.7 % (11.5-14.5); White Blood Cell (WBC) Count 7.4 thou/uL (4.8-10.8)
[2019-09-22 06:25] LABS: Anion Gap 14 mmol/L (10-20); BUN (Urea Nitrogen) 13 mg/dL (8.4-25.7); Calc. Creatinine Clearance 121 mL/min (70-130); Calcium 9.3 mg/dL (7.8-10.44); Carbon Dioxide 30 mmol/L (23-31); Chloride 99 mmol/L (98-107); Estimated GFR-MDRD Greater than 90; Glucose 165 mg/dL (83-110); Potassium 4.2 mmol/L (3.5-5.1); Sodium 139 mmol/L (136-145)
[2019-09-22] MEDS: Metoprolol Tartrate 100 MG TAB PO SCH ×2 (09:16→21:03)
[2019-09-22] MEDS: guaiFENesin ER 600 MG TAB PO SCH ×2 (09:16→21:05)
[2019-09-22] MEDS: Gabapentin 100 MG CAP PO SCH ×3 (09:16→21:05)
[2019-09-22] MEDS: Furosemide 40 MG TAB PO SCH (09:16)
[2019-09-22] MEDS: Aspirin 81 mg Enteric Coated Tablet PO SCH (09:16)
[2019-09-22] MEDS: Ezetimibe 10 MG TAB PO SCH (09:16)
[2019-09-22] MEDS: Clopidogrel Bisulfate 75 MG TAB PO SCH (09:16)
[2019-09-22] MEDS: Isosorbide Mononitrate (ER) 30 MG TAB PO SCH (09:16)
[2019-09-22] MEDS: Fluticasone Propionate Nasal Spray 16 gm Bottle NASAL SCH (09:17)
[2019-09-22] MEDS: Dorzolamide HCl 2% Ophth Soln 10 ml Bottle EA EYE SCH ×3 (09:17→21:06)
--- NOTE | 2019-09-22 10:58 | PDOC.HOSPP ---
- Subjective Encounter Date: 09/22/19 Subjective: He feels better today. - Objective Vital Signs & Weight: Vital Signs (12 hours) Temp Pulse Resp BP BP Pulse Ox 09/22/19 08:05 95 09/22/19 07:59 97.6 F 76 18 140/85 95 09/22/19 05:04 97.6 F 80 21 H 118/62 94 L Weight Weight 212 lb 1.6 oz I&O: 09/21/19 09/22/19 09/23/19 06:59 06:59 06:59 Intake Total 1100 840 360 Output Total 1425 1600 600 Balance -325 -760 -240 Result Diagrams: 09/22/19 05:29 09/22/19 05:29 Hospitalist ROS - Medication Medications: Active Medications Generic Name Dose Route Start Last Admin Trade Name Freq PRN Reason Stop Dose Admin Albuterol Sulfate 2 puff 09/20/19 07:00 09/21/19 18:21 Proventil Hfa INH 2 puff [id number] ROSARIO Administration Aspirin 81 mg 09/20/19 09:00 09/22/19 09:16 Ecotrin PO 81 mg DAILY ROSARIO Administration Atorvastatin Calcium 80 mg 09/20/19 21:00 09/21/19 20:29 Lipitor PO 80 mg HS ROSARIO Administration Clopidogrel Bisulfate 75 mg 09/20/19 09:00 09/22/19 09:16 Plavix PO 75 mg DAILY ROSARIO Administration Dorzolamide HCl 1 drop 09/19/19 21:00 09/22/19 09:17 Trusopt 2% Ophth Soln EA EYE 1 drop TID ROSARIO Administration Ezetimibe 10 mg 09/20/19 09:00 09/22/19 09:16 Zetia PO 10 mg DAILY ROSARIO Administration Fluticasone Propionate 0 gm 09/20/19 09:00 09/22/19 09:17 Flonase Nasal [place] NASAL 1 spr DAILY ROSARIO Administration Furosemide 40 mg 09/20/19 09:00 09/22/19 09:16 Lasix PO 40 mg DAILY ROSARIO Administration Gabapentin 200 mg 09/19/19 21:00 09/22/19 09:16 Neurontin PO 200 mg TID ROSARIO Administration Guaifenesin 1,200 mg 09/22/19 09:00 09/22/19 09:16 Mucinex PO 1,200 mg Q12HR ROSARIO Administration Levofloxacin 750 mg/ Device 150 mls @ 100 mls/hr 09/19/19 20:00 09/21/19 20: 38 IVPB 150 mls Q24HR ROSARIO Administration Isosorbide Mononitrate 90 mg 09/20/19 09:00 09/22/19 09:16 Imdur Er PO 90 mg DAILY ROSARIO Administration Latanoprost 1 drop 09/19/19 21:00 09/21/19 20:30 Xalatan 0.005% Ophth Soln EA EYE 1 drop HS ROSARIO Administration Methylprednisolone Sodium Succinate 80 mg 09/21/19 22:00 09/22/19 05:16 Solu-Medrol IVP 80 mg Q8HR ROSARIO Administration Metoprolol Tartrate 150 mg 09/19/19 21:00 09/22/19 09:16 Lopressor PO 150 mg BID ROSARIO Administration Mometasone Furoate/Formoterol Fumar 2 puff 09/19/19 18:30 09/22/19 05:23 Dulera 200 Mcg/5 Mcg Inhaler INH 2 puff BID-RT ROSARIO Administration Sodium Chloride 10 ml 09/19/19 21:00 09/22/19 09:18 Flush - Normal Saline IVF 10 ml Q12HR ROSARIO Administration Sodium Chloride 10 ml 09/19/19 18:27 09/22/19 05:20 Flush - Normal Saline IVF 10 ml PRN PRN Administration Saline Flush - Exam General Appearance: awake alert Neck: supple, no JVD Heart: RRR, no murmur, no gallops, no rubs Respiratory: normal chest expansion, no tachypnea Gastrointestinal: soft, non-tender, non-distended, normal bowel sounds Hosp A/P (1) Acute on chronic respiratory failure with hypoxia Code(s): J96.21 - ACUTE AND CHRONIC RESPIRATORY FAILURE WITH HYPOXIA Status: Acute (2) COPD exacerbation Code(s): J44.1 - CHRONIC OBSTRUCTIVE PULMONARY DISEASE W (ACUTE) EXACERBATION Status: Acute (3) NSTEMI (non-ST elevated myocardial infarction) Code(s): I21.4 - NON-ST ELEVATION (NSTEMI) MYOCARDIAL INFARCTION Status: Acute - Plan Continue medical management for non-ST elevation [place] per cardiology. Patient is currently on aspirin, statin, Imdur, and metoprolol. Heparin drip DCed. Continue scheduled MDI treatments, corticosteroids, and antibiotics for COPD exacerbation and hypoxia. He is improving. COVID 19 test results still pending.
[2019-09-22] MEDS: Albuterol 200 PUFF (6.7GM INHALER) INH SCH ×3 (13:06→18:18)
[2019-09-22] MEDS: Acetaminophen 325 MG TAB PO PRN (14:09)
[2019-09-22] MEDS: Bacteriostatic Water 30 ML VIAL FS PRN (14:09)
[2019-09-22] MEDS: Atorvastatin Calcium 40 MG TAB PO SCH (21:05)
[2019-09-22] MEDS: Latanoprost 0.005% Ophth Soln 2.5 ml Bottle EA EYE SCH (21:07)
[2019-09-23 05:22] LABS: Anion Gap 10 mmol/L (10-20); BUN (Urea Nitrogen) 11 mg/dL (8.4-25.7); Calc. Creatinine Clearance 126 mL/min (70-130); Calcium 9.2 mg/dL (7.8-10.44); Carbon Dioxide 31 mmol/L (23-31); Chloride 102 mmol/L (98-107); Estimated GFR-MDRD Greater than 90; Glucose 173 mg/dL (83-110); Potassium 4.2 mmol/L (3.5-5.1); Sodium 139 mmol/L (136-145)
[2019-09-23 05:23] LABS: Band 3 % (5-11); Hemoglobin 13.4 g/dL (14.0-18.0); Lymphocytes 7 % (21-51); MDiff Complete? YES; Mean Corpuscular Hemoglobin 32.2 pg (27.0-31.0); Mean Corpuscular Volume 97.5 fL (78.0-98.0); Mean Platelet Volume 7.9 fL (7.4-10.4); Monocytes 3 % (0-10); Neutrophil 87 % (42-75); Platelet Count 196 thou/uL (130-400); Platelet Morphology Comment Appears Adequate; RBC Distribution Width 12.4 % (11.5-14.5); RBC Morphology Normal; Red Blood Cell (RBC) Count 4.15 mill/uL (4.70-6.10); White Blood Cell (WBC) Count 11.7 thou/uL (4.8-10.8)
[2019-09-23] MEDS: methylPREDNISolone Sod Succ/PF 125 MG/2 ML VIAL IVP SCH ×3 (05:39→21:03)
[2019-09-23] MEDS: Mometasone 200 MCG/Formoterol 5 MCG 120 PUFF INHALER INH SCH ×2 (05:42→18:22)
[2019-09-23] MEDS: Albuterol 200 PUFF (6.7GM INHALER) INH SCH ×4 (05:48→18:21)
[2019-09-23] MEDS: Isosorbide Mononitrate (ER) 30 MG TAB PO SCH (09:11)
[2019-09-23] MEDS: Clopidogrel Bisulfate 75 MG TAB PO SCH (09:11)
[2019-09-23] MEDS: Aspirin 81 mg Enteric Coated Tablet PO SCH (09:11)
[2019-09-23] MEDS: Furosemide 40 MG TAB PO SCH (09:11)
[2019-09-23] MEDS: Ezetimibe 10 MG TAB PO SCH (09:11)
[2019-09-23] MEDS: Gabapentin 100 MG CAP PO SCH ×3 (09:11→19:41)
[2019-09-23] MEDS: guaiFENesin ER 600 MG TAB PO SCH ×2 (09:11→19:41)
[2019-09-23] MEDS: Fluticasone Propionate Nasal Spray 16 gm Bottle NASAL SCH (09:12)
[2019-09-23] MEDS: Metoprolol Tartrate 100 MG TAB PO SCH ×2 (09:12→19:42)
[2019-09-23] MEDS: Dorzolamide HCl 2% Ophth Soln 10 ml Bottle EA EYE SCH ×3 (09:13→19:45)
--- NOTE | 2019-09-23 16:03 | PDOC.HOSPP ---
- Subjective Encounter Date: 09/23/19 Subjective: He is feeling better. Still having cough and shortness of breath. - Objective Vital Signs & Weight: Vital Signs (12 hours) Temp Pulse Pulse Pulse Resp BP BP 09/23/19 15:40 96.2 F L 81 18 09/23/19 12:30 79 76 143/65 H 123/62 09/23/19 12:00 98.1 F 75 18 09/23/19 08:00 97.6 F 85 18 09/23/19 05:42 84 18 09/23/19 05:38 97.4 F L 84 18 BP BP Pulse Ox Pulse Ox 09/23/19 15:40 121/71 97 09/23/19 12:30 94 L 09/23/19 12:00 125/63 94 L 09/23/19 08:00 104/58 L 93 L 09/23/19 05:42 96 09/23/19 05:38 117/62 97 Weight Weight 212 lb 1.6 oz I&O: 09/22/19 09/23/19 09/24/19 06:59 06:59 06:59 Intake Total 840 2570 Output Total 1600 1850 Balance -760 720 Result Diagrams: 09/23/19 04:48 09/23/19 04:48 Hospitalist ROS - Medication Medications: Active Medications Generic Name Dose Route Start Last Admin Trade Name Freq PRN Reason Stop Dose Admin Acetaminophen 650 mg 09/22/19 13:36 09/22/19 14:09 Tylenol PO 650 mg Q6H PRN Administration Pain Albuterol Sulfate 2 puff 09/20/19 07:00 09/23/19 15:32 Proventil Hfa INH 2 puff [id number] ROSARIO Administration Aspirin 81 mg 09/20/19 09:00 09/23/19 09:11 Ecotrin PO 81 mg DAILY ROSARIO Administration Atorvastatin Calcium 80 mg 09/20/19 21:00 09/22/19 21:05 Lipitor PO 80 mg HS ROSARIO Administration Clopidogrel Bisulfate 75 mg 09/20/19 09:00 09/23/19 09:11 Plavix PO 75 mg DAILY ROSARIO Administration Dorzolamide HCl 1 drop 09/19/19 21:00 09/23/19 15:33 Trusopt 2% Ophth Soln EA EYE 1 drop TID ROSARIO Administration Ezetimibe 10 mg 09/20/19 09:00 09/23/19 09:11 Zetia PO 10 mg DAILY ROSARIO Administration Fluticasone Propionate 0 gm 09/20/19 09:00 09/23/19 09:12 Flonase Nasal [place] NASAL 1 spr DAILY ROSARIO Administration Furosemide 40 mg 09/20/19 09:00 09/23/19 09:11 Lasix PO 40 mg DAILY ROSARIO Administration Gabapentin 200 mg 09/19/19 21:00 09/23/19 15:32 Neurontin PO 200 mg TID ROSARIO Administration Guaifenesin 1,200 mg 09/22/19 09:00 09/23/19 09:11 Mucinex PO 1,200 mg Q12HR ROSARIO Administration Levofloxacin 750 mg/ Device 150 mls @ 100 mls/hr 09/19/19 20:00 09/22/19 21: 05 IVPB 150 mls Q24HR ROSARIO Administration Isosorbide Mononitrate 90 mg 09/20/19 09:00 09/23/19 09:11 Imdur Er PO 90 mg DAILY ROSARIO Administration Latanoprost 1 drop 09/19/19 21:00 09/22/19 21:07 Xalatan 0.005% Ophth Soln EA EYE 1 drop HS ROSARIO Administration Methylprednisolone Sodium Succinate 80 mg 09/21/19 22:00 09/23/19 15:32 Solu-Medrol IVP 80 mg Q8HR ROSARIO Administration Metoprolol Tartrate 150 mg 09/19/19 21:00 09/23/19 09:12 Lopressor PO 150 mg BID ROSARIO Administration Mometasone Furoate/Formoterol Fumar 2 puff 09/19/19 18:30 09/23/19 05:42 Dulera 200 Mcg/5 Mcg Inhaler INH 2 puff BID-RT ROSARIO Administration Sodium Chloride 10 ml 09/19/19 21:00 09/23/19 09:12 Flush - Normal Saline IVF 10 ml Q12HR ROSARIO Administration Sodium Chloride 10 ml 09/19/19 18:27 09/22/19 05:20 Flush - Normal Saline IVF 10 ml PRN PRN Administration Saline Flush Sterile Water 2 ml 09/20/19 22:12 09/22/19 14:09 Bacteriostatic Water FS 2 ml PRN PRN Administration RECONSTITUTION - Exam General Appearance: awake alert ENT: normocephalic atraumatic Neck: supple, no JVD Heart: RRR Respiratory: normal chest expansion, tachypneic Gastrointestinal: soft Neurological: cranial nerve grossly intact, no focal deficits Hosp A/P (1) Acute on chronic respiratory failure with hypoxia Code(s): J96.21 - ACUTE AND CHRONIC RESPIRATORY FAILURE WITH HYPOXIA Status: Acute (2) COPD exacerbation Code(s): J44.1 - CHRONIC OBSTRUCTIVE PULMONARY DISEASE W (ACUTE) EXACERBATION Status: Acute (3) NSTEMI (non-ST elevated myocardial infarction) Code(s): I21.4 - NON-ST ELEVATION (NSTEMI) MYOCARDIAL INFARCTION Status: Acute - Plan Continue medical management for non-ST elevation [place] per cardiology. Patient is currently on aspirin, statin, Imdur, and metoprolol. Heparin drip DCed. Continue scheduled MDI treatments, corticosteroids, and antibiotics for COPD exacerbation and hypoxia. He is improving. COVID 19 test results underestimate.
[2019-09-23 17:02] LABS: Hemoglobin 14.2 g/dL (14.0-18.0); Platelet Count 199 thou/uL (130-400)
[2019-09-23] MEDS: Acetylcysteine 20% 200 MG/ML 30 ML VIAL PO SCH ×2 (18:21→21:06)
[2019-09-23] MEDS ORDERED: Acetylcysteine 20% 200 MG/ML 30 ML VIAL INH SCH (19:00)
[2019-09-23] MEDS: Atorvastatin Calcium 40 MG TAB PO SCH (19:43)
[2019-09-23] MEDS: Latanoprost 0.005% Ophth Soln 2.5 ml Bottle EA EYE SCH (19:44)
[2019-09-24] MEDS: Acetylcysteine 20% 200 MG/ML 30 ML VIAL PO SCH ×3 (04:24→17:39)
[2019-09-24] MEDS: methylPREDNISolone Sod Succ/PF 125 MG/2 ML VIAL IVP SCH ×3 (04:24→20:55)
[2019-09-24 04:45] LABS: Band 4 % (5-11); Hemoglobin 13.4 g/dL (14.0-18.0); Lymphocytes 6 % (21-51); MDiff Complete? YES; Mean Corpuscular HGB CONC 32.9 g/dL (32.0-36.0); Mean Corpuscular Volume 97.2 fL (78.0-98.0); Mean Platelet Volume 8.2 fL (7.4-10.4); Monocytes 1 % (0-10); Neutrophil 89 % (42-75); Platelet Count 213 thou/uL (130-400); Platelet Morphology Comment Appears Adequate; RBC Distribution Width 12.6 % (11.5-14.5); Red Blood Cell (RBC) Count 4.19 mill/uL (4.70-6.10); White Blood Cell (WBC) Count 13.2 thou/uL (4.8-10.8)
[2019-09-24 04:56] LABS: Anion Gap 12 mmol/L (10-20); BUN (Urea Nitrogen) 12 mg/dL (8.4-25.7); Calc. Creatinine Clearance 124 mL/min (70-130); Calcium 9.3 mg/dL (7.8-10.44); Carbon Dioxide 31 mmol/L (23-31); Chloride 101 mmol/L (98-107); Estimated GFR-MDRD Greater than 90; Glucose 160 mg/dL (83-110); Sodium 140 mmol/L (136-145)
[2019-09-24] MEDS: Albuterol 200 PUFF (6.7GM INHALER) INH SCH (06:04)
[2019-09-24] MEDS: Mometasone 200 MCG/Formoterol 5 MCG 120 PUFF INHALER INH SCH ×2 (06:05→18:35)
[2019-09-24] MEDS: Aspirin 81 mg Enteric Coated Tablet PO SCH (08:49)
[2019-09-24] MEDS: Clopidogrel Bisulfate 75 MG TAB PO SCH (08:49)
[2019-09-24] MEDS: Furosemide 40 MG TAB PO SCH (08:50)
[2019-09-24] MEDS: Ezetimibe 10 MG TAB PO SCH (08:50)
[2019-09-24] MEDS: Gabapentin 100 MG CAP PO SCH ×3 (08:50→20:53)
[2019-09-24] MEDS: Isosorbide Mononitrate (ER) 30 MG TAB PO SCH (08:52)
[2019-09-24] MEDS: guaiFENesin ER 600 MG TAB PO SCH ×2 (08:52→20:53)
[2019-09-24] MEDS: Metoprolol Tartrate 100 MG TAB PO SCH ×2 (08:52→20:53)
[2019-09-24] MEDS: Dorzolamide HCl 2% Ophth Soln 10 ml Bottle EA EYE SCH ×3 (09:08→20:51)
[2019-09-24] MEDS: Fluticasone Propionate Nasal Spray 16 gm Bottle NASAL SCH (09:08)
--- NOTE | 2019-09-24 16:09 | PDOC.HOSPP ---
- Subjective Encounter Date: 09/24/19 Subjective: C/O SOB and wheezing - Objective Vital Signs & Weight: Vital Signs (12 hours) Temp Pulse Pulse Pulse Resp BP BP 09/24/19 15:15 97.6 F 73 20 09/24/19 14:04 85 16 09/24/19 13:40 137/88 121/64 09/24/19 11:20 85 82 127/61 136/98 H 09/24/19 11:03 97.7 F 81 20 09/24/19 10:48 93 16 09/24/19 08:45 97.8 F 80 18 09/24/19 08:38 09/24/19 06:05 73 16 09/24/19 04:20 97.9 F 73 16 BP BP Pulse Ox Pulse Ox Pulse Ox 09/24/19 15:15 131/68 95 09/24/19 14:04 97 09/24/19 13:40 09/24/19 11:20 94 L 97 09/24/19 11:03 165/63 H 97 09/24/19 10:48 100 09/24/19 08:45 145/66 H 97 09/24/19 08:38 97 09/24/19 06:05 97 09/24/19 04:20 122/68 97 Weight Weight 212 lb 1.6 oz I&O: 09/23/19 09/24/19 09/25/19 06:59 06:59 06:59 Intake Total 2570 1610 Output Total 1850 2050 Balance 720 -440 Result Diagrams: 09/24/19 04:26 09/24/19 04:26 Hospitalist ROS - Medication Medications: Active Medications Generic Name Dose Route Start Last Admin Trade Name Freq PRN Reason Stop Dose Admin Acetaminophen 650 mg 09/22/19 13:36 09/22/19 14:09 Tylenol PO 650 mg Q6H PRN Administration Pain Acetylcysteine 600 mg 09/23/19 18:00 09/24/19 13:16 Mucomyst 20% PO 600 mg Q6HR ROSARIO Administration Albuterol/Ipratropium 3 ml 09/24/19 14:30 09/24/19 14:04 Duoneb NEB 3 ml [id number] ROSARIO Administration Aspirin 81 mg 09/20/19 09:00 09/24/19 08:49 Ecotrin PO 81 mg DAILY ROSARIO Administration Atorvastatin Calcium 80 mg 09/20/19 21:00 09/23/19 19:43 Lipitor PO 80 mg HS ROSARIO Administration Clopidogrel Bisulfate 75 mg 09/20/19 09:00 09/24/19 08:49 Plavix PO 75 mg DAILY ROSARIO Administration Dorzolamide HCl 1 drop 09/19/19 21:00 09/24/19 15:00 Trusopt 2% Oph Soln EA EYE 1 drop TID ROSARIO Administration Ezetimibe 10 mg 09/20/19 09:00 09/24/19 08:50 Zetia PO 10 mg DAILY ROSARIO Administration Fluticasone Propionate 0 gm 09/20/19 09:00 09/24/19 09:08 Flonase Nasal [place] NASAL 1 spr DAILY ROSARIO Administration Furosemide 40 mg 09/20/19 09:00 09/24/19 08:50 Lasix PO 40 mg DAILY ROSARIO Administration Gabapentin 200 mg 09/19/19 21:00 09/24/19 15:00 Neurontin PO 200 mg TID ROSARIO Administration Guaifenesin 1,200 mg 09/22/19 09:00 09/24/19 08:52 Mucinex PO 1,200 mg Q12HR ROSARIO Administration Levofloxacin 750 mg/ Device 150 mls @ 100 mls/hr 09/19/19 20:00 09/23/19 19: 33 IVPB 150 mls Q24HR ROSARIO Administration Isosorbide Mononitrate 90 mg 09/20/19 09:00 09/24/19 08:52 Imdur Er PO 90 mg DAILY ROSARIO Administration Latanoprost 1 drop 09/19/19 21:00 09/23/19 19:44 Xalatan 0.005% Anushka Alexey EA EYE 1 drop HS PENDING SALE TO [facility] Administration Methylprednisolone Sodium Succinate 80 mg 09/21/19 22:00 09/24/19 13:17 Solu-Medrol IVP 80 mg Q8HR ROSARIO Administration Metoprolol Tartrate 150 mg 09/19/19 21:00 09/24/19 08:52 Lopressor PO 150 mg BID ROSARIO Administration Mometasone Furoate/Formoterol Fumar 2 puff 09/19/19 18:30 09/24/19 06:05 Dulera 200 Mcg/5 Mcg Inhaler INH 2 puff BID-RT ROSARIO Administration Sodium Chloride 10 ml 09/19/19 21:00 09/24/19 09:08 Flush - Normal Saline IVF Not Given Q12HR ROSARIO Sodium Chloride 10 ml 09/19/19 18:27 09/22/19 05:20 Flush - Normal Saline IVF 10 ml PRN PRN Administration Saline Flush Sterile Water 2 ml 09/20/19 22:12 09/22/19 14:09 Bacteriostatic Water FS 2 ml PRN PRN Administration RECONSTITUTION - Exam General Appearance: awake alert ENT: normocephalic atraumatic Neck: supple, no JVD Heart: RRR, no murmur, no gallops, no rubs, normal peripheral pulses Respiratory: rales, rhonchi, tachypneic Hosp A/P (1) Acute on chronic respiratory failure with hypoxia Code(s): J96.21 - ACUTE AND CHRONIC RESPIRATORY FAILURE WITH HYPOXIA Status: Acute (2) COPD exacerbation Code(s): J44.1 - CHRONIC OBSTRUCTIVE PULMONARY DISEASE W (ACUTE) EXACERBATION Status: Acute (3) NSTEMI (non-ST elevated myocardial infarction) Code(s): I21.4 - NON-ST ELEVATION (NSTEMI) MYOCARDIAL INFARCTION Status: Acute - Plan Continue medical management for non-ST elevation [place] per cardiology. Patient is currently on aspirin, statin, Imdur, and metoprolol. Heparin drip DCed. COVID 19 test is negative. Initiate scheduled nebulizer treatments, continue corticosteroids and antibiotics. Encourage ambulation.
[2019-09-24] MEDS: Latanoprost 0.005% Ophth Soln 2.5 ml Bottle EA EYE SCH (20:51)
[2019-09-24] MEDS: Acetaminophen 325 MG TAB PO PRN (20:52)
[2019-09-24] MEDS: Atorvastatin Calcium 40 MG TAB PO SCH (20:54)
--- NOTE | 2019-09-24 21:35 | EKG ---
Test Reason : Blood Pressure : / mmHG Vent. Rate : 068 BPM Atrial Rate : 068 BPM P-R Int : 142 ms QRS Dur : 090 ms QT Int : 422 ms P-R-T Axes : 083 -24 094 degrees QTc Int : 448 ms Normal sinus rhythm Possible Left atrial enlargement Nonspecific ST and T wave abnormality Abnormal ECG When compared with ECG of 19-SEP-2019 12:26, Premature ventricular complexes are no longer Present ST no longer depressed in Anterior leads Confirmed by RIMA STEVENS, DR. Nagy ([id number]) on 09/24/2019 9:34:57 PM Referred By: KAMILLA Confirmed By:DR. Lilo ABARCA MD
[2019-09-25] MEDS: Acetylcysteine 20% 200 MG/ML 30 ML VIAL PO SCH ×2 (02:23→05:58)
[2019-09-25 04:54] LABS: Anion Gap 11 mmol/L (10-20); BUN (Urea Nitrogen) 14 mg/dL (8.4-25.7); Calc. Creatinine Clearance 132 mL/min (70-130); Carbon Dioxide 29 mmol/L (23-31); Chloride 101 mmol/L (98-107); Estimated GFR-MDRD Greater than 90; Glucose 189 mg/dL (83-110); Potassium 3.8 mmol/L (3.5-5.1); Sodium 137 mmol/L (136-145)
[2019-09-25 04:55] LABS: Band 1 % (5-11); Hemoglobin 13.2 g/dL (14.0-18.0); Hypochromia SLIGHT = 6-15 cells (100X) (0-5/hpf); Lymphocytes 1 % (21-51); MDiff Complete? YES; Mean Corpuscular HGB CONC 33.1 g/dL (32.0-36.0); Mean Corpuscular Hemoglobin 32.4 pg (27.0-31.0); Mean Corpuscular Volume 97.8 fL (78.0-98.0); Monocytes 9 % (0-10); Neutrophil 89 % (42-75); Platelet Count 189 thou/uL (130-400); Platelet Morphology Comment Appears Adequate; RBC Distribution Width 12.5 % (11.5-14.5); Red Blood Cell (RBC) Count 4.09 mill/uL (4.70-6.10); White Blood Cell (WBC) Count 10.6 thou/uL (4.8-10.8)
[2019-09-25] MEDS: methylPREDNISolone Sod Succ/PF 125 MG/2 ML VIAL IVP SCH ×3 (05:59→21:34)
[2019-09-25] MEDS: Mometasone 200 MCG/Formoterol 5 MCG 120 PUFF INHALER INH SCH ×2 (07:27→19:41)
[2019-09-25] MEDS: Clopidogrel Bisulfate 75 MG TAB PO SCH (09:09)
[2019-09-25] MEDS: Gabapentin 100 MG CAP PO SCH ×3 (09:09→21:14)
[2019-09-25] MEDS: Ezetimibe 10 MG TAB PO SCH (09:09)
[2019-09-25] MEDS: Metoprolol Tartrate 100 MG TAB PO SCH ×2 (09:09→21:13)
[2019-09-25] MEDS: Furosemide 40 MG TAB PO SCH (09:09)
[2019-09-25] MEDS: guaiFENesin ER 600 MG TAB PO SCH ×2 (09:09→21:14)
[2019-09-25] MEDS: Dorzolamide HCl 2% Ophth Soln 10 ml Bottle EA EYE SCH ×3 (09:10→21:15)
[2019-09-25] MEDS: Isosorbide Mononitrate (ER) 30 MG TAB PO SCH (09:10)
[2019-09-25] MEDS: Aspirin 81 mg Enteric Coated Tablet PO SCH (09:10)
[2019-09-25] MEDS: Fluticasone Propionate Nasal Spray 16 gm Bottle NASAL SCH (09:10)
[2019-09-25] MEDS ORDERED: Acetylcysteine 20% 200 MG/ML 30 ML VIAL PO SCH (12:00)
[2019-09-25] MEDS: Bacteriostatic Water 30 ML VIAL FS PRN ×2 (14:10→21:38)
[2019-09-25] MEDS: Acetylcysteine 20% 200 MG/ML 30 ML VIAL INH SCH ×2 (14:54→18:51)
--- NOTE | 2019-09-25 15:55 | PDOC.HOSPP ---
- Subjective Encounter Date: 09/25/19 Subjective: Breathing easier - Objective Vital Signs & Weight: Vital Signs (12 hours) Temp Pulse Pulse Resp BP BP BP 09/25/19 15:27 97.5 F L 85 20 129/60 09/25/19 14:53 85 20 09/25/19 13:32 84 161/70 H 09/25/19 11:43 97.6 F 77 18 101/60 09/25/19 10:59 78 18 09/25/19 07:55 09/25/19 07:28 97.7 F 84 18 134/68 09/25/19 07:23 89 18 Pulse Ox Pulse Ox Pulse Ox 09/25/19 15:27 96 09/25/19 14:53 09/25/19 13:32 93 L 94 L 09/25/19 11:43 94 L 09/25/19 10:59 09/25/19 07:55 96 09/25/19 07:28 96 09/25/19 07:23 Weight Weight 212 lb 1.6 oz I&O: 09/24/19 09/25/19 09/26/19 06:59 06:59 06:59 Intake Total 1610 1640 840 Output Total 2050 2500 325 Balance -440 -860 515 Result Diagrams: 09/25/19 04:15 09/25/19 04:15 Hospitalist ROS - Medication Medications: Active Medications Generic Name Dose Route Start Last Admin Trade Name Freq PRN Reason Stop Dose Admin Acetaminophen 650 mg 09/22/19 13:36 09/24/19 20:52 Tylenol PO 650 mg Q6H PRN Administration Pain Acetylcysteine 600 mg 09/25/19 13:00 09/25/19 14:54 Mucomyst 20% INH 600 mg [id number] ROSARIO Administration Albuterol/Ipratropium 3 ml 09/24/19 14:30 09/25/19 14:53 Duoneb NEB 3 ml [id number] ROSARIO Administration Aspirin 81 mg 09/20/19 09:00 09/25/19 09:10 Ecotrin PO 81 mg DAILY ROSARIO Administration Atorvastatin Calcium 80 mg 09/20/19 21:00 09/24/19 20:54 Lipitor PO 80 mg HS ROSARIO Administration Clopidogrel Bisulfate 75 mg 09/20/19 09:00 09/25/19 09:09 Plavix PO 75 mg DAILY ROSARIO Administration Dorzolamide HCl 1 drop 09/19/19 21:00 09/25/19 14:11 Trusopt 2% Ophth Soln EA EYE 1 drop TID ROSARIO Administration Ezetimibe 10 mg 09/20/19 09:00 09/25/19 09:09 Zetia PO 10 mg DAILY ROSARIO Administration Fluticasone Propionate 0 gm 09/20/19 09:00 09/25/19 09:10 Flonase Nasal [place] NASAL 1 spr DAILY ROSARIO Administration Furosemide 40 mg 09/20/19 09:00 09/25/19 09:09 Lasix PO 40 mg DAILY ROSARIO Administration Gabapentin 200 mg 09/19/19 21:00 09/25/19 14:11 Neurontin PO 200 mg TID ROSARIO Administration Guaifenesin 1,200 mg 09/22/19 09:00 09/25/19 09:09 Mucinex PO 1,200 mg Q12HR ROSARIO Administration Levofloxacin 750 mg/ Device 150 mls @ 100 mls/hr 09/19/19 20:00 09/24/19 20: 54 IVPB 150 mls Q24HR ROSARIO Administration Isosorbide Mononitrate 90 mg 09/20/19 09:00 09/25/19 09:10 Imdur Er PO 90 mg DAILY ROSARIO Administration Latanoprost 1 drop 09/19/19 21:00 09/24/19 20:51 Xalatan 0.005% Ophth Soln EA EYE 1 drop HS ROSARIO Administration Methylprednisolone Sodium Succinate 80 mg 09/21/19 22:00 09/25/19 14:10 Solu-Medrol IVP 80 mg Q8HR ROSARIO Administration Metoprolol Tartrate 150 mg 09/19/19 21:00 09/25/19 09:09 Lopressor PO 150 mg BID ROSARIO Administration Mometasone Furoate/Formoterol Fumar 2 puff 09/19/19 18:30 09/25/19 07:27 Dulera 200 Mcg/5 Mcg Inhaler INH 2 puff BID-RT ROSARIO Administration Sodium Chloride 10 ml 09/19/19 21:00 09/25/19 09:14 Flush - Normal Saline IVF 10 ml Q12HR ROSARIO Administration Sodium Chloride 10 ml 09/19/19 18:27 09/22/19 05:20 Flush - Normal Saline IVF 10 ml PRN PRN Administration Saline Flush Sterile Water 2 ml 09/20/19 22:12 09/25/19 14:10 Bacteriostatic Water FS 2 ml PRN PRN Administration RECONSTITUTION - Exam General Appearance: awake alert Neck: supple, no JVD Heart: RRR, no murmur, no gallops, no rubs, normal peripheral pulses Respiratory: normal chest expansion, no tachypnea, wheezes Gastrointestinal: soft, non-tender, non-distended, normal bowel sounds, no palpable masses Neurological: cranial nerve grossly intact, no weakness Hosp A/P (1) Acute on chronic respiratory failure with hypoxia Code(s): J96.21 - ACUTE AND CHRONIC RESPIRATORY FAILURE WITH HYPOXIA Status: Acute (2) COPD exacerbation Code(s): J44.1 - CHRONIC OBSTRUCTIVE PULMONARY DISEASE W (ACUTE) EXACERBATION Status: Acute (3) NSTEMI (non-ST elevated myocardial infarction) Code(s): I21.4 - NON-ST ELEVATION (NSTEMI) MYOCARDIAL INFARCTION Status: Acute - Plan Continue medical management for non-ST elevation [place] per cardiology. Patient is currently on aspirin, statin, Imdur, and metoprolol. Heparin drip DCed. COVID 19 test is negative. Continue scheduled nebulizer treatments, continue corticosteroids and antibiotics. Encourage ambulation. His respiratory status improved with the above measures. Add inh mucomyst.
[2019-09-25] MEDS: Latanoprost 0.005% Ophth Soln 2.5 ml Bottle EA EYE SCH (21:14)
[2019-09-25] MEDS: Atorvastatin Calcium 40 MG TAB PO SCH (21:14)
[2019-09-26] MEDS: Acetylcysteine 20% 200 MG/ML 30 ML VIAL INH SCH ×4 (01:32→18:22)
[2019-09-26] MEDS ORDERED: Mag-Al 1200 mg/1200 mg/30 ML UDCUP PO PRN (04:44)
[2019-09-26] MEDS: methylPREDNISolone Sod Succ/PF 125 MG/2 ML VIAL IVP SCH ×3 (05:38→22:32)
[2019-09-26] MEDS: Calcium Carbonate 500 MG ChewTAB PO PRN ×2 (05:38→09:32)
[2019-09-26] MEDS: Bacteriostatic Water 30 ML VIAL FS PRN ×2 (05:39→22:33)
[2019-09-26] MEDS: Mometasone 200 MCG/Formoterol 5 MCG 120 PUFF INHALER INH SCH ×2 (06:47→18:39)
[2019-09-26] MEDS: Clopidogrel Bisulfate 75 MG TAB PO SCH (08:49)
[2019-09-26] MEDS: Ezetimibe 10 MG TAB PO SCH (08:49)
[2019-09-26] MEDS: Dorzolamide HCl 2% Ophth Soln 10 ml Bottle EA EYE SCH ×3 (08:49→20:58)
[2019-09-26] MEDS: Gabapentin 100 MG CAP PO SCH ×3 (08:49→20:57)
[2019-09-26] MEDS: Metoprolol Tartrate 100 MG TAB PO SCH (08:49)
[2019-09-26] MEDS: Aspirin 81 mg Enteric Coated Tablet PO SCH (08:49)
[2019-09-26] MEDS: Furosemide 40 MG TAB PO SCH (08:50)
[2019-09-26] MEDS: Fluticasone Propionate Nasal Spray 16 gm Bottle NASAL SCH (08:50)
[2019-09-26] MEDS: Isosorbide Mononitrate (ER) 30 MG TAB PO SCH (08:50)
[2019-09-26] MEDS: guaiFENesin ER 600 MG TAB PO SCH ×2 (08:50→20:56)
[2019-09-26] MEDS ORDERED: Pantoprazole 40 MG GRANULES PACKET PO SCH ×2 (11:04→11:15)
--- NOTE | 2019-09-26 20:28 | PDOC.HOSPP ---
- Subjective Encounter Date: 09/26/19 Subjective: The patient is feeling better today. He was able to ambulate more. Chest auscultation is positive for minimal wheezing. He will likely be ready for discharge by tomorrow. - Objective Vital Signs & Weight: Vital Signs (12 hours) Temp Pulse Resp BP BP BP Pulse Ox 09/26/19 19:37 99.4 F 84 18 132/68 95 09/26/19 15:25 79 20 94 L 09/26/19 15:23 97.8 F 78 16 108/60 97 09/26/19 11:57 162/76 H 134/70 09/26/19 11:51 97.5 F L 81 20 120/63 95 09/26/19 11:34 82 20 96 Weight Weight 212 lb 1.6 oz I&O: 09/25/19 09/26/19 09/27/19 06:59 06:59 06:59 Intake Total 1640 2960 1320 Output Total 2500 1750 1700 Balance -860 1210 -380 Result Diagrams: 09/25/19 04:15 09/25/19 04:15 Hospitalist ROS - Medication Medications: Active Medications Generic Name Dose Route Start Last Admin Trade Name Freq PRN Reason Stop Dose Admin Acetaminophen 650 mg 09/22/19 13:36 09/24/19 20:52 Tylenol PO 650 mg Q6H PRN Administration Pain Acetylcysteine 600 mg 09/25/19 13:00 09/26/19 18:22 Mucomyst 20% INH 600 mg [id number] ROSARIO Administration Albuterol/Ipratropium 3 ml 09/24/19 14:30 09/26/19 18:21 Duoneb NEB 3 ml [id number] ROSARIO Administration Aspirin 81 mg 09/20/19 09:00 09/26/19 08:49 Ecotrin PO 81 mg DAILY ROSARIO Administration Atorvastatin Calcium 80 mg 09/20/19 21:00 09/25/19 21:14 Lipitor PO 80 mg HS ROSARIO Administration Calcium Carbonate 1,000 mg 09/26/19 04:44 09/26/19 09:32 Tums PO 1,000 mg Q4H PRN Administration Heartburn or Indigestion Clopidogrel Bisulfate 75 mg 09/20/19 09:00 09/26/19 08:49 Plavix PO 75 mg DAILY ROSARIO Administration Dorzolamide HCl 1 drop 09/19/19 21:00 09/26/19 14:21 Trusopt 2% Ophth Soln EA EYE 1 drop TID ROSARIO Administration Ezetimibe 10 mg 09/20/19 09:00 09/26/19 08:49 Zetia PO 10 mg DAILY ROSARIO Administration Fluticasone Propionate 0 gm 09/20/19 09:00 09/26/19 08:50 Flonase Nasal [place] NASAL 1 spr DAILY ROSARIO Administration Furosemide 40 mg 09/20/19 09:00 09/26/19 08:50 Lasix PO 40 mg DAILY ROSARIO Administration Gabapentin 200 mg 09/19/19 21:00 09/26/19 14:22 Neurontin PO 200 mg TID ROSARIO Administration Guaifenesin 1,200 mg 09/22/19 09:00 09/26/19 08:50 Mucinex PO 1,200 mg Q12HR ROSARIO Administration Levofloxacin 750 mg/ Device 150 mls @ 100 mls/hr 09/19/19 20:00 09/25/19 19: 48 IVPB 150 mls Q24HR ROSARIO Administration Isosorbide Mononitrate 90 mg 09/20/19 09:00 09/26/19 08:50 Imdur Er PO 90 mg DAILY ROSARIO Administration Latanoprost 1 drop 09/19/19 21:00 09/25/19 21:14 Xalatan 0.005% Ophth Soln EA EYE 1 drop HS ROSARIO Administration Methylprednisolone Sodium Succinate 80 mg 09/21/19 22:00 09/26/19 14:22 Solu-Medrol IVP 80 mg Q8HR ROSARIO Administration Mometasone Furoate/Formoterol Fumar 2 puff 09/19/19 18:30 09/26/19 18:39 Dulera 200 Mcg/5 Mcg Inhaler INH 2 puff BID-RT ROSARIO Administration Sodium Chloride 10 ml 09/19/19 21:00 09/26/19 08:50 Flush - Normal Saline IVF 10 ml Q12HR ROSARIO Administration Sodium Chloride 10 ml 09/19/19 18:27 09/22/19 05:20 Flush - Normal Saline IVF 10 ml PRN PRN Administration Saline Flush Sterile Water 2 ml 09/20/19 22:12 09/26/19 05:39 Bacteriostatic Water FS 2 ml PRN PRN Administration RECONSTITUTION - Exam General Appearance: awake alert ENT: normocephalic atraumatic Neck: supple, no JVD Heart: RRR, no murmur, no gallops, no rubs Respiratory: normal chest expansion, no tachypnea, wheezes Hosp A/P (1) Acute on chronic respiratory failure with hypoxia Code(s): J96.21 - ACUTE AND CHRONIC RESPIRATORY FAILURE WITH HYPOXIA Status: Acute (2) COPD exacerbation Code(s): J44.1 - CHRONIC OBSTRUCTIVE PULMONARY DISEASE W (ACUTE) EXACERBATION Status: Acute (3) NSTEMI (non-ST elevated myocardial infarction) Code(s): I21.4 - NON-ST ELEVATION (NSTEMI) MYOCARDIAL INFARCTION Status: Acute - Plan Continue medical management for non-ST elevation [place] per cardiology. Patient is currently on aspirin, statin, Imdur, and metoprolol. Heparin drip DCed. COVID 19 test is negative. Continue scheduled nebulizer treatments, continue corticosteroids and antibiotics. Encourage ambulation.
[2019-09-26] MEDS: Atorvastatin Calcium 40 MG TAB PO SCH (20:56)
[2019-09-26] MEDS: Diltiazem HCl SR 60 mg Capsule PO SCH (20:57)
[2019-09-26] MEDS: Latanoprost 0.005% Ophth Soln 2.5 ml Bottle EA EYE SCH (20:58)
[2019-09-27] MEDS: Calcium Carbonate 500 MG ChewTAB PO PRN ×3 (00:43→08:39)
[2019-09-27] MEDS: Acetylcysteine 20% 200 MG/ML 30 ML VIAL INH SCH ×4 (03:03→18:32)
[2019-09-27] MEDS: methylPREDNISolone Sod Succ/PF 125 MG/2 ML VIAL IVP SCH (06:13)
[2019-09-27] MEDS: Bacteriostatic Water 30 ML VIAL FS PRN (06:13)
[2019-09-27] MEDS: Mometasone 200 MCG/Formoterol 5 MCG 120 PUFF INHALER INH SCH ×2 (06:38→18:33)
[2019-09-27] MEDS: Pantoprazole 40 MG GRANULES PACKET PO SCH (08:39)
[2019-09-27] MEDS: Nitroglycerin 0.4 MG TAB (25 Tab Bottle) SL PRN ×3 (08:52→09:03)
[2019-09-27] MEDS: Aspirin 81 mg Enteric Coated Tablet PO SCH (09:13)
[2019-09-27] MEDS: Diltiazem HCl SR 60 mg Capsule PO SCH ×2 (09:13→20:10)
[2019-09-27] MEDS: Clopidogrel Bisulfate 75 MG TAB PO SCH (09:13)
[2019-09-27] MEDS: Ezetimibe 10 MG TAB PO SCH (09:14)
[2019-09-27] MEDS: Dorzolamide HCl 2% Ophth Soln 10 ml Bottle EA EYE SCH ×3 (09:14→20:10)
[2019-09-27] MEDS: Gabapentin 100 MG CAP PO SCH ×3 (09:15→20:10)
[2019-09-27] MEDS: Fluticasone Propionate Nasal Spray 16 gm Bottle NASAL SCH (09:15)
[2019-09-27] MEDS: Furosemide 40 MG TAB PO SCH (09:15)
[2019-09-27] MEDS: guaiFENesin ER 600 MG TAB PO SCH ×2 (09:15→20:10)
[2019-09-27] MEDS: Isosorbide Mononitrate (ER) 30 MG TAB PO SCH (09:16)
--- NOTE | 2019-09-27 10:15 | PDOC.HOSPP ---
- Subjective Encounter Date: 09/27/19 Subjective: Complaining of "hEARTBURN" this morning with b/l upper ext numbness. Esed up by tums with no improvement with nitroglycerin. - Objective Vital Signs & Weight: Vital Signs (12 hours) Temp Pulse Resp BP BP Pulse Ox 09/27/19 08:36 98.4 F 104 H 24 H 174/98 H 98 09/27/19 07:16 98.9 F 91 18 131/64 98 09/27/19 06:40 90 16 96 09/27/19 06:39 90 16 96 09/27/19 06:38 90 16 96 09/27/19 04:14 99.0 F 89 18 120/66 96 Weight Weight 212 lb 1.6 oz I&O: 09/26/19 09/27/19 09/28/19 06:59 06:59 06:59 Intake Total 2960 2280 Output Total 1750 3625 Balance 1210 -1345 Result Diagrams: 09/25/19 04:15 09/25/19 04:15 Hospitalist ROS - Medication Medications: Active Medications Generic Name Dose Route Start Last Admin Trade Name Freq PRN Reason Stop Dose Admin Acetaminophen 650 mg 09/22/19 13:36 09/24/19 20:52 Tylenol PO 650 mg Q6H PRN Administration Pain Acetylcysteine 600 mg 09/25/19 13:00 09/27/19 06:40 Mucomyst 20% INH 600 mg [id number] ROSARIO Administration Al Hydroxide/Mg Hydroxide 30 ml 09/26/19 04:44 09/27/19 08:39 Maalox PO 30 ml Q6H PRN Administration Heartburn or Indigestion Albuterol/Ipratropium 3 ml 09/24/19 14:30 09/27/19 06:39 Duoneb NEB 3 ml [id number] ROSARIO Administration Aspirin 81 mg 09/20/19 09:00 09/27/19 09:13 Ecotrin PO 81 mg DAILY ROSARIO Administration Atorvastatin Calcium 80 mg 09/20/19 21:00 09/26/19 20:56 Lipitor PO 80 mg HS ROSARIO Administration Calcium Carbonate 1,000 mg 09/26/19 04:44 09/27/19 08:39 Tums PO 1,000 mg Q4H PRN Administration Heartburn or Indigestion Clopidogrel Bisulfate 75 mg 09/20/19 09:00 09/27/19 09:13 Plavix PO 75 mg DAILY ROSARIO Administration Diltiazem HCl 60 mg 09/26/19 21:00 09/27/19 09:13 Cardizem Sr PO 60 mg BID ROSARIO Administration Dorzolamide HCl 1 drop 09/19/19 21:00 09/27/19 09:14 Trusopt 2% Ophth Soln EA EYE 1 drop TID ROSARIO Administration Ezetimibe 10 mg 09/20/19 09:00 09/27/19 09:14 Zetia PO 10 mg DAILY ROSARIO Administration Fluticasone Propionate 0 gm 09/20/19 09:00 09/27/19 09:15 Flonase Nasal [place] NASAL 1 spr DAILY ROSARIO Administration Furosemide 40 mg 09/20/19 09:00 09/27/19 09:15 Lasix PO 40 mg DAILY ROSARIO Administration Gabapentin 200 mg 09/19/19 21:00 09/27/19 09:15 Neurontin PO 200 mg TID ROSARIO Administration Guaifenesin 1,200 mg 09/22/19 09:00 09/27/19 09:15 Mucinex PO 1,200 mg Q12HR ROSARIO Administration Levofloxacin 750 mg/ Device 150 mls @ 100 mls/hr 09/19/19 20:00 09/26/19 20: 46 IVPB 150 mls Q24HR ROSARIO Administration Isosorbide Mononitrate 90 mg 09/20/19 09:00 09/27/19 09:16 Imdur Er PO 90 mg DAILY ROSARIO Administration Latanoprost 1 drop 09/19/19 21:00 09/26/19 20:58 Xalatan 0.005% Ophth Soln EA EYE 1 drop HS ROSARIO Administration Mometasone Furoate/Formoterol Fumar 2 puff 09/19/19 18:30 09/27/19 06:38 Dulera 200 Mcg/5 Mcg Inhaler INH 2 puff BID-RT ROSARIO Administration Nitroglycerin 0.4 mg 09/27/19 08:50 09/27/19 09:03 Nitrostat SL 0.4 mg Q5MIN PRN Administration Chest Pain Pantoprazole Sodium 40 mg 09/27/19 09:00 09/27/19 08:39 Protonix PO 40 mg DAILY ROSARIO Administration Sodium Chloride 10 ml 09/19/19 21:00 09/27/19 09:16 Flush - Normal Saline IVF 10 ml Q12HR ROSARIO Administration Sodium Chloride 10 ml 09/19/19 18:27 09/22/19 05:20 Flush - Normal Saline IVF 10 ml PRN PRN Administration Saline Flush Sterile Water 2 ml 09/20/19 22:12 09/27/19 06:13 Bacteriostatic Water FS 2 ml PRN PRN Administration RECONSTITUTION - Exam General Appearance: awake alert ENT: normocephalic atraumatic Neck: supple, no JVD Heart: RRR, no murmur, no gallops, no rubs Respiratory: CTAB, no wheezes, no rales Gastrointestinal: soft, non-tender Hosp A/P (1) Acute on chronic respiratory failure with hypoxia Code(s): J96.21 - ACUTE AND CHRONIC RESPIRATORY FAILURE WITH HYPOXIA Status: Acute (2) COPD exacerbation Code(s): J44.1 - CHRONIC OBSTRUCTIVE PULMONARY DISEASE W (ACUTE) EXACERBATION Status: Acute (3) NSTEMI (non-ST elevated myocardial infarction) Code(s): I21.4 - NON-ST ELEVATION (NSTEMI) MYOCARDIAL INFARCTION Status: Acute - Plan Continue medical management for non-ST elevation [place] per cardiology. Patient is currently on aspirin, statin, Imdur, and metoprolol. Heparin drip DCed. COVID 19 test is negative. Continue scheduled nebulizer treatments, continue corticosteroids and antibiotics. Encourage ambulation. 09/26: Recurrent chest pain. Patient was admitted with CP and elevated troponin. Cardiology suggested demand ischemia at that time. Check troponin and ekg Reconsult with Cardiology if troponin is more elevated.
[2019-09-27] MEDS: Acetaminophen 325 MG TAB PO PRN (11:12)
[2019-09-27] MEDS: Mag-Al Plus 1200 MG/1200 MG/120 MG/30 ML UDCUP PO PRN (11:15)
[2019-09-27 11:32] LABS: Troponin I 0.292 ng/mL (< 0.028)
[2019-09-27] MEDS: Morphine 2 MG/ML SYRINGE SLOW IVP PRN ×2 (13:01→20:12)
[2019-09-27] MEDS: Atorvastatin Calcium 40 MG TAB PO SCH (20:10)
[2019-09-27] MEDS: Latanoprost 0.005% Ophth Soln 2.5 ml Bottle EA EYE SCH (20:11)
--- NOTE | 2019-09-27 21:00 | EKG ---
Test Reason : Blood Pressure : / mmHG Vent. Rate : 102 BPM Atrial Rate : 102 BPM P-R Int : 138 ms QRS Dur : 088 ms QT Int : 358 ms P-R-T Axes : 079 -28 108 degrees QTc Int : 466 ms Sinus tachycardia Abnormal ECG When compared with ECG of 21-SEP-2019 22:45, Vent. rate has increased BY [address] now depressed in Anterior leads T wave inversion now evident in Lateral leads Confirmed by Dung FAULKNER ([id number]) on 09/27/2019 9:00:18 PM Referred By: ÓSCAR Confirmed By:Dung FAULKNER
[2019-09-28] MEDS: Acetylcysteine 20% 200 MG/ML 30 ML VIAL INH SCH ×5 (02:00→22:43)
[2019-09-28] MEDS: Nitroglycerin 0.4 MG TAB (25 Tab Bottle) SL PRN ×3 (02:09→02:18)
[2019-09-28] MEDS: Mag-Al Plus 1200 MG/1200 MG/120 MG/30 ML UDCUP PO PRN (02:17)
[2019-09-28] MEDS: Morphine 2 MG/ML SYRINGE SLOW IVP PRN (02:24)
[2019-09-28] MEDS: Mometasone 200 MCG/Formoterol 5 MCG 120 PUFF INHALER INH SCH ×2 (06:51→18:46)
[2019-09-28] MEDS ORDERED: methylPREDNISolone Sod Succ/PF 125 MG/2 ML VIAL IVP SCH (09:00)
[2019-09-28] MEDS: Diltiazem HCl SR 60 mg Capsule PO SCH ×2 (10:19→20:31)
[2019-09-28] MEDS: Ezetimibe 10 MG TAB PO SCH (10:19)
[2019-09-28] MEDS: Gabapentin 100 MG CAP PO SCH ×3 (10:19→20:31)
[2019-09-28] MEDS: Aspirin 81 mg Enteric Coated Tablet PO SCH (10:19)
[2019-09-28] MEDS: Isosorbide Mononitrate (ER) 30 MG TAB PO SCH (10:25)
[2019-09-28] MEDS: guaiFENesin ER 600 MG TAB PO SCH ×2 (10:25→20:31)
[2019-09-28] MEDS: Furosemide 40 MG TAB PO SCH (10:25)
[2019-09-28] MEDS: Clopidogrel Bisulfate 75 MG TAB PO SCH (10:25)
[2019-09-28] MEDS: Dorzolamide HCl 2% Ophth Soln 10 ml Bottle EA EYE SCH ×3 (10:29→20:30)
[2019-09-28] MEDS: Fluticasone Propionate Nasal Spray 16 gm Bottle NASAL SCH (10:29)
[2019-09-28] MEDS: methylPREDNISolone Sod Succ 40 MG VIAL IVP SCH (10:30)
[2019-09-28] MEDS: Pantoprazole 40 MG GRANULES PACKET PO SCH (10:33)
[2019-09-28] MEDS: Latanoprost 0.005% Ophth Soln 2.5 ml Bottle EA EYE SCH (20:30)
[2019-09-28] MEDS: Atorvastatin Calcium 40 MG TAB PO SCH (20:31)
[2019-09-29] MEDS: Mometasone 200 MCG/Formoterol 5 MCG 120 PUFF INHALER INH SCH ×2 (07:20→18:43)
[2019-09-29] MEDS: Acetylcysteine 20% 200 MG/ML 30 ML VIAL INH SCH ×3 (07:20→18:43)
[2019-09-29] MEDS: Isosorbide Mononitrate (ER) 30 MG TAB PO SCH (09:13)
[2019-09-29] MEDS: Clopidogrel Bisulfate 75 MG TAB PO SCH (09:13)
[2019-09-29] MEDS: Diltiazem HCl SR 60 mg Capsule PO SCH ×2 (09:13→20:25)
[2019-09-29] MEDS: Aspirin 81 mg Enteric Coated Tablet PO SCH (09:13)
[2019-09-29] MEDS: Gabapentin 100 MG CAP PO SCH ×3 (09:14→20:24)
[2019-09-29] MEDS: guaiFENesin ER 600 MG TAB PO SCH ×2 (09:14→20:24)
[2019-09-29] MEDS: Dorzolamide HCl 2% Ophth Soln 10 ml Bottle EA EYE SCH ×3 (09:14→20:24)
[2019-09-29] MEDS: Ezetimibe 10 MG TAB PO SCH (09:15)
[2019-09-29] MEDS: Furosemide 40 MG TAB PO SCH (09:15)
[2019-09-29] MEDS: Fluticasone Propionate Nasal Spray 16 gm Bottle NASAL SCH (09:15)
[2019-09-29] MEDS: Pantoprazole 40 MG GRANULES PACKET PO SCH (09:16)
[2019-09-29] MEDS: methylPREDNISolone Sod Succ 40 MG VIAL IVP SCH (09:16)
--- NOTE | 2019-09-29 09:37 | PDOC.HOSPP ---
- Subjective Encounter Date: 09/28/19 Encounter Time: 10:15 Subjective: pt up in bed feels sob, he denies any chest pain today but gets chest pain at times. He has been coughing up a lot of sputum. - Objective Vital Signs & Weight: Vital Signs (12 hours) Temp Pulse Resp BP BP Pulse Ox 09/29/19 07:58 97.6 F 108 H 19 123/58 L 94 L 09/29/19 07:20 97 20 09/29/19 03:56 98.6 F 104 H 20 116/58 L 97 09/29/19 02:49 94 16 95 09/29/19 00:09 97.9 F 104 H 14 126/65 94 L 09/28/19 22:43 95 16 95 Weight Admit Weight 212 lb 3.2 oz Weight 211 lb I&O: 09/28/19 09/29/19 09/30/19 06:59 06:59 06:59 Intake Total 1037 2380 Output Total 1650 2750 Balance -303 -430 Result Diagrams: 09/25/19 04:15 09/25/19 04:15 Hospitalist ROS - Review of Systems Respiratory: reports: cough, sputum Cardiovascular: denies: chest pain, palpitations, orthopnea, paroxysmal noc. dyspnea, edema, light headedness, other Gastrointestinal: denies: nausea, vomiting, abdominal pain, diarrhea, constipation, melena, hematochezia, other Genitourinary: denies: dysuria, frequency, incontinence, hematuria, retention, other - Medication Medications: Active Medications Generic Name Dose Route Start Last Admin Trade Name Freq PRN Reason Stop Dose Admin Acetaminophen 650 mg 09/22/19 13:36 09/27/19 11:12 Tylenol PO 650 mg Q6H PRN Administration Pain Acetylcysteine 600 mg 09/25/19 13:00 09/29/19 07:20 Mucomyst 20% INH 600 mg [id number] ROSARIO Administration Al Hydroxide/Mg Hydroxide 30 ml 09/26/19 04:44 09/27/19 08:39 Maalox PO 30 ml Q6H PRN Administration Heartburn or Indigestion Al Hydroxide/Mg Hydroxide 30 ml 09/27/19 09:50 09/28/19 02:17 Maalox Plus PO 30 ml Q6H PRN Administration Heartburn or Indigestion Albuterol/Ipratropium 3 ml 09/24/19 14:30 09/29/19 07:20 Duoneb NEB 3 ml [id number] ROSARIO Administration Aspirin 81 mg 09/20/19 09:00 09/29/19 09:13 Ecotrin PO 81 mg DAILY ROSARIO Administration Atorvastatin Calcium 80 mg 09/20/19 21:00 09/28/19 20:31 Lipitor PO 80 mg HS ROSARIO Administration Calcium Carbonate 1,000 mg 09/26/19 04:44 09/27/19 08:39 Tums PO 1,000 mg Q4H PRN Administration Heartburn or Indigestion Clopidogrel Bisulfate 75 mg 09/20/19 09:00 09/29/19 09:13 Plavix PO 75 mg DAILY ROSARIO Administration Diltiazem HCl 60 mg 09/26/19 21:00 09/29/19 09:13 Cardizem Sr PO 60 mg BID ROSARIO Administration Dorzolamide HCl 1 drop 09/19/19 21:00 09/29/19 09:14 Trusopt 2% Ophth Soln EA EYE 1 drop TID ROSARIO Administration Ezetimibe 10 mg 09/20/19 09:00 09/29/19 09:15 Zetia PO 10 mg DAILY ROSARIO Administration Fluticasone Propionate 0 gm 09/20/19 09:00 09/29/19 09:15 Flonase Nasal [place] NASAL 1 spr DAILY ROSARIO Administration Furosemide 40 mg 09/20/19 09:00 09/29/19 09:15 Lasix PO 40 mg DAILY ROSARIO Administration Gabapentin 200 mg 09/19/19 21:00 09/29/19 09:14 Neurontin PO 200 mg TID ROSARIO Administration Guaifenesin 1,200 mg 09/22/19 09:00 09/29/19 09:14 Mucinex PO 1,200 mg Q12HR ROSARIO Administration Levofloxacin 750 mg/ Device 150 mls @ 100 mls/hr 09/19/19 20:00 09/28/19 20: 35 IVPB 150 mls Q24HR ROSARIO Administration Isosorbide Mononitrate 90 mg 09/20/19 09:00 09/29/19 09:13 Imdur Er PO 90 mg DAILY ROSARIO Administration Latanoprost 1 drop 09/19/19 21:00 09/28/19 20:30 Xalatan 0.005% Ophth Soln EA EYE 1 drop HS ROSARIO Administration Methylprednisolone Sodium Succinate 40 mg 09/28/19 09:00 09/29/19 09:16 Solu-Medrol IVP 40 mg DAILY ROSARIO Administration Mometasone Furoate/Formoterol Fumar 2 puff 09/19/19 18:30 09/29/19 07:20 Dulera 200 Mcg/5 Mcg Inhaler INH 2 puff BID-RT ROSARIO Administration Morphine Sulfate 2 mg 09/27/19 11:52 09/28/19 02:24 Morphine SLOW IVP 2 mg Q2H PRN Administration Pain Nitroglycerin 0.4 mg 09/27/19 08:50 09/28/19 02:18 Nitrostat SL 0.4 mg Q5MIN PRN Administration Chest Pain Pantoprazole Sodium 40 mg 09/27/19 09:00 09/29/19 09:16 Protonix PO 40 mg DAILY ROSARIO Administration Sodium Chloride 10 ml 09/19/19 21:00 09/29/19 09:16 Flush - Normal Saline IVF 10 ml Q12HR ROSARIO Administration Sodium Chloride 10 ml 09/19/19 18:27 09/22/19 05:20 Flush - Normal Saline IVF 10 ml PRN PRN Administration Saline Flush Sterile Water 2 ml 09/20/19 22:12 09/27/19 06:13 Bacteriostatic Water FS 2 ml PRN PRN Administration RECONSTITUTION - Exam Respiratory: wheezes Gastrointestinal: negative: soft, non-tender, non-distended, normal bowel sounds , no palpable masses, no hepatomegaly, no splenomegaly, no bruit, no guarding, no rigidity, tender to palpation, distended, diminished bowl sounds, voluntary guarding Extremities: negative: no cyanosis, no clubbing, no edema, 1+ LE edema, 2+ LE edema, clubbing Skin: negative: normal turgor, no lesions, no rashes, tenting Hosp A/P (1) Acute on chronic respiratory failure with hypoxia Code(s): J96.21 - ACUTE AND CHRONIC RESPIRATORY FAILURE WITH HYPOXIA Status: Acute (2) COPD exacerbation Code(s): J44.1 - CHRONIC OBSTRUCTIVE PULMONARY DISEASE W (ACUTE) EXACERBATION Status: Acute (3) NSTEMI (non-ST elevated myocardial infarction) Code(s): I21.4 - NON-ST ELEVATION (NSTEMI) MYOCARDIAL INFARCTION Status: Acute (4) Aortic valve prosthesis present Code(s): Z95.2 - PRESENCE OF PROSTHETIC HEART VALVE Status: Chronic (5) CAD (coronary artery disease) Code(s): I25.10 - ATHSCL HEART DISEASE OF [place] CORONARY ARTERY W/O ANG PCTRS Status: Chronic Qualifiers: Coronary Disease-Associated Artery/Lesion type: [place] artery [place] vs. transplanted heart: [place] heart Associated angina: without angina Qualified Code(s): I25.10 - Atherosclerotic heart disease of [place] coronary artery without angina pectoris (6) DM type 2 (diabetes mellitus, type 2) Status: Chronic Qualifiers: Diabetes mellitus fpc insulin use: without continuous churn buttermaker use Diabetes mellitus complication status: without complication Qualified Code(s): E11.9 - Type 2 diabetes mellitus without complications - Plan will change his iv steroids to po, will get a sputum culture. He has been coughing up a lot of mucus. His last ct chest was 05/22 indicated sever emphysema. his covid test was negative. his previous sputum cx indicated ecoli which was resistant to levaquin. will change his abx.
--- NOTE | 2019-09-29 12:44 | PDOC.HOSPP ---
- Subjective Encounter Date: 09/29/19 Encounter Time: 11:15 Subjective: pt up in bed got sob with PT. He did drop his oxygen sat to 80's on oxygen then recovered. still has a lot of sputum production. - Objective Vital Signs & Weight: Vital Signs (12 hours) Temp Pulse Pulse Resp BP BP BP 09/29/19 12:05 99.3 F 118 H 26 H 93/56 L 09/29/19 11:00 118 H 20 09/29/19 10:58 114 H 148/69 H 09/29/19 07:58 97.6 F 108 H 19 123/58 L 09/29/19 07:20 97 20 09/29/19 03:56 98.6 F 104 H 20 116/58 L 09/29/19 02:49 94 16 Pulse Ox Pulse Ox 09/29/19 12:05 95 09/29/19 11:00 09/29/19 10:58 93 L 09/29/19 07:58 94 L 09/29/19 07:20 09/29/19 03:56 97 09/29/19 02:49 95 Weight Admit Weight 212 lb 3.2 oz Weight 211 lb I&O: 09/28/19 09/29/19 09/30/19 06:59 06:59 06:59 Intake Total 1037 2380 Output Total 1650 2750 Balance -613 -028 Result Diagrams: 09/29/19 13:23 09/29/19 13:23 Hospitalist ROS - Review of Systems Respiratory: reports: shortness of breath, sputum. denies: cough, dry, hemoptysis, SOB with excertion, pleuritic pain, wheezing, other Cardiovascular: denies: chest pain, palpitations, orthopnea, paroxysmal noc. dyspnea, edema, light headedness, other Gastrointestinal: denies: nausea, vomiting, abdominal pain, diarrhea, constipation, melena, hematochezia, other - Medication Medications: Active Medications Generic Name Dose Route Start Last Admin Trade Name Freq PRN Reason Stop Dose Admin Acetaminophen 650 mg 09/22/19 13:36 09/27/19 11:12 Tylenol PO 650 mg Q6H PRN Administration Pain Acetylcysteine 600 mg 09/25/19 13:00 09/29/19 07:20 Mucomyst 20% INH 600 mg [id number] ROSARIO Administration Al Hydroxide/Mg Hydroxide 30 ml 09/26/19 04:44 09/27/19 08:39 Maalox PO 30 ml Q6H PRN Administration Heartburn or Indigestion Al Hydroxide/Mg Hydroxide 30 ml 09/27/19 09:50 09/28/19 02:17 Maalox Plus PO 30 ml Q6H PRN Administration Heartburn or Indigestion Aspirin 81 mg 09/20/19 09:00 09/29/19 09:13 Ecotrin PO 81 mg DAILY ROSARIO Administration Atorvastatin Calcium 80 mg 09/20/19 21:00 09/28/19 20:31 Lipitor PO 80 mg HS ROSARIO Administration Calcium Carbonate 1,000 mg 09/26/19 04:44 09/27/19 08:39 Tums PO 1,000 mg Q4H PRN Administration Heartburn or Indigestion Clopidogrel Bisulfate 75 mg 09/20/19 09:00 09/29/19 09:13 Plavix PO 75 mg DAILY ROSARIO Administration Diltiazem HCl 60 mg 09/26/19 21:00 09/29/19 09:13 Cardizem Sr PO 60 mg BID ROSARIO Administration Dorzolamide HCl 1 drop 09/19/19 21:00 09/29/19 09:14 Trusopt 2% Ophth Soln EA EYE 1 drop TID ROSARIO Administration Ezetimibe 10 mg 09/20/19 09:00 09/29/19 09:15 Zetia PO 10 mg DAILY ROSARIO Administration Fluticasone Propionate 0 gm 09/20/19 09:00 09/29/19 09:15 Flonase Nasal [place] NASAL 1 spr DAILY ROSARIO Administration Furosemide 40 mg 09/20/19 09:00 09/29/19 09:15 Lasix PO 40 mg DAILY ROSARIO Administration Gabapentin 200 mg 09/19/19 21:00 09/29/19 09:14 Neurontin PO 200 mg TID ROSARIO Administration Guaifenesin 1,200 mg 09/22/19 09:00 09/29/19 09:14 Mucinex PO 1,200 mg Q12HR ROSARIO Administration Isosorbide Mononitrate 90 mg 09/20/19 09:00 09/29/19 09:13 Imdur Er PO 90 mg DAILY ROSARIO Administration Latanoprost 1 drop 09/19/19 21:00 09/28/19 20:30 Xalatan 0.005% Ophth Soln EA EYE 1 drop HS ROSARIO Administration Mometasone Furoate/Formoterol Fumar 2 puff 09/19/19 18:30 09/29/19 07:20 Dulera 200 Mcg/5 Mcg Inhaler INH 2 puff BID-RT ROSARIO Administration Morphine Sulfate 2 mg 09/27/19 11:52 09/28/19 02:24 Morphine SLOW IVP 2 mg Q2H PRN Administration Pain Nitroglycerin 0.4 mg 09/27/19 08:50 09/28/19 02:18 Nitrostat SL 0.4 mg Q5MIN PRN Administration Chest Pain Pantoprazole Sodium 40 mg 09/27/19 09:00 09/29/19 09:16 Protonix PO 40 mg DAILY ROSARIO Administration Sodium Chloride 10 ml 09/19/19 21:00 09/29/19 09:16 Flush - Normal Saline IVF 10 ml Q12HR ROSARIO Administration Sodium Chloride 10 ml 09/19/19 18:27 09/22/19 05:20 Flush - Normal Saline IVF 10 ml PRN PRN Administration Saline Flush Sterile Water 2 ml 09/20/19 22:12 09/27/19 06:13 Bacteriostatic Water FS 2 ml PRN PRN Administration RECONSTITUTION - Exam Heart - other findings: tachycardic Respiratory - other findings: mild exp wheezing, decreased breath sound all over Gastrointestinal: negative: soft, non-tender, non-distended, normal bowel sounds , no palpable masses, no hepatomegaly, no splenomegaly, no bruit, no guarding, no rigidity, tender to palpation, distended, diminished bowl sounds, voluntary guarding Extremities: 1+ LE edema Skin: negative: normal turgor, no lesions, no rashes, tenting Hosp A/P (1) Acute on chronic respiratory failure with hypoxia Code(s): J96.21 - ACUTE AND CHRONIC RESPIRATORY FAILURE WITH HYPOXIA Status: Acute (2) COPD exacerbation Code(s): J44.1 - CHRONIC OBSTRUCTIVE PULMONARY DISEASE W (ACUTE) EXACERBATION Status: Acute (3) NSTEMI (non-ST elevated myocardial infarction) Code(s): I21.4 - NON-ST ELEVATION (NSTEMI) MYOCARDIAL INFARCTION Status: Acute (4) Aortic valve prosthesis present Code(s): Z95.2 - PRESENCE OF PROSTHETIC HEART VALVE Status: Chronic (5) CAD (coronary artery disease) Code(s): I25.10 - ATHSCL HEART DISEASE OF [place] CORONARY ARTERY W/O ANG PCTRS Status: Chronic Qualifiers: Coronary Disease-Associated Artery/Lesion type: [place] artery [place] vs. transplanted heart: [place] heart Associated angina: without angina Qualified Code(s): I25.10 - Atherosclerotic heart disease of [place] coronary artery without angina pectoris (6) DM type 2 (diabetes mellitus, type 2) Status: Chronic Qualifiers: Diabetes mellitus nursing home insulin use: without nursing home use Diabetes mellitus complication status: without complication Qualified Code(s): E11.9 - Type 2 diabetes mellitus without complications - Plan will change his iv steroids to po, will get a sputum culture. He has been coughing up a lot of mucus. His last ct chest was 05/22 indicated sever emphysema. his covid test was negative. his previous sputum cx indicated ecoli which was resistant to levaquin. will change his abx. 09/28 will consult pulmonary, will get ct chest. sputum cx ordered. will change his neb tx to only ipratropium given his tachycardia. 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
--- NOTE | 2019-09-29 13:25 | CT ---
CT CHEST WITHOUT CONTRAST: INDICATIONS: Shortness of breath. Chest pain. COMPARISON: Chest CT from 07/28/19. FINDINGS: Mildly severe emphysematous changes are again noted. There are large bullae involving the right upper lobe and there are other scattered bullae seen, more prominent on the right. There is no evidence of an inflammatory infiltrate. A tiny calcified granuloma in the right lung base, measuring 4 to 5 mm, is stable. A new focal density in the right lung base posteriorly is seen today, measuring in the 8 to 10 mm ran ge on the axial image. This most likely represents a focal are of atelectasis since it was not presen t on the recent exam of 07/28/19. I cannot exclude a small focal area of inflammatory infiltrate. The re is no effusion. No other interval change. IMPRESSION: 1. Moderately severe emphysematous change again noted. 2. A new focal nodular density in the posterior right lung base since the prior examination, most lik benjamin representing focal atelectasis. This could be reassessed with a follow-up CT as clinically indica bradley. The chest is otherwise unchanged. POS: AGW
[2019-09-29 13:39] LABS: #Lymphocytes 0.5 thou/uL (1.20-3.40); #Monocytes 0.4 thou/uL (0.11-0.59); %Eosinophils 0.1 % (0.0-10.0); %Lymphocytes 3.2 % (21.0-51.0); %Monocytes 2.6 % (0.0-10.0); %Neutrophils 94.1 % (42.0-75.0); Hemoglobin 14.3 g/dL (14.0-18.0); Mean Corpuscular HGB CONC 33.5 g/dL (32.0-36.0); Mean Corpuscular Hemoglobin 32.6 pg (27.0-31.0); Mean Corpuscular Volume 97.4 fL (78.0-98.0); Mean Platelet Volume 8.5 fL (7.4-10.4); Platelet Count 152 thou/uL (130-400); RBC Distribution Width 12.5 % (11.5-14.5); Red Blood Cell (RBC) Count 4.38 mill/uL (4.70-6.10); White Blood Cell (WBC) Count 15.9 thou/uL (4.8-10.8)
[2019-09-29 14:00] LABS: ALT (SGPT) 24 U/L (8-55); AST (SGOT) 19 U/L (5-34); Albumin 3.8 g/dL (3.4-4.8); Alkaline Phosphatase 46 U/L (40-110); Anion Gap 20 mmol/L (10-20); BUN (Urea Nitrogen) 10 mg/dL (8.4-25.7); Bilirubin, Total 0.8 mg/dL (0.2-1.2); Calc. Creatinine Clearance 112 mL/min (70-130); Calcium 9.1 mg/dL (7.8-10.44); Carbon Dioxide 23 mmol/L (23-31); Chloride 96 mmol/L (98-107); Estimated GFR-MDRD Greater than 90; Globulin 2.8 g/dL (2.4-3.5); Glucose 353 mg/dL (83-110); Potassium 3.7 mmol/L (3.5-5.1); Protein, Total 6.6 g/dL (5.8-8.1); Sodium 135 mmol/L (136-145)
[2019-09-29] MEDS ORDERED: Ipratropium Bromide 2.5 ml Neb NEB SCH (14:30)
[2019-09-29] MEDS: Piperacillin/Tazobactam 3.375 GM in Sodium Chloride 0.9% 100 ML IVPB SCH ×2 (17:25→23:46)
[2019-09-29] MEDS: Sodium Chloride 3% (15 ML) NEB NEB SCH (18:43)
[2019-09-29] MEDS: Atorvastatin Calcium 40 MG TAB PO SCH (20:24)
[2019-09-29] MEDS: Latanoprost 0.005% Ophth Soln 2.5 ml Bottle EA EYE SCH (20:24)
[2019-09-30] MEDS: Acetylcysteine 20% 200 MG/ML 30 ML VIAL INH SCH ×4 (02:26→18:30)
[2019-09-30] MEDS: Piperacillin/Tazobactam 3.375 GM in Sodium Chloride 0.9% 100 ML IVPB SCH ×4 (05:44→23:48)
[2019-09-30] MEDS: Mometasone 200 MCG/Formoterol 5 MCG 120 PUFF INHALER INH SCH ×2 (07:36→18:30)
[2019-09-30] MEDS: Aspirin 81 mg Enteric Coated Tablet PO SCH (08:13)
[2019-09-30] MEDS: guaiFENesin ER 600 MG TAB PO SCH ×2 (08:13→21:12)
[2019-09-30] MEDS: Fluticasone Propionate Nasal Spray 16 gm Bottle NASAL SCH (08:13)
[2019-09-30] MEDS: Ezetimibe 10 MG TAB PO SCH (08:13)
[2019-09-30] MEDS: Clopidogrel Bisulfate 75 MG TAB PO SCH (08:14)
[2019-09-30] MEDS: predniSONE 20 MG TAB PO SCH (08:14)
[2019-09-30] MEDS: Isosorbide Mononitrate (ER) 30 MG TAB PO SCH (08:14)
[2019-09-30] MEDS: Pantoprazole 40 MG GRANULES PACKET PO SCH (08:14)
[2019-09-30] MEDS: Gabapentin 100 MG CAP PO SCH ×3 (08:14→21:11)
[2019-09-30] MEDS: Diltiazem HCl SR 60 mg Capsule PO SCH ×2 (08:14→21:11)
[2019-09-30] MEDS: Dorzolamide HCl 2% Ophth Soln 10 ml Bottle EA EYE SCH ×3 (08:18→21:11)
[2019-09-30] MEDS: Saccharomyces boulardii 250 MG CAP PO SCH (09:21)
[2019-09-30] MEDS: Sodium Chloride 3% (15 ML) NEB NEB SCH ×2 (10:32→22:28)
--- NOTE | 2019-09-30 12:46 | PDOC.HOSPP ---
- Subjective Encounter Date: 09/30/19 Encounter Time: 11:30 Subjective: pt up in bed states he feels much better today. - Objective Vital Signs & Weight: Vital Signs (12 hours) Temp Pulse Resp BP Pulse Ox 09/30/19 10:52 97.9 F 107 H 24 H 126/70 96 09/30/19 10:24 101 H 20 09/30/19 07:36 92 18 09/30/19 07:21 98.6 F 106 H 24 H 110/67 96 09/30/19 04:00 98.1 F 101 H 20 124/65 94 L 09/30/19 02:26 104 H 18 92 L Weight Admit Weight 212 lb 3.2 oz Weight 207 lb 9.6 oz I&O: 09/29/19 09/30/19 10/01/19 06:59 06:59 06:59 Intake Total 2380 1960 Output Total 2750 3350 Balance -370 -1390 Result Diagrams: 09/29/19 13:23 09/29/19 13:23 Hospitalist ROS - Review of Systems Respiratory: reports: shortness of breath Cardiovascular: denies: chest pain, palpitations, orthopnea, paroxysmal noc. dyspnea, edema, light headedness, other Gastrointestinal: denies: nausea, vomiting, abdominal pain, diarrhea, constipation, melena, hematochezia, other Genitourinary: denies: dysuria, frequency, incontinence, hematuria, retention, other Musculoskeletal: denies: neck pain, shoulder pain, arm pain, back pain, hand pain, leg pain, foot pain, other - Medication Medications: Active Medications Generic Name Dose Route Start Last Admin Trade Name Freq PRN Reason Stop Dose Admin Acetaminophen 650 mg 09/22/19 13:36 09/27/19 11:12 Tylenol PO 650 mg Q6H PRN Administration Pain Acetylcysteine 600 mg 09/25/19 13:00 09/30/19 07:38 Mucomyst 20% INH 600 mg [id number] ROSARIO Administration Al Hydroxide/Mg Hydroxide 30 ml 09/26/19 04:44 09/27/19 08:39 Maalox PO 30 ml Q6H PRN Administration Heartburn or Indigestion Al Hydroxide/Mg Hydroxide 30 ml 09/27/19 09:50 09/28/19 02:17 Maalox Plus PO 30 ml Q6H PRN Administration Heartburn or Indigestion Albuterol/Ipratropium 3 ml 09/29/19 18:30 09/30/19 10:24 Duoneb NEB 3 ml [id number] ROSARIO Administration Aspirin 81 mg 09/20/19 09:00 09/30/19 08:13 Ecotrin PO 81 mg DAILY ROSARIO Administration Atorvastatin Calcium 80 mg 09/20/19 21:00 09/29/19 20:24 Lipitor PO 80 mg HS ROSARIO Administration Calcium Carbonate 1,000 mg 09/26/19 04:44 09/27/19 08:39 Tums PO 1,000 mg Q4H PRN Administration Heartburn or Indigestion Clopidogrel Bisulfate 75 mg 09/20/19 09:00 09/30/19 08:14 Plavix PO 75 mg DAILY ROSARIO Administration Diltiazem HCl 60 mg 09/26/19 21:00 09/30/19 08:14 Cardizem Sr PO 60 mg BID ROSARIO Administration Dorzolamide HCl 1 drop 09/19/19 21:00 09/30/19 08:18 Trusopt 2% Ophth Soln EA EYE 1 drop TID ROSARIO Administration Ezetimibe 10 mg 09/20/19 09:00 09/30/19 08:13 Zetia PO 10 mg DAILY ROSARIO Administration Fluticasone Propionate 0 gm 09/20/19 09:00 09/30/19 08:13 Flonase Nasal [place] NASAL 1 spr DAILY ROSARIO Administration Furosemide 40 mg 09/20/19 09:00 09/29/19 09:15 Lasix PO 40 mg DAILY ROSARIO Administration Gabapentin 200 mg 09/19/19 21:00 09/30/19 08:14 Neurontin PO 200 mg TID ROSARIO Administration Guaifenesin 1,200 mg 09/22/19 09:00 09/30/19 08:13 Mucinex PO 1,200 mg Q12HR ROSARIO Administration Piperacillin Sod/Tazobactam 100 mls @ 200 mls/hr 09/29/19 18:00 09/30/19 10: 53 Sod 3.375 gm/ Sodium Chloride IVPB 100 mls Q6HR ROSARIO Administration Isosorbide Mononitrate 90 mg 09/20/19 09:00 09/30/19 08:14 Imdur Er PO 90 mg DAILY ROSARIO Administration Latanoprost 1 drop 09/19/19 21:00 09/29/19 20:24 Xalatan 0.005% Ophth Soln EA EYE 1 drop HS ROSARIO Administration Mometasone Furoate/Formoterol Fumar 2 puff 09/19/19 18:30 09/30/19 07:36 Dulera 200 Mcg/5 Mcg Inhaler INH 2 puff BID-RT ROSARIO Administration Morphine Sulfate 2 mg 09/27/19 11:52 09/28/19 02:24 Morphine SLOW IVP 2 mg Q2H PRN Administration Pain Nitroglycerin 0.4 mg 09/27/19 08:50 09/28/19 02:18 Nitrostat SL 0.4 mg Q5MIN PRN Administration Chest Pain Pantoprazole Sodium 40 mg 09/27/19 09:00 09/30/19 08:14 Protonix PO 40 mg DAILY ROSARIO Administration Prednisone 40 mg 09/30/19 08:00 09/30/19 08:14 Prednisone PO 40 mg QAM-WM ROSARIO Administration Saccharomyces Boulardii 250 mg 09/30/19 09:00 09/30/19 09:21 Florastor PO 250 mg DAILY ROSARIO Administration Sodium Chloride 10 ml 09/19/19 21:00 09/30/19 08:18 Flush - Normal Saline IVF 10 ml Q12HR ROSARIO Administration Sodium Chloride 10 ml 09/19/19 18:27 09/22/19 05:20 Flush - Normal Saline IVF 10 ml PRN PRN Administration Saline Flush Sodium Chloride 15 ml 09/29/19 18:30 09/30/19 10:32 Sodium Chloride 3% NEB 15 ml BID-RT ROSARIO Administration Sterile Water 2 ml 09/20/19 22:12 09/27/19 06:13 Bacteriostatic Water FS 2 ml PRN PRN Administration RECONSTITUTION - Exam Neck: negative: supple, symmetric, no JVD, no thyromegaly, no lymphadenopathy, no carotid bruit, JVD Heart: negative: RRR, no murmur, no gallops, no rubs, normal peripheral pulses, irregular, diminshed peripheral pulses, murmur present, II/IV, III/IV Respiratory - other findings: mild exp wheezing Gastrointestinal: negative: soft, non-tender, non-distended, normal bowel sounds , no palpable masses, no hepatomegaly, no splenomegaly, no bruit, no guarding, no rigidity, tender to palpation, distended, diminished bowl sounds, voluntary guarding Hosp A/P (1) Acute on chronic respiratory failure with hypoxia Code(s): J96.21 - ACUTE AND CHRONIC RESPIRATORY FAILURE WITH HYPOXIA Status: Acute (2) COPD exacerbation Code(s): J44.1 - CHRONIC OBSTRUCTIVE PULMONARY DISEASE W (ACUTE) EXACERBATION Status: Acute (3) NSTEMI (non-ST elevated myocardial infarction) Code(s): I21.4 - NON-ST ELEVATION (NSTEMI) MYOCARDIAL INFARCTION Status: Acute (4) Aortic valve prosthesis present Code(s): Z95.2 - PRESENCE OF PROSTHETIC HEART VALVE Status: Chronic (5) CAD (coronary artery disease) Code(s): I25.10 - ATHSCL HEART DISEASE OF [place] CORONARY ARTERY W/O ANG PCTRS Status: Chronic Qualifiers: Coronary Disease-Associated Artery/Lesion type: [place] artery [place] vs. transplanted heart: [place] heart Associated angina: without angina Qualified Code(s): I25.10 - Atherosclerotic heart disease of [place] coronary artery without angina pectoris (6) DM type 2 (diabetes mellitus, type 2) Status: Chronic Qualifiers: Diabetes mellitus terminal worker insulin use: without residential use Diabetes mellitus complication status: without complication Qualified Code(s): E11.9 - Type 2 diabetes mellitus without complications - Plan will change his iv steroids to po, will get a sputum culture. He has been coughing up a lot of mucus. His last ct chest was 05/22 indicated sever emphysema. his covid test was negative. his previous sputum cx indicated ecoli which was resistant to levaquin. will change his abx. 09/28 will consult pulmonary, will get ct chest. sputum cx ordered. will change his neb tx to only ipratropium given his tachycardia. 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 09/29 sputum indicated gram negative his abx has been switched based on last micro. pending pulm recommendation. ct chest no pneumonia but has severe emphysema.
--- NOTE | 2019-09-30 21:01 | CON ---
DATE OF CONSULTATION: 09/30/2019 SERVICE: Pulmonary Medicine. REASON FOR CONSULT: Bronchiectasis exacerbation. HISTORY OF PRESENT ILLNESS: The patient is a pleasant 74-year-old male with past medical history significant for bronchiectasis and advanced COPD. He was in his usual state of health when he started having onset of chest discomfort. He was placed in the hospital, and initiated on treatment for his non-ST- elevation PR. Three days into the hospital stay, he started having profuse amounts of sputum production. He is bringing up slimy green mucus. He does this on a day-by-day basis, but since being in the hospital, it has escalated. He denies any current fevers, chills, nausea, vomiting, or diarrhea currently. He shows me over 200 mL of green mucousy brought up over the last 24 hours. Because of this increase in sputum production, I was contacted. He did have a CT of the chest which demonstrated a very small infiltrate, which was not our culprit here. PAST MEDICAL HISTORY: 1. Chronic hypoxic respiratory failure. 2. COPD. 3. Bronchiectasis. 4. Hypertension. 5. Dyslipidemia. PAST SURGICAL HISTORY: 1. Coronary artery bypass graft in 1988. 2. Carpal tunnel surgery. 3. Rotator cuff surgery. 4. Aortic valve replacement. SOCIAL HISTORY: Negative for current alcohol, tobacco, or illicit drug use. He quit smoking in 2019, but prior to that, had a greater than [id number] history of smoking. No exposure to chemicals, dust, asbestos, or tuberculosis. FAMILY HISTORY: Noncontributory. ALLERGIES: NO KNOWN DRUG ALLERGIES. MEDICATIONS: List of the patient's inpatient medications were reviewed and multiple updates were made at this time. REVIEW OF SYSTEMS: General, head, ears, eyes, nose, throat, cardiovascular, respiratory, GI/, musculoskeletal, neurologic, and skin are negative except as mentioned in the HPI. PHYSICAL EXAMINATION: VITALS: Afebrile for the duration of the hospital stay. Pulse 107, blood pressure 126/70, respirations 24, saturation 96% on 2 L nasal cannula. GENERAL: The patient is awake and alert, in no apparent distress. LUNGS: Extensive rhonchi are present without prolonged expiratory phase or wheezing present. HEART: Normal rate. Regular. ABDOMEN: Soft, nontender, and nondistended. Bowel sounds are positive. MUSCULOSKELETAL: No cyanosis or clubbing. There is no pitting in the bilateral lower extremities. NEUROLOGIC: Grossly nonfocal. LABORATORY DATA: WBC 10.6, up trending to 15.9 with steroids; hemoglobin 14.3; and platelets 152,000. Basic metabolic profile and liver function studies are unremarkable. Troponin is downtrending to 0.092. Urinalysis is unremarkable. COVID is negative. Sputum culture is growing gram-negative ashley. Previously, he grew something that was multi-drug resistant. Blood cultures x2, urine culture, respiratory virus scan panel all unremarkable. ASSESSMENT: 1. Acute hypoxic respiratory failure, currently at baseline. 2. Bronchiectasis with acute exacerbation secondary to gram-negative ashley (prior growth showed multi-drug resistances). 3. Chronic obstructive pulmonary disease with acute exacerbation. 4. Coronary artery disease with [id number] myocardial infarction on presentation. DISCUSSION AND PLAN: This patient has known bronchiectasis and is bringing up sputum on a daily basis. He would benefit from physiotherapy in the outpatient setting, which would be comprised of hypertonic saline, followed by Vest Physiotherapy with DuoNebs twice daily. He should do this every day for the rest of his life to minimize exacerbations. We will put him on meropenem initially as he previously grew something that was multi-drug resistant. In the outpatient setting, he should be considered for tobramycin nebulized medications. If this does not help with the shortness of breath, endobronchial valve of the right upper lobe could be considered as he has nothing, but one large bullous in the apical segment at that location. Pulmonary and Critical Care will continue to follow along while the patient remains in-house, but Dr. Chau has very well established relationship with Mr. Beltre and will assume coverage tomorrow. 70 minutes have been devoted to this patient in various activities. I personally reviewed all imaging studies and laboratory data noted within this document. For fifty percent of this time, I was interacting with the patient at the bedside or coordinating care with the care team. For the remainder of the time I was immediately available to the patient in the hospital unit. Job ID: [id number] MTDD
[2019-09-30] MEDS: Atorvastatin Calcium 40 MG TAB PO SCH (21:11)
[2019-09-30] MEDS: Latanoprost 0.005% Ophth Soln 2.5 ml Bottle EA EYE SCH (21:12)
[2019-10-01] MEDS: Acetylcysteine 20% 200 MG/ML 30 ML VIAL INH SCH ×5 (02:41→23:24)
[2019-10-01 04:44] LABS: Anion Gap 16 mmol/L (10-20); BUN (Urea Nitrogen) 9 mg/dL (8.4-25.7); Calc. Creatinine Clearance 107 mL/min (70-130); Calcium 9.2 mg/dL (7.8-10.44); Carbon Dioxide 26 mmol/L (23-31); Chloride 100 mmol/L (98-107); Estimated GFR-MDRD Greater than 90; Glucose 197 mg/dL (83-110); Potassium 4.2 mmol/L (3.5-5.1); Sodium 138 mmol/L (136-145)
[2019-10-01 05:19] LABS: #Eosinphils 0.2 thou/uL (0.0-0.7); #Lymphocytes 1.7 thou/uL (1.20-3.40); #Monocytes 1.3 thou/uL (0.11-0.59); #Neutrophils 12.2 thou/uL (1.40-6.50); %Basophils 0.2 % (0.0-1.0); %Eosinophils 1.1 % (0.0-10.0); %Lymphocytes 11.2 % (21.0-51.0); %Monocytes 8.6 % (0.0-10.0); %Neutrophils 78.9 % (42.0-75.0); Hemoglobin 13.7 g/dL (14.0-18.0); Mean Corpuscular HGB CONC 33.1 g/dL (32.0-36.0); Mean Corpuscular Hemoglobin 32.5 pg (27.0-31.0); Mean Corpuscular Volume 98.3 fL (78.0-98.0); Mean Platelet Volume 7.8 fL (7.4-10.4); Platelet Count 137 thou/uL (130-400); RBC Distribution Width 12.5 % (11.5-14.5); RBC Morphology Normal; Red Blood Cell (RBC) Count 4.22 mill/uL (4.70-6.10); White Blood Cell (WBC) Count 15.4 thou/uL (4.8-10.8)
[2019-10-01] MEDS: Piperacillin/Tazobactam 3.375 GM in Sodium Chloride 0.9% 100 ML IVPB SCH (05:23)
[2019-10-01] MEDS: Mometasone 200 MCG/Formoterol 5 MCG 120 PUFF INHALER INH SCH ×2 (07:27→19:01)
[2019-10-01] MEDS: Clopidogrel Bisulfate 75 MG TAB PO SCH (08:27)
[2019-10-01] MEDS: Isosorbide Mononitrate (ER) 30 MG TAB PO SCH (08:27)
[2019-10-01] MEDS: Metoprolol Tartrate 100 MG TAB PO SCH ×2 (08:27→20:38)
[2019-10-01] MEDS: Gabapentin 100 MG CAP PO SCH ×3 (08:27→20:38)
[2019-10-01] MEDS: Saccharomyces boulardii 250 MG CAP PO SCH (08:28)
[2019-10-01] MEDS: guaiFENesin ER 600 MG TAB PO SCH ×2 (08:28→20:39)
[2019-10-01] MEDS: Aspirin 81 mg Enteric Coated Tablet PO SCH (08:28)
[2019-10-01] MEDS: predniSONE 20 MG TAB PO SCH (08:28)
[2019-10-01] MEDS: Ezetimibe 10 MG TAB PO SCH (08:28)
[2019-10-01] MEDS: Pantoprazole 40 MG GRANULES PACKET PO SCH (08:28)
[2019-10-01] MEDS: Dorzolamide HCl 2% Ophth Soln 10 ml Bottle EA EYE SCH ×3 (08:28→20:39)
[2019-10-01] MEDS: Fluticasone Propionate Nasal Spray 16 gm Bottle NASAL SCH (08:29)
[2019-10-01] MEDS: Sodium Chloride 3% (15 ML) NEB NEB SCH ×2 (11:33→19:01)
--- NOTE | 2019-10-01 13:48 | PDOC.HOSPP ---
- Subjective Encounter Date: 10/01/19 Encounter Time: 10:15 Subjective: pt up in bed states he feels much better today. still has sob which has improved. - Objective Vital Signs & Weight: Vital Signs (12 hours) Temp Pulse Resp BP BP Pulse Ox 10/01/19 11:10 90 20 93 L 10/01/19 11:08 98.7 F 90 19 128/78 93 L 10/01/19 07:25 92 20 10/01/19 07:21 98.5 F 99 23 H 143/64 H 95 10/01/19 03:12 98.4 F 100 20 136/82 93 L 10/01/19 02:40 103 H 18 95 Weight Admit Weight 212 lb 3.2 oz Weight 2120 lb 12.8 oz I&O: 09/30/19 10/01/19 10/02/19 06:59 06:59 06:59 Intake Total 1960 2492 Output Total 3350 2385 Balance -1390 107 Result Diagrams: 10/01/19 04:00 10/01/19 04:00 Hospitalist ROS - Review of Systems Respiratory: reports: shortness of breath Cardiovascular: denies: chest pain, palpitations, orthopnea, paroxysmal noc. dyspnea, edema, light headedness, other Gastrointestinal: denies: nausea, vomiting, abdominal pain, diarrhea, constipation, melena, hematochezia, other Genitourinary: denies: dysuria, frequency, incontinence, hematuria, retention, other - Medication Medications: Active Medications Generic Name Dose Route Start Last Admin Trade Name Freq PRN Reason Stop Dose Admin Acetaminophen 650 mg 09/22/19 13:36 09/27/19 11:12 Tylenol PO 650 mg Q6H PRN Administration Pain Acetylcysteine 600 mg 09/25/19 13:00 10/01/19 07:27 Mucomyst 20% INH 600 mg [id number] ROSARIO Administration Al Hydroxide/Mg Hydroxide 30 ml 09/26/19 04:44 09/27/19 08:39 Maalox PO 30 ml Q6H PRN Administration Heartburn or Indigestion Al Hydroxide/Mg Hydroxide 30 ml 09/27/19 09:50 09/28/19 02:17 Maalox Plus PO 30 ml Q6H PRN Administration Heartburn or Indigestion Albuterol/Ipratropium 3 ml 09/29/19 18:30 10/01/19 11:10 Duoneb NEB 3 ml [id number] ROSARIO Administration Aspirin 81 mg 09/20/19 09:00 10/01/19 08:28 Ecotrin PO 81 mg DAILY ROSARIO Administration Atorvastatin Calcium 80 mg 09/20/19 21:00 09/30/19 21:11 Lipitor PO 80 mg HS ROSARIO Administration Calcium Carbonate 1,000 mg 09/26/19 04:44 09/27/19 08:39 Tums PO 1,000 mg Q4H PRN Administration Heartburn or Indigestion Clopidogrel Bisulfate 75 mg 09/20/19 09:00 10/01/19 08:27 Plavix PO 75 mg DAILY ROSARIO Administration Dorzolamide HCl 1 drop 09/19/19 21:00 10/01/19 08:28 Trusopt 2% Ophth Soln EA EYE 1 drop TID ROSARIO Administration Ezetimibe 10 mg 09/20/19 09:00 10/01/19 08:28 Zetia PO 10 mg DAILY ROSARIO Administration Fluticasone Propionate 0 gm 09/20/19 09:00 10/01/19 08:29 Flonase Nasal Donnel[place] NASAL 1 spr DAILY ROSARIO Administration Furosemide 40 mg 09/20/19 09:00 09/29/19 09:15 Lasix PO 40 mg DAILY ROSARIO Administration Gabapentin 200 mg 09/19/19 21:00 10/01/19 08:27 Neurontin PO 200 mg TID ROSARIO Administration Guaifenesin 1,200 mg 09/22/19 09:00 10/01/19 08:28 Mucinex PO 1,200 mg Q12HR ROSARIO Administration Isosorbide Mononitrate 90 mg 09/20/19 09:00 10/01/19 08:27 Imdur Er PO 90 mg DAILY ROSARIO Administration Latanoprost 1 drop 09/19/19 21:00 09/30/19 21:12 Xalatan 0.005% Ophth Soln EA EYE 1 drop HS ROSARIO Administration Metoprolol Tartrate 100 mg 10/01/19 09:00 10/01/19 08:27 Lopressor PO 100 mg BID ROSARIO Administration Mometasone Furoate/Formoterol Fumar 2 puff 09/19/19 18:30 10/01/19 07:27 Dulera 200 Mcg/5 Mcg Inhaler INH 2 puff BID-RT ROSARIO Administration Morphine Sulfate 2 mg 09/27/19 11:52 09/28/19 02:24 Morphine SLOW IVP 2 mg Q2H PRN Administration Pain Nitroglycerin 0.4 mg 09/27/19 08:50 09/28/19 02:18 Nitrostat SL 0.4 mg Q5MIN PRN Administration Chest Pain Pantoprazole Sodium 40 mg 09/27/19 09:00 10/01/19 08:28 Protonix PO 40 mg DAILY ROSARIO Administration Prednisone 40 mg 09/30/19 08:00 10/01/19 08:28 Prednisone PO 40 mg QAM-WM ROSARIO Administration Saccharomyces Boulardii 250 mg 09/30/19 09:00 10/01/19 08:28 Florastor PO 250 mg DAILY ROSARIO Administration Sodium Chloride 10 ml 09/19/19 21:00 10/01/19 08:30 Flush - Normal Saline IVF 10 ml Q12HR ROSARIO Administration Sodium Chloride 10 ml 09/19/19 18:27 09/22/19 05:20 Flush - Normal Saline IVF 10 ml PRN PRN Administration Saline Flush Sodium Chloride 15 ml 09/29/19 18:30 10/01/19 11:33 Sodium Chloride 3% NEB 15 ml BID-RT ROSARIO Administration Sterile Water 2 ml 09/20/19 22:12 09/27/19 06:13 Bacteriostatic Water FS 2 ml PRN PRN Administration RECONSTITUTION - Exam Heart: negative: RRR, no murmur, no gallops, no rubs, normal peripheral pulses, irregular, diminshed peripheral pulses, murmur present, II/IV, III/IV Respiratory - other findings: decrease breath sounds to lower lung. Gastrointestinal: negative: soft, non-tender, non-distended, normal bowel sounds , no palpable masses, no hepatomegaly, no splenomegaly, no bruit, no guarding, no rigidity, tender to palpation, distended, diminished bowl sounds, voluntary guarding Hosp A/P (1) Acute on chronic respiratory failure with hypoxia Code(s): J96.21 - ACUTE AND CHRONIC RESPIRATORY FAILURE WITH HYPOXIA Status: Acute (2) COPD exacerbation Code(s): J44.1 - CHRONIC OBSTRUCTIVE PULMONARY DISEASE W (ACUTE) EXACERBATION Status: Acute (3) NSTEMI (non-ST elevated myocardial infarction) Code(s): I21.4 - NON-ST ELEVATION (NSTEMI) MYOCARDIAL INFARCTION Status: Acute (4) Aortic valve prosthesis present Code(s): Z95.2 - PRESENCE OF PROSTHETIC HEART VALVE Status: Chronic (5) CAD (coronary artery disease) Code(s): I25.10 - ATHSCL HEART DISEASE OF [place] CORONARY ARTERY W/O ANG PCTRS Status: Chronic Qualifiers: Coronary Disease-Associated Artery/Lesion type: [place] artery [place] vs. 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 He has been coughing up a lot of mucus. His last ct chest was 05/22 indicated sever emphysema. his covid test was negative. his previous sputum cx indicated ecoli which was resistant to levaquin. will change his abx. 09/28 will consult pulmonary, will get ct chest. sputum cx ordered. will change his neb tx to only ipratropium given his tachycardia. 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 09/29 sputum indicated gram negative his abx has been switched based on last micro. pending pulm recommendation. ct chest no pneumonia but has severe emphysema. 09/30 will change her abx to arslan. he has ecoli in his sputum which is resistant to many abx. will get ID consult. spoke with cardio about his chest pain. No intervention only medical intervention.
[2019-10-01] MEDS: MEROPENEM 1 GM/50 ML 1 GM in Premix Bag 1 BAG IVPB SCH ×2 (15:02→20:39)
--- NOTE | 2019-10-01 17:52 | CON ---
DATE OF CONSULTATION: 10/01/2019 REASON FOR CONSULTATION: Evaluate laboratory findings and sputum exam in relationship to the patient's lung disease. HISTORY OF PRESENT ILLNESS: A 74-year-old, whom I had seen in the past in September 2018, when he presented with a history of coronary artery disease, prior bypass graft surgery, aortic stenosis with TAVR in 2017, and advanced COPD, with at that time still actively smoking status. The patient had developed respiratory symptoms with worsening dyspnea, and he had some areas of bronchiectasis and patchy infiltration in the lower lobes. He did have Stenotrophomonas maltophilia identified in the sputum cultures, and the Gram stain of the sample, however, was polymicrobial, and there were some epithelial cells, so we did not recommend long-term treatment for that finding. He was admitted this time on September 18 with sensation of chest pain in the central anterior chest area, radiating to the left, to the upper extremity left side and right neck and jaw. He also had worsening shortness of breath and cough. The initial evaluation demonstrated a pulse of 137, BP 113/75, O2 saturation 96% on BiPAP. He did not appear in acute distress and did not have pain at the time of the initial evaluation. He was alert. In the lung exam, there was evidence of bilateral expiratory wheezing. The heart examination was not particularly abnormal except for tachycardia. The abdomen was soft, not tender, and the neuro examination was nonfocal. Other findings on admission included a white cell count of 11.2, hemoglobin 13.5, platelets 166, with 85% neutrophils, and chemistry results with potassium 3.2, creatinine normal. AST 47. Troponin was 4.6. Albumin of 3.8. Urinalysis was normal. Because of concerns with COVID-19, a PCR was submitted, which was negative. The chest x-ray on admission showed no evidence of acute cardiopulmonary disease. The patient had an echocardiogram with EF of 50% to 55%. He was given broad-spectrum antimicrobial therapy, corticosteroids. [id number] elevation VT was identified and the usual protocol started. Medical approach for management was chosen by Cardiology. Currently, Mr. Beltre is awake, he is sitting in bed and still dyspneic and having some sensation of pressure in the anterior chest area, but not anymore the type of pain that he had experienced before. No headaches, visual symptoms, sore throat , odynophagia, or dysphagia. The sputum production has ceased. He has no abdominal pain. Maybe a little bit of cramps here and there. Voiding without difficulty. No joint symptoms. No skin disorder and no neurological problems. PAST MEDICAL HISTORY: Coronary artery disease, bypass graft surgery, stents, severe COPD with home O2 and on intermittent corticosteroids, aortic stenosis with TAVR , glaucoma, type 2 diabetes, carpal tunnel release, rotator cuff repair. FAMILY HISTORY: Coronary artery disease. SOCIAL HISTORY: Drinks whiskey 3 times a week. Quit smoking last year. ALLERGIES: NONE. CURRENT MEDICATIONS: 1. Tylenol. 2. Mucomyst. 3. Maalox. 4. DuoNeb. 5. Ecotrin. 6. Lipitor. 7. Tums. 8. Plavix. 9. Trusopt. 10. Zetia. 11. Flonase. 12. Lasix. 13. Neurontin. 14. Mucinex. 15. Imdur. 16. Meropenem. 17. Xalatan. 18. Formoterol. 19. Morphine. 20. Nitrostat. 21. Protonix. 22. Prednisone. 23. Florastor. ALLERGIES: NONE. PHYSICAL EXAMINATION: VITAL SIGNS: The patient has been afebrile for the past few days. BP 120/50, pulse 92, respirations 15 to 20, and O2 saturation 96 on 2 L. SKIN: The patient has a peripheral IV access. He is urinating in the urinal. No lymphadenopathy. HEENT: Ocular movements are conjugate. Dentures are noted, artificial. Accessory neck muscle uses are obvious. He seems to be dyspneic after only limited movement, for example changing decubitus in bed, he will become quite dyspneic. LUNGS: Lung sounds are barely audible. They are very distant. A little bit of coarse breath sounds in the left base, but elsewhere the lung sounds are markedly diminished. HEART: Sounds are not audible. ABDOMEN: Soft, not distended or tender. No ascites. No bladder distention. No organomegaly. EXTREMITIES: No joint inflammatory activity. No edema. Pulses are 1+ in dorsalis pedis. Plantar responses are flexor. No clonus. NEUROLOGIC: Awake, alert, oriented. Follows commands. LABORATORY DATA: The white cell count 13.7, platelets 137, and 78% neutrophils. Chemistry; sodium 138, creatinine 0.83. Liver profile normal. Albumin 3.8. Urinalysis normal. Respiratory culture with E coli retrieved. The Gram Stain with 0 to 5 epithelial cells, many WBCs, many gram-negative rods, few gram-positive cocci. The chest CT scan was discussed above and it showed severe emphysematous changes and a nodular density probably rental representative of atelectasis. The respiratory virus PCR panel was negative. Influenza A and B, negative. He did have a similar E coli isolated from July 28. ASSESSMENT: 1. Coronary artery disease with prior bypass. 2. Chronic smoking up till last year. 3. Severe chronic obstructive pulmonary disease with home O2 utilization. 4. Chronic obstructive pulmonary disease decompensation with [id number] elevation VT, probably associated with demand ischemia. 5. Escherichia coli isolated from respiratory tract, the same organism retrieved from 2 different samples obtained, one in July 28, 2019, and now September 29, 2019. He has had Stenotrophomonas maltophilia in the past. DISCUSSION: The patient most likely has areas of bronchiectasis. They are chronically colonized by various gram-negative organisms, and he may still have the Stenotrophomonas maltophilia somewhere in the airway. The association between these isolates and his pulmonary decompensation is not a straightforward relationship and they seem to be associated with exacerbation in some patients, but the evidence to justify treating those findings is quite slim. Some attempts at eradication via administration of antimicrobial therapy through the inhaled route have been attempted with less than optimal results. I guess what we could do is continue for few more days and see if there is clinical improvement, but I think most of the decompensation is related to the advancement of his underlying emphysematous destruction of lung parenchyma, with a few remaining working alveoli, may have some element of inflammatory change, then I think it is justifiable to try to continue the antimicrobial for a bit longer. Job ID: [id number] [facility]
[2019-10-01] MEDS: Atorvastatin Calcium 40 MG TAB PO SCH (20:38)
[2019-10-01] MEDS: Latanoprost 0.005% Ophth Soln 2.5 ml Bottle EA EYE SCH (20:40)
[2019-10-02] MEDS: MEROPENEM 1 GM/50 ML 1 GM in Premix Bag 1 BAG IVPB SCH ×3 (05:04→21:28)
[2019-10-02] MEDS: Mometasone 200 MCG/Formoterol 5 MCG 120 PUFF INHALER INH SCH ×2 (07:10→18:59)
[2019-10-02] MEDS: Sodium Chloride 3% (15 ML) NEB NEB SCH ×2 (07:18→18:59)
[2019-10-02] MEDS: Acetylcysteine 20% 200 MG/ML 30 ML VIAL INH SCH ×3 (07:20→19:00)
[2019-10-02] MEDS: Ezetimibe 10 MG TAB PO SCH (07:53)
[2019-10-02] MEDS: Aspirin 81 mg Enteric Coated Tablet PO SCH (07:53)
[2019-10-02] MEDS: Clopidogrel Bisulfate 75 MG TAB PO SCH (07:54)
[2019-10-02] MEDS: Isosorbide Mononitrate (ER) 30 MG TAB PO SCH (07:54)
[2019-10-02] MEDS: Gabapentin 100 MG CAP PO SCH ×3 (07:54→20:20)
[2019-10-02] MEDS: Pantoprazole 40 MG GRANULES PACKET PO SCH (07:54)
[2019-10-02] MEDS: Furosemide 40 MG TAB PO SCH (07:55)
[2019-10-02] MEDS: predniSONE 20 MG TAB PO SCH (07:55)
[2019-10-02] MEDS: Metoprolol Tartrate 100 MG TAB PO SCH ×3 (07:55→20:20)
[2019-10-02] MEDS: Saccharomyces boulardii 250 MG CAP PO SCH (07:55)
[2019-10-02] MEDS: Dorzolamide HCl 2% Ophth Soln 10 ml Bottle EA EYE SCH ×3 (07:58→20:19)
[2019-10-02] MEDS: guaiFENesin ER 600 MG TAB PO SCH ×2 (07:58→20:20)
[2019-10-02] MEDS: Fluticasone Propionate Nasal Spray 16 gm Bottle NASAL SCH (07:58)
[2019-10-02 10:21] LABS: #Eosinphils 0.2 thou/uL (0.0-0.7); #Lymphocytes 1.1 thou/uL (1.20-3.40); #Monocytes 0.9 thou/uL (0.11-0.59); #Neutrophils 16.1 thou/uL (1.40-6.50); %Basophils 0.2 % (0.0-1.0); %Lymphocytes 6.1 % (21.0-51.0); %Monocytes 5.1 % (0.0-10.0); %Neutrophils 87.5 % (42.0-75.0); Hemoglobin 14.9 g/dL (14.0-18.0); Mean Corpuscular HGB CONC 32.4 g/dL (32.0-36.0); Mean Corpuscular Hemoglobin 31.5 pg (27.0-31.0); Mean Corpuscular Volume 97.3 fL (78.0-98.0); Mean Platelet Volume 7.7 fL (7.4-10.4); Platelet Count 175 thou/uL (130-400); RBC Distribution Width 12.5 % (11.5-14.5); Red Blood Cell (RBC) Count 4.73 mill/uL (4.70-6.10); White Blood Cell (WBC) Count 18.4 thou/uL (4.8-10.8)
--- NOTE | 2019-10-02 10:57 | PRG ---
DATE OF SERVICE: 10/02/2019 SUBJECTIVE: Michelle Beltre this morning is awake, alert, and responsive. OBJECTIVE: VITAL SIGNS: Temp is 97, pulse 73, respiratory rate 18, and saturations 98% on 2 L, blood pressure 113/53. GENERAL: He is clearly very cushingoid. CHEST: Decreased breath sounds, no wheezing. CARDIAC: Normal S1, S2. No gallops. ABDOMEN: No masses. IMPRESSION: 1. End-stage chronic obstructive pulmonary disease, chronic bronchitis, some bronchiectasis. 2. 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 PLAN: I do not think the patient's E coli is a true pathogen, is colonization. I will switch him over to oral medication. suggested he try a vest. I am not so sure he is a candidate this will be tried and fitted at a later time. From Pulmonary standpoint of view, he can be discharged home any time. Job ID: [id number]
--- NOTE | 2019-10-02 12:31 | PDOC.HOSPP ---
- Subjective Encounter Date: 10/02/19 Encounter Time: 09:45 Subjective: pt up in bed states he feels much better. He still is sob and is coughing up sputum - Objective Vital Signs & Weight: Vital Signs (12 hours) Temp Pulse Resp BP BP Pulse Ox 10/02/19 11:37 98.1 F 92 20 107/58 L 98 10/02/19 10:32 84 16 98 10/02/19 07:45 97.6 F 83 18 113/53 L 100 10/02/19 07:18 89 16 95 10/02/19 07:11 89 20 95 10/02/19 07:10 89 16 95 10/02/19 07:07 89 16 95 10/02/19 03:12 97.5 F L 84 20 122/64 98 10/02/19 02:33 88 16 90 L Weight Admit Weight 212 lb 3.2 oz Weight 209 lb I&O: 10/01/19 10/02/19 10/03/19 06:59 06:59 06:59 Intake Total 2492 3040 Output Total 9615 1536 Balance 107 -315 Result Diagrams: 10/02/19 09:59 10/01/19 04:00 Hospitalist ROS - Review of Systems Respiratory: denies: cough, dry, shortness of breath, hemoptysis, SOB with excertion, pleuritic pain, sputum, wheezing, other Cardiovascular: denies: chest pain, palpitations, orthopnea, paroxysmal noc. dyspnea, edema, light headedness, other Gastrointestinal: denies: nausea, vomiting, abdominal pain, diarrhea, constipation, melena, hematochezia, other Genitourinary: denies: dysuria, frequency, incontinence, hematuria, retention, other - Medication Medications: Active Medications Generic Name Dose Route Start Last Admin Trade Name Freq PRN Reason Stop Dose Admin Acetaminophen 650 mg 09/22/19 13:36 09/27/19 11:12 Tylenol PO 650 mg Q6H PRN Administration Pain Acetylcysteine 600 mg 09/25/19 13:00 10/02/19 07:20 Mucomyst 20% INH 600 mg [id number] ROSARIO Administration Al Hydroxide/Mg Hydroxide 30 ml 09/26/19 04:44 09/27/19 08:39 Maalox PO 30 ml Q6H PRN Administration Heartburn or Indigestion Al Hydroxide/Mg Hydroxide 30 ml 09/27/19 09:50 09/28/19 02:17 Maalox Plus PO 30 ml Q6H PRN Administration Heartburn or Indigestion Albuterol/Ipratropium 3 ml 09/29/19 18:30 10/02/19 10:32 Duoneb NEB 3 ml [id number] ROSARIO Administration Aspirin 81 mg 09/20/19 09:00 10/02/19 07:53 Ecotrin PO 81 mg DAILY ROSARIO Administration Atorvastatin Calcium 80 mg 09/20/19 21:00 10/01/19 20:38 Lipitor PO 80 mg HS ROSARIO Administration Calcium Carbonate 1,000 mg 09/26/19 04:44 09/27/19 08:39 Tums PO 1,000 mg Q4H PRN Administration Heartburn or Indigestion Clopidogrel Bisulfate 75 mg 09/20/19 09:00 10/02/19 07:54 Plavix PO 75 mg DAILY ROSARIO Administration Dorzolamide HCl 1 drop 09/19/19 21:00 10/02/19 07:58 Trusopt 2% Ophth Soln EA EYE 1 drop TID ROSARIO Administration Ezetimibe 10 mg 09/20/19 09:00 10/02/19 07:53 Zetia PO 10 mg DAILY ROSARIO Administration Fluticasone Propionate 0 gm 09/20/19 09:00 10/02/19 07:58 Flonase Nasal [place] NASAL 1 spr DAILY ROSARIO Administration Furosemide 40 mg 09/20/19 09:00 10/02/19 07:55 Lasix PO 40 mg DAILY ROSARIO Administration Gabapentin 200 mg 09/19/19 21:00 10/02/19 07:54 Neurontin PO 200 mg TID ROSARIO Administration Guaifenesin 1,200 mg 09/22/19 09:00 10/02/19 07:58 Mucinex PO 1,200 mg Q12HR ROSARIO Administration Meropenem 1 gm/ Device 50 mls @ 100 mls/hr 10/01/19 14:00 10/02/19 05:04 IVPB 50 mls Q8HR ROSARIO Administration Isosorbide Mononitrate 90 mg 09/20/19 09:00 10/02/19 07:54 Imdur Er PO 90 mg DAILY ROSARIO Administration Latanoprost 1 drop 09/19/19 21:00 10/01/19 20:40 Xalatan 0.005% Ophth Soln EA EYE 1 drop HS ROSARIO Administration Mometasone Furoate/Formoterol Fumar 2 puff 09/19/19 18:30 10/02/19 07:10 Dulera 200 Mcg/5 Mcg Inhaler INH 2 puff BID-RT ROSARIO Administration Morphine Sulfate 2 mg 09/27/19 11:52 09/28/19 02:24 Morphine SLOW IVP 2 mg Q2H PRN Administration Pain Nitroglycerin 0.4 mg 09/27/19 08:50 09/28/19 02:18 Nitrostat SL 0.4 mg Q5MIN PRN Administration Chest Pain Pantoprazole Sodium 40 mg 09/27/19 09:00 10/02/19 07:54 Protonix PO 40 mg DAILY ROSARIO Administration Prednisone 40 mg 09/30/19 08:00 10/02/19 07:55 Prednisone PO 40 mg QAM-WM ROSARIO Administration Saccharomyces Boulardii 250 mg 09/30/19 09:00 10/02/19 07:55 Florastor PO 250 mg DAILY ROSARIO Administration Sodium Chloride 10 ml 09/19/19 21:00 10/02/19 07:59 Flush - Normal Saline IVF 10 ml Q12HR ROSARIO Administration Sodium Chloride 10 ml 09/19/19 18:27 09/22/19 05:20 Flush - Normal Saline IVF 10 ml PRN PRN Administration Saline Flush Sodium Chloride 15 ml 09/29/19 18:30 10/02/19 07:18 Sodium Chloride 3% NEB 15 ml BID-RT ROSARIO Administration Sterile Water 2 ml 09/20/19 22:12 09/27/19 06:13 Bacteriostatic Water FS 2 ml PRN PRN Administration RECONSTITUTION - Exam Neck: negative: supple, symmetric, no JVD, no thyromegaly, no lymphadenopathy, no carotid bruit, JVD Heart: negative: RRR, no murmur, no gallops, no rubs, normal peripheral pulses, irregular, diminshed peripheral pulses, murmur present, II/IV, III/IV Respiratory - other findings: diminshed breath sound to bases Hosp A/P (1) Acute on chronic respiratory failure with hypoxia Code(s): J96.21 - ACUTE AND CHRONIC RESPIRATORY FAILURE WITH HYPOXIA Status: Acute (2) COPD exacerbation Code(s): J44.1 - CHRONIC OBSTRUCTIVE PULMONARY DISEASE W (ACUTE) EXACERBATION Status: Acute (3) NSTEMI (non-ST elevated myocardial infarction) Code(s): I21.4 - NON-ST ELEVATION (NSTEMI) MYOCARDIAL INFARCTION Status: Acute Plan: type 2 demand related (4) Aortic valve prosthesis present Code(s): Z95.2 - PRESENCE OF PROSTHETIC HEART VALVE Status: Chronic (5) CAD (coronary artery disease) Code(s): I25.10 - ATHSCL HEART DISEASE OF [place] CORONARY ARTERY W/O ANG PCTRS Status: Chronic Qualifiers: Coronary Disease-Associated Artery/Lesion type: [place] artery [place] vs. transplanted heart: [place] heart Associated angina: without angina Qualified Code(s): I25.10 - Atherosclerotic heart disease of [place] coronary artery without angina pectoris (6) DM type 2 (diabetes mellitus, type 2) Status: Chronic Qualifiers: Diabetes mellitus usp insulin use: without remote computer terminal operator use Diabetes mellitus complication status: without complication Qualified Code(s): E11.9 - Type 2 diabetes mellitus without complications - Plan will change his iv steroids to po, will get a sputum culture. He has been coughing up a lot of mucus. His last ct chest was 05/22 indicated sever emphysema. his covid test was negative. his previous sputum cx indicated ecoli which was resistant to levaquin. will change his abx. 09/28 will consult pulmonary, will get ct chest. sputum cx ordered. will change his neb tx to only ipratropium given his tachycardia. 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 09/29 sputum indicated gram negative his abx has been switched based on last micro. pending pulm recommendation. ct chest no pneumonia but has severe emphysema. 09/30 will change her abx to arslan. he has ecoli in his sputum which is resistant to many abx. will get ID consult. spoke with cardio about his chest pain. No intervention only medical intervention. 10/01 will follow ID's recommendation and continue abx for a few days. He does have extensive disease. will monitor.
[2019-10-02 14:15] VITALS: BMI 29.1
[2019-10-02] MEDS: Latanoprost 0.005% Ophth Soln 2.5 ml Bottle EA EYE SCH (20:19)
[2019-10-02] MEDS: Atorvastatin Calcium 40 MG TAB PO SCH (20:19)
[2019-10-03] MEDS: Acetylcysteine 20% 200 MG/ML 30 ML VIAL INH SCH ×4 (00:44→18:31)
[2019-10-03 04:59] LABS: #Eosinphils 0.1 thou/uL (0.0-0.7); #Lymphocytes 2.5 thou/uL (1.20-3.40); #Monocytes 1.3 thou/uL (0.11-0.59); #Neutrophils 11.4 thou/uL (1.40-6.50); %Basophils 0.2 % (0.0-1.0); %Eosinophils 0.9 % (0.0-10.0); %Lymphocytes 16.1 % (21.0-51.0); %Monocytes 8.5 % (0.0-10.0); %Neutrophils 74.3 % (42.0-75.0); Hemoglobin 14.7 g/dL (14.0-18.0); Mean Corpuscular HGB CONC 33.7 g/dL (32.0-36.0); Mean Corpuscular Hemoglobin 32.1 pg (27.0-31.0); Mean Corpuscular Volume 95.2 fL (78.0-98.0); Platelet Count 162 thou/uL (130-400); RBC Distribution Width 12.4 % (11.5-14.5); Red Blood Cell (RBC) Count 4.57 mill/uL (4.70-6.10); White Blood Cell (WBC) Count 15.4 thou/uL (4.8-10.8)
[2019-10-03 05:30] LABS: Phosphorus 3.5 mg/dL (2.3-4.7)
[2019-10-03] MEDS: MEROPENEM 1 GM/50 ML 1 GM in Premix Bag 1 BAG IVPB SCH ×3 (06:05→21:55)
[2019-10-03] MEDS: Mometasone 200 MCG/Formoterol 5 MCG 120 PUFF INHALER INH SCH ×2 (07:23→18:28)
[2019-10-03] MEDS: Sodium Chloride 3% (15 ML) NEB NEB SCH ×2 (07:39→19:41)
[2019-10-03] MEDS: predniSONE 20 MG TAB PO SCH (07:53)
[2019-10-03] MEDS: Saccharomyces boulardii 250 MG CAP PO SCH (07:53)
[2019-10-03] MEDS: guaiFENesin ER 600 MG TAB PO SCH ×2 (07:54→20:24)
[2019-10-03] MEDS: Gabapentin 100 MG CAP PO SCH ×3 (07:54→20:24)
[2019-10-03] MEDS: Aspirin 81 mg Enteric Coated Tablet PO SCH (07:54)
[2019-10-03] MEDS: Pantoprazole 40 MG GRANULES PACKET PO SCH (07:54)
[2019-10-03] MEDS: Clopidogrel Bisulfate 75 MG TAB PO SCH (07:54)
[2019-10-03] MEDS: Ezetimibe 10 MG TAB PO SCH (07:54)
[2019-10-03] MEDS: Metoprolol Tartrate 100 MG TAB PO SCH ×2 (07:55→20:25)
[2019-10-03] MEDS: Furosemide 40 MG TAB PO SCH (07:55)
[2019-10-03] MEDS: Isosorbide Mononitrate (ER) 30 MG TAB PO SCH (07:55)
[2019-10-03] MEDS: Fluticasone Propionate Nasal Spray 16 gm Bottle NASAL SCH (07:56)
[2019-10-03] MEDS: Dorzolamide HCl 2% Ophth Soln 10 ml Bottle EA EYE SCH ×3 (07:56→20:23)
--- NOTE | 2019-10-03 09:54 | PRG ---
DATE OF SERVICE: 10/03/2019 SUBJECTIVE: This morning, he is awake and responsive. He appears to be in no distress. OBJECTIVE: VITAL SIGNS: Temperature 97, pulse 81, respiratory rate 18, saturations 99% on 2 L, blood pressure 118/90. CHEST: Decreased breath sounds. No wheezing. CARDIAC: Normal S1 and S2. ABDOMEN: No masses. LABORATORY DATA: White count 15,000. IMPRESSION: 1. Chronic obstructive pulmonary disease exacerbation. 2. Bronchitis. 3. Escherichia coli colonization. 4. Cushingoid from lots of steroids. PLAN: Pulmonary [place], he can probably be discharged home any time on p.o. antibiotics. Follow up in the office at a later time. Job ID: [id number]
--- NOTE | 2019-10-03 17:35 | PDOC.HOSPP ---
- Subjective Encounter Date: 10/03/19 Encounter Time: 09:00 Subjective: pt up in bed no complains states he feels much better. - Objective Vital Signs & Weight: Vital Signs (12 hours) Temp Pulse Resp BP Pulse Ox 10/03/19 15:48 98.4 F 85 18 101/59 L 94 L 10/03/19 13:38 82 18 98 10/03/19 11:26 97.5 F L 86 18 102/53 L 92 L 10/03/19 10:42 85 20 99 10/03/19 07:58 118/90 10/03/19 07:23 97.4 F L 81 18 94/54 L 99 10/03/19 07:16 81 18 98 Weight Admit Weight 212 lb 3.2 oz Weight 210 lb 3.2 oz I&O: 10/02/19 10/03/19 10/04/19 06:59 06:59 06:59 Intake Total 3040 2100 Output Total 3355 2000 Balance -315 100 Result Diagrams: 10/03/19 04:15 10/01/19 04:00 Hospitalist ROS - Review of Systems Respiratory: denies: cough, dry, shortness of breath, hemoptysis, SOB with excertion, pleuritic pain, sputum, wheezing, other Cardiovascular: denies: chest pain, palpitations, orthopnea, paroxysmal noc. dyspnea, edema, light headedness, other Gastrointestinal: denies: nausea, vomiting, abdominal pain, diarrhea, constipation, melena, hematochezia, other - Medication Medications: Active Medications Generic Name Dose Route Start Last Admin Trade Name Freq PRN Reason Stop Dose Admin Acetaminophen 650 mg 09/22/19 13:36 09/27/19 11:12 Tylenol PO 650 mg Q6H PRN Administration Pain Acetylcysteine 600 mg 09/25/19 13:00 10/03/19 13:37 Mucomyst 20% INH 600 mg [id number] ROSARIO Administration Al Hydroxide/Mg Hydroxide 30 ml 09/26/19 04:44 09/27/19 08:39 Maalox PO 30 ml Q6H PRN Administration Heartburn or Indigestion Al Hydroxide/Mg Hydroxide 30 ml 09/27/19 09:50 09/28/19 02:17 Maalox Plus PO 30 ml Q6H PRN Administration Heartburn or Indigestion Albuterol/Ipratropium 3 ml 09/29/19 18:30 10/03/19 13:38 Duoneb NEB 3 ml [id number] ROSARIO Administration Aspirin 81 mg 09/20/19 09:00 10/03/19 07:54 Ecotrin PO 81 mg DAILY ROSARIO Administration Atorvastatin Calcium 80 mg 09/20/19 21:00 10/02/19 20:19 Lipitor PO 80 mg HS ROSARIO Administration Calcium Carbonate 1,000 mg 09/26/19 04:44 09/27/19 08:39 Tums PO 1,000 mg Q4H PRN Administration Heartburn or Indigestion Clopidogrel Bisulfate 75 mg 09/20/19 09:00 10/03/19 07:54 Plavix PO 75 mg DAILY ROSARIO Administration Dorzolamide HCl 1 drop 09/19/19 21:00 10/03/19 14:08 Trusopt 2% Ophth Soln EA EYE 1 drop TID ROSARIO Administration Ezetimibe 10 mg 09/20/19 09:00 10/03/19 07:54 Zetia PO 10 mg DAILY ROSARIO Administration Fluticasone Propionate 0 gm 09/20/19 09:00 10/03/19 07:56 Flonase Nasal [place] NASAL 1 spr DAILY ROSARIO Administration Furosemide 40 mg 09/20/19 09:00 10/03/19 07:55 Lasix PO 40 mg DAILY ROSARIO Administration Gabapentin 200 mg 09/19/19 21:00 10/03/19 14:08 Neurontin PO 200 mg TID ROSARIO Administration Guaifenesin 1,200 mg 09/22/19 09:00 10/03/19 07:54 Mucinex PO 1,200 mg Q12HR ROSARIO Administration Meropenem 1 gm/ Device 50 mls @ 100 mls/hr 10/01/19 14:00 10/03/19 14:08 IVPB 50 mls Q8HR ROSARIO Administration Isosorbide Mononitrate 90 mg 09/20/19 09:00 10/03/19 07:55 Imdur Er PO 90 mg DAILY ROSARIO Administration Latanoprost 1 drop 09/19/19 21:00 10/02/19 20:19 Xalatan 0.005% Ophth Soln EA EYE 1 drop HS ROSARIO Administration Metoprolol Tartrate 150 mg 10/02/19 09:00 10/03/19 07:55 Lopressor PO 150 mg BID ROSARIO Administration Mometasone Furoate/Formoterol Fumar 2 puff 09/19/19 18:30 10/03/19 07:23 Dulera 200 Mcg/5 Mcg Inhaler INH 2 puff BID-RT ROSARIO Administration Morphine Sulfate 2 mg 09/27/19 11:52 09/28/19 02:24 Morphine SLOW IVP 2 mg Q2H PRN Administration Pain Nitroglycerin 0.4 mg 09/27/19 08:50 09/28/19 02:18 Nitrostat SL 0.4 mg Q5MIN PRN Administration Chest Pain Pantoprazole Sodium 40 mg 09/27/19 09:00 10/03/19 07:54 Protonix PO 40 mg DAILY ROSARIO Administration Prednisone 40 mg 09/30/19 08:00 10/03/19 07:53 Prednisone PO 40 mg QAM-WM ROSARIO Administration Saccharomyces Boulardii 250 mg 09/30/19 09:00 10/03/19 07:53 Florastor PO 250 mg DAILY ROSARIO Administration Sodium Chloride 10 ml 09/19/19 21:00 10/03/19 07:56 Flush - Normal Saline IVF 10 ml Q12HR ROSARIO Administration Sodium Chloride 10 ml 09/19/19 18:27 09/22/19 05:20 Flush - Normal Saline IVF 10 ml PRN PRN Administration Saline Flush Sodium Chloride 15 ml 09/29/19 18:30 10/03/19 07:39 Sodium Chloride 3% NEB 15 ml BID-RT ROSARIO Administration Sterile Water 2 ml 09/20/19 22:12 09/27/19 06:13 Bacteriostatic Water FS 2 ml PRN PRN Administration RECONSTITUTION - Exam Neck: negative: supple, symmetric, no JVD, no thyromegaly, no lymphadenopathy, no carotid bruit, JVD Heart: negative: RRR, no murmur, no gallops, no rubs, normal peripheral pulses, irregular, diminshed peripheral pulses, murmur present, II/IV, III/IV Respiratory - other findings: decrease breath sound all over Gastrointestinal: negative: soft, non-tender, non-distended, normal bowel sounds , no palpable masses, no hepatomegaly, no splenomegaly, no bruit, no guarding, no rigidity, tender to palpation, distended, diminished bowl sounds, voluntary guarding Hosp A/P (1) Acute on chronic respiratory failure with hypoxia Code(s): J96.21 - ACUTE AND CHRONIC RESPIRATORY FAILURE WITH HYPOXIA Status: Acute (2) COPD exacerbation Code(s): J44.1 - CHRONIC OBSTRUCTIVE PULMONARY DISEASE W (ACUTE) EXACERBATION Status: Acute (3) NSTEMI (non-ST elevated myocardial infarction) Code(s): I21.4 - NON-ST ELEVATION (NSTEMI) MYOCARDIAL INFARCTION Status: Acute (4) Aortic valve prosthesis present Code(s): Z95.2 - PRESENCE OF PROSTHETIC HEART VALVE Status: Chronic (5) CAD (coronary artery disease) Code(s): I25.10 - ATHSCL HEART DISEASE OF [place] CORONARY ARTERY W/O ANG PCTRS Status: Chronic Qualifiers: Coronary Disease-Associated Artery/Lesion type: [place] artery [place] vs. transplanted heart: [place] heart Associated angina: without angina Qualified Code(s): I25.10 - Atherosclerotic heart disease of [place] coronary artery without angina pectoris (6) DM type 2 (diabetes mellitus, type 2) Status: Chronic Qualifiers: Diabetes mellitus skilled nursing insulin use: without skilled nursing use Diabetes mellitus complication status: without complication Qualified Code(s): E11.9 - Type 2 diabetes mellitus without complications - Plan will change his iv steroids to po, will get a sputum culture. He has been coughing up a lot of mucus. His last ct chest was 05/22 indicated sever emphysema. his covid test was negative. his previous sputum cx indicated ecoli which was resistant to levaquin. will change his abx. 09/28 will consult pulmonary, will get ct chest. sputum cx ordered. will change his neb tx to only ipratropium given his tachycardia. 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 09/29 sputum indicated gram negative his abx has been switched based on last micro. pending pulm recommendation. ct chest no pneumonia but has severe emphysema. 09/30 will change her abx to arslan. he has ecoli in his sputum which is resistant to many abx. will get ID consult. spoke with cardio about his chest pain. No intervention only medical intervention. 10/01 will follow ID's recommendation and continue abx for a few days. He does have extensive disease. will monitor. 10/02 pt states he feels much better. will keep him one more day for abx and talk with ID and then send him home in am.
[2019-10-03] MEDS: Atorvastatin Calcium 40 MG TAB PO SCH (20:23)
[2019-10-03] MEDS: Latanoprost 0.005% Ophth Soln 2.5 ml Bottle EA EYE SCH (20:24)
[2019-10-04] MEDS: Acetylcysteine 20% 200 MG/ML 30 ML VIAL INH SCH ×3 (01:31→13:33)
[2019-10-04] MEDS: MEROPENEM 1 GM/50 ML 1 GM in Premix Bag 1 BAG IVPB SCH ×2 (05:09→13:29)
[2019-10-04] MEDS: Sodium Chloride 3% (15 ML) NEB NEB SCH (07:00)
[2019-10-04] MEDS: Mometasone 200 MCG/Formoterol 5 MCG 120 PUFF INHALER INH SCH (07:03)
[2019-10-04] MEDS: predniSONE 20 MG TAB PO SCH (08:39)
[2019-10-04] MEDS: Clopidogrel Bisulfate 75 MG TAB PO SCH (08:39)
[2019-10-04] MEDS: Dorzolamide HCl 2% Ophth Soln 10 ml Bottle EA EYE SCH ×2 (08:39→14:09)
[2019-10-04] MEDS: Aspirin 81 mg Enteric Coated Tablet PO SCH (08:39)
[2019-10-04] MEDS: Fluticasone Propionate Nasal Spray 16 gm Bottle NASAL SCH (08:40)
[2019-10-04] MEDS: Ezetimibe 10 MG TAB PO SCH (08:40)
[2019-10-04] MEDS: Pantoprazole 40 MG GRANULES PACKET PO SCH (08:41)
[2019-10-04] MEDS: guaiFENesin ER 600 MG TAB PO SCH (08:41)
[2019-10-04] MEDS: Gabapentin 100 MG CAP PO SCH ×2 (08:41→14:09)
[2019-10-04] MEDS: Saccharomyces boulardii 250 MG CAP PO SCH (08:41)
--- NOTE | 2019-10-04 09:39 | PDOC.HOSPP ---
- Subjective Encounter Date: 10/04/19 Encounter Time: 11:15 Subjective: pt up in bed feels well. No issues overnight. - Objective Vital Signs & Weight: Vital Signs (12 hours) Temp Pulse Resp BP BP Pulse Ox 10/04/19 08:09 98.3 F 79 18 107/56 L 97 10/04/19 07:46 73 18 98 10/04/19 07:00 73 20 99 10/04/19 03:13 97.3 F L 90 18 103/60 96 10/04/19 01:32 68 18 92 L 10/04/19 00:46 97 10/03/19 23:34 92 18 97 Weight Admit Weight 212 lb 3.2 oz Weight 209 lb I&O: 10/03/19 10/04/19 10/05/19 06:59 06:59 06:59 Intake Total 2100 1940 Output Total 1999 2900 Balance 100 -960 Result Diagrams: 10/03/19 04:15 10/01/19 04:00 Hospitalist ROS - Review of Systems Cardiovascular: denies: chest pain, palpitations, orthopnea, paroxysmal noc. dyspnea, edema, light headedness, other Gastrointestinal: denies: nausea, vomiting, abdominal pain, diarrhea, constipation, melena, hematochezia, other Genitourinary: denies: dysuria, frequency, incontinence, hematuria, retention, other - Medication Medications: Active Medications Generic Name Dose Route Start Last Admin Trade Name Freq PRN Reason Stop Dose Admin Acetaminophen 650 mg 09/22/19 13:36 09/27/19 11:12 Tylenol PO 650 mg Q6H PRN Administration Pain Acetylcysteine 600 mg 09/25/19 13:00 10/04/19 07:45 Mucomyst 20% INH 600 mg [id number] ROSARIO Administration Al Hydroxide/Mg Hydroxide 30 ml 09/26/19 04:44 09/27/19 08:39 Maalox PO 30 ml Q6H PRN Administration Heartburn or Indigestion Al Hydroxide/Mg Hydroxide 30 ml 09/27/19 09:50 09/28/19 02:17 Maalox Plus PO 30 ml Q6H PRN Administration Heartburn or Indigestion Albuterol/Ipratropium 3 ml 09/29/19 18:30 10/04/19 07:46 Duoneb NEB 3 ml [id number] ROSARIO Administration Aspirin 81 mg 09/20/19 09:00 10/04/19 08:39 Ecotrin PO 81 mg DAILY ROSARIO Administration Atorvastatin Calcium 80 mg 09/20/19 21:00 10/03/19 20:23 Lipitor PO 80 mg HS ROSARIO Administration Calcium Carbonate 1,000 mg 09/26/19 04:44 09/27/19 08:39 Tums PO 1,000 mg Q4H PRN Administration Heartburn or Indigestion Clopidogrel Bisulfate 75 mg 09/20/19 09:00 10/04/19 08:39 Plavix PO 75 mg DAILY ROSARIO Administration Dorzolamide HCl 1 drop 09/19/19 21:00 10/04/19 08:39 Trusopt 2% Ophth Soln EA EYE 1 drop TID ROSARIO Administration Ezetimibe 10 mg 09/20/19 09:00 10/04/19 08:40 Zetia PO 10 mg DAILY ROSARIO Administration Fluticasone Propionate 0 gm 09/20/19 09:00 10/04/19 08:40 Flonase Nasal [place] NASAL 1 spr DAILY ROSARIO Administration Furosemide 40 mg 09/20/19 09:00 10/03/19 07:55 Lasix PO 40 mg DAILY ROSARIO Administration Gabapentin 200 mg 09/19/19 21:00 10/04/19 08:41 Neurontin PO 200 mg TID ROSARIO Administration Guaifenesin 1,200 mg 09/22/19 09:00 10/04/19 08:41 Mucinex PO 1,200 mg Q12HR ROSARIO Administration Meropenem 1 gm/ Device 50 mls @ 100 mls/hr 10/01/19 14:00 10/04/19 05:09 IVPB 50 mls Q8HR ROSARIO Administration Isosorbide Mononitrate 90 mg 09/20/19 09:00 10/03/19 07:55 Imdur Er PO 90 mg DAILY ROSARIO Administration Latanoprost 1 drop 09/19/19 21:00 10/03/19 20:24 Xalatan 0.005% Ophth Soln EA EYE 1 drop HS ROSARIO Administration Metoprolol Tartrate 150 mg 10/02/19 09:00 10/03/19 20:25 Lopressor PO 150 mg BID ROSARIO Administration Mometasone Furoate/Formoterol Fumar 2 puff 09/19/19 18:30 10/04/19 07:03 Dulera 200 Mcg/5 Mcg Inhaler INH 2 puff BID-RT ROSARIO Administration Morphine Sulfate 2 mg 09/27/19 11:52 09/28/19 02:24 Morphine SLOW IVP 2 mg Q2H PRN Administration Pain Nitroglycerin 0.4 mg 09/27/19 08:50 09/28/19 02:18 Nitrostat SL 0.4 mg Q5MIN PRN Administration Chest Pain Pantoprazole Sodium 40 mg 09/27/19 09:00 10/04/19 08:41 Protonix PO 40 mg DAILY ROSARIO Administration Prednisone 40 mg 09/30/19 08:00 10/04/19 08:39 Prednisone PO 40 mg QAM-WM ROSARIO Administration Saccharomyces Boulardii 250 mg 09/30/19 09:00 10/04/19 08:41 Florastor PO 250 mg DAILY ROSARIO Administration Sodium Chloride 10 ml 09/19/19 21:00 10/04/19 08:42 Flush - Normal Saline IVF 10 ml Q12HR ROSARIO Administration Sodium Chloride 10 ml 09/19/19 18:27 09/22/19 05:20 Flush - Normal Saline IVF 10 ml PRN PRN Administration Saline Flush Sodium Chloride 15 ml 09/29/19 18:30 10/04/19 07:00 Sodium Chloride 3% NEB 15 ml BID-RT ROSARIO Administration Sterile Water 2 ml 09/20/19 22:12 09/27/19 06:13 Bacteriostatic Water FS 2 ml PRN PRN Administration RECONSTITUTION - Exam Neck: negative: supple, symmetric, no JVD, no thyromegaly, no lymphadenopathy, no carotid bruit, JVD Heart: negative: RRR, no murmur, no gallops, no rubs, normal peripheral pulses, irregular, diminshed peripheral pulses, murmur present, II/IV, III/IV Respiratory - other findings: diminished breath sounds all over Gastrointestinal: negative: soft, non-tender, non-distended, normal bowel sounds , no palpable masses, no hepatomegaly, no splenomegaly, no bruit, no guarding, no rigidity, tender to palpation, distended, diminished bowl sounds, voluntary guarding Hosp A/P (1) Acute on chronic respiratory failure with hypoxia Code(s): J96.21 - ACUTE AND CHRONIC RESPIRATORY FAILURE WITH HYPOXIA Status: Acute (2) COPD exacerbation Code(s): J44.1 - CHRONIC OBSTRUCTIVE PULMONARY DISEASE W (ACUTE) EXACERBATION Status: Acute (3) NSTEMI (non-ST elevated myocardial infarction) Code(s): I21.4 - NON-ST ELEVATION (NSTEMI) MYOCARDIAL INFARCTION Status: Acute (4) Aortic valve prosthesis present Code(s): Z95.2 - PRESENCE OF PROSTHETIC HEART VALVE Status: Chronic (5) CAD (coronary artery disease) Code(s): I25.10 - ATHSCL HEART DISEASE OF [place] CORONARY ARTERY W/O ANG PCTRS Status: Chronic Qualifiers: Coronary Disease-Associated Artery/Lesion type: [place] artery [place] vs. transplanted heart: [place] heart Associated angina: without angina Qualified Code(s): I25.10 - Atherosclerotic heart disease of [place] coronary artery without angina pectoris (6) DM type 2 (diabetes mellitus, type 2) Status: Chronic Qualifiers: Diabetes mellitus snf insulin use: without snf use Diabetes mellitus complication status: without complication Qualified Code(s): E11.9 - Type 2 diabetes mellitus without complications - Plan will change his iv steroids to po, will get a sputum culture. He has been coughing up a lot of mucus. His last ct chest was 05/22 indicated sever emphysema. his covid test was negative. his previous sputum cx indicated ecoli which was resistant to levaquin. will change his abx. 09/28 will consult pulmonary, will get ct chest. sputum cx ordered. will change his neb tx to only ipratropium given his tachycardia. 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 09/29 sputum indicated gram negative his abx has been switched based on last micro. pending pulm recommendation. ct chest no pneumonia but has severe emphysema. 09/30 will change her abx to arslan. he has ecoli in his sputum which is resistant to many abx. will get ID consult. spoke with cardio about his chest pain. No intervention only medical intervention. 10/01 will follow ID's recommendation and continue abx for a few days. He does have extensive disease. will monitor. 10/02 pt states he feels much better. will keep him one more day for abx and talk with ID and then send him home in am. 10/03 spoke with ID who wants to evaluate him today. if ok with ID and pulm will discharge pt home. Pt states he feels much better. his arslan was started 09/30
[2019-10-04] MEDS ORDERED: Furosemide 20 MG TAB PO SCH (10:00)
[2019-10-04] MEDS: Furosemide 40 MG TAB PO SCH (10:06)
[2019-10-04] MEDS: Metoprolol Tartrate 100 MG TAB PO SCH (10:06)
[2019-10-04] MEDS: Isosorbide Mononitrate (ER) 30 MG TAB PO SCH (10:06)
--- NOTE | 2019-10-04 10:13 | PRG ---
DATE OF SERVICE: SUBJECTIVE: This morning, he said he is better, less short of breath. OBJECTIVE: VITAL SIGNS: Temperature 98, pulse 79, respirations 18, sats 92 on 2 L, blood pressure 107/56. CHEST: Decreased breath sounds. No wheezing. CARDIAC: Normal S1 and S2. No gallops. ABDOMEN: No masses. ASSESSMENT AND PLAN: bronchitis. Disposition, home any time. Follow up in the office in about a month. Job ID: [id number]
--- NOTE | 2019-10-04 12:34 | PRG ---
DATE OF SERVICE: 10/04/2019 SUBJECTIVE: Mr. Beltre is sitting on the bed as usual, but he appears much more comfortable at rest. He is not making much sputum. No headaches. No diarrhea. No abdominal pain. No hemoptysis. He is voiding without difficulty. OBJECTIVE: VITAL SIGNS: He has been afebrile and O2 saturation 94%. BP 129/79. GENERAL: He is awake and alert. LUNGS: With markedly diminished breath sounds, but no crackles or wheezing. HEART: Diminished heart sounds as well, but no murmurs. ABDOMEN: Soft, not distended or tender. No ascites. EXTREMITIES: 1+ edema in lower extremities. NEUROLOGIC: Nonfocal. He is awake and oriented. LABORATORY DATA: Sodium 138 and creatinine 0.83. White cell count 15.4, hemoglobin 14.7, and platelets 162. The lab data is unchanged from previously. 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 At this point, I would discontinue antimicrobial therapy and consider discharge planning. Consideration can be given to outpatient inhaled antimicrobials, but there is not a lot of evidence to support that intervention and it can be associated with quite a bit of adverse reactions, in addition, it is quite expensive to be supplied and administered, so I am not going to consider that at this point in time. Job ID: [id number]
--- NOTE | 2019-10-04 13:45 | DIS ---
DATE OF ADMISSION: 09/19/2019 DATE OF DISCHARGE: 10/04/2019 DISCHARGE DIAGNOSES: As of the followin. Acute hypoxic respiratory failure, resolved. 2. Chronic obstructive pulmonary disease exacerbation. 3. Bronchiectasis. 4. Tkf-GC-[id number] myocardial infarction, demand, type 2. 5. Diabetes. 6. Coronary artery disease. 7. Aortic bioprosthetic valve, chronic. HOSPITAL COURSE: The patient is a 74-year-old male, who initially presented to the hospital on 09/18, with complaints of significant shortness of breath and chest pain. At this time, he was found to have some mildly elevated troponins. Cardiology was consulted. Cardiology's recommendation stated only medical management given his significant diffuse disease. He did undergo an echocardiogram, which indicated an EF of 50% to 55%, status post TAVR was noted, and the left atrium was moderately dilated and suggested some diastolic dysfunction. The patient had a prolonged hospital stay given his significant shortness of breath. We did do a CT chest, which indicated severe emphysematous changes bilaterally. The patient has been smoking, and he states that he recently quit smoking a few months ago. He did have some new focal nodular density in the posterior right lung base, which most likely was possible atelectasis. He started to have significant amount of sputum. His sputum was cultured, which indicated E. coli, which was resistant to many significant drugs including Cipro and Levaquin. He was initially on Levaquin. This was discontinued, and he was started on meropenem. There was some thought that most likely he is going to be colonized with this. I did get Infectious Disease to see this patient. We kept him on meropenem for about 3 to 4 days. The patient stated that he felt a lot better. He did have a very slow recovery given his significant poor lung capacity and also his heart disease. He will be following up with Pulmonology as outpatient. Pulmonary recommended to follow up in the office in about a month. MEDICATIONS: His home medications will be: 1. N-acetylcysteine inhalation q.6 hours p.r.n. 2. Pepcid 20 mg b.i.d., while he is on the steroid taper. 3. Lasix 20 mg daily. This was decreased. 4. Gabapentin 200 mg t.i.d. 5. Aspirin 81 mg daily. 6. Isosorbide 90 mg p.o. daily. 7. . 8. Niacin 500 mg at bedtime. 9. Chantix 0.5 b.i.d. 10. Ipratropium q.6 hours p.r.n. 11. He is also on eye drops, latanoprost. 12. Also on Symbicort and Mucinex. PHYSICAL EXAMINATION: VITAL SIGNS: As of the following; temperature of 98.3, heart rate 79, respiratory rate 18, 97% on 2 L which is his home base, blood pressure of 129/79. GENERAL: He is awake, alert, and oriented x3, does not appear in distress. CV: S1 and S2 present. No murmurs, rubs, or gallops. ABDOMEN: Soft and nontender. Bowel sounds are present x2. Again, he will be discharged home. He will follow up with his primary and also with Pulmonology. Job ID: [id number]
[2019-10-04 16:07] VITALS: BP 139/63; TEMP 97.7
[2019-10-05] MEDS ORDERED: Furosemide 20 MG TAB PO SCH (09:00)
== END 2019-10-04 16:32 | disposition home or self-care (01) | DRG 280 ==
LOC: ERS 09:54 → 2SW 13:24 → 2NO 09-27 08:53
PROVIDERS: ADMIT Internal Medicine; ATTEND Internal Medicine
DX: I21.A1 Myocardial infarction type 2 (principal); J96.21 Acute and chronic respiratory failure with hypoxia; J47.1 Bronchiectasis with (acute) exacerbation; Z16.29 Resistance to other single specified antibiotic; E24.2 Drug-induced Cushing's syndrome; I25.10 Atherosclerotic heart disease of native coronary artery without angina pectoris; K21.9 Gastro-esophageal reflux disease without esophagitis; E78.00 Pure hypercholesterolemia, unspecified; H40.9 Unspecified glaucoma; E11.9 Type 2 diabetes mellitus without complications; B96.20 Unspecified Escherichia coli [E. coli] as the cause of diseases classified elsewhere; T38.0X5A Adverse effect of glucocorticoids and synthetic analogues, initial encounter; I10 Essential (primary) hypertension; Z95.1 Presence of aortocoronary bypass graft; Z87.891 Personal history of nicotine dependence; Z79.899 Other long term (current) drug therapy; Z79.51 Long term (current) use of inhaled steroids; Z99.81 Dependence on supplemental oxygen; Z95.3 Presence of xenogenic heart valve; Z95.5 Presence of coronary angioplasty implant and graft
CPT/HCPCS: 36415; 71045; 71250; 80048; 80053; 80061; 81003; 82553; 83605; 83690; 83880; 84100; 84484; 85007; 85014; 85018; 85025; 85027; 85049; 85730; 87040; 87070; 87077; 87086; 87186; 87205; 87633; 87804; 93005; 93010; 93306; 93798; 94640; 94660; 94664; 94667; 94668; 96365; 96366; 96368; 96372; 96375; J0456; J0696; J1644; J1650; J1956; J2185; J2270; J2543; J2920; J2930; J3475; J3490; J7512; J7608; J7620; U0001

== ENCOUNTER 2019-10-07 18:55 | Inpatient (IN) | payer MEDICARE ==
[~2019-10-07 18:55] MED LIST: Iopamidol-370 76% 500 ML 1 ML ONE
[2019-10-07 19:40] LABS: #Lymphocytes 0.6 thou/uL (1.20-3.40); #Monocytes 0.5 thou/uL (0.11-0.59); %Basophils 0.1 % (0.0-1.0); %Eosinophils 0.3 % (0.0-10.0); %Lymphocytes 5.2 % (21.0-51.0); %Neutrophils 90.4 % (42.0-75.0); Hemoglobin 13.8 g/dL (14.0-18.0); Mean Corpuscular HGB CONC 33.5 g/dL (32.0-36.0); Mean Corpuscular Hemoglobin 32.3 pg (27.0-31.0); Mean Corpuscular Volume 96.3 fL (78.0-98.0); RBC Distribution Width 12.7 % (11.5-14.5); Red Blood Cell (RBC) Count 4.26 mill/uL (4.70-6.10); White Blood Cell (WBC) Count 12.2 thou/uL (4.8-10.8)
[2019-10-07 19:42] LABS: Platelet Count 125 thou/uL (130-400)
[2019-10-07 20:00] LABS: ALT (SGPT) 26 U/L (8-55); AST (SGOT) 22 U/L (5-34); Albumin 3.8 g/dL (3.4-4.8); Alkaline Phosphatase 59 U/L (40-110); Anion Gap 17 mmol/L (10-20); BUN (Urea Nitrogen) 12 mg/dL (8.4-25.7); Bilirubin, Total 0.8 mg/dL (0.2-1.2); CK (CPK) 100 U/L (30-200); Calc. Creatinine Clearance 0 mL/min (70-130); Calcium 9.4 mg/dL (7.8-10.44); Carbon Dioxide 28 mmol/L (23-31); Chloride 95 mmol/L (98-107); Estimated GFR-MDRD 63; Globulin 2.6 g/dL (2.4-3.5); Glucose 335 mg/dL (83-110); Lipase 21 U/L (8-78); Potassium 4.6 mmol/L (3.5-5.1); Protein, Total 6.4 g/dL (5.8-8.1); Sodium 135 mmol/L (136-145)
--- NOTE | 2019-10-07 20:11 | RAD ---
AP CHEST: Comparison: 09-21-2019 FINDINGS: Heart size is within normal limits. Post op sternotomy changes are noted. Bullous changes in the righ t upper lobe are noted. There is atelectatic changes in the lung bases. IMPRESSION: Bibasilar atelectasis and chronic lung changes. POS: ALYSSA
[2019-10-07 20:24] LABS: CKMB 6.7 ng/mL (0-6.6)
--- NOTE | 2019-10-07 21:47 | CT ---
CT ANGIO OF CHEST PERFORMED WITH INTRAVENOUS CONTRAST ENHANCEMENT AND 3D RECONSTRUCTIONS: History: Chest pain and shortness of breath. Comparison: 09-29-2019 examination of the chest. FINDINGS: Severe emphysematous lung changes again noted which are upper lobe predominant. Calcified granuloma s een in the right lower lobe. There is a small nodular density seen directly adjacent to this on the p revious examination which is now smaller in appearance. An area of slight nodular parenchymal change seen in the anterior aspect of the right upper lobe on the previous examination is also less prominen t. Aortic valve stent is noted to be in place. The thoracic aorta is normal in caliber. There is fairly good pulmonary artery opacification, no CT evidence for pulmonary embolus. Visualized liver parenchyma shows no focal findings. IMPRESSION: 1. Severe emphysematous lung change. 2. No CT evidence for pulmonary embolus. POS: ALYSSA
[2019-10-07] MEDS ORDERED: Aspirin Chewable 81 MG TAB ONE (21:49)
[2019-10-07] MEDS ORDERED: Nitroglycerin 0.4 MG TAB (25 Tab Bottle) PO PRN (21:53)
[2019-10-07] MEDS ORDERED: Dextrose 50% Abboject 50 ML SYRINGE SLOW IVP PRN (22:04)
[2019-10-07] MEDS ORDERED: Dextrose 5% in Water 1,000 ML IV PRN (22:04)
[2019-10-07] MEDS ORDERED: Enoxaparin Sodium 100 MG/ML SYRINGE ONE (22:08)
[2019-10-07] MEDS ORDERED: Metoprolol Tartrate 100 MG TAB PO SCH (22:15)
[2019-10-07 23:11] LABS: Troponin I 0.718 ng/mL (< 0.028)
--- NOTE | 2019-10-07 23:29 | HP ---
CHIEF COMPLAINT: Chest pain. HISTORY OF PRESENT ILLNESS: Mr. Beltre is a 74-year-old male with past medical history of coronary artery disease, coronary artery bypass graft surgery, cardiac stents, COPD, diabetes mellitus type 2, hypertension, GERD, among others, presented to the emergency room with chest pain radiating to the left shoulder associated with shortness of breath. Around 3:30 p.m., the patient started having left-sided chest pain with radiation to the left arm and shortness of breath. The patient was recently discharged on 10/03 for COPD exacerbation and NSTEMI. Today, workup in the emergency room, the patient was found to be in sinus tachycardia with heart rate in the 130s. The patient was given diltiazem in the emergency room. Heart rate now is in the low 100s. Apparently, the patient ran out of his metoprolol for the last 2 weeks. He is supposed to be on metoprolol 150 mg twice daily. Today, troponin is 0.23, but comparing to the latest troponin, it is trending down. The patient denies nausea, vomiting, fever, or chills. The patient is being admitted to the hospital for further management. PAST MEDICAL HISTORY: As mentioned above in the history of present illness. PAST SURGICAL HISTORY: 1. Coronary artery bypass graft surgery, 4 vessels. 2. Cardiac stents, aortic valve replacement. 3. Right rotator cuff surgery. 4. Bilateral carpal tunnel surgery. FAMILY HISTORY: Reviewed and noncontributory. SOCIAL HISTORY: The patient drinks socially. He is a former tobacco smoker. HOME MEDICATIONS: Please see home medication reconciliation form for updated medications. ALLERGIES: NO KNOWN ALLERGIES. REVIEW OF SYSTEMS: Review of 14 systems negative except what is mentioned in the history of present illness. PHYSICAL EXAMINATION: GENERAL: The patient is awake and alert, in moderate distress. VITAL SIGNS: Blood pressure 110/68, pulse is 110, respiratory rate is 22, oxygen saturations 92% on 2 L/minute nasal cannula, temperature 98.5. HEAD AND NECK: Normocephalic, atraumatic. Neck is supple. No JVD. CHEST: Decreased air entry bilaterally. HEART: S1, S2, regular, tachycardic. ABDOMEN: Soft, nontender. Bowel sounds present. NEUROLOGIC: Awake, alert, and oriented x3. No focal deficits. PSYCH: Unable to assess. EXTREMITIES: No clubbing, no cyanosis. GENITOURINARY: No suprapubic tenderness. No flank tenderness. LABORATORY DATA: Troponin 0.23. BNP 261. BUN is 12, creatinine 1.3, potassium 4.6. WBC 12.2, hemoglobin 13.8, and platelets 125. Chest x-ray, bibasilar atelectasis and chronic lung changes. CTA of the chest was done, the results are pending, but as per ER, no PE. ASSESSMENT: 1. Acute chest pain, rule out acute coronary syndrome. 2. Elevated troponin, but comparing to the latest troponin during the last admission, this is trending down. 3. Tachycardia. The patient ran out of metoprolol 2 weeks ago, we will restart. 4. Coronary artery disease with history of coronary artery bypass graft surgery and cardiac stents. 5. History of aortic valve replacement. 6. Diabetes mellitus with hyperglycemia, type 2. 7. Hypertension. PLAN: 1. Admit. 2. Tele monitoring. 3. Aspirin. 4. Serial troponins. 5. Restart metoprolol. The patient ran out of his metoprolol 2 weeks ago. 6. Consult the patient's schedule analyst in a.m. for evaluation and further recommendations. 7. Reconcile home medications. 8. DVT prophylaxis as appropriate. 9. Expected length of stay is at least 1 midnight if the patient is stable and further workup negative. Job ID: [id number] Repeat troponin 0.7 will start anticogulants consult cardiology MTDD
[2019-10-07] MEDS ORDERED: Enoxaparin Sodium 80 MG/0.8 ML SYRINGE SC SCH (23:30)
[2019-10-07 23:59] VITALS: BMI 28.5
[2019-10-08 01:50] LABS: Troponin I 1.052 ng/mL (< 0.028)
[2019-10-08 05:55] LABS: CKMB 8.7 ng/mL (0-6.6)
[2019-10-08] MEDS ORDERED: Heparin 5,000 UNITS/ML VIAL SC SCH (09:00)
[2019-10-08] MEDS ORDERED: Aspirin 325 mg Enteric Coated Tablet PO SCH (09:00)
[2019-10-08] MEDS: Enoxaparin Sodium 100 MG/ML SYRINGE SC SCH ×2 (09:27→20:54)
[2019-10-08] MEDS: Metoprolol Tartrate 100 MG TAB PO SCH ×2 (09:27→20:57)
[2019-10-08] MEDS ORDERED: Clopidogrel Bisulfate 300 MG TAB PO SCH (10:30)
[2019-10-08] MEDS ORDERED: Acetylcysteine 20% 200 MG/ML 30 ML VIAL INH PRN (14:12)
[2019-10-08] MEDS: Gabapentin 100 MG CAP PO SCH ×2 (15:27→20:57)
[2019-10-08] MEDS: Dorzolamide HCl 2% Ophth Soln 10 ml Bottle EA EYE SCH ×2 (15:27→21:14)
[2019-10-08] MEDS: HumaLOG 300 UNITS/3 ML VIAL SC PRN (17:06)
[2019-10-08] MEDS: Mometasone 200 MCG/Formoterol 5 MCG 120 PUFF INHALER INH SCH (19:39)
[2019-10-08] MEDS: Famotidine 20 MG TAB PO SCH (20:58)
[2019-10-08] MEDS: Latanoprost 0.005% Ophth Soln 2.5 ml Bottle EA EYE SCH (21:17)
[2019-10-09] MEDS: Loratadine 10 MG TAB PO SCH (06:25)
--- NOTE | 2019-10-09 06:55 | CON ---
DATE OF CONSULTATION: HISTORY OF PRESENT ILLNESS: Michelle Beltre is a 74-year-old black male, who underwent CABG x4 in June 1989 with vein grafts to the right posterior descending, diagonal, ramus, and obtuse marginal. He had closed grafts and multiple stents, IIn 2017, in a repeat catheterization, he was found to have all of his grafts occluded with severe diffuse coronary artery disease, not amenable to surgery or any type of intervention. He also had severe aortic stenosis at that time. He then underwent a TAVR in [place] in 2017. Left ventricular function has continued to be fairly normal after that. He was recently admitted with COPD exacerbation. Now he is admitted after onset of intense chest pressure associated with shortness of breath. This apparently was relieved with 2 or 3 sublingual nitroglycerins. He does not have nitroglycerin at home. He is now admitted and has had slightly elevated cardiac enzymes. PAST MEDICAL HISTORY: Coronary artery disease, status post CABG x4 in 1988 with all grafts occluded, peripheral vascular disease, COPD, hyperlipidemia, hypertension. PAST SURGICAL HISTORY: CABG x3, TAVR in 2017, right rotator cuff repair. MEDICATIONS: 1. Aspirin 81 daily. 2. Clopidogrel 75 mg daily. 3. Symbicort two puffs b.i.d. 4. Zetia 10 mg daily. 5. Famotidine 20 b.i.d. 6. Flonase. 7. Furosemide 20 mg q.a.m. 8. Neurontin 200 t.i.d. 9. Isosorbide mononitrate 90 daily. 10. Claritin 10 mg daily. 11. Metoprolol 150? b.i.d. 12. Niacin 500 at bedtime. 13. Prednisone 40 q.a.m. ALLERGIES: NONE. SOCIAL HISTORY: Smoked one pack per day, but stopped a little over a year ago. He occasionally drinks. REVIEW OF SYSTEMS: Unremarkable except as noted above. PHYSICAL EXAMINATION: VITAL SIGNS: Blood pressure 93/55, pulse of 69. HEENT: PERRL. NECK: Supple. CHEST: Reveals crackles at the bases. CARDIOVASCULAR: S1 and S2 normal without any S3, S4, or murmurs. ABDOMEN: Normal bowel sounds without tenderness. EXTREMITIES: Reveal 1+ pretibial edema. LABORATORY DATA: EKG reveals sinus tachycardia with nonspecific ST and T-wave changes. Hemoglobin 13.8, hematocrit 41.0, white count 97[address]. Troponin I is 1.283. CK-MB 8.7. Sodium 135, potassium 4.6, chloride 95, carbon dioxide 28, BUN 12, creatinine 1.35, glucose 335. IMPRESSION: 1. Fyo-EQ-oevhzfiim myocardial infarction. 2. Severe three vessel coronary artery disease, not amenable to redo bypass surgery or to any type of intervention. His films were reviewed last admission as well as earlier today. There are probably 70 or 80 different areas at least in his coronary anatomy that could cause a non-STEMI, none of which are amenable to any type of intervention or surgery. Therefore, he will be treated medically only. 3. Peripheral vascular disease. 4. Chronic obstructive pulmonary disease, status post recent exacerbation. 5. Hyperlipidemia. 6. Hypertension. 7. Former smoker. PLAN: The situation was discussed with the patient. He does need nitroglycerin sublingually at home. Also, he will be started on Ranexa 500 mg b.i.d. for 5 to 7 days and then 1000 mg b.i.d. I would continue him on anticoagulation with Lovenox for 48 hours and then he probably can be discharged. There is really nothing more to offer him. Job ID: [id number] [facility] HEALTH SYSTEMGeronimo
[2019-10-09] MEDS: Mometasone 200 MCG/Formoterol 5 MCG 120 PUFF INHALER INH SCH ×2 (07:58→18:38)
[2019-10-09] MEDS: Dorzolamide HCl 2% Ophth Soln 10 ml Bottle EA EYE SCH ×3 (08:32→20:09)
[2019-10-09] MEDS: Clopidogrel Bisulfate 75 MG TAB PO SCH (08:32)
[2019-10-09] MEDS: predniSONE 20 MG TAB PO SCH (08:32)
[2019-10-09] MEDS: Aspirin 81 mg Enteric Coated Tablet PO SCH (08:32)
[2019-10-09] MEDS: Cyanocobalamin (Vitamin B-12) 1,000 MCG TAB PO SCH (08:32)
[2019-10-09] MEDS: Enoxaparin Sodium 100 MG/ML SYRINGE SC SCH ×2 (08:33→20:10)
[2019-10-09] MEDS: Ezetimibe 10 MG TAB PO SCH (08:33)
[2019-10-09] MEDS: Isosorbide Mononitrate (ER) 30 MG TAB PO SCH (08:33)
[2019-10-09] MEDS: Famotidine 20 MG TAB PO SCH ×2 (08:33→20:10)
[2019-10-09] MEDS: Gabapentin 100 MG CAP PO SCH ×3 (08:33→20:11)
[2019-10-09] MEDS: Fluticasone Propionate Nasal Spray 16 gm Bottle NASAL SCH (08:33)
[2019-10-09] MEDS: Multivitamin W/ Minerals 1 TAB PO SCH (08:34)
[2019-10-09] MEDS: Metoprolol Tartrate 100 MG TAB PO SCH ×2 (08:34→20:12)
[2019-10-09] MEDS ORDERED: Furosemide 20 MG TAB PO SCH ×2 (09:00→15:00)
[2019-10-09] MEDS ORDERED: Clopidogrel Bisulfate 75 MG TAB PO SCH (09:00)
[2019-10-09] MEDS: HumaLOG 300 UNITS/3 ML VIAL SC PRN ×2 (11:09→17:36)
--- NOTE | 2019-10-09 11:54 | PDOC.HOSPP ---
- Subjective Encounter Date: 10/08/19 Encounter Time: 10:30 Subjective: pt up in bed feels well, no chest pain. - Objective Vital Signs & Weight: Vital Signs (12 hours) Temp Pulse Resp BP BP BP Pulse Ox 10/09/19 11:02 99.4 F 84 18 116/63 94 L 10/09/19 08:35 117/64 10/09/19 07:30 99.6 F 86 16 97/56 L 95 10/09/19 03:25 98.5 F 82 19 101/57 L 99 Weight Weight 203 lb 14.4 oz I&O: 10/08/19 10/09/19 10/10/19 06:59 06:59 06:59 Intake Total 200 1440 Output Total 625 2300 Balance -425 -860 Result Diagrams: 10/07/19 19:29 10/07/19 19:29 Additional Labs: Accuchecks 10/09/19 10/09/19 10/08/19 10:50 06:02 20:30 POC Glucose 232 H 144 H 217 H 10/08/19 16:41 POC Glucose 190 H Hospitalist ROS - Review of Systems Cardiovascular: denies: chest pain, palpitations, orthopnea, paroxysmal noc. dyspnea, edema, light headedness, other Gastrointestinal: denies: nausea, vomiting, abdominal pain, diarrhea, constipation, melena, hematochezia, other Genitourinary: denies: dysuria, frequency, incontinence, hematuria, retention, other - Medication Medications: Active Medications Generic Name Dose Route Start Last Admin Trade Name Freq PRN Reason Stop Dose Admin Aspirin 81 mg 10/09/19 09:00 10/09/19 08:32 Ecotrin PO 81 mg DAILY ROSARIO Administration Clopidogrel Bisulfate 75 mg 10/09/19 09:00 10/09/19 08:32 Plavix PO 75 mg DAILY ROSARIO Administration Cyanocobalamin 1,000 mcg 10/09/19 09:00 10/09/19 08:32 Vitamin B-12 PO 1,000 mcg DAILY ROSARIO Administration Dorzolamide HCl 1 drop 10/08/19 15:00 10/09/19 08:32 Trusopt 2% Ophth Soln EA EYE 1 drop TID ROSARIO Administration Ezetimibe 10 mg 10/09/19 09:00 10/09/19 08:33 Zetia PO 10 mg DAILY ROSARIO Administration Enoxaparin Sodium 90 mg 10/08/19 09:00 10/09/19 08:33 Lovenox SC 90 mg 0900,2100 ROSARIO Administration Famotidine 20 mg 10/08/19 21:00 10/09/19 08:33 Pepcid PO 20 mg BID ROSARIO Administration Fluticasone Propionate 0 gm 10/09/19 09:00 10/09/19 08:33 Flonase Nasal [place] NASAL 1 spr DAILY ROSARIO Administration Furosemide 20 mg 10/09/19 09:00 10/09/19 08:33 Lasix PO 20 mg DAILY ROSARIO Administration Gabapentin 200 mg 10/08/19 15:00 10/09/19 08:33 Neurontin PO 200 mg TID ROSARIO Administration Insulin Human Lispro 0 units 10/07/19 22:04 10/09/19 11:09 Humalog SC 3 unit .MILD SLIDING SCALE PRN Administration Mild Correctional Scale Iron/Minerals/Multivitamins 1 tab 10/09/19 09:00 10/09/19 08:34 Theragran M PO 1 tab DAILY ROSARIO Administration Isosorbide Mononitrate 90 mg 10/09/19 09:00 10/09/19 08:33 Imdur Er PO 90 mg DAILY ROSARIO Administration Latanoprost 1 drop 10/08/19 21:00 10/08/19 21:17 Xalatan 0.005% Oph Soln EA EYE 1 drop HS [facility] Administration Loratadine 10 mg 10/09/19 09:00 10/09/19 06:25 Claritin PO 10 mg DAILY ROSARIO Administration Metoprolol Tartrate 150 mg 10/08/19 09:00 10/09/19 08:34 Lopressor PO 150 mg BID ROSARIO Administration Mometasone Furoate/Formoterol Fumar 2 puff 10/08/19 18:30 10/09/19 07:58 Dulera 200 Mcg/5 Mcg Inhaler INH 2 puff BID-RT ROSARIO Administration Niacin 500 mg 10/08/19 21:00 10/08/19 20:58 Niaspan Er PO 500 mg HS ROSARIO Administration Prednisone 40 mg 10/09/19 08:00 10/09/19 08:32 Prednisone PO 10/12/19 08:01 40 mg QAM-WM ROSARIO Administration Ranolazine 500 mg 10/08/19 09:00 10/09/19 08:34 Ranexa PO 500 mg BID ROSARIO Administration - Exam Neck: negative: supple, symmetric, no JVD, no thyromegaly, no lymphadenopathy, no carotid bruit, JVD Heart: negative: RRR, no murmur, no gallops, no rubs, normal peripheral pulses, irregular, diminshed peripheral pulses, murmur present, II/IV, III/IV Respiratory: no wheezes Respiratory - other findings: diminished breath sound to both lungs Gastrointestinal: negative: soft, non-tender, non-distended, normal bowel sounds , no palpable masses, no hepatomegaly, no splenomegaly, no bruit, no guarding, no rigidity, tender to palpation, distended, diminished bowl sounds, voluntary guarding Hosp A/P (1) Bronchiectasis Code(s): J47.9 - BRONCHIECTASIS, UNCOMPLICATED Status: Acute (2) NSTEMI (non-ST elevated myocardial infarction) Code(s): I21.4 - NON-ST ELEVATION (NSTEMI) MYOCARDIAL INFARCTION Status: Acute (3) CAD (coronary artery disease) Code(s): I25.10 - ATHSCL HEART DISEASE OF [place] CORONARY ARTERY W/O ANG PCTRS Status: Chronic Qualifiers: Coronary Disease-Associated Artery/Lesion type: [place] artery [place] vs. transplanted heart: [place] heart Associated angina: without angina Qualified Code(s): I25.10 - Atherosclerotic heart disease of [place] coronary artery without angina pectoris (4) COPD (chronic obstructive pulmonary disease) Status: Chronic (5) DM type 2 (diabetes mellitus, type 2) Status: Chronic Qualifiers: Diabetes mellitus chcf insulin use: without chcf use Diabetes mellitus complication status: without complication Qualified Code(s): E11.9 - Type 2 diabetes mellitus without complications (6) Dyslipidemia Code(s): E78.5 - HYPERLIPIDEMIA, UNSPECIFIED Status: Chronic (7) Hypertension Code(s): I10 - ESSENTIAL (PRIMARY) HYPERTENSION Status: Chronic Qualifiers: - Plan clinically per cardio no intervention. will continue lovonox for now. will continue home meds.
--- NOTE | 2019-10-09 18:27 | PDOC.HOSPP ---
- Subjective Encounter Date: 10/09/19 Encounter Time: 09:00 Subjective: pt up in bed doing well. He was sob yesterday - Objective Vital Signs & Weight: Vital Signs (12 hours) Temp Pulse Resp BP BP Pulse Ox 10/09/19 15:07 98.3 F 77 16 94/51 L 96 10/09/19 11:02 99.4 F 84 18 116/63 94 L 10/09/19 08:35 117/64 10/09/19 07:30 99.6 F 86 16 97/56 L 95 Weight Weight 203 lb 14.4 oz I&O: 10/08/19 10/09/19 10/10/19 06:59 06:59 06:59 Intake Total 200 1440 1000 Output Total 625 2300 1175 Balance -425 -860 -175 Result Diagrams: 10/07/19 19:29 10/07/19 19:29 Additional Labs: Accuchecks 10/09/19 10/09/19 10/09/19 16:29 10:50 06:02 POC Glucose 207 H 232 H 144 H 10/08/19 20:30 POC Glucose 217 H Hospitalist ROS - Review of Systems Cardiovascular: denies: chest pain, palpitations, orthopnea, paroxysmal noc. dyspnea, edema, light headedness, other Genitourinary: denies: dysuria, frequency, incontinence, hematuria, retention, other - Medication Medications: Active Medications Generic Name Dose Route Start Last Admin Trade Name Freq PRN Reason Stop Dose Admin Aspirin 81 mg 10/09/19 09:00 10/09/19 08:32 Ecotrin PO 81 mg DAILY ROSARIO Administration Clopidogrel Bisulfate 75 mg 10/09/19 09:00 10/09/19 08:32 Plavix PO 75 mg DAILY ROSARIO Administration Cyanocobalamin 1,000 mcg 10/09/19 09:00 10/09/19 08:32 Vitamin B-12 PO 1,000 mcg DAILY ROSARIO Administration Dorzolamide HCl 1 drop 10/08/19 15:00 10/09/19 15:28 Trusopt 2% Ophth Soln EA EYE 1 drop TID ROSARIO Administration Ezetimibe 10 mg 10/09/19 09:00 10/09/19 08:33 Zetia PO 10 mg DAILY ROSARIO Administration Enoxaparin Sodium 90 mg 10/08/19 09:00 10/09/19 08:33 Lovenox SC 90 mg 0900,2100 ROSARIO Administration Famotidine 20 mg 10/08/19 21:00 10/09/19 08:33 Pepcid PO 20 mg BID ROSARIO Administration Fluticasone Propionate 0 gm 10/09/19 09:00 10/09/19 08:33 Flonase Nasal [place] NASAL 1 spr DAILY ROSARIO Administration Gabapentin 200 mg 10/08/19 15:00 10/09/19 15:28 Neurontin PO 200 mg TID ROSARIO Administration Insulin Human Lispro 0 units 10/07/19 22:04 10/09/19 17:36 Humalog SC 3 unit .MILD SLIDING SCALE PRN Administration Mild Correctional Scale Iron/Minerals/Multivitamins 1 tab 10/09/19 09:00 10/09/19 08:34 Theragran M PO 1 tab DAILY ROSARIO Administration Isosorbide Mononitrate 90 mg 10/09/19 09:00 10/09/19 08:33 Imdur Er PO 90 mg DAILY ROSARIO Administration Latanoprost 1 drop 10/08/19 21:00 10/08/19 21:17 Xalatan 0.005% Ophth Soln EA EYE 1 drop HS ROSARIO Administration Loratadine 10 mg 10/09/19 09:00 10/09/19 06:25 Claritin PO 10 mg DAILY ROSARIO Administration Metoprolol Tartrate 150 mg 10/08/19 09:00 10/09/19 08:34 Lopressor PO 150 mg BID ROSARIO Administration Mometasone Furoate/Formoterol Fumar 2 puff 10/08/19 18:30 10/09/19 07:58 Dulera 200 Mcg/5 Mcg Inhaler INH 2 puff BID-RT ROSARIO Administration Niacin 500 mg 10/08/19 21:00 10/08/19 20:58 Niaspan Er PO 500 mg HS ROSARIO Administration Prednisone 40 mg 10/09/19 08:00 10/09/19 08:32 Prednisone PO 10/12/19 08:01 40 mg QAM-WM ROSARIO Administration Ranolazine 500 mg 10/08/19 09:00 10/09/19 08:34 Ranexa PO 500 mg BID ROSARIO Administration - Exam Neck: negative: supple, symmetric, no JVD, no thyromegaly, no lymphadenopathy, no carotid bruit, JVD Heart: negative: RRR, no murmur, no gallops, no rubs, normal peripheral pulses, irregular, diminshed peripheral pulses, murmur present, II/IV, III/IV Respiratory - other findings: decrease breath sound all over Hosp A/P (1) Bronchiectasis Code(s): J47.9 - BRONCHIECTASIS, UNCOMPLICATED Status: Acute (2) NSTEMI (non-ST elevated myocardial infarction) Code(s): I21.4 - NON-ST ELEVATION (NSTEMI) MYOCARDIAL INFARCTION Status: Acute (3) CAD (coronary artery disease) Code(s): I25.10 - ATHSCL HEART DISEASE OF [place] CORONARY ARTERY W/O ANG PCTRS Status: Chronic Qualifiers: Coronary Disease-Associated Artery/Lesion type: [place] artery [place] vs. 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 will continue lovonox for now. will continue home meds. 10/08 pt on ranexa, will continue lovonox per cardio. Did speak with pt about hospice given his terminal illness. He states that he will think about it.
[2019-10-09] MEDS: Latanoprost 0.005% Ophth Soln 2.5 ml Bottle EA EYE SCH (20:11)
[2019-10-10 04:29] LABS: Anion Gap 13 mmol/L (10-20); BUN (Urea Nitrogen) 10 mg/dL (8.4-25.7); Calc. Creatinine Clearance 115 mL/min (70-130); Calcium 9.3 mg/dL (7.8-10.44); Carbon Dioxide 29 mmol/L (23-31); Chloride 99 mmol/L (98-107); Estimated GFR-MDRD Greater than 90; Glucose 139 mg/dL (83-110); Potassium 4.7 mmol/L (3.5-5.1); Sodium 136 mmol/L (136-145)
[2019-10-10] MEDS ORDERED: Furosemide 40 MG TAB PO SCH (07:30)
[2019-10-10] MEDS: Mometasone 200 MCG/Formoterol 5 MCG 120 PUFF INHALER INH SCH (07:41)
[2019-10-10] MEDS: Fluticasone Propionate Nasal Spray 16 gm Bottle NASAL SCH (07:45)
[2019-10-10] MEDS: Enoxaparin Sodium 100 MG/ML SYRINGE SC SCH (07:45)
[2019-10-10] MEDS: Clopidogrel Bisulfate 75 MG TAB PO SCH (07:46)
[2019-10-10] MEDS: Aspirin 81 mg Enteric Coated Tablet PO SCH (07:46)
[2019-10-10] MEDS: Isosorbide Mononitrate (ER) 30 MG TAB PO SCH (07:46)
[2019-10-10] MEDS: Loratadine 10 MG TAB PO SCH (07:46)
[2019-10-10] MEDS: Gabapentin 100 MG CAP PO SCH ×2 (07:46→14:49)
[2019-10-10] MEDS: predniSONE 20 MG TAB PO SCH (07:46)
[2019-10-10] MEDS: Metoprolol Tartrate 100 MG TAB PO SCH (07:47)
[2019-10-10] MEDS: Ezetimibe 10 MG TAB PO SCH (07:48)
[2019-10-10] MEDS: Cyanocobalamin (Vitamin B-12) 1,000 MCG TAB PO SCH (07:48)
[2019-10-10] MEDS: Famotidine 20 MG TAB PO SCH (07:48)
[2019-10-10] MEDS: Multivitamin W/ Minerals 1 TAB PO SCH (07:48)
[2019-10-10] MEDS: Dorzolamide HCl 2% Ophth Soln 10 ml Bottle EA EYE SCH ×2 (07:50→14:48)
[2019-10-10 11:07] VITALS: BP 106/56; TEMP 97.8
[2019-10-10] MEDS: HumaLOG 300 UNITS/3 ML VIAL SC PRN (11:07)
--- NOTE | 2019-10-10 13:58 | DIS ---
DATE OF ADMISSION: 10/07/2019 DATE OF DISCHARGE: 10/10/2019 DISCHARGE DIAGNOSES: 1. Chest pain. 2. Veo-TK-bupltrq elevation myocardial infarction, most likely demand related. 3. Coronary artery disease. 4. Chronic obstructive pulmonary disease, stable. 5. Diabetes. HOSPITAL COURSE: The patient is a 74-year-old male, who recently was discharged from the hospital after a long stay, who comes into the hospital with complaints of chest pain. He did have elevated troponins. However, given his cardiac history, he was seen by Cardiology. There was no intervention in regard to his coronary symptoms. I started him on Ranexa. He did well. He was put on 48-hour Lovenox per Cardiology and he had no more chest pain. I did talk with the patient in regard to possible hospice given his significant emphysema and also his unoperable heart disease. The patient understands. He stated that he will think about it and he will talk with his about it. He will be discharged to home with his baseline oxygen and his home medications. No medications were changed except for I have added Ranexa for him. HOME MEDICATIONS: 1. Ranexa 500 mg b.i.d. 2. Lasix 20 mg daily. 3. Plavix 75 mg daily. 4. Mucomyst 600 mg inhalation as needed. 5. Zetia 10 mg daily. 6. Pepcid 20 mg twice a day. 7. Prednisone taper. 8. Claritin 10 mg daily. 9. Metoprolol 150 b.i.d. 10. Niacin 500 mg at bedtime. 11. Isosorbide 90 mg daily. 12. Aspirin 81 mg daily. 13. Symbicort two puffs b.i.d. 14. Flonase 1 nasal spray daily. 15. Gabapentin 200 mg t.i.d. 16. Guaifenesin 1200 mg p.o. q.12 hours. PHYSICAL EXAMINATION: VITAL SIGNS: Temperature 97.8, O2 saturations 98% on 2 L, blood pressure 106/56. GENERAL: He is awake, alert, and oriented x3. Does not appear in distress. CV: S1 and S2 present. No murmurs, rubs, or gallops. ABDOMEN: Soft and nontender. Bowel sounds are present x2. Again, he will be discharged to home. He will follow up with his primary. Job ID: [id number]
--- NOTE | 2019-10-10 14:03 | EKG ---
Test Reason : CP Blood Pressure : / mmHG Vent. Rate : 132 BPM Atrial Rate : 132 BPM P-R Int : 126 ms QRS Dur : 082 ms QT Int : 318 ms P-R-T Axes : 079 -25 106 degrees QTc Int : 471 ms Sinus tachycardia Possible Left atrial enlargement Abnormal ECG Confirmed by MARISOL STEVENS, ARIELA ([id number]), desk editor JESSICA PATTON ([id number]) on 10/10/2019 2:03:02 PM Referred By: Confirmed By:ARIELA DAMON MD
[2019-10-13] MEDS ORDERED: predniSONE 20 MG TAB PO SCH (08:00)
[2019-10-18] MEDS ORDERED: predniSONE 5 MG TAB PO SCH (08:00)
== END 2019-10-10 15:05 | disposition home or self-care (01) | DRG 282 ==
LOC: ERS 18:55 → OBSVTOIN 21:52 → 2SW 21:52 → 2NO 10-09 18:35
PROVIDERS: ADMIT Internal Medicine; ATTEND Internal Medicine
DX: I21.A1 Myocardial infarction type 2 (principal); I25.10 Atherosclerotic heart disease of native coronary artery without angina pectoris; E78.00 Pure hypercholesterolemia, unspecified; I10 Essential (primary) hypertension; H40.9 Unspecified glaucoma; K21.9 Gastro-esophageal reflux disease without esophagitis; E11.65 Type 2 diabetes mellitus with hyperglycemia; E11.51 Type 2 diabetes mellitus with diabetic peripheral angiopathy without gangrene; E78.5 Hyperlipidemia, unspecified; J43.9 Emphysema, unspecified; J47.9 Bronchiectasis, uncomplicated; Z95.2 Presence of prosthetic heart valve; Z87.891 Personal history of nicotine dependence; Z79.82 Long term (current) use of aspirin; Z79.51 Long term (current) use of inhaled steroids; Z79.899 Other long term (current) drug therapy; Z95.1 Presence of aortocoronary bypass graft; Z79.52 Long term (current) use of systemic steroids; Z79.4 Long term (current) use of insulin
CPT/HCPCS: 36415; 36416; 71045; 71275; 80053; 82550; 82553; 83690; 83880; 84484; 85025; 93005; 94760; J1650; J7512; Q9967

== ENCOUNTER 2019-10-14 06:58 | Inpatient (IN) | payer MEDICARE, OTHER ==
[2019-10-14] MEDS ORDERED: methylPREDNISolone Sod Succ/PF 125 MG/2 ML VIAL ONE (07:19)
[2019-10-14] MEDS ORDERED: Magnesium 2 GM/50 ML BAG (IN WATER) ONE (07:19)
[2019-10-14] MEDS ORDERED: Cefepime 2 GM VIAL ONE (07:23)
[2019-10-14] MEDS ORDERED: Albuterol 200 PUFF (6.7GM INHALER) ONE (07:30)
[2019-10-14] MEDS ORDERED: Haloperidol Lactate 5 MG/ML VIAL ONE (07:31)
[2019-10-14 07:47] LABS: #Lymphocytes 0.9 thou/uL (1.20-3.40); #Monocytes 0.4 thou/uL (0.11-0.59); #Neutrophils 2.3 thou/uL (1.40-6.50); %Basophils 0.2 % (0.0-1.0); %Eosinophils 0.3 % (0.0-10.0); %Lymphocytes 25.2 % (21.0-51.0); %Monocytes 10.5 % (0.0-10.0); %Neutrophils 63.8 % (42.0-75.0); Actual Bicarbonate (HCO3a) 24.1 mEq/L (22-28); Analyzer IN Cardio ER; Base Excess (BEa) -0.7 mEq/L (-2.0 to +3.0); CO2 Tension 40.4 mmHg (35.0-45.0); Calcium, Ionized 1.21 mmol/L (1.12-1.30); Carboxyhemoglobin (COHb) 0.2 gm% (0.0-3.0); Hemoglobin 14.4 g/dL (14.0-18.0); Hemoglobin (Hb) 14.3 g/dL (14.0-18.0); Mean Corpuscular HGB CONC 33.4 g/dL (32.0-36.0); Mean Corpuscular Hemoglobin 31.8 pg (27.0-31.0); Mean Corpuscular Volume 95.2 fL (78.0-98.0); Mean Platelet Volume 8.1 fL (7.4-10.4); O2 Tension (PaO2), arterial 60.1 mmHg (> 70.0); Platelet Count 148 thou/uL (130-400); Potassium - ABG Lab 3.13 mmol/L (3.70-5.30); RBC Distribution Width 12.7 % (11.5-14.5); Red Blood Cell (RBC) Count 4.51 mill/uL (4.70-6.10); White Blood Cell (WBC) Count 3.7 thou/uL (4.8-10.8); pH, Arterial 7.39 (7.35-7.45)
[2019-10-14 07:50] LABS: Puncture Site LRA
--- NOTE | 2019-10-14 07:59 | RAD ---
FRONTAL RADIOGRAPH CHEST: Date: 10/14/2019 COMPARISON: 10/07/2019. HISTORY: COPD, CHF, possible COVID, dyspnea. FINDINGS: There are emphysematous changes noted within bilateral lung apices. Midline sternotomy wires are note d. There is nonspecific increased linear interstitial density within the lung bases, left greater than r ight, new. There is new air space disease within the left base with partial obscuration of the left h emidiaphragm and left heart border with slight new blunting of bilateral costophrenic angles, suggest ing small bilateral pleural effusions. IMPRESSION: Interval development of increased density within both lung bases, left greater than right. These find ings may be on the basis of bibasilar infectious pneumonitis and/or pulmonary edema. Recommend short- term follow-up imaging of the chest following treatment to document resolution. POS: [facility]
[2019-10-14 08:13] LABS: ALT (SGPT) 25 U/L (8-55); AST (SGOT) 59 U/L (5-34); Albumin 3.6 g/dL (3.4-4.8); Alkaline Phosphatase 51 U/L (40-110); Anion Gap 16 mmol/L (10-20); BUN (Urea Nitrogen) 14 mg/dL (8.4-25.7); Bilirubin, Total 0.7 mg/dL (0.2-1.2); Calc. Creatinine Clearance 0 mL/min (70-130); Calcium 8.9 mg/dL (7.8-10.44); Carbon Dioxide 25 mmol/L (23-31); Chloride 101 mmol/L (98-107); Estimated GFR-MDRD 58; Globulin 2.8 g/dL (2.4-3.5); Glucose 309 mg/dL (83-110); Potassium 3.5 mmol/L (3.5-5.1); Protein, Total 6.4 g/dL (5.8-8.1); Sodium 138 mmol/L (136-145)
[2019-10-14] MEDS ORDERED: Enoxaparin Sodium 100 MG/ML SYRINGE ONE (08:33)
[2019-10-14] MEDS ORDERED: Norepinephrine 4 MG/4 ML VIAL ONE (09:02)
[2019-10-14] MEDS ORDERED: Ondansetron PF 4 MG/2 ML Vial ONE (09:03)
[2019-10-14] MEDS ORDERED: Fentanyl 100 MCG/2 ML VIAL ONE (09:05)
[2019-10-14 09:45] LABS: Bilirubin Negative (Negative); Blood, Urine Trace (Negative); Clarity Turbid (Clear); Glucose, Urine (Dipstick) 150 mg/dL (Negative); Leukocyte Negative Leu/uL (Negative); Nitrite Negative (Negative); Protein, Urine (Dipstick) 100 mg/dL (Neg-Trace); Squamous Epithelial 0-3 HPF (0-3); Urobilinogen Normal mg/dL (Less than 2)
[2019-10-14 09:50] LABS: Sperm/HPF 3+ HPF (None Seen)
[2019-10-14 09:51] LABS: Bacteria/HPF None Seen HPF (None Seen)
[2019-10-14] MEDS ORDERED: Ondansetron PF 4 MG/2 ML Vial IVP PRN ×2 (10:38→10:58)
[2019-10-14] MEDS ORDERED: Ondansetron ODT 4 MG TAB SL PRN (10:38)
[2019-10-14] MEDS ORDERED: Acetaminophen 325 MG TAB PO PRN (10:38)
[2019-10-14] MEDS ORDERED: Ondansetron ODT 4 MG TAB PO PRN (10:58)
[2019-10-14] MEDS ORDERED: Dextrose 50% Abboject 50 ML SYRINGE SLOW IVP PRN (10:58)
[2019-10-14] MEDS ORDERED: Dextrose 5% in Water 1,000 ML IV PRN (10:58)
[2019-10-14] MEDS ORDERED: Magnesium 2 GM/50 ML 2 GM in Premix Bag 1 BAG IVPB SCH (11:00)
[2019-10-14] MEDS: methylPREDNISolone Sod Succ 40 MG VIAL IVP SCH ×3 (11:30→23:28)
[2019-10-14] MEDS: Sodium Chloride 0.45% 1,000 ML IV SCH (11:34)
[2019-10-14] MEDS ORDERED: methylPREDNISolone Sod Succ 40 MG VIAL IVP SCH (12:00)
--- NOTE | 2019-10-14 12:04 | HP ---
PRIMARY CARE PHYSICIAN: Dr. Velazco. CHIEF COMPLAINT: Chest pain and shortness of breath. HISTORY OF PRESENT ILLNESS: Mr. Beltre is a very pleasant 74-year-old gentleman, who has a history of coronary artery disease. He also has a history of COPD and diabetes mellitus. He was recently admitted to our facility earlier this month with chest pain and NSTEMI. Unfortunately, he has inoperable coronary artery disease and he was treated medically. He was started on Ranexa and a couple of his other medications were adjusted and he was discharged home. He said he was feeling relatively well until last night. He says he was not doing anything in particular, but then started having chest pain. He said it started on the left side and moved sort of towards the middle and radiated to his back. He also noted some nausea as well. During this time, he also started getting short of breath. These symptoms went fairly progressive through the night and then his finally insisted that he come to the emergency room. He was brought in via EMS and he was noted to have a high fever. He was given a DuoNeb en route and then was evaluated in the emergency room here. He was found to have a temperature up to 102. He was tachycardic and also noted to have some lymphopenia. Therefore, he was placed in respiratory isolation and is being admitted for pneumonia with sepsis and possible COVID-19 infection and also noted to have an elevated troponin as well. The patient did note some diarrhea as well, but no abdominal pain and he has had stable lower extremity edema and the shortness of breath is worse when he lays back. REVIEW OF SYSTEMS: All systems were reviewed and are negative except for that mentioned in the history of present illness. PAST MEDICAL HISTORY: Significant for coronary artery disease, aortic stenosis, chronic respiratory failure with COPD, diabetes mellitus, and hypertension. ALLERGIES: NO KNOWN DRUG ALLERGIES. PAST SURGICAL HISTORY: He has had a 4-vessel bypass in 1988. He had a repeat catheterization in 2017 showing all grafts were occluded with some diffuse coronary artery disease. Also around that time, he had a transcatheter aortic valve replacement in 2017 as well. He has had a right rotator cuff repair and bilateral carpal tunnel surgery. SOCIAL HISTORY: He is . He is a former smoker. He drinks moderately socially. He has 2 grown children. He would like to be a full code. FAMILY HISTORY: Significant for coronary artery disease, diabetes mellitus, and hypertension. CURRENT MEDICATIONS: Include; 1. Loratadine 10 mg daily. 2. Metoprolol 150 mg twice daily. 3. Aspirin 81 mg daily. 4. Isosorbide mononitrate extended release 30 mg daily. 5. Niacin 500 mg once daily. 6. Gabapentin 100 mg t.i.d. 7. Fluticasone nasal spray daily. 8. Atorvastatin 40 mg daily. 9. Vitamin B12 at 1000 mcg daily. 10. Dorzolamide ophthalmic. 11. Lasix 20 mg daily. 12. Zetia 10 mg daily. 13. Symbicort 160/4.5 mcg daily. 14. Latanoprost in each eye daily. 15. Chantix 1 mg twice a day. 16. Tramadol 50 mg q.6. 17. Plavix 75 mg daily. 18. Medrol 4 mg daily. PHYSICAL EXAMINATION: GENERAL: He is awake and alert. He appears to be having some respiratory distress using accessory muscles of respirations. VITAL SIGNS: Blood pressure was 87/60, respiratory rate of 30, heart rate of 120, temperature was 98.2, T-max was 102. HEENT: Pupils are equal, round, and reactive. Extraocular muscles are intact. Sclerae anicteric. Throat, no erythema, no exudates. NECK: No adenopathy. No bruits. LUNGS: He has bilateral rhonchi and rales pretty much throughout both lung wynn. CARDIOVASCULAR: His heart rate is rapid and there is possible S3. He does have a grade 1/6 to 2/6 systolic murmur. ABDOMEN: Soft, nontender, and nondistended. Positive for bowel sounds. No rebound or guarding. EXTREMITIES: He has 2+ pitting edema in both lower extremities. Palpable dorsalis pedis pulses. No calf tenderness. No joint effusions. NEUROLOGIC: Nonfocal. SKIN AND INTEGUMENT: No skin changes. No rash. LABORATORY DATA: Sodium is 138, potassium 3.5, chloride is 101, CO2 is 25, BUN of 14, creatinine 1.45, glucose is 309. Lactic acid was 4.0. Troponin was 3.7. White blood cell count 3.7, hemoglobin 14.4, hematocrit is 43, platelet count was 148. On his ABGs, the pH was 7.36, pCO2 of 40, PO2 of 60.1. EKG by my reading is sinus tachycardia. He had some ST-segment depression in V4 through V6 and also on his chest x-ray, he had cardiomegaly and bilateral pulmonary infiltrates. This is by my reading. ASSESSMENT: This is a 74-year-old gentleman, who comes with chest pain and acute respiratory failure. It appears as if he has bilateral pneumonia. He was recently hospitalized and therefore this could be a healthcare-associated pneumonia. However, with the COVID-19 pandemic going on, this is up a possibility as well, although he says that when leaving the hospital, he went home and had not been out. The patient also has signs of sepsis with hypotension, elevated lactic acid, elevated heart rate and temperature of 102.9. 1. For acute respiratory failure with hypoxemia, likely due to bilateral pneumonia, he will be placed in the ICU, placed on broad-spectrum IV antibiotics, and Pulmonary and Critical Care will be consulted. This will be treated as a hospital-acquired pneumonia at this time. However, we will avoid steroids. 2. NSTEMI, this is likely due to demand ischemia. However, he does have known history of coronary artery disease and this could be a primary cardiac event with cardiogenic shock. Cardiology will be consulted. 3. Acute on chronic obstructive pulmonary disease exacerbation. We will treat as per #1. 4. Diabetes mellitus. He will be placed on a sliding scale and reconcile and restart his home medications. 5. Hypertension. Currently, he is hypotensive and his home medications will be restarted as tolerated. The patient's overall prognosis is guarded at this time. Job ID: [id number]
[2019-10-14 12:21] LABS: Lactic Acid 4.1 mmol/L (0.5-2.2)
[2019-10-14 12:29] VITALS: BMI 29.1
[2019-10-14 12:34] LABS: Troponin I 8.311 ng/mL (< 0.028)
[2019-10-14] MEDS: Acetaminophen 325 MG TAB PO PRN ×2 (12:36→21:02)
[2019-10-14] MEDS: HumaLOG 300 UNITS/3 ML VIAL SC PRN ×3 (12:48→21:26)
[2019-10-14 13:06] VITALS: BP 105/56
[2019-10-14] MEDS ORDERED: Albumin 25% 100 ML ONE (14:36)
[2019-10-14] MEDS: Heparin 5,000 UNITS/ML VIAL SC SCH ×2 (14:41→21:03)
[2019-10-14] MEDS: PROVENTIL INHALER 6.7 G (200 INHALATIONS) INH SCH ×3 (15:09→20:59)
[2019-10-14] MEDS ORDERED: Norepinephrine 8 MG in Dextrose 5% in Water 242 ML IVPB PRN (15:35)
[2019-10-14] MEDS ORDERED: Albumin 25% 25 GM/100 ML BOT IVPB SCH (16:15)
--- NOTE | 2019-10-14 16:49 | CON ---
DATE OF CONSULTATION: 10/14/2019 HISTORY OF PRESENT ILLNESS: Mr. Beltre is a gentleman with significant chronic obstructive pulmonary disease. Apparently, he was discharged from the hospital on 10/09 with a diagnosis of chest pain that was felt to be possibly a non-ST- segment elevation myocardial infarction. The discharge physician apparently talked to him about hospice. He presents back 4 days later with chest pain again and shortness of breath. He has an alveolar infiltrate at his left base. PAST MEDICAL HISTORY: Remarkable for: 1. COPD. 2. History of aortic stenosis. 3. History of coronary artery disease. 4. History of diabetes. 5. History of hypertension. 6. History of bronchiectasis. 7. History of coronary artery bypass grafting in 1988. 8. History of carpal tunnel surgery. 9. History of rotator cuff surgery. 10. History of aortic valve replacement. SOCIAL HISTORY: He is currently not a smoker or drinker. Quit smoking last year. He had over [id number] history of smoking. FAMILY HISTORY: Negative for lung disease in early age. REVIEW OF SYSTEMS: Otherwise negative 10 points. PHYSICAL EXAMINATION: VITAL SIGNS: heart rate is 103, respiratory rates in the 20s. GENERAL: He is able to talk in short sentences. HEAD AND NECK: Unremarkable. CHEST: Remarkable for rhonchi. HEART: Regular rhythm. ABDOMEN: Soft. EXTREMITIES: Without edema. IMPRESSION: 1. Pneumonia. 2. Chronic obstructive pulmonary disease. 3. Coronary artery disease. 4. History of aortic valve replacement. 5. History of hospitalization in July, September, and October of this year. Looking back through his records, it appears he has been in the hospital as much as he has been out since April of last year. Surprisingly, I do not see where an echocardiogram has been done in the hospital recently, but does appear that Dr. Arechiga saw him on 10/07, who documented that in 2017 he had a cardiac catheterization, showing that all of his grafts were occluded and he had severe diffuse disease, not amenable to surgery. His aortic valve was referred to [facility] for a transaortic valve replacement in 2017. Apparently, he has normal ejection fraction. 6. With his relative hypotension, he should tolerate fluids. He will receive broad-spectrum antibiotics, steroids, and metered dose inhalers versus nebulizer treatments for now. Given that he has only been out of the hospital 4 days, I doubt that he has a COVID related process. We will await the screen. TIME SPENT: This is a 70-minute consult, 50% of the time was spent on the unit coordinating care. Job ID: [id number] JUAN
[2019-10-14] MEDS: Bacteriostatic Water 30 ML VIAL FS PRN (17:02)
--- NOTE | 2019-10-14 17:39 | CON ---
DATE OF CONSULTATION: HISTORY: Michelle Beltre is a 74-year-old black male with history of coronary artery disease with all grafts closed without any intervention that would be helpful on last catheterization. He has been admitted with COPD exacerbation as well as with a non-STEMI. Please see dictation from 6 days ago. He now is admitted again, complaining of chest pain and shortness of breath. He had a temperature apparently up to 102 and is under COVID rule out. PAST MEDICAL HISTORY: Please see previous dictations. PHYSICAL EXAMINATION: Blood pressure 90/54 and pulse of 102. Physical exam was deferred due to COVID rule out. DIAGNOSTIC STUDIES: EKG reveals probable atrial tachycardia with nonspecific ST and T-wave changes. Hemoglobin 14.4, hematocrit 43.0, white count 3700, and platelets 148,000. Sodium 138, potassium 3.5, chloride 101, carbon dioxide 25, BUN 14, and creatinine 1.45. Troponin-I is up to 11.760. BNP is 350.6. IMPRESSION: 1. Probable lll-QN-mafwarntz myocardial infarction. 2. Severe three-vessel coronary artery disease status post coronary artery bypass graft x4 with all grafts occluded. He is not a candidate for redo coronary artery bypass graft or any intervention with his severe disease. Certainly, he will continue to have multiple myocardial infarctions in the future. 3. Status post transaortic valve replacement. 4. Elevated temperature, rule out COVID. 5. Possible pneumonia. 6. Peripheral vascular disease. 7. Chronic obstructive pulmonary disease. 8. Former smoker, stopped 1 year ago. 9. Hypercholesterolemia. 10. Hypertension. PLAN: The patient is under COVID rule out protocol right now. From a coronary artery standpoint, there is nothing to offer. He will continue to have multiple episodes of myocardial infarction and there is really nothing that can be offered other than pain relief. Consideration may need to be given to hospice care for this problem as there is nothing further that could be offered from a Cardiology standpoint. Job ID: [id number]
[2019-10-14 17:41] LABS: Lactic Acid 3.9 mmol/L (0.5-2.2)
[2019-10-14] MEDS ORDERED: Vancomycin 1 GM in Premix Bag 1 BAG IVPB SCH (21:00)
[2019-10-14] MEDS ORDERED: Enoxaparin Sodium 40 MG/0.4 ML SYRINGE SC SCH (21:00)
[2019-10-14] MEDS: Cefepime 2 GM in Sodium Chloride 0.9% 100 ML IVPB SCH (21:01)
[2019-10-14] MEDS: ALPRAZolam 0.25 MG TAB PO PRN (21:03)
[2019-10-15] MEDS: Sodium Chloride 0.45% 1,000 ML IV SCH ×2 (02:17→15:08)
[2019-10-15 04:18] LABS: Anion Gap 15 mmol/L (10-20); BUN (Urea Nitrogen) 10 mg/dL (8.4-25.7); Calc. Creatinine Clearance 110 mL/min (70-130); Calcium 9.1 mg/dL (7.8-10.44); Carbon Dioxide 26 mmol/L (23-31); Chloride 102 mmol/L (98-107); Estimated GFR-MDRD Greater than 90; Glucose 306 mg/dL (83-110); Potassium 3.9 mmol/L (3.5-5.1); Sodium 139 mmol/L (136-145)
[2019-10-15 05:01] LABS: Band 45 % (5-11); Hemoglobin 12.6 g/dL (14.0-18.0); Lymphocytes 28 % (21-51); MDiff Complete? YES; Mean Corpuscular Hemoglobin 32.6 pg (27.0-31.0); Mean Corpuscular Volume 98.6 fL (78.0-98.0); Metamyelocyte 6 % (0-0); Monocytes 7 % (0-10); Myelocyte 1 % (0-0); Neutrophil 13 % (42-75); Platelet Count 157 thou/uL (130-400); RBC Distribution Width 12.7 % (11.5-14.5); Red Blood Cell (RBC) Count 3.86 mill/uL (4.70-6.10); White Blood Cell (WBC) Count 4.1 thou/uL (4.8-10.8)
[2019-10-15] MEDS: methylPREDNISolone Sod Succ 40 MG VIAL IVP SCH ×3 (05:40→17:34)
[2019-10-15] MEDS: HumaLOG 300 UNITS/3 ML VIAL SC PRN ×4 (06:01→20:36)
[2019-10-15] MEDS: Heparin 5,000 UNITS/ML VIAL SC SCH (07:19)
[2019-10-15] MEDS: ALPRAZolam 0.25 MG TAB PO PRN ×2 (07:19→21:45)
[2019-10-15] MEDS ORDERED: Vancomycin 1.5 GRAM/300 ML BAG 1.5 GM in Premix Bag 1 BAG IVPB SCH (08:00)
[2019-10-15] MEDS: Morphine 2 MG/ML SYRINGE SLOW IVP PRN ×3 (08:13→21:40)
[2019-10-15] MEDS: Cefepime 2 GM in Sodium Chloride 0.9% 100 ML IVPB SCH ×2 (08:13→20:37)
[2019-10-15] MEDS ORDERED: Aspirin 325 mg Enteric Coated Tablet PO SCH (09:00)
[2019-10-15] MEDS ORDERED: Clopidogrel Bisulfate 75 MG TAB PO SCH (09:00)
[2019-10-15] MEDS: PROVENTIL INHALER 6.7 G (200 INHALATIONS) INH SCH ×4 (09:08→18:15)
--- NOTE | 2019-10-15 09:11 | PDOC.HOSPP ---
- Subjective Encounter Date: 10/15/19 Encounter Time: 09:10 Subjective: Mr. Beltre was seen today in follow-up of pneumonia with sepsis. He notes a slight improvement in his breathing, but this was after receiving Morphine. He awoke with some chest pain this morning. - Objective Vital Signs & Weight: Vital Signs (12 hours) Temp Pulse Ox 10/15/19 08:00 94 L 10/15/19 07:00 97.4 F L 10/15/19 03:00 97.5 F L 10/15/19 00:26 98 10/14/19 23:00 97.5 F L Weight Weight 208 lb 12.444 oz Most Recent Monitor Data Heart Rate from ECG 119 NIBP 116/75 NIBP BP-Mean 88 Respiration from ECG 26 SpO2 74 I&O: 10/14/19 10/15/19 10/16/19 06:59 06:59 06:59 Intake Total 3766 Output Total 2600 450 Balance 1166 -450 Result Diagrams: 10/15/19 03:29 10/15/19 03:29 Additional Labs: Accuchecks 10/15/19 10/14/19 10/14/19 05:49 21:20 17:12 POC Glucose 297 H 340 H 286 H Hospitalist ROS - Medication Medications: Active Medications Generic Name Dose Route Start Last Admin Trade Name Freq PRN Reason Stop Dose Admin Acetaminophen 650 mg 10/14/19 10:58 10/14/19 21:02 Tylenol PO 650 mg Q4H PRN Administration Headache/Fever/Mild Pain (1-3) Albuterol Sulfate 2 puff 10/14/19 13:00 10/15/19 09:08 Proventil Hfa INH Not Given QID ROSARIO Alprazolam 0.25 mg 10/14/19 18:33 10/15/19 07:19 Xanax PO 0.25 mg TIDPRN PRN Administration Anxiety Aspirin 325 mg 10/15/19 09:00 10/15/19 07:19 Ecotrin PO 325 mg DAILY ROSARIO Administration Enoxaparin Sodium 40 mg 10/14/19 21:00 10/14/19 21:02 Lovenox SC 40 mg 2100 ROSARIO Administration Heparin Sodium (Porcine) 5,000 units 10/14/19 15:00 10/15/19 07:19 Heparin SC 5,000 units TID ROSARIO Administration Sodium Chloride 1,000 mls @ 75 mls/hr 10/14/19 11:00 10/15/19 02:17 1/2 Normal Saline IV 1,000 mls .[id number] ROSARIO Administration Cefepime HCl 2 gm/ Sodium 100 mls @ 200 mls/hr 10/14/19 21:00 10/15/19 08:13 Chloride IVPB 100 mls 0900,2100 ROSARIO Administration Levofloxacin 750 mg/ Device 150 mls @ 100 mls/hr 10/15/19 08:00 10/15/19 07: 19 IVPB 150 mls 0800 ROSARIO Administration Insulin Human Lispro 0 units 10/14/19 10:58 10/15/19 06:01 Humalog SC 6 unit .MODERATE SLIDING SC PRN Administration Moderate Correctional Scale Insulin Human Lispro 0 units 10/14/19 10:58 10/14/19 21:26 Humalog SC 4 unit .BEDTIME SLIDING SC PRN Administration Bedtime Correctional Scale Methylprednisolone Sodium Succinate 40 mg 10/14/19 12:00 10/15/19 05:40 Solu-Medrol IVP 40 mg Q6HR ROSARIO Administration Morphine Sulfate 2 mg 10/15/19 07:50 10/15/19 08:13 Morphine SLOW IVP 2 mg Q4H PRN Administration Chest Pain Sterile Water 1 ml 10/14/19 11:00 10/14/19 17:02 Bacteriostatic Water FS 1 ml PRN PRN Administration RECONSTITUTION - Exam Eye: PERRL Heart: RRR, no murmur, no gallops, no rubs, normal peripheral pulses, II/IV Respiratory: rales (+ rales at both bases, bilateral rhonchi, but improved from yesterday) Gastrointestinal: soft, non-tender, non-distended, normal bowel sounds, no palpable masses, no hepatomegaly Extremities: no cyanosis, no edema Hosp A/P (1) Acute on chronic respiratory failure with hypoxia Code(s): J96.21 - ACUTE AND CHRONIC RESPIRATORY FAILURE WITH HYPOXIA Status: Acute (2) Healthcare-associated pneumonia Code(s): J18.9 - PNEUMONIA, UNSPECIFIED ORGANISM Status: Acute (3) NSTEMI (non-ST elevated myocardial infarction) Code(s): I21.4 - NON-ST ELEVATION (NSTEMI) MYOCARDIAL INFARCTION Status: Acute (4) CAD (coronary artery disease) Code(s): I25.10 - ATHSCL HEART DISEASE OF [place] CORONARY ARTERY W/O ANG PCTRS Status: Chronic Qualifiers: Coronary Disease-Associated Artery/Lesion type: [place] artery [place] vs. transplanted heart: [place] heart Associated angina: without angina Qualified Code(s): I25.10 - Atherosclerotic heart disease of [place] coronary artery without angina pectoris (5) DM type 2 (diabetes mellitus, type 2) Status: Chronic Qualifiers: Diabetes mellitus intermodal dispatcher insulin use: without intermodal dispatcher use Diabetes mellitus complication status: without complication Qualified Code(s): E11.9 - Type 2 diabetes mellitus without complications (6) Hypertension Code(s): I10 - ESSENTIAL (PRIMARY) HYPERTENSION Status: Chronic Qualifiers: (7) Acute kidney injury Code(s): N17.9 - ACUTE KIDNEY FAILURE, UNSPECIFIED Status: Acute - Plan * Pneumonia ( HAP ) with severe sepsis- improving. His blood pressure has improved, and he has not yet required pressors * Continue Iv Vancomycin , Cefepime, and Levaquin * NSTEMI- due to inoperable CAD * Cardiology input appreciated * DM-will add a low dose Lantus * HTN- his blood pressure is just recovering, will try to add a low dose Beta- campbell if tolerated * Acute kidney Injury- ( Present on admission)- resolved
--- NOTE | 2019-10-15 09:25 | PRG ---
DATE OF SERVICE: 10/15/2019 SUBJECTIVE: Michelle Beltre was readmitted to the hospital. He just recently left the hospital, presented to the hospital with chest pain, possibly acute coronary syndrome. X-ray shows left-sided infiltrate this morning. He is feeling somewhat better. OBJECTIVE: VITAL SIGNS: Temperature 97, blood pressure 130/81, pulse 100, respirations 18. CHEST: Decreased breath sounds. No wheezing. CARDIAC: Normal S1 and S2. ABDOMEN: No masses. LABORATORY DATA: White count 12,000. Blood sugar is elevated. X-rays show pneumonia. Awaiting his viral serology. ASSESSMENT: Chronic obstructive pulmonary disease, pneumonia, abnormal enzymes. PLAN: Broad-spectrum antibiotics. Hopefully, we can deescalate antibiotics in the next several days. Pulmonary will follow. Long-term prognosis is very grave. Job ID: [id number]
[2019-10-15] MEDS ORDERED: Carvedilol 3.125 MG TAB PO SCH (10:00)
[2019-10-15] MEDS: Ezetimibe 10 MG TAB PO SCH (10:07)
[2019-10-15] MEDS: Gabapentin 100 MG CAP PO SCH ×3 (10:07→20:33)
[2019-10-15] MEDS: Atorvastatin Calcium 40 MG TAB PO SCH (10:07)
[2019-10-15] MEDS: Aspirin 81 mg Enteric Coated Tablet PO SCH (10:08)
--- NOTE | 2019-10-15 10:56 | PDOC.PALCO ---
Palliative Care Consult - Consult Details Requesting Physician: Cristiano Reason for Consult: goals of care, advance directives assistance, complex decision-making - Pertinent HPI 74 year old male who has a significant cardiovascular disease history with a trajectory toward decline. Recent admission to [facility] for a NSTEMI with chest pain. Not a surgical candidate so he was medically managed and discharged home. He experienced an onset of shortness of breath with subsequent chest pain , his called EMS and he was transported to [facility]. Evaluated in the emergency room and admitted for sepsis, pneumonia to CCU. - Social History Smoking Status: Former smoker Smoking: no tobacco exposure Alcohol Use: occasional Drug Use History: none Living Situation: - Medications MAR Reviewed: Yes - Allergies Allergies/Adverse Reactions: Allergies Allergy/AdvReac Type Severity Reaction Status Date / Time No Known Drug Allergies Allergy Verified 10/08/19 00:01 - ROS Constitutional: weakness Eyes: other (Denies visual changes) ENT: other (denies sore throat, congestion) Respiratory: shortness of breath, shortness of breath with extertion Cardiology: paroxysmal noc. dyspnea, orthopnea Gastrointestinal: other (currently negative for nausea, vomiting, ) Genitourinary: other (denies flank pain) Musculoskeletal: arthritis/arthralgias, limited mobility - Objective Vital Signs: Vital Signs - Most Recent Temp Pulse Resp BP Pulse Ox 97.4 F L 116 H 24 H 105/56 L 94 L 10/15/19 07:00 10/14/19 10:58 10/14/19 10:58 10/14/19 10:58 10/15/19 08:00 Palliative Performance Scale: 40 - Physical Exam Constitutional: ill appearing HEENT: EOMI, moist MMs Respiratory: labored respirations Cardiovascular: diminished peripheral pulses Gastrointestinal: soft, non-tender Genitourinary: continent Neurology: moves all 4 limbs, no focal deficits Skin: no lesions, no rash Psychiatric: A&O x 3 - Problem List (1) Palliative care encounter Code(s): Z51.5 - ENCOUNTER FOR PALLIATIVE CARE Status: Acute (2) Acute kidney injury Code(s): N17.9 - ACUTE KIDNEY FAILURE, UNSPECIFIED Status: Acute (3) Acute on chronic respiratory failure with hypoxia Code(s): J96.21 - ACUTE AND CHRONIC RESPIRATORY FAILURE WITH HYPOXIA Status: Acute (4) COPD exacerbation Code(s): J44.1 - CHRONIC OBSTRUCTIVE PULMONARY DISEASE W (ACUTE) EXACERBATION Status: Acute (5) Chronic stage c diastolic heart failure Code(s): I50.32 - CHRONIC DIASTOLIC (CONGESTIVE) HEART FAILURE Status: Chronic - Plan/Recommendations Plan: Patient has an established relationship with Palliative Care. He states he understands from Dr Arechiga that he is not a candidate for any interventions in relation to his cardiovascular disease. In communicating with him he has elected to transition to hospice to manage symptoms. *DNAR, consent obtained *OOHDNAR place on chart for Dr Quinonez *Previously on [facility] would like to transition to their hospice. J Zoraida obtained choice letter Communicated with Dr Quinonez [50] minutes spent on this encounter with >50% of the time in counseling and coordination of care. Thank you for this very appropriate consult.
[2019-10-15] MEDS ORDERED: Rivaroxaban 2.5 MG TAB PO SCH (12:45)
[2019-10-15] MEDS: Carvedilol 3.125 MG TAB PO SCH (18:31)
[2019-10-15] MEDS: Rivaroxaban 2.5 MG TAB PO SCH (20:34)
[2019-10-15] MEDS ORDERED: Insulin Glargine 10 UNITS in Pre-Filled Syringe 1 EACH SC SCH (21:00)
[2019-10-15] MEDS ORDERED: guaiFENesin ER 600 MG TAB PO SCH (22:00)
[2019-10-16] MEDS: Bacteriostatic Water 30 ML VIAL FS PRN (00:14)
[2019-10-16] MEDS: methylPREDNISolone Sod Succ 40 MG VIAL IVP SCH ×3 (00:14→12:27)
[2019-10-16] MEDS: Morphine 2 MG/ML SYRINGE SLOW IVP PRN ×2 (01:51→05:18)
[2019-10-16] MEDS: Sodium Chloride 0.45% 1,000 ML IV SCH (01:54)
[2019-10-16] MEDS: HumaLOG 300 UNITS/3 ML VIAL SC PRN ×3 (05:23→11:57)
[2019-10-16 07:46] LABS: Vancomycin, Trough 5.7 ug/mL
[2019-10-16] MEDS ORDERED: Vancomycin HCl 1.25 GM in Sodium Chloride 0.9% 250 ML 250 ML IVPB SCH (08:00)
--- NOTE | 2019-10-16 08:39 | PDOC.HOSPP ---
- Subjective Encounter Date: 10/16/19 Encounter Time: 08:38 Subjective: Mr. Beltre was seen today in follow-up of COPD exacerbation. He notes improvement in chest pain. He still has some dyspnea. He appears extremely weak. - Objective Vital Signs & Weight: Vital Signs (12 hours) Temp 10/16/19 05:00 97.7 F 10/16/19 01:00 97.9 F Weight Weight 208 lb 12.444 oz Most Recent Monitor Data Heart Rate from ECG 108 NIBP 142/77 NIBP BP-Mean 98 Respiration from ECG 16 SpO2 97 I&O: 10/15/19 10/16/19 10/17/19 06:59 06:59 06:59 Intake Total 3766 2746 Output Total 2600 2610 Balance 1166 136 Result Diagrams: 10/15/19 03:29 10/15/19 03:29 Additional Labs: Accuchecks 10/15/19 10/15/19 10/15/19 20:09 17:01 11:28 POC Glucose 241 H 191 H 228 H Hospitalist ROS - Medication Medications: Active Medications Generic Name Dose Route Start Last Admin Trade Name Freq PRN Reason Stop Dose Admin Acetaminophen 650 mg 10/14/19 10:58 10/14/19 21:02 Tylenol PO 650 mg Q4H PRN Administration Headache/Fever/Mild Pain (1-3) Albuterol Sulfate 2 puff 10/14/19 13:00 10/15/19 18:15 Proventil Hfa INH 2 puff QID ROSARIO Administration Alprazolam 0.25 mg 10/14/19 18:33 10/15/19 21:45 Xanax PO 0.25 mg TIDPRN PRN Administration Anxiety Aspirin 81 mg 10/15/19 09:00 10/15/19 10:08 Ecotrin PO Not Given DAILY ROSARIO Atorvastatin Calcium 40 mg 10/15/19 09:00 10/15/19 10:07 Lipitor PO 40 mg DAILY ROSARIO Administration Carvedilol 3.125 mg 10/15/19 17:00 10/15/19 18:31 Coreg PO Not Given BID- ROSARIO Ezetimibe 10 mg 10/15/19 09:00 10/15/19 10:07 Zetia PO 10 mg DAILY ROSARIO Administration Gabapentin 100 mg 10/15/19 09:00 10/15/19 20:33 Neurontin PO 100 mg TID ROSARIO Administration Sodium Chloride 1,000 mls @ 75 mls/hr 10/14/19 11:00 10/16/19 01:54 1/2 Normal Saline IV 1,000 mls .[id number] ROSARIO Administration Cefepime HCl 2 gm/ Sodium 100 mls @ 200 mls/hr 10/14/19 21:00 10/15/19 20:37 Chloride IVPB 100 mls 0900,2100 ROSARIO Administration Levofloxacin 750 mg/ Device 150 mls @ 100 mls/hr 10/15/19 08:00 10/15/19 07: 19 IVPB 150 mls 0800 ROSARIO Administration Insulin Glargine 10 units/ 0.1 mls @ 0 mls/hr 10/15/19 21:00 10/15/19 20:34 Miscellaneous Medication SC 0.1 mls HS ROSARIO Administration Insulin Human Lispro 0 units 10/14/19 10:58 10/16/19 05:23 Humalog SC 2 unit .MODERATE SLIDING SC PRN Administration Moderate Correctional Scale Insulin Human Lispro 0 units 10/14/19 10:58 10/15/19 20:36 Humalog SC 2 unit .BEDTIME SLIDING SC PRN Administration Bedtime Correctional Scale Methylprednisolone Sodium Succinate 40 mg 10/14/19 12:00 10/16/19 05:19 Solu-Medrol IVP 40 mg Q6HR ROSARIO Administration Morphine Sulfate 2 mg 10/15/19 07:50 10/16/19 05:18 Morphine SLOW IVP 2 mg Q4H PRN Administration Chest Pain Ranolazine 1,000 mg 10/15/19 09:00 10/15/19 20:33 Ranexa PO 1,000 mg BID ROSARIO Administration Rivaroxaban 2.5 mg 10/15/19 21:00 10/15/19 20:34 Xarelto PO 2.5 mg BID ROSARIO Administration Sterile Water 1 ml 10/14/19 11:00 10/16/19 00:14 Bacteriostatic Water FS 1 ml PRN PRN Administration RECONSTITUTION - Exam Eye: PERRL Heart: RRR, no gallops, murmur present, II/IV (+ bilateral rhonchi, and occasional wheeze) Gastrointestinal: soft, non-tender, non-distended, normal bowel sounds, no palpable masses, no hepatomegaly Extremities: no cyanosis, 1+ LE edema (trace pedal edema) Hosp A/P (1) Acute on chronic respiratory failure with hypoxia Code(s): J96.21 - ACUTE AND CHRONIC RESPIRATORY FAILURE WITH HYPOXIA Status: Acute (2) Healthcare-associated pneumonia Code(s): J18.9 - PNEUMONIA, UNSPECIFIED ORGANISM Status: Acute (3) NSTEMI (non-ST elevated myocardial infarction) Code(s): I21.4 - NON-ST ELEVATION (NSTEMI) MYOCARDIAL INFARCTION Status: Acute (4) CAD (coronary artery disease) Code(s): I25.10 - ATHSCL HEART DISEASE OF [place] CORONARY ARTERY W/O ANG PCTRS Status: Chronic Qualifiers: Coronary Disease-Associated Artery/Lesion type: [place] artery [place] vs. transplanted heart: [place] heart Associated angina: without angina Qualified Code(s): I25.10 - Atherosclerotic heart disease of [place] coronary artery without angina pectoris (5) DM type 2 (diabetes mellitus, type 2) Status: Chronic Qualifiers: Diabetes mellitus custodial insulin use: without custodial use Diabetes mellitus complication status: without complication Qualified Code(s): E11.9 - Type 2 diabetes mellitus without complications (6) Hypertension Code(s): I10 - ESSENTIAL (PRIMARY) HYPERTENSION Status: Chronic Qualifiers: (7) Acute kidney injury Code(s): N17.9 - ACUTE KIDNEY FAILURE, UNSPECIFIED Status: Acute - Plan * Pneumonia ( HAP ) with severe sepsis- improving. * He is planning to go home on Hospice * Will transition him to oral antibiotics at that time, * NSTEMI- due to inoperable CAD * DM- He will go home on his home diabetic medications * HTN- blood pressure is better
[2019-10-16] MEDS: Aspirin 81 mg Enteric Coated Tablet PO SCH (08:48)
[2019-10-16] MEDS: Carvedilol 3.125 MG TAB PO SCH (08:48)
[2019-10-16] MEDS: Gabapentin 100 MG CAP PO SCH ×2 (08:49→14:41)
[2019-10-16] MEDS: Atorvastatin Calcium 40 MG TAB PO SCH (08:49)
[2019-10-16] MEDS: Ezetimibe 10 MG TAB PO SCH (08:49)
[2019-10-16] MEDS: Rivaroxaban 2.5 MG TAB PO SCH (08:50)
[2019-10-16] MEDS ORDERED: guaiFENesin ER 600 MG TAB PO SCH (09:00)
[2019-10-16] MEDS ORDERED: Insulin Glargine 10 UNITS in Pre-Filled Syringe 1 EACH SC SCH (09:00)
[2019-10-16] MEDS: PROVENTIL INHALER 6.7 G (200 INHALATIONS) INH SCH ×2 (10:02→14:06)
[2019-10-16] MEDS: Cefepime 2 GM in Sodium Chloride 0.9% 100 ML IVPB SCH (12:27)
[2019-10-16 13:03] VITALS: TEMP 97.9
--- NOTE | 2019-10-17 02:05 | DIS ---
DATE OF ADMISSION: 10/14/2019 DATE OF DISCHARGE: 10/16/2019 PRIMARY CARE PHYSICIAN: Audra Velazco MD DISCHARGE DISPOSITION: Home with home hospice. DISCHARGE DIAGNOSES: 1. Acute on chronic respiratory failure with hypoxemia. 2. Non ST-elevated myocardial infarction. 3. History of coronary artery disease, which is inoperable. 4. Aortic stenosis. 5. Chronic respiratory failure due to chronic obstructive pulmonary disease. 6. Diabetes mellitus. 7. Hypertension. DISCHARGE MEDICATIONS: Include: 1. Ranexa 1000 mg twice a day. 2. Xalatan eyedrops 0.005% in each eye daily. 3. Imdur 30 mg daily. 4. Lasix 40 mg daily. 5. Flonase nasal spray daily. 6. Pepcid 20 mg twice daily. 7. Vitamin B12 of 1000 mcg daily. 8. Plavix 75 mg daily. 9. Aspirin 81 mg daily. 10. Mucomyst inhaled. 11. Chantix 1 mg twice daily. 12. Tramadol 50 mg as needed. 13. Niacin 500 mg at bedtime. 14. Metoprolol 150 mg twice daily. 15. Medrol 4 mg daily. 16. Gabapentin 100 mg t.i.d. 17. Zetia 10 mg daily. 18. Dorzolamide 2% in each eyes three times a day. 19. Symbicort 160/4.5 two puffs twice a day. 20. Atorvastatin 40 mg daily. CODE STATUS: DNAR. ALLERGIES: NO KNOWN DRUG ALLERGIES. HOSPITAL COURSE: Mr. Beltre is a very pleasant 74-year-old gentleman, who came to the emergency room complaining of shortness of breath as well as some chest pain. He has a history of COPD and coronary artery disease, which is inoperable as well as diabetes mellitus. He was admitted to the ICU with severe dyspnea and found to have an NSTEMI. He was also found to have hospital-acquired pneumonia as well. He was treated with IV antibiotics and was found to be septic and was hypotensive initially, but this recovered with some moderate fluid administration and IV albumin. He had a COVID screen, which was negative. He was seen by Cardiology with regard to the elevated troponin level and unfortunately he does not have coronary anatomy, which is amenable to any intervention. The patient had this discussion on a previous admission and Palliative Care was consulted once again. This time, he decided to change his code status to DNR and to leave the hospital on home hospice. He will also be discharged home on an antibiotic with regard to the pneumonia and we will continue the Levaquin. Job ID: [id number]
--- NOTE | 2019-10-17 14:25 | EKG ---
Test Reason : Blood Pressure : / mmHG Vent. Rate : 075 BPM Atrial Rate : 083 BPM P-R Int : 000 ms QRS Dur : 120 ms QT Int : 384 ms P-R-T Axes : 000 019 197 degrees QTc Int : 428 ms Atrial fibrillation with premature ventricular or aberrantly conducted complexes Inferior infarct , age undetermined Abnormal ECG Confirmed by JENY BERNAL ([id number]) on 10/17/2019 2:25:11 PM Referred By: ASIM Confirmed By:JENY BERNAL
== END 2019-10-16 15:17 | disposition hospice, home (50) | DRG 871 ==
LOC: ERS 06:58 → CCU 08:40
PROVIDERS: ADMIT Internal Medicine; ATTEND Internal Medicine
PROC: 8E0ZXY6 Isolation (ICD-10-PCS; principal; 2019-10-14)
PROC: 3E033XZ Introduction of Vasopressor into Peripheral Vein, Percutaneous Approach (ICD-10-PCS; 2019-10-15)
DX: A41.9 Sepsis, unspecified organism (principal); R57.0 Cardiogenic shock; I21.4 Non-ST elevation (NSTEMI) myocardial infarction; J18.9 Pneumonia, unspecified organism; J96.21 Acute and chronic respiratory failure with hypoxia; J44.1 Chronic obstructive pulmonary disease with (acute) exacerbation; N17.9 Acute kidney failure, unspecified; Z66 Do not resuscitate; Z51.5 Encounter for palliative care; I25.10 Atherosclerotic heart disease of native coronary artery without angina pectoris; E11.9 Type 2 diabetes mellitus without complications; I10 Essential (primary) hypertension; I35.0 Nonrheumatic aortic (valve) stenosis; I73.9 Peripheral vascular disease, unspecified; E78.00 Pure hypercholesterolemia, unspecified; Z95.1 Presence of aortocoronary bypass graft; Z87.891 Personal history of nicotine dependence; Z79.82 Long term (current) use of aspirin; Z79.02 Long term (current) use of antithrombotics/antiplatelets; Z20.828 Contact with and (suspected) exposure to other viral communicable diseases
CPT/HCPCS: 36415; 36416; 71045; 80048; 80053; 80202; 81003; 81015; 82553; 82805; 83605; 83880; 84484; 85025; 87040; 87086; 87635; 87804; 93005; 93010; 96365; 96366; 96367; 96375; 99292; J0692; J1630; J1644; J1650; J1815; J1956; J2270; J2405; J2920; J2930; J3010; J3370; J3475; J3490; J7030; J7050; P9047; U0003